=== PATIENT | male | born 1960 | race Caucasian/White ===

== ENCOUNTER 2020-04-21 07:53 | Outpatient (REF) | payer MEDICAID, SELFPAY ==
[2020-04-21 09:39] LABS: MANUAL DIFF FLAG NO
[2020-04-21 09:55] LABS: Basophils Percent Auto 0.2 % (0-2); Eosinophils Percent Auto 0.5 % (0-4); Estimated Average Glucose 111 mg/dL; Hematocrit 46.4 % (42-52); Hemoglobin 15.4 g/dl (14.0-18.0); Hemoglobin A1C 151.2643 umol/L; Hemoglobin A1c % 5.5 %; Imm Gran Abs Auto 0.03 X10*3/uL (0.00-0.03); Imm Gran Pct Auto 0.5 % (0.0-0.4); Lymphocytes Absolute Auto 1.6 X10*3/uL (1.2-4.9); Lymphocytes Percent Auto 26.2 % (20-40); Mean Corpuscular HGB Conc 33.2 g/dl (31.0-36.0); Mean Corpuscular Hemoglobin 29.7 pg (27.0-33.0); Mean Corpuscular Volume 89.6 fL (80-98); Mean Platelet Volume 9.7 fL (9.4-12.4); Monocytes Absolute Auto 0.4 X10*3/uL (0.1-1.2); Neutrophils Percent Auto 65.6 % (45-73); Platelet Count 165 X10*3/uL (160-400); Red Blood Count 5.18 X10*6/uL (4.60-5.80); Red Cell Distribution Width 13.2 % (11.0-16.0)
[2020-04-21 09:58] LABS: Alanine Aminotransferase 24 U/L (0-40); Albumin Level 4.6 g/dL (3.5-5.0); Alkaline Phosphatase 69 U/L (39-117); Anion Gap 12 (12-20); Aspartate Amino Transferase 19 U/L (5-37); Bilirubin Total 0.6 mg/dL (0.0-1.0); Blood Urea Nitrogen 24 mg/dL (9-16); Calcium 9.3 mg/dL (8.4-10.2); Carbon Dioxide 27 mmol/L (22-29); Chloride 107 mmol/L (96-108); Estimated Glomerular Filt Rate > 60; Glucose Fasting 99 mg/dL (60-99); Potassium 4.5 mmol/l (3.3-5.1); Sodium 141 mmol/L (135-145); Total Protein 7.1 g/dL (6.5-8.0)
== END 2020-04-21 07:54 | disposition home or self-care (01) ==
LOC: HO.LAB 07:53
PROVIDERS: PCP Internal Medicine Medical Oncology; Visit Provider Internal Medicine Medical Oncology
DX: M19.90 Unspecified osteoarthritis, unspecified site (principal); R97.20 Elevated prostate specific antigen [PSA]; E78.1 Pure hyperglyceridemia
CPT/HCPCS: 36415; 80053; 83036; 83735; 85025

== ENCOUNTER 2020-10-15 07:04 | Outpatient (REF) | payer MEDICAID, SELFPAY ==
[2020-10-15 08:10] LABS: MANUAL DIFF FLAG NO
[2020-10-15 08:17] LABS: Basophils Percent Auto 0.2 % (0-2); Eosinophils Percent Auto 0.7 % (0-4); Hematocrit 45.7 % (42-52); Hemoglobin 15.2 g/dl (14.0-18.0); Imm Gran Abs Auto 0.06 X10*3/uL (0.00-0.03); Imm Gran Pct Auto 1.1 % (0.0-0.4); Lymphocytes Absolute Auto 1.4 X10*3/uL (1.2-4.9); Lymphocytes Percent Auto 26.4 % (20-40); Mean Corpuscular HGB Conc 33.3 g/dl (31.0-36.0); Mean Corpuscular Hemoglobin 29.7 pg (27.0-33.0); Mean Corpuscular Volume 89.3 fL (80-98); Mean Platelet Volume 9.7 fL (9.4-12.4); Monocytes Absolute Auto 0.3 X10*3/uL (0.1-1.2); Monocytes Percent Auto 6.1 % (2-11); Neutrophils Absolute Auto 3.6 X10*3/uL (2.0-8.3); Neutrophils Percent Auto 65.5 % (45-73); Platelet Count 158 X10*3/uL (160-400); Red Blood Count 5.12 X10*6/uL (4.60-5.80); Red Cell Distribution Width 13.1 % (11.0-16.0); White Blood Count 5.5 X10*3/uL (4.8-10.8)
[2020-10-15 08:36] LABS: Cholesterol 170 mg/dL; HDL Cholesterol 45 mg/dL; LDL Cholesterol Calculated 100 mg/dl; Triglycerides 125 mg/dL
[2020-10-15 08:40] LABS: Alanine Aminotransferase 24 U/L (0-40); Albumin Level 4.3 g/dL (3.5-5.0); Alkaline Phosphatase 73 U/L (39-117); Anion Gap 12 (12-20); Aspartate Amino Transferase 17 U/L (5-37); Bilirubin Total 0.7 mg/dL (0.0-1.0); Blood Urea Nitrogen 18 mg/dL (9-16); Calcium 9.2 mg/dL (8.4-10.2); Carbon Dioxide 25 mmol/L (22-29); Chloride 109 mmol/L (96-108); Estimated Glomerular Filt Rate > 60; Glucose Fasting 106 mg/dL (60-99); Potassium 4.6 mmol/L (3.3-5.1); Sodium 141 mmol/L (135-145); Total Protein 6.7 g/dL (6.5-8.0)
[2020-10-15 09:23] LABS: Prostate Specific Antigen 5.52 ng/mL (<0.05-4.0)
== END 2020-10-15 07:05 | disposition home or self-care (01) ==
LOC: HO.LAB 07:04
PROVIDERS: PCP Internal Medicine Medical Oncology; Visit Provider Internal Medicine Medical Oncology
DX: Z12.5 Encounter for screening for malignant neoplasm of prostate (principal); M19.90 Unspecified osteoarthritis, unspecified site; R97.20 Elevated prostate specific antigen [PSA]; E78.1 Pure hyperglyceridemia; N40.0 Benign prostatic hyperplasia without lower urinary tract symptoms; R73.9 Hyperglycemia, unspecified
CPT/HCPCS: 36415; 80053; 80061; 84153; 85025

== ENCOUNTER 2021-05-20 07:09 | Outpatient (REF) | payer MEDICAID, SELFPAY ==
--- NOTE | ~2021-05-20 | XR_ITS ---
EXAMINATION: XR CHEST CLINICAL INFORMATION: History of Covid infection COMPARISON: Previous chest x-ray most recent August 2018 TECHNIQUE: 2 views of the chest were obtained. FINDINGS: The cardiac and mediastinal contours are stable. The lungs are clear. There is no pleural effusion or pneumothorax. There are degenerative changes of the spine. XR/XR chest 2V IMPRESSION: No evidence for acute disease in the chest.
== END 2021-05-20 07:10 | disposition home or self-care (01) ==
LOC: HO.XRAY 07:09
PROVIDERS: PCP Internal Medicine Medical Oncology; Visit Provider Internal Medicine Medical Oncology
DX: B34.2 Coronavirus infection, unspecified (principal)
CPT/HCPCS: 71046

== ENCOUNTER 2021-07-14 10:02 | Emergency (ER) | payer MEDICAID, SELFPAY ==
--- NOTE | ~2021-07-14 | XR_ITS ---
EXAMINATION: XR FINGER, RIGHT CLINICAL INFORMATION: From laceration. COMPARISON: None TECHNIQUE: 4 views of the right thumb. FINDINGS: There is a soft tissue laceration tip of right thumb. No underlying bony fracture or avulsion injury. There is mild soft tissue swelling. Mild loss of PIP joint space is seen. XR/XR finger RT min 2V IMPRESSION: Soft tissue laceration tip of right thumb. No underlying bony abnormality seen.
[2021-07-14 10:29] VITALS: BP 146/95; PULSE 73; RESP 18; TEMP 36.8; O2SAT 97; BMI 24.1
[2021-07-14] MEDS: Diphth,Pertus(ACell),Tet Adult 0.5 ML SYRINGE IM (12:07)
[2021-07-14] MEDS: Lidocaine HCl 1 % MPF 5 ML VIAL SUBCUT ×2 (12:07)
--- NOTE | 2021-07-14 13:10 | ED.GENADULT ---
HPI - General Adult General Chief complaint: Skin/Abscess/Foreign Body Stated complaint: wound/laceration Time Seen by Provider: 07/14/21 11:36 History of Present Illness HPI narrative: Patient complains of right thumb laceration when a circular saw slipped and cut into the pad of the tip of his right thumb, no numbness weakness or tingling Related Data Previous Rx's Medication Instructions Recorded cephalexin 500 mg tablet 500 mg PO QID 3 Days #12 tab 07/14/21 Allergies Allergy/AdvReac Type Severity Reaction Status Date / Time No Known Allergies Allergy Verified 07/14/21 10:29 [No Known Allergies*] Review of Systems Review of Systems: Positive for thumb laceration Negatives are no fever no chills no dizziness no weakness no fainting no feeling faint no headache no neck pain no back pain no numbness weakness or tingling Yes all other systems are reviewed and are negative [facility] Past Medical History Source: nursing notes reviewed Social History Social History Advance Directives: No Advance Directives Information Provided: No Physical Exam ED Vital Signs: Vital Signs - 24 hr 07/14/21 10:29 Temperature 98.3 F Pulse Rate 73 Respiratory Rate 18 Blood Pressure 146/95 H Pulse Oximetry 97 BMI result Body Mass Index 24.1 General appearance no acute distress Head is normocephalic atraumatic Neck is supple Respiratory no distress Extremities full range of motion x4 in all joints Right finger exam the right thumb has a partially avulsed pad of the distal phalanx, tendon function is full and normal there is no tendon deficit and sensation and motor are intact, the laceration is jagged Neuro no motor or sensory deficits Course Course Course Narrative: Right thumb laceration procedure note, the 2 cm right thumb flap laceration is cleansed and irrigated with normal saline, no foreign body identified Anesthesia is is 6 cc of 1% lidocaine digital block Closure was with 5 0 nylon sutures Bleeding was controlled and dressing was applied Patient is given prophylactic antibiotic, a tetanus shot and is discharged Discharge Plan Discharge Clinical Impression: Laceration of right thumb Patient Disposition: Home, Self-Care Additional Instructions: The jagged cut had some skin missing, it sutured as best I could but there are still some small open areas X-ray did not show any broken bone and on my exam I did not see any foreign bodies You got a tetanus today and we started preventive antibiotics as it looked like a somewhat dirty wound If possible by probiotics to take with her antibiotics, available [id number] at the pharmacy in the vitamin section, to prevent antibiotic associated diarrhea Stitches should come out in around 10 days Return any time for redness swelling pain discharge from wound red stripe up arm any sign of infection any worse condition or any concerns Prescriptions: New cephalexin 500 mg tablet 500 mg PO QID 3 Days Qty: 12 0RF Rx Instructions: Antibiotic to prevent infection Interventions: ED Discharge Assessment Last Done: 07/14/21 13:24 Discharge Date/Time: 07/14/21 13:26
[2021-07-14] MEDS: cephALEXin 500 MG CAPSULE PO (13:22)
== END 2021-07-14 13:26 | disposition home or self-care (01) ==
PROVIDERS: Emergency Provider Emergency Medicine; PCP Internal Medicine Medical Oncology
DX: S61.011A Laceration without foreign body of right thumb without damage to nail, initial encounter (principal); W27.0XXA Contact with workbench tool, initial encounter; Y93.9 Activity, unspecified; Y92.9 Unspecified place or not applicable; Y99.9 Unspecified external cause status
CPT/HCPCS: 12001; 73140; 90471; 90715; 99282; 99284

== ENCOUNTER 2021-07-30 06:38 | Outpatient (REF) | payer MEDICAID, SELFPAY ==
[2021-07-30 06:54] LABS: MANUAL DIFF FLAG NO
[2021-07-30 07:39] LABS: Basophils Percent Auto 0.2 % (0-2); Eosinophils Absolute Auto 0.1 X10*3/uL (0.0-0.4); Eosinophils Percent Auto 0.9 % (0-4); Hematocrit 47.4 % (42.0-52.0); Hemoglobin 15.8 g/dl (14.0-18.0); Imm Gran Abs Auto 0.03 X10*3/uL (0.00-0.03); Imm Gran Pct Auto 0.6 % (0.0-0.4); Lymphocytes Absolute Auto 1.6 X10*3/uL (1.2-4.9); Lymphocytes Percent Auto 29.4 % (20-40); Mean Corpuscular HGB Conc 33.3 g/dl (31.0-36.0); Mean Corpuscular Hemoglobin 29.8 pg (27.0-33.0); Mean Corpuscular Volume 89.3 fL (80.0-98.0); Mean Platelet Volume 9.6 fL (9.4-12.4); Monocytes Absolute Auto 0.3 X10*3/uL (0.1-1.2); Monocytes Percent Auto 6.4 % (2-11); Neutrophils Absolute Auto 3.3 x10*3/uL (2.0-8.3); Neutrophils Percent Auto 62.5 % (45-73); Platelet Count 175 X10*3/uL (160-400); Red Blood Count 5.31 X10*6/uL (4.60-5.80); White Blood Count 5.3 X10*3/uL (4.8-10.8)
[2021-07-30 07:48] LABS: Appearance Urine CLEAR; Color Urine YELLOW; Glucose Urine UA NEG (NEG); Leukocyte Esterase Urine NEG (NEG); Nitrite Urine NEG (NEG); Specific Gravity - Urine >= 1.030 (1.005-1.025); Urine Blood NEG (NEG); Urine Ketones NEG (NEG); Urine Protein NEG (NEG-TRACE)
[2021-07-30 08:02] LABS: Alanine Aminotransferase 28 U/L (0-40); Albumin Level 4.3 g/dL (3.5-5.0); Alkaline Phosphatase 70 U/L (39-117); Anion Gap 12 (12-20); Aspartate Amino Transferase 22 U/L (5-37); Bilirubin Total 0.3 mg/dL (0.0-1.0); Blood Urea Nitrogen 19 mg/dL (9-16); Calcium 9.4 mg/dL (8.4-10.2); Carbon Dioxide 26 mmol/L (22-29); Chloride 109 mmol/L (96-108); Cholesterol 191 mg/dL; Estimated Glomerular Filt Rate > 60; Glucose Random 104 mg/dL (60-115); HDL Cholesterol 47 mg/dL; LDL Cholesterol Calculated 125 mg/dl; Potassium 4.6 mmol/L (3.3-5.1); Sodium 142 mmol/L (135-145); Total Protein 6.8 g/dL (6.5-8.0); Triglycerides 95 mg/dL
[2021-07-30 08:26] LABS: Prostate Specific Antigen 6.22 ng/mL (<0.05-4.0)
== END 2021-07-30 06:39 | disposition home or self-care (01) ==
LOC: HO.LAB 06:38
PROVIDERS: PCP Internal Medicine Medical Oncology; Visit Provider Internal Medicine Medical Oncology
DX: R73.9 Hyperglycemia, unspecified (principal); R97.20 Elevated prostate specific antigen [PSA]
CPT/HCPCS: 36415; 80053; 80061; 81003; 84153; 85025

== ENCOUNTER → 2021-07-31 11:52 | Outpatient (BNVA) | payer MEDICAID, SELFPAY | PROVIDERS: PCP Internal Medicine Medical Oncology; Visit Provider Physician Assistant | DX: S61.011A Laceration without foreign body of right thumb without damage to nail, initial encounter (principal) | CPT/HCPCS: 99202 ==

== ENCOUNTER → 2021-08-11 14:12 | Outpatient (BNVA) | payer MEDICAID, SELFPAY | PROVIDERS: PCP Internal Medicine Medical Oncology; Visit Provider Orthopaedic Surgery | DX: S61.011D Laceration without foreign body of right thumb without damage to nail, subsequent encounter (principal) | CPT/HCPCS: 99212 ==

== ENCOUNTER → 2021-08-18 12:09 | Outpatient (BNVA) | payer MEDICAID, SELFPAY | PROVIDERS: PCP Internal Medicine Medical Oncology; Visit Provider Physician Assistant | DX: S61.011D Laceration without foreign body of right thumb without damage to nail, subsequent encounter (principal) | CPT/HCPCS: 99212 ==

== ENCOUNTER 2021-08-27 09:33 | Day surgery (SDC) | payer MEDICAID, SELFPAY ==
--- NOTE | 2021-08-27 09:11 | W.PM.OPN ---
Operative Note Operative Note Date of Service: 08/27/21 Narrative: Operative Note Preop diagnosis: 1. Right thumb table saw wound with necrotic tissue. Postop diagnosis: same Procedure: 1. Debridement of right thumb wound. 2. Right thumb Soft tissue rearrangements to facilitate skin coverage Surgeon: Danae Edge MD Anesthesia: digital block using 1% lidocaine with epinephrine Findings: Some necrotic skin along the radial border of the wound was found and debrided. No evidence of infection. The flap of tissue had healed in a proximally migrated position suboptimal for skin coverage. EBL: Less than 5 mL Tourniquet time: None Specimens: None Complications: None Disposition: Brought to recovery room in stable condition Plan: Follow-up for 7-10 days for wound check . Anticipate suture removal at not sooner than 10-14 days depending on the appearance of wound healing Indications: The patient is 61 years old, with table saw injury to the tip of the right thumb that had healed with some tissue necrosis and proximal migration of the flap of tissue after suture removal. The risks and benefits of operative treatment including but not limited to risk of damage to blood vessels, nerves, tendons, infection, persistent pain, persistent symptoms, recurrence or possible need for additional surgery were discussed with the patient and the patient wishes to proceed with surgery. Procedure: Once consent was obtained a digital block was performed in the preop area using a combination of 1% lidocaine with epinephrine. The patient was then brought back to the operating suite and placed on the operative table in supine position. A tourniquet was applied to the proximal aspect of the right upper extremity and the limb was prepped and draped in a standard surgical fashion. Once assured that we had a good block, I sharply debrided the necrotic tissue from the radial edge of the soft tissue flap using a 15. Blade. The ulnarly based flap had migrated proximally and ulnarly in adequately functioning as skin coverage. I then used a 15. Blade to recreate the original flap along its proximal and radial edges. Tenotomy scissors were facilitated to mobilize the flap and remove some excessive granulation tissue from the wound. The wound edges were freshened up using a 15. Blade to remove approximately 1 mm from the wound edges. The wound was copiously irrigated with normal saline. mobilizing the ulnarly based flap into position I then reapproximated the skin edges using some 4-0 Prolene suture material. The patient appears to have tolerated the procedure well and with no complications. All digits were well vascularized at the conclusion of the case.
[2021-08-27 09:45] VITALS: BP 137/75; PULSE 69; RESP 18; TEMP 36.9; O2SAT 95
[2021-08-27 09:49] VITALS: BMI 24.4
[2021-08-27 16:32] VITALS: BP 145/65; PULSE 74; RESP 18; TEMP 36.7; O2SAT 96
--- NOTE | 2021-08-27 17:05 | PC.NURSE ---
dr. alan made aware no antibiotic ordered per discharge insturcrajinder. joe to send antibiotic script to patient pharmacy
--- NOTE | 2021-08-27 18:36 | MHC.SHP ---
Pre-Procedural Eval Section A Date of Service: 08/27/21 The patient is an INPATIENT: No Changes since office visit: No Cold of Flu in the past 2 weeks, No New Medical Problems, No Changes in Medication and No Patient answered all questions The History & Physical has been completed within 30 days and I have reviewed it.: Yes Section B Chief Complaint: Laceration without foreign body of right thumb Allergies: Allergies Allergy/AdvReac Type Severity Reaction Status Date / Time No Known Allergies Allergy Verified 08/18/21 12:16 [No Known Allergies*] Plan I have reviewed the history and physical and performed a pertinent physical examination on my patient. No changes have occurred unless specified.
== END 2021-08-27 16:57 | disposition home or self-care (01) ==
PROVIDERS: PCP Internal Medicine Medical Oncology; Visit Provider Orthopaedic Surgery
PROC: (CPT 11042; principal; 2021-08-27 13:00)
DX: S61.011A Laceration without foreign body of right thumb without damage to nail, initial encounter (principal); I96 Gangrene, not elsewhere classified; W31.2XXA Contact with powered woodworking and forming machines, initial encounter; Y93.9 Activity, unspecified; Y92.9 Unspecified place or not applicable; Y99.8 Other external cause status
CPT/HCPCS: 11042; J0171

== ENCOUNTER → 2021-09-09 07:53 | Outpatient (BNVA) | payer MEDICAID, SELFPAY | PROVIDERS: PCP Internal Medicine Medical Oncology; Visit Provider Orthopaedic Surgery | DX: Z13.89 Encounter for screening for other disorder (principal) ==

== ENCOUNTER 2021-12-25 05:52 | Outpatient (REF) | payer MEDICARE, MEDICAID, SELFPAY ==
[2021-12-25 08:11] LABS: PSA,Total (Free>4and<10) 4.53 ng/mL (0.00-4.00)
[2021-12-28 11:17] LABS: Free Prostate Spec Ag 1.2 ng/mL; Percent Free Prostate Spec Ag 25 % (calc) (>25); Prostate Specific Ag Total 4.8 ng/mL (< OR = 4.0)
== END 2021-12-25 05:53 | disposition home or self-care (01) ==
LOC: HO.LAB 05:52
PROVIDERS: PCP Internal Medicine Medical Oncology; Visit Provider Internal Medicine Medical Oncology
DX: Z12.5 Encounter for screening for malignant neoplasm of prostate (principal); R97.20 Elevated prostate specific antigen [PSA]
CPT/HCPCS: 36415; 84153; 84154

== ENCOUNTER → 2022-02-04 12:50 | Outpatient (BNVA) | payer MEDICARE, MEDICAID, SELFPAY | PROVIDERS: PCP Internal Medicine Medical Oncology; Visit Provider Physician Assistant | DX: Z12.11 Encounter for screening for malignant neoplasm of colon (principal); Z86.010 Personal history of colon polyps | CPT/HCPCS: 99202 ==

== ENCOUNTER 2022-02-15 11:51 | Outpatient (REF) | payer MEDICARE, MEDICAID, SELFPAY ==
--- NOTE | ~2022-02-15 | XR_ITS ---
EXAMINATION: XR RIBS, LEFT, PA CHEST CLINICAL INFORMATION: Left-sided rib pain. COMPARISON: Chest radiographs dated 05/20/2021. TECHNIQUE: 3 views of the left ribs were obtained along with a PA view of the chest. A skin marker was placed overlying the inferior left ribs. FINDINGS: Lungs are clear. No consolidation, pneumothorax, or pleural effusion. The cardiomediastinal silhouette and pulmonary vasculature are normal. Osseous structures are unremarkable. Ribs are intact. No fractures are identified. XR/XR ribs LT min 3V w CXR1V IMPRESSION: Unremarkable examination.
== END 2022-02-15 11:52 | disposition home or self-care (01) ==
LOC: HO.XRAY 11:51
PROVIDERS: PCP Internal Medicine Medical Oncology; Visit Provider Internal Medicine Medical Oncology
DX: R07.81 Pleurodynia (principal)
CPT/HCPCS: 71101

== ENCOUNTER 2022-03-17 09:06 | Outpatient (REF) | payer MEDICARE, MEDICAID, SELFPAY ==
--- NOTE | ~2022-03-17 | XR_ITS ---
EXAMINATION: XR CHEST CLINICAL INFORMATION: Cough. COMPARISON: 02/15/2022 chest and rib radiographs. TECHNIQUE: 2 views of the chest were obtained. FINDINGS: No significant abnormality is noted involving the heart, lungs, mediastinum, bony thorax or soft tissues. XR/XR chest 2V IMPRESSION: No acute cardiopulmonary process.
== END 2022-03-17 09:07 | disposition home or self-care (01) ==
LOC: HO.XRAY 09:06
PROVIDERS: PCP Internal Medicine Medical Oncology; Visit Provider Internal Medicine Medical Oncology
DX: R05.9 Cough, unspecified (principal)
CPT/HCPCS: 71046

== ENCOUNTER 2022-06-25 06:08 | Outpatient (REF) | payer MEDICARE, MEDICAID, SELFPAY ==
[2022-06-25 06:20] LABS: MANUAL DIFF FLAG NO
[2022-06-25 07:42] LABS: Basophils Percent Auto 0.2 % (0-2); Eosinophils Absolute Auto 0.1 X10*3/uL (0.0-0.4); Eosinophils Percent Auto 0.8 % (0-4); Hematocrit 46.6 % (42.0-52.0); Hemoglobin 15.6 g/dl (14.0-18.0); Imm Gran Abs Auto 0.04 X10*3/uL (0.00-0.03); Imm Gran Pct Auto 0.7 % (0.0-0.4); Lymphocytes Absolute Auto 1.6 X10*3/uL (1.2-4.9); Lymphocytes Percent Auto 27.1 % (20-40); Mean Corpuscular HGB Conc 33.5 g/dl (31.0-36.0); Mean Corpuscular Hemoglobin 29.8 pg (27.0-33.0); Mean Corpuscular Volume 88.9 fL (80.0-98.0); Mean Platelet Volume 9.6 fL (9.4-12.4); Monocytes Absolute Auto 0.5 X10*3/uL (0.1-1.2); Monocytes Percent Auto 7.6 % (2-11); Neutrophils Absolute Auto 3.8 x10*3/uL (2.0-8.3); Neutrophils Percent Auto 63.6 % (45-73); Platelet Count 165 X10*3/uL (160-400); Red Blood Count 5.24 X10*6/uL (4.60-5.80); Red Cell Distribution Width 13.2 % (11.0-16.0)
[2022-06-25 08:22] LABS: Alanine Aminotransferase 32 U/L (0-40); Albumin Level 4.1 g/dL (3.5-5.0); Alkaline Phosphatase 76 U/L (39-117); Anion Gap 12 (12-20); Aspartate Amino Transferase 21 U/L (5-37); Bilirubin Total 0.6 mg/dL (0.0-1.0); Blood Urea Nitrogen 15 mg/dL (9-16); Calcium 8.7 mg/dL (8.4-10.2); Carbon Dioxide 25 mmol/L (22-29); Chloride 108 mmol/L (96-108); Cholesterol 176 mg/dL; Estimated Glomerular Filt Rate > 60; Glucose Fasting 99 mg/dL (60-99); HDL Cholesterol 37 mg/dL; LDL Cholesterol Calculated 89 mg/dl; Potassium 4.2 mmol/L (3.3-5.1); Sodium 141 mmol/L (135-145); Total Protein 6.6 g/dL (6.5-8.0); Triglycerides 251 mg/dL
== END 2022-06-25 06:09 | disposition home or self-care (01) ==
LOC: HO.LAB 06:08
PROVIDERS: PCP Internal Medicine Medical Oncology; Visit Provider Internal Medicine Medical Oncology
DX: J20.9 Acute bronchitis, unspecified (principal); R73.9 Hyperglycemia, unspecified; E66.3 Overweight
CPT/HCPCS: 36415; 80053; 80061; 85025

== ENCOUNTER 2022-07-06 06:15 | Outpatient (REF) | payer MEDICARE, MEDICAID, SELFPAY ==
[2022-07-06 08:48] LABS: Erythrocyte Sedimentation Rate 2 MM/HR (0-15)
[2022-07-06 09:50] LABS: Free T4 (Free Thyroxine) 0.78 ng/dL (0.71-1.85); Prostate Specific Antigen 6.39 ng/mL (<0.05-4.0); Thyroid Stimulating Hormone 4.17 uIU/mL (0.32-4.0)
[2022-07-11 10:13] LABS: Testosterone, Total 294 ng/dL (250-1100)
== END 2022-07-06 06:16 | disposition home or self-care (01) ==
LOC: HO.LAB 06:15
PROVIDERS: PCP Internal Medicine Medical Oncology; Visit Provider Internal Medicine Medical Oncology
DX: R53.83 Other fatigue (principal); R40.0 Somnolence; M19.90 Unspecified osteoarthritis, unspecified site; R97.20 Elevated prostate specific antigen [PSA]; N52.9 Male erectile dysfunction, unspecified; Z12.5 Encounter for screening for malignant neoplasm of prostate
CPT/HCPCS: 36415; 84153; 84403; 84439; 84443; 85652

== ENCOUNTER 2022-07-08 12:17 | Day surgery (SDC) | payer MEDICARE, MEDICAID, SELFPAY ==
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
[2022-07-08 06:53] VITALS: BMI 26.7
[2022-07-08 12:45] VITALS: BP 128/72; PULSE 68; RESP 20; TEMP 36.3; O2SAT 97
[2022-07-08] MEDS: Lactated Ringers 1,000 ML 100 ML IVCONT (13:04)
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
--- NOTE | 2022-07-08 14:11 | W.PM.OPN ---
Operative Note Operative Note Date of Service: 07/08/22 Narrative: Operative Information Procedure Description: Colonoscopy Indication: screening Anesthesia: MAC COLONOSCOPY Instrument: Olympus variable stiffness pediatric scope 190L Colonoscopy Monitoring: Vital signs and clinical assessment, continuous EKG monitoring, Pulse oximetry, Carbon Dioxide monitoring and blood pressure monitoring were done throughout the procedure. Colon withdrawal time was 9 minutes. Procedure: The patient was placed in the left lateral decubitis position and pre-procedure medications were administered. After a digital rectal examination of the ano-rectum, the video colonoscope was inserted into the rectum and advanced through the colon to the cecum/TI. The colonoscope was slowly withdrawn in a retrograde panoramic fashion and the colon mucosa was carefully examined including a retroflexed view of the rectum. Findings and interventions are described below. Procedure Difficulty: easy Findings: Terminal Ileum-normal Cecum: 3-4 mm sessile polyp removed with cold forceps Ascending Colon: normal Transverse Colon -normal Descending Colon:normal Sigmoid Colon: normal Rectum: Retroflexion with small internal hemorrhoids, grade I Anorectum - normal Colon preparation: [place] Bowel Preparation Scale Right colon; 3 Transverse colon: 2 Left colon; 3 (0 = Unprepared colon segment with mucosa not seen due to solid stool that cannot be cleared. 1 = Portion of mucosa of the colon segment seen, but other areas of the colon segment not well seen due to staining, residual stool and/or opaque liquid. 2 = Minor amount of residual staining, small fragments of stool and/or opaque liquid, but mucosa of colon segment seen well. 3 = Entire mucosa of colon segment seen well with no residual staining, small fragments of stool or opaque liquid) Impression and Post Procedure Diagnosis: polyp internal hemorrhoids Plan: High fiber diet leaflet Avoid straining at stool, epsom salts and sitz bath, anusol supps or cream Repeat Colonoscopy in 7-10 years if or earlier if clinically indicated Above findings were reviewed with the patient and relevant handouts were provided if indicated.
[2022-07-08 14:15] VITALS: BP 127/81; PULSE 75; RESP 18; TEMP 36.6; O2SAT 96
[2022-07-08 14:30] VITALS: BP 134/87; PULSE 66; RESP 18; TEMP 36.6; O2SAT 96
== END 2022-07-08 15:24 | disposition home or self-care (01) ==
PROVIDERS: PCP Internal Medicine Medical Oncology; Visit Provider Internal Medicine Gastroenterology
PROC: 0DJD8ZZ Inspection of Lower Intestinal Tract, Via Natural or Artificial Opening Endoscopic (ICD-10-PCS; CPT 45378; principal; 2022-07-08 13:50)
DX: Z12.11 Encounter for screening for malignant neoplasm of colon (principal); Z86.010 Personal history of colon polyps; K63.5 Polyp of colon; K64.0 First degree hemorrhoids; K21.9 Gastro-esophageal reflux disease without esophagitis; Z79.899 Other long term (current) drug therapy; Z87.442 Personal history of urinary calculi
CPT/HCPCS: 45380; 88305

== ENCOUNTER → 2022-07-20 20:30 | Outpatient (REF) | payer MEDICARE, MEDICAID, SELFPAY | LOC: HO.SL 20:30 | PROVIDERS: PCP Internal Medicine Medical Oncology; Visit Provider Internal Medicine Medical Oncology | DX: G47.33 Obstructive sleep apnea (adult) (pediatric) (principal) | CPT/HCPCS: 95811 ==

== ENCOUNTER → 2022-07-22 07:38 | Outpatient (BNVA) | payer MEDICARE, MEDICAID, SELFPAY | PROVIDERS: PCP Internal Medicine Medical Oncology; Referring Provider Internal Medicine Medical Oncology; Visit Provider Physician Assistant | DX: K63.5 Polyp of colon (principal); K64.8 Other hemorrhoids; Z98.890 Other specified postprocedural states | CPT/HCPCS: 99212 ==

== ENCOUNTER 2023-02-22 12:11 | Outpatient (AMB) | payer MEDICARE, SELFPAY ==
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
[2023-02-22 14:53] VITALS: BP 122/68; PULSE 97; TEMP 35.8; O2SAT 100
== END 2023-02-22 15:17 | disposition home or self-care (01) ==
PROVIDERS: PCP Internal Medicine Medical Oncology; Visit Provider Internal Medicine
DX: J06.9 Acute upper respiratory infection, unspecified (principal)
CPT/HCPCS: 99213

== ENCOUNTER 2023-02-22 15:13 | Outpatient (REF) | payer MEDICARE, SELFPAY ==
[2023-02-22 15:33] LABS: Binax Internal Control QC Valid; Binax Now Covid-19 Ag Negative (Negative); Binax Performed by: PAULP
== END 2023-02-22 15:14 | disposition home or self-care (01) ==
LOC: HO.HMGCLDS 15:13
PROVIDERS: PCP Internal Medicine Medical Oncology; Visit Provider Internal Medicine
DX: Z11.52 Encounter for screening for COVID-19 (principal); J06.9 Acute upper respiratory infection, unspecified
CPT/HCPCS: 87811; C9803

== ENCOUNTER 2023-06-27 05:58 | Outpatient (REF) | payer OTHER, SELFPAY ==
[2023-06-27 06:12] LABS: MANUAL DIFF FLAG NO
[2023-06-27 07:42] LABS: Basophils Percent Auto 0.3 % (0-2); Eosinophils Absolute Auto 0.1 X10*3/uL (0.0-0.4); Eosinophils Percent Auto 0.9 % (0-4); Hematocrit 46.5 % (42.0-52.0); Hemoglobin 15.9 g/dl (14.0-18.0); Imm Gran Abs Auto 0.02 X10*3/uL (0.00-0.03); Imm Gran Pct Auto 0.3 % (0.0-0.4); Lymphocytes Absolute Auto 1.6 X10*3/uL (1.2-4.9); Mean Corpuscular HGB Conc 34.2 g/dl (31.0-36.0); Mean Corpuscular Hemoglobin 29.9 pg (27.0-33.0); Mean Corpuscular Volume 87.4 fL (80.0-98.0); Mean Platelet Volume 9.8 fL (9.4-12.4); Monocytes Absolute Auto 0.4 X10*3/uL (0.1-1.2); Monocytes Percent Auto 7.1 % (2-11); Neutrophils Absolute Auto 3.7 x10*3/uL (2.0-8.3); Neutrophils Percent Auto 64.4 % (45-73); Platelet Count 170 X10*3/uL (160-400); Red Blood Count 5.32 X10*6/uL (4.60-5.80); Red Cell Distribution Width 12.8 % (11.0-16.0); White Blood Count 5.7 X10*3/uL (4.8-10.8)
[2023-06-27 08:06] LABS: Alanine Aminotransferase 34 U/L (0-40); Albumin Level 4.1 g/dL (3.5-5.0); Alkaline Phosphatase 83 U/L (39-117); Anion Gap 11 (12-20); Aspartate Amino Transferase 18 U/L (5-37); Bilirubin Total 0.4 mg/dL (0.0-1.0); Blood Urea Nitrogen 23 mg/dL (9-16); Carbon Dioxide 25 mmol/L (22-29); Chloride 110 mmol/L (96-108); Cholesterol 166 mg/dL (<200); Estimated Glomerular Filt Rate > 60; Glucose Fasting 108 mg/dL (60-99); HDL Cholesterol 43 mg/dL (>40); LDL Cholesterol Calculated 90 mg/dL (<100); Potassium 4.2 mmol/L (3.3-5.1); Sodium 142 mmol/L (135-145); Total Protein 6.8 g/dL (6.5-8.0); Triglycerides 165 mg/dL (<150)
[2023-06-27 08:22] LABS: Free T4 (Free Thyroxine) 0.74 ng/dL (0.71-1.85); Thyroid Stimulating Hormone 3.53 uIU/mL (0.32-4.0)
[2023-06-27 08:33] LABS: Erythrocyte Sedimentation Rate 2 MM/HR (0-15)
[2023-07-01 15:18] LABS: Testosterone, Total 363 ng/dL (250-1100)
== END 2023-06-27 05:59 | disposition home or self-care (01) ==
LOC: HO.LAB 05:58
PROVIDERS: PCP Internal Medicine Medical Oncology; Visit Provider Internal Medicine Medical Oncology
DX: N40.0 Benign prostatic hyperplasia without lower urinary tract symptoms (principal); R97.20 Elevated prostate specific antigen [PSA]; N52.9 Male erectile dysfunction, unspecified; R53.83 Other fatigue; E78.1 Pure hyperglyceridemia; K21.9 Gastro-esophageal reflux disease without esophagitis
CPT/HCPCS: 36415; 80053; 80061; 84403; 84439; 84443; 85025; 85652

== ENCOUNTER 2024-01-24 06:01 | Outpatient (REF) | payer MEDICARE, MEDICAID, SELFPAY ==
[2024-01-24 06:14] LABS: MANUAL DIFF FLAG NO
[2024-01-24 07:49] LABS: Basophils Percent Auto 0.2 % (0-2); Eosinophils Percent Auto 0.6 % (0-4); Hemoglobin 15.9 g/dl (14.0-18.0); Imm Gran Abs Auto 0.03 X10*3/uL (0.00-0.03); Imm Gran Pct Auto 0.6 % (0.0-0.4); Lymphocytes Absolute Auto 1.5 X10*3/uL (1.2-4.9); Lymphocytes Percent Auto 28.1 % (20-40); Mean Corpuscular HGB Conc 34.6 g/dl (31.0-36.0); Mean Corpuscular Hemoglobin 30.7 pg (27.0-33.0); Mean Corpuscular Volume 88.8 fL (80.0-98.0); Mean Platelet Volume 9.6 fL (9.4-12.4); Monocytes Absolute Auto 0.4 X10*3/uL (0.1-1.2); Monocytes Percent Auto 7.3 % (2-11); Neutrophils Absolute Auto 3.5 x10*3/uL (2.0-8.3); Neutrophils Percent Auto 63.2 % (45-73); Platelet Count 151 X10*3/uL (160-400); Red Blood Count 5.18 X10*6/uL (4.60-5.80); Red Cell Distribution Width 12.9 % (11.0-16.0); White Blood Count 5.5 X10*3/uL (4.8-10.8)
[2024-01-24 08:30] LABS: Alanine Aminotransferase 33 U/L (0-40); Albumin Level 4.3 g/dL (3.5-5.0); Alkaline Phosphatase 75 U/L (39-117); Anion Gap 11 (12-20); Aspartate Amino Transferase 21 U/L (5-37); Bilirubin Total 0.6 mg/dL (0.0-1.0); Blood Urea Nitrogen 14 mg/dL (9-16); Calcium 9.6 mg/dL (8.4-10.2); Carbon Dioxide 26 mmol/L (22-29); Chloride 109 mmol/L (96-108); Cholesterol 175 mg/dL (<200); Estimated Glomerular Filt Rate > 60; Glucose Fasting 105 mg/dL (60-99); HDL Cholesterol 45 mg/dL (>40); LDL Cholesterol Calculated 105 mg/dL (<100); Potassium 4.7 mmol/L (3.3-5.1); Sodium 141 mmol/L (135-145); Total Protein 6.9 g/dL (6.5-8.0); Triglycerides 128 mg/dL (<150)
[2024-01-24 08:42] LABS: Prostate Specific Antigen 5.35 ng/mL (<0.05-4.0)
== END 2024-01-24 06:02 | disposition home or self-care (01) ==
LOC: HO.LAB 06:01
PROVIDERS: PCP Internal Medicine Medical Oncology; Visit Provider Internal Medicine Medical Oncology
DX: R53.83 Other fatigue (principal); E78.1 Pure hyperglyceridemia; N40.0 Benign prostatic hyperplasia without lower urinary tract symptoms; Z12.5 Encounter for screening for malignant neoplasm of prostate
CPT/HCPCS: 36415; 80053; 80061; 84153; 85025

== ENCOUNTER 2024-02-29 14:19 | Outpatient (REF) | payer MEDICARE, MEDICAID, SELFPAY ==
[2024-02-29 14:34] LABS: MANUAL DIFF FLAG NO
[2024-02-29 14:53] LABS: Basophils Percent Auto 0.1 % (0-2); Eosinophils Absolute Auto 0.1 X10*3/uL (0.0-0.4); Eosinophils Percent Auto 0.7 % (0-4); Hematocrit 43.9 % (42.0-52.0); Hemoglobin 15.1 g/dl (14.0-18.0); Imm Gran Abs Auto 0.03 X10*3/uL (0.00-0.03); Imm Gran Pct Auto 0.4 % (0.0-0.4); Lymphocytes Absolute Auto 1.8 X10*3/uL (1.2-4.9); Lymphocytes Percent Auto 25.4 % (20-40); Mean Corpuscular HGB Conc 34.4 g/dl (31.0-36.0); Mean Corpuscular Hemoglobin 30.2 pg (27.0-33.0); Mean Corpuscular Volume 87.8 fL (80.0-98.0); Mean Platelet Volume 9.2 fL (9.4-12.4); Monocytes Absolute Auto 0.5 X10*3/uL (0.1-1.2); Monocytes Percent Auto 7.3 % (2-11); Neutrophils Absolute Auto 4.7 x10*3/uL (2.0-8.3); Neutrophils Percent Auto 66.1 % (45-73); Platelet Count 172 X10*3/uL (160-400); White Blood Count 7.1 X10*3/uL (4.8-10.8)
[2024-02-29 15:16] LABS: Alanine Aminotransferase 37 U/L (0-40); Albumin Level 4.2 g/dL (3.5-5.0); Alkaline Phosphatase 76 U/L (39-117); Anion Gap 13 (12-20); Aspartate Amino Transferase 24 U/L (5-37); Bilirubin Total 0.5 mg/dL (0.0-1.0); Blood Urea Nitrogen 18 mg/dL (9-16); Calcium 8.7 mg/dL (8.4-10.2); Carbon Dioxide 28 mmol/L (22-29); Chloride 107 mmol/L (96-108); Estimated Glomerular Filt Rate > 60; Glucose Random 98 mg/dL (60-115); Potassium 4.1 mmol/L (3.3-5.1); Sodium 144 mmol/L (135-145); Total Protein 6.9 g/dL (6.5-8.0)
[2024-02-29 15:37] LABS: Prostate Specific Antigen 6.36 ng/mL (<0.05-4.0)
== END 2024-02-29 14:20 | disposition home or self-care (01) ==
LOC: HO.LAB 14:19
PROVIDERS: PCP Internal Medicine Medical Oncology; Visit Provider Internal Medicine Medical Oncology
DX: N40.0 Benign prostatic hyperplasia without lower urinary tract symptoms (principal); N20.1 Calculus of ureter; Z12.5 Encounter for screening for malignant neoplasm of prostate
CPT/HCPCS: 36415; 80053; 84153; 85025; 87086

== ENCOUNTER 2024-03-12 06:03 | Outpatient (REF) | payer MEDICARE, MEDICAID, SELFPAY ==
[2024-03-13 12:09] LABS: Free Prostate Spec Ag 1.8 ng/mL; Percent Free Prostate Spec Ag 27 % (calc) (>25); Prostate Specific Ag Total 6.7 ng/mL (< OR = 4.0)
== END 2024-03-12 06:04 | disposition home or self-care (01) ==
LOC: HO.LAB 06:03
PROVIDERS: PCP Internal Medicine Medical Oncology; Visit Provider Internal Medicine Medical Oncology
DX: R97.20 Elevated prostate specific antigen [PSA] (principal)
CPT/HCPCS: 36415; 84154

== ENCOUNTER 2024-03-13 14:15 | Outpatient (REF) | payer OTHER, SELFPAY ==
[2024-03-14 11:17] LABS: Free Prostate Spec Ag 2.3 ng/mL; Percent Free Prostate Spec Ag 32 % (calc) (>25); Prostate Specific Ag Total 7.2 ng/mL (< OR = 4.0)
== END 2024-03-13 14:16 | disposition home or self-care (01) ==
LOC: HO.LAB 14:15
PROVIDERS: PCP Internal Medicine Medical Oncology; Visit Provider Internal Medicine Medical Oncology
DX: N40.0 Benign prostatic hyperplasia without lower urinary tract symptoms (principal); R97.20 Elevated prostate specific antigen [PSA]
CPT/HCPCS: 36415; 84153; 84154

== ENCOUNTER 2024-04-20 09:17 | Outpatient (AMB) | payer MEDICARE, MEDICAID, SELFPAY ==
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
== END 2024-04-20 10:01 | disposition home or self-care (01) ==
PROVIDERS: PCP Internal Medicine Medical Oncology; Visit Provider Urology
DX: R97.20 Elevated prostate specific antigen [PSA] (principal); N40.1 Benign prostatic hyperplasia with lower urinary tract symptoms
CPT/HCPCS: 99204

== ENCOUNTER → 2024-04-20 09:17 | Outpatient (BNVA) | payer MEDICARE, MEDICAID, SELFPAY | PROVIDERS: PCP Internal Medicine Medical Oncology; Visit Provider Urology | DX: R97.20 Elevated prostate specific antigen [PSA] (principal); N40.1 Benign prostatic hyperplasia with lower urinary tract symptoms | CPT/HCPCS: 51798; 99202 ==

== ENCOUNTER 2024-05-22 07:04 | Day surgery (SDC) | payer MEDICARE, MEDICAID, SELFPAY ==
[2024-05-17 15:40] VITALS: BMI 26.1
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
[2024-05-22] VITALS (7 sets, daily range): BP systolic 105–130; BP diastolic 64–79; PULSE 61–73; RESP 18; TEMP 36.2–36.7; O2SAT 95–98; BMI 24.3
--- OUTSIDE RECORDS SUMMARY | 2024-05-22 07:07 | XMS_ITS ---
Author Organization Dayton Valentin III, MD Address [address] [place] [address] Care Team Providers Care Chief Service Observer Name Role Phone Dayton Valentin Primary Care Provider Allergies Allergen (clinical drug ingredient) Drug/Non Drug Allergy documented on EMR Reaction Allergy Type Onset Date Status Vaccine product containing Influenza virus antigen (medicinal product) Influenza Vaccines Unknown Drug Allergy Ac tive REASON FOR VISIT Dysuria, Urinary frequency, Incomplete bladder emptying, Benign prostatic hypertrophy Medications Medication SIG (Take, Route, Fr equency, Duration) Notes Start Date End Date Status predniSONE 20 MG 1 tablet Orally Once a day 2023 Active Tamsulosin HCl 0.4 MG TAKE 1 CAPSULE BY MOUTH EVERY DAY FOR 30 DAYS Active Bactrim DS 800-160 MG 1 tablet Orally twice a day 02/29/2024 Active Omeprazole 20 MG TAKE 1 CAPSULE BY MO UTH EVERY DAY 30 MINUTES BEFORE MORNING MEAL Active Meloxicam 7.5 MG TAKE 1 TABLET BY BHARAT TH EVERY DAY Active Social History Tobacco Use: Social History Observation Description Date Details (start date - stop date) Never Smoker NA - NA Sex Assigned At : Social History Observation Description Sex Assigned At Male Tobacco Use/Smoking Question Answer Notes Patient is a nonsmoker Additional Findings: Tobacco Non-User Aggressive non-smoker Vital Signs Height 70 in 03/02/2024 Weight 178 lbs 03/02/2024 BMI 25.54 kg/m2 03/02/2024 Encounters Encounter Location Date Provider Diagnosis Dayton Valentin III, MD [address] [place] [address] [place] [address] 03/02/2024 Dayton Valentin Elevated PSA R97.20 ; Dysuria R30.0 ; GERD (gastroesophageal reflux disease) K21.9 ; Other specified hearing loss of both ears H91.8X3 and Overweight E66.3 Assessments Encounter Date Diagnosis (ICD Code) Assessment Notes Treatment Notes Treatment Clinical Notes 03/02/2024 Elevated PSA (ICD-10 - R97.20) His PSA has risen to 6.36. He waas given a follow-up appointment in the office in a couple of weeks after a repeat PSA with a free PSA. He will have a rectal exam at that time. If necessary he will be referred to urology. 03/02/2024 Dysuria (ICD-10 - R30.0) His frequency and dysuria have resolved. Hiss urine culture is negative. He will finish his Bactrim. Prostatitis will be considered in view of the elevated PSA. 03/02/2024 GERD (gastroesophageal reflux disease) (ICD-10 - K21.9) His symptoms are controlled with medication. He is sleeping well at night. 03/02/2024 Other specified hearing loss of both ears (ICD-10 - H91.8X3) He is involved with the ear, nose and throat physicians in the testing him to see what therapy is indicated. 03/02/2024 Overweight (ICD-10 - E66.3) He is slightly overweight. We discussed diet and nutrition. We made a plan to lose weight at a rate of one half of a pound per week. Plan Of Treatment Medication Medication Name Sig Start Date Stop Date Notes predniSONE 20 MG 1 tablet Orally Once a day 01/31/2024 Tamsulosin HCl 0.4 MG TAKE 1 CAPSULE BY MOUTH EVERY DAY FOR 30 DAYS Bactrim DS 800-160 MG 1 tablet Orally twice a day 02/29/20 24 Omeprazole 20 MG TAKE 1 CAPSULE BY [facility] EVERY DAY 30 MINUTES BEFORE MORNING MEAL Meloxicam 7.5 MG TAKE 1 TABLET BY MOUTH EVERY DAY Next Appt Details Follow Up: As Scheduled, Mar, Reason: OV, Follow-up on treatment and check on PSA levels Provider Name:Dayton Sanedrsrne, 06/05/2024 02:15:00 PM, [address] [facility] [address], [place], [address], Provider Name:Dayton Hernandezne, 09/21/2024 10:00:00 AM, [address] [facility] [address], [place], [address], Progress Notes * HECTORJe SLOANDOB:[birth year] (63 yo M)Acc No.[id number]:03/02/2024 Patient:?Je YOUNG Provider:?Dayton Valentin MD :1960???Age:63 Y???Sex:Male Isaias e:03/02/2024 Address:[address] [place], [place] [id number] Subjective: * Chief Complaints: * ???DysuriaUrinary frequencyI ncomplete bladder emptyingBenign prostatic hypertrophy * HPI: ???:?Telehealth?Location of provider rendering services:?{...} [address] [facility] [address] ?Location of patient:?address listed in demographics for today's visit ?Patient identification confirmed using:?Name, ?Telehealth method:?Telephone only. Patient not visible to care provider. ?Consent:?Patient verbally consented to treatment, Patient verbally consented to billing insurance company, Patient informed of any privacy concerns related to method of visit ?Total time spent with patient (mins)?15 ?This telehealth visit took place over 15 minutes with the patient at home and me in my office.? He gave consent for billing. The patient, a 63-year-old male, presented with symptoms of frequent urination, difficulty in emptying the bladder, and associated pain. These symptoms began a few days prior to the consultation on February 28. The patient reported that the symptoms have improved significantly since the last visit. The doctor had prescribed an antibiotic, Bactrim double strength, to be taken twice a day for 15 days. The patient has been adhering to this medication schedule. No other symptoms or triggers were reported by the patient. * ROS:?General/Constitutional:?Admits?pain,?Dysuria has resolved, currently only normal aches and pains.?Chills?denies.?Fatigue?admits.?Fever?denies.?ENT:?Decreased hearing?in both ears.?Endocrine:?Admits?Frequent urination,?with burning sensation, with nocturnal frequency.?Respiratory:?Cough?denies.?Cardiovascular:?Chest pain with exertion?denies.?Dyspnea on exertion?denies.?Shortness of breath?denies.?Gastrointestinal:?Constipation?occasional.?Decreased appetite?denies.?Diarrhea?denies.?Heartburn?denies.?Nausea?denies.?Rectal bleeding?denies.?Vomiting?denies.?Hematology:?bruising?denies.?petechiae?denies.?Swollen glands?none have been noted.?Genitourinary:?Frequent urination?denies.?Musculoskeletal:?Muscle aches?denies.?Painful joints?denies.?Sciatica?denies.?Weakness?denies.?Skin:?Itching?denies.?Rash?denies.?Skin lesion(s)?denies.?Neurologic:?Difficulty speaking?denies.?Dizziness?denies.?Headache?denies.?Low back pain?denies.?Psychiatric:?Depressed mood?denies.? * Medical History:? * Surgical History:?left knee arthroscopy 1996colonoscopy 2 polyps [facility] [place] 2011complete dental extractions cystoscopy and stent insertion left ureter for stone 04/2016lithotripsy 04/2016Right, Kidney stone removed 11/10/2016No history * Hospitalization/Major Diagno stic Procedure:?No history * Family History:?Father: dece ased 80 yrs, colon cancer, diagnosed with Cancer.?Mother: 76 yrs, copd, pneumothorax.?Children: alive.?Daughter(s): alive.?Siblings: alive.?2 brother(s) , 7 sister(s) - healthy. 1 daughter(s) - healthy. .? Two of his sisters have had back surgery. His brothers are healthy and well. There is no history of bone marrow or blood disorder or of blood clotting disorders in the family. He is not aware of any inherited cancer. Family syndromes. He is not aware of any family history of substance abuse or mental illness. The patient has no history of mental illness or substance abuse. * Social History:?Tobacco Use:?Tobacco Use/Smoking?Patient is a?nonsmoker ?Additional Findings: Tobacco Non-User?Aggressive non-smoker ???He is not a [employer]ism. He drinks one beer per week and does not smoke. 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 He is and has one daughter who is healthy. He was born in [place], [place]. * Medications:?TakingpredniSON E 20 MG Tablet 1 tablet Orally Once a day Meloxicam 7.5 MG Tablet TAKE 1 TABLET BY MOUTH EVERY DAY Omeprazole 20 MG Capsule Delayed Release TAKE 1 CAPSULE BY MOUTH EVERY DAY 30 MINUTES BEFORE MORNING MEAL Tamsulosin HCl 0.4 MG Capsule TAKE 1 CAPSULE BY MOUTH EVERY DAY FOR 30 DAYS Bactrim DS 800-160 MG Tablet 1 tablet Orally twice a day , stop date 03/14/2024Medication List reviewed and reconciled with the patientTaking predniSONE 20 MG Tablet 1 tablet Orally Once a day Taking Meloxicam 7.5 MG Tablet TAKE 1 TABLET BY MOUTH EVERY DAY Taking Omeprazole 20 MG Capsule Delayed Release TAKE 1 CAPSULE BY MOUTH EVERY DAY 30 MINUTES BEFORE MORNING MEAL Taking Tamsulosin HCl 0.4 MG Capsule TAKE 1 CAPSULE BY MOUTH EVERY DAY FOR 30 DAYS Taking Bactrim DS 800-160 MG Tablet 1 tablet Orally twice a day , stop date 03/14/2024Medication List reviewed and reconciled with the patient * Allergies:?Influenza Vaccine sno[Allergies Verified] Objective: * Vitals:?Ht: 70, Wt:178, BMI: 25.54, Ht-cm: 177.8, Wt-k.74. * ???Past Orders: Lab:Complete Blood Count Aut o Diff * Collection Date 02/29/2024 01/24/2024 06/27/2023 Collection Time 02:31 PM 06:12 AM 06:11 AM Order Date 02/29/2024 01/24/2024 06/27/2023 White Blood Count 7.1 (Ref Range: 4.8-10.8 X10*3/uL) 5.5 (Ref Range: 4.8-10.8 X10*3/uL) 5.7 (Ref Range: 4.8-10.8 X10*3/uL) Red Blood Count 5.00 (Ref Range: 4.60-5.80 X10*6/uL) 5.18 (Ref Range: 4.60-5.80 X10*6/uL) 5.32 (Ref Range: 4.60-5.80 X10*6/uL) Hemoglobin 15.1 (Ref Range: 14.0-18.0 g/dl) 15.9 (Ref Range: 14.0-18.0 g/dl) 15.9 (Ref Range: 14.0-18.0 g/dl) Hematocrit 43.9 (Ref Range: 42.0-52.0 %) 46.0 (Ref Range: 42.0-52.0 %) 46.5 (Ref Range: 42.0-52.0 %) Mean Corpuscular Volume 87.8 (Ref Range: 80.0-98.0 fL) 88.8 (Ref Range: 80.0-98.0 fL) 87.4 (Ref Range: 80.0-98.0 fL) Mean Corpuscular Hemoglobin 30.2 (Ref Range: 27.0-33.0 pg) 30.7 (Ref Range: 27.0-33.0 pg) 29.9 (Ref Range: 27.0-33.0 pg) Mean Corpuscular HGB Conc 34.4 (Ref Range: 31.0-36.0 g/dl) 34.6 (Ref Range: 31.0-36.0 g/dl) 34.2 (Ref Range: 31.0-36.0 g/dl) Red Cell Distribution Width 13.0 (Ref Range: 11.0-16.0 %) 12.9 (Ref Range: 11.0-16.0 %) 12.8 (Ref Range: 11.0-16.0 %) Platelet Count 172 (Ref Range: 160-400 X10*3/uL) 151?L (Ref Range: 160-400 X10*3/uL) 170 (Ref Range: 160-400 X10*3/uL) Mean Platelet Volume 9.2?L (Ref Range: 9.4-12.4 fL) 9.6 (Ref Range: 9.4-12.4 fL) 9.8 (Ref Range: 9.4-12.4 fL) Neutrophils Percent Auto 66.1 (Ref Range: 45-73 %) 63.2 (Ref Range: 45-73 %) 64.4 (Ref Range: 45-73 %) Imm Gran Pct Auto 0.4 (Ref Range: 0.0-0.4 %) 0.6?H (Ref Range: 0.0-0.4 %) 0.3 (Ref Range: 0.0-0.4 %) Lymphocytes Percent Auto 25.4 (Ref Range: 20-40 %) 28.1 (Ref Range: 20-40 %) 27.0 (Ref Range: 20-40 %) Monocytes Percent Auto 7.3 (Ref Range: 2-11 %) 7.3 (Ref Range: 2-11 %) 7.1 (Ref Range: 2-11 %) Eosinophils Percent Auto 0.7 (Ref Range: 0-4 %) 0.6 (Ref Range: 0-4 %) 0.9 (Ref Range: 0-4 %) Basophils Percent Auto 0.1 (Ref Range: 0-2 %) 0.2 (Ref Range: 0-2 %) 0.3 (Ref Range: 0-2 %) NRBC Pct Auto 0.0 (Ref Range: 0.0-0.2 /100WBC) 0.0 (Ref Range: 0.0-0.2 /100WBC) 0.0 (Ref Range: 0.0-0.2 /100WBC) Neutrophils Absolute Auto 4.7 (Ref Range: 2.0-8.3 x10*3/uL) 3.5 (Ref Range: 2.0-8.3 x10*3/uL) 3.7 (Ref Range: 2.0-8.3 x10*3/uL) Imm Gran Abs Auto 0.03 (Ref Range: 0.00-0.03 X10*3/uL) 0.03 (Ref Range: 0.00-0.03 X10*3/uL) 0.02 (Ref Range: 0.00-0.03 X10*3/uL) Lymphocytes Absolute Auto 1.8 (Ref Range: 1.2-4.9 X10*3/uL) 1.5 (Ref Range: 1.2-4.9 X10*3/uL) 1.6 (Ref Range: 1.2-4.9 X10*3/uL) Monocytes Absolute Auto 0.5 (Ref Range: 0.1-1.2 X10*3/uL) 0.4 (Ref Range: 0.1-1.2 X10*3/uL) 0.4 (Ref Range: 0.1-1.2 X10*3/uL) Eosinophils Absolute Auto 0.1 (Ref Range: 0.0-0.4 X10*3/uL) 0.0 (Ref Range: 0.0-0.4 X10*3/uL) 0.1 (Ref Range: 0.0-0.4 X10*3/uL) Basophils Absolute Auto 0.0 (Ref Range: 0.0-0.2 X10*3/uL) 0.0 (Ref Range: 0.0-0.2 X10*3/uL) 0.0 (Ref Range: 0.0-0.2 X10*3/uL) NRBC Abs Auto 0.000 (Ref Range: 0.0-0.012 X10*3/uL) 0.000 (Ref Range: 0.0-0.012 X10*3/uL) 0.000 (Ref Range: 0.0-0.012 X10*3/uL) * Lab:Comprehensive Met. Panel * Collection Date 02/29/2024 07/30/2021 Collection Time 02:31 PM 06:52 AM Order Date 02/29/2024 07/30/2021 Sodium 144 (Ref Range: 135-145 mmol/L) 142 (Ref Range: 135-145 mmol/L) Bilirubin Total 0.5 (Ref Range: 0.0-1.0 mg/dL) 0.3 (Ref Range: 0.0-1.0 mg/dL) Aspartate Amino Transferase 24 (Ref Range: 5-37 U/L) 22 (Ref Range: 5-37 U/L) Alanine Aminotransferase 37 (Ref Range: 0-40 U/L) 28 (Ref Range: 0-40 U/L) Total Protein 6.9 (Ref Range: 6.5-8.0 g/dL) 6.8 (Ref Range: 6.5-8.0 g/dL) Albumin Level 4.2 (Ref Range: 3.5-5.0 g/dL) 4.3 (Ref Range: 3.5-5.0 g/dL) Alkaline Phosphatase 76 (Ref Range: 39-117 U/L) 70 (Ref Range: 39-117 U/L) Potassium 4.1 (Ref Range: 3.3-5.1 mmol/L) 4.6 (Ref Range: 3.3-5.1 mmol/L) Chloride 107 (Ref Range: 96-108 mmol/L) 109?H (Ref Range: 96-108 mmol/L) Carbon Dioxide 28 (Ref Range: 22-29 mmol/L) 26 (Ref Range: 22-29 mmol/L) Anion Gap 13 (Ref Range: 12-20) 12 (Ref Range: 12-20) Blood Urea Nitrogen 18?H (Ref Range: 9-16 mg/dL) 19?H (Ref Range: 9-16 mg/dL) Creatinine 1.05 (Ref Range: 0.5-1.4 mg/dL) 1.07 (Ref Range: 0.5-1.4 mg/dL) Estimated Glomerular Filt Rate > 60 > 60 Glucose Random 98 (Ref Range: 60-115 mg/dL) 104 (Ref Range: 60-115 mg/dL) Calcium 8.7 (Ref Range: 8.4-10.2 mg/dL) 9.4 (Ref Range: 8.4-10.2 mg/dL) * Lab:Prostate Specific Antige n * Collection Date 02/29/2024 01/24/2024 07/06/2022 Collection Time 02:31 PM 06:12 AM 06:22 AM Order Date 02/29/2024 01/24/2024 07/06/2022 Prostate Specific Antigen 6.36?H (Ref Range: <0.05-4.0 ng/mL) 5.35?H (Ref Range: <0.05-4.0 ng/mL) 6.39?H (Ref Range: <0.05-4.0 ng/mL) * Lab:URINE DIP STICK * Collection Date 01/31/2024 12/28/2021 07/22/2017 Order Date 01/31/2024 12/28/2021 07/22/2017 SG 1.025 (Ref Range: 1.005 - 1.025) 1.025 1.025 pH 5.0 (Ref Range: 5.0 - 9.0) 6 5 LUIS Negative (Ref Range: Negative -) neg neg NIT Negative (Ref Range: Negative -) neg neg PRO 15 (Ref Range: Negative - Trace) trace trace GLU Negative (Ref Range: Negative -) normal normal KET Negative (Ref Range: Negative -) neg neg UBG 0.2 (Ref Range: 0.1 - 1.8) normal normal TERESA Negative (Ref Range: 0.2 - 1.3) neg neg BLD Negative (Ref Range: Negative -) neg trace Menstrating NR n/a N/A * Lab:Comprehensive [place]. Pane l Fast * Collection Date 01/24/2024 06/27/2023 06/25/2022 Collection Time 06:12 AM 06:11 AM 06:18 AM Order Date 01/24/2024 06/27/2023 06/25/2022 Sodium 141 (Ref Range: 135-145 mmol/L) 142 (Ref Range: 135-145 mmol/L) 141 (Ref Range: 135-145 mmol/L) Bilirubin Total 0.6 (Ref Range: 0.0-1.0 mg/dL) 0.4 (Ref Range: 0.0-1.0 mg/dL) 0.6 (Ref Range: 0.0-1.0 mg/dL) Aspartate Amino Transferase 21 (Ref Range: 5-37 U/L) 18 (Ref Range: 5-37 U/L) 21 (Ref Range: 5-37 U/L) Alanine Aminotransferase 33 (Ref Range: 0-40 U/L) 34 (Ref Range: 0-40 U/L) 32 (Ref Range: 0-40 U/L) Total Protein 6.9 (Ref Range: 6.5-8.0 g/dL) 6.8 (Ref Range: 6.5-8.0 g/dL) 6.6 (Ref Range: 6.5-8.0 g/dL) Albumin Level 4.3 (Ref Range: 3.5-5.0 g/dL) 4.1 (Ref Range: 3.5-5.0 g/dL) 4.1 (Ref Range: 3.5-5.0 g/dL) Alkaline Phosphatase 75 (Ref Range: 39-117 U/L) 83 (Ref Range: 39-117 U/L) 76 (Ref Range: 39-117 U/L) Potassium 4.7 (Ref Range: 3.3-5.1 mmol/L) 4.2 (Ref Range: 3.3-5.1 mmol/L) 4.2 (Ref Range: 3.3-5.1 mmol/L) Chloride 109?H (Ref Range: 96-108 mmol/L) 110?H (Ref Range: 96-108 mmol/L) 108 (Ref Range: 96-108 mmol/L) Carbon Dioxide 26 (Ref Range: 22-29 mmol/L) 25 (Ref Range: 22-29 mmol/L) 25 (Ref Range: 22-29 mmol/L) Anion Gap 11?L (Ref Range: 12-20) 11?L (Ref Range: 12-20) 12 (Ref Range: 12-20) Blood Urea Nitrogen 14 (Ref Range: 9-16 mg/dL) 23?H (Ref Range: 9-16 mg/dL) 15 (Ref Range: 9-16 mg/dL) Creatinine 1.07 (Ref Range: 0.5-1.4 mg/dL) 1.06 (Ref Range: 0.5-1.4 mg/dL) 1.12 (Ref Range: 0.5-1.4 mg/dL) Estimated Glomerular Filt Rate > 60 > 60 > 60 Glucose Fasting 105?H (Ref Range: 60-99 mg/dL) 108?H (Ref Range: 60-99 mg/dL) 99 (Ref Range: 60-99 mg/dL) Calcium 9.6 (Ref Range: 8.4-10.2 mg/dL) 9.0 (Ref Range: 8.4-10.2 mg/dL) 8.7 (Ref Range: 8.4-10.2 mg/dL) * Lab:Lipid Panel * Collection Date 01/24/2024 06/27/2023 06/25/2022 Collection Time 06:12 AM 06:11 AM 06:18 AM Order Date 01/24/2024 06/22/2023 06/25/2022 Triglycerides 128 (Ref Range: <150 mg/dL) 165?H (Ref Range: <150 mg/dL) 251 (Ref Range: mg/dL) Cholesterol 175 (Ref Range: <200 mg/dL) 166 (Ref Range: <200 mg/dL) 176 (Ref Range: mg/dL) LDL Cholesterol Calculated 105?H (Ref Range: <100 mg/dL) 90 (Ref Range: <100 mg/dL) 89 (Ref Range: mg/dl) HDL Cholesterol 45 (Ref Range: >40 mg/dL) 43 (Ref Range: >40 mg/dL) 37 (Ref Range: mg/dL) Assessment: * Assessment: 1.?Elevated PSA - R97.20 (Pr imary)???Notes :His PSA has risen to 6.36.? He waas given a follow-up appointment in the office in a couple of weeks after a repeat PSA with a free PSA.? He will have a rectal exam at that time.? If necessary he will be referred to urology.???2.?Dysuria - R30.0???Notes :His frequency and dysuria have resolved.? Hiss urine culture is negative.? He will finish his Bactrim.? Prostatitis will be considered in view of the elevated PSA.???3.?GERD (gastroesophageal reflux disease) - K21.9???Notes :His symptoms are controlled with medication. He is sleeping well at night.???4.?Other specified hearing loss of both ears - H91.8X3???Notes :He is involved with the ear, nose and throat physicians in the testing him to see what therapy is indicated.???5.?Overweight - E66.3???Notes :He is slightly overweight. We discussed diet and nutrition. We made a plan to lose weight at a rate of one half of a pound per week.??? Plan: * Treatment: 2.?Others? Continue Meloxicam Tablet, 7.5 MG, TAKE 1 TABLET BY MOUTH EVERY DAY;?Continue Omeprazole Capsule Delayed Release, 20 MG, TAKE 1 CAPSULE BY MOUTH EVERY DAY 30 MINUTES BEFORE MORNING MEAL;?Continue Tamsulosin HCl Capsule, 0.4 MG, TAKE 1 CAPSULE BY MOUTH EVERY DAY FOR 30 DAYS;?Continue Bactrim DS Tablet, 800-160 MG, 1 tablet, Orally, twice a day;?Continue predniSONE Tablet, 20 MG, 1 tablet, Orally, Once a day.?? * Procedure Codes:?00237 PHONE E/M BY PHYS 11-20 MIN * Preventive Medicine:? ??Counseling:?Care goal follow-up plan:?Counseling for abnormal BMI given?Yes ?Above Normal BMI Follow-up?Dietary management education, guidance, and counseling, Dietary needs education * Follow Up:?As Scheduled, Mar (Reason: OV, Follow-up on treatment and check on PSA levels) * Images: * Sign off status: Completed true * Provider:?Dayton Valentin MD Date:?02/10 Generated for Valerie yarbrough/Leo/Krystal on:?05/22/2024 07:07 AM EST History and Physical Notes * HPI (History of Present Illness) Category Sub-Category Detail Notes Telehealth Location of [facility] rendering services:: {...} [address] [place] [address] [address] [facility] [address] Location of patient:: address listed in demographics for today's visit Patient identification confirmed using:: Name, Telehealth method:: Telephone only. Sue ent not visible to care provider. Consent:: Patient verbally c onsented to treatment, Patient verbally consented to billing insurance company, Patient informed of any privacy concerns related to method of visit Total time spent with patient (mins): 15
--- OUTSIDE RECORDS SUMMARY | 2024-05-22 07:07 | XMS_ITS ---
Author Organization Dayton Valentin III, MD Address [address] [place] [address] Care Team Providers Care Picker Tender Name Role Phone Dayton Valentin Primary Care Provider [phone] Allergies Allergen (clinical drug ingredient) Drug/Non Drug Allergy documented on EMR Reaction Allergy Type Onset Date Status Vaccine product containing Influenza virus antigen (medicinal product) Influenza Vaccines Unknown Drug Allergy Ac tive Results Component Value Reference Range Notes PSA Free and Total Reviewed date:03/15/2024 02:54:07 PM Interpretation: Performing Lab:[facility], [address] [place] [id number] Notes/Report: results Prostate Specific Ag Total 7.2 < OR = 4.0 ng/ mL Percent Free Prostate Spec Ag 32 >25 % (calc ) PSA(ng/mL) Free PSA(%) Estimated(x) Probability of Cancer(as%) 0-2.5 (*) Approx. 1 2.6-4.0(1) 0-27(2) 24(3) 4.1-10(4) 0-10 56 11-15 28 16-20 20 21-25 16 >or =26 8 >10(+) N/A >50 References:(1)Rigoberto et al.:Urology 60: 469-474 (2002) (2)Yohanaona et al.:J.Urol 168: 922-925 (2001) Free PSA(%) Sensitivity(%) Specificity(%) < or = 25 85 19 < or = 30 93 9 (3)Yohanaona et al.:ROSALIND 277: 5417-9569 (1996) (4)Catalona et al.:ROSALIND 279: 1345-1750 (1997) (x)These estimates vary with age, ethnicity, family history and CALI results. (*)The diagnostic usefulness of % Free PSA has not been established in patients with total PSA below 2.6 ng/mL (+)In men with PSA above 10 ng/mL, prostate cancer risk is determined by total PSA alone. The Total PSA value from this assay system is standardized against the equimolar PSA standard. The test result will be approximately 20% higher when compared to the WHO-standardized Total PSA (Siemens assay). Comparison of serial PSA results should be interpreted with this fact in mind. PSA was performed using the Cecelia Hamburg Immunoassay method. Values obtained from different assay methods cannot be used interchangeably. PSA levels, regardless of value, should not be interpreted as absolute evidence of the presence or absence of disease. THIS TEST WAS PERFORMED AT: [facility] [address] [address] ELIDA PEREZ MD Free Prostate Spec Ag 2.3 Reason For Referral Reason elevated PSA and Kevin e PSA recent prostatism evaluate and treat Diagnosis 1 BPH (benign prostati c hyperplasia) (N40.0) Diagnosis 2 Elevated PSA (R97.20 ) Referral Organization Dayton Valentin III, MD Referring Provider First Name Dayton Referring Provider Last Name Barbie Referring Provider Speciality Internal M edicine Referred Provider Brandon Morrison Referred Provider Specialty Urology General Notes Maribell Hackett [facility] 03/19 11:47:08 AM > ref/demo/progress note / labs faxed to Dr Kramer office, Maribell Hackett [facility] 03/22/2024 01:48:58 PM >I called [facility] at [phone] spoke to Linda she gave me appt for patient on 04/20/2024 at 9:00 am pt called and mailed this appt information Referral Priority Routine Referral Appointment Date 04/20/2024 REASON FOR VISIT Urinary frequency, Nocturia, Dysuria, Kidney stones Medications Medication SIG (Take, Route, Fr equency, Duration) Notes Start Date End Date Status Meloxicam 7.5 MG TAKE 1 TABLET BY BHARAT TH EVERY DAY Active Omeprazole 20 MG TAKE 1 CAPSULE BY MO UTH EVERY DAY 30 MINUTES BEFORE MORNING MEAL Active Bactrim DS 800-160 MG 1 tablet Orally twice a day 02/29/2024 Active predniSONE 20 MG 1 tablet Orally Once a day 2023 Active Tamsulosin HCl 0.4 MG TAKE 1 CAPSULE BY MOUTH EVERY DAY FOR 30 DAYS Active Social History Tobacco Use: Social History Observation Description Date Details (start date - stop date) Never Smoker NA - NA Sex Assigned At : Social History Observation Description Sex Assigned At Male Tobacco Use/Smoking Question Answer Notes Patient is a nonsmoker Additional Findings: Tobacco Non-User Aggressive non-smoker Vital Signs Temperature 98.4 degrees Fahrenheit 03/13/20 24 Blood pressure systolic 135 mm Hg 03/13/20 24 Blood pressure diastolic 75 mm Hg 024 Heart Rate 75 /min 03/13/2024 Height 70 in 03/13/2024 Weight 182 lbs 03/13/2024 BMI 26.11 kg/m2 03/13/2024 Encounters Encounter Location Date Provider Diagnosis Dayton Valentin III, MD [address] [place] [address] [place] [address] 03/13/2024 Dayton Valentin BPH (benign prostati c hyperplasia) N40.0 ; Elevated PSA R97.20 ; GERD (gastroesophageal reflux disease) K21.9 ; Degenerative joint disease M19.90 ; Ureterolithiasis N20.1 and Overweight E66.3 Assessments Encounter Date Diagnosis (ICD Code) Assessment Notes Treat ment Notes Treatment Clinical Notes 03/13/2024 BPH (benign prostati c hyperplasia) (ICD-10 - N40.0) His urinary frequency has improved substantially with tamsulosin. He is rising from slleep 2 or 3 times a night. I have asked for repeat PSA and then urology consultation. 03/13/2024 Elevated PSA (ICD-10 - R97.20) His PSA has increased slightly to 6.36. I have requested a free PSA and a urology consultation. 03/13/2024 GERD (gastroesophage al reflux disease) (ICD-10 - K21.9) His symptoms are controlled with medication. He is sleeping well at night. 03/13/2024 Degenerative joint disease (ICD-10 - M19.90) He will continue on his use of ibuprofen. He was encouraged to stay active. 03/13/2024 Ureterolithiasis (ICD-10 - N20.1) He reports no kidney stones recently. The ddiscomfort with urinating is primarily urethral. 03/13/2024 Overweight (ICD-10 - E66.3) He is slightly overweight. We discussed diet and nutrition. We made a plan to lose weight at a rate of one half of a pound per week. Plan Of Treatment Medication Medication Name Sig Start Date Stop Date Notes Meloxicam 7.5 MG TAKE 1 TABLET BY MOUTH EVERY DAY Omeprazole 20 MG TAKE 1 CAPSULE BY MO UTH EVERY DAY 30 MINUTES BEFORE MORNING MEAL Bactrim DS 800-160 MG 1 tablet Orally twice a day 02/29/20 predniSONE 20 MG 1 tablet Orally Once a day 01/31/2024 Tamsulosin HCl 0.4 MG TAKE 1 CAPSULE BY MOUTH EVERY DAY FOR 30 DAYS Pending Test Test Name Order Date PSA, TOTAL 03/13/2024 Referrals Referral Date Details 03/13/2024 03/13/2024, elevated PSA and Free PSA recent prostatism evaluate and treat, Brandon Morrison Next Appt Details Follow Up: as scheduled, Aft er urologist visit, Reason: ov no tests, To discuss the results of the urologist visit and the special blood test on PSA Provider Name:Dayton Valentin, 06/05/2024 02:15:00 PM, [address] [place] [address] [address], [place], [phone], Provider Name:Dayton Valentin, 09/21/2024 10:00:00 AM, [address] [place] [address] [address], [place], [phone], Progress Notes * Je YOUNGDOB:[birth year] (63 yo M)Acc No.[id number]:03/13/2024 Progress Notes Patient:?Je YOUNG Provider:?Dayton Valentin MD :1960???Age:63 Y???Sex:Male Isaias e:03/13/2024 Address:[address] [place], [place] [id number] Subjective: * Chief Complaints: * ???Urinary frequencyNocturia DysuriaKidney stones * HPI: ???COVID-19 Screening:?Questions?Have you experienced fever, chills, cough, sore throat, shortness of breath, difficulty breathing, muscle aches, loss of taste or smell??No ?Have you been exposed to the virus within the last 10 days??No ?Have you travelled internationally in the last 10 days??No ?Have you been exposed to COVID-19 in the past??No ???:? The patient, a 63-year-old male, reported that he had been experiencing frequent urination, which had improved with medication. However, he mentioned that he was still urinating a bit. He also reported that his bones were always hurting him, particularly his knees, which he had surgery on, and his hands. He denied any back pain. The patient's Prostate-Specific Antigen (PSA) levels were found to be elevated, having increased from 5 to 6 since June. The patient also reported that he had gained 4 lbs since his last visit. * ROS:?General/Constitutional:?pain?Knees and low back and occasionally with urinating.?Chills?denies.?Fatigue?admits.?Fever?denies.?ENT:?Decreased hearing?denies.?Endocrine:?Admits?Frequent urination,?Every 2 hours, Occasional dysuria, no hematuria.?Respiratory:?Cough?denies.?Cardiovascular:?Chest pain with exertion?denies.?Dyspnea on exertion?denies.?Shortness of breath?denies.?Gastrointestinal:?Constipation?occasional.?Decreased appetite?denies.?Diarrhea?denies.?Heartburn?denies.?Nausea?denies.?Rectal bleeding?denies.?Vomiting?denies.?Hematology:?bruising?denies.?petechiae?denies.?Swollen glands?none have been noted.?Genitourinary:?Frequent urination?three times a night.?Musculoskeletal:?Muscle aches?denies.?Painful joints?denies.?Sciatica?denies.?Weakness?denies.?Skin:?Itching?denies.?Rash?denies.?Skin lesion(s)?denies.?Neurologic:?Difficulty speaking?denies.?Dizziness?denies.?Headache?denies.?Low back pain?denies.?Psychiatric:?Depressed mood?denies.? * Medical History:? * Surgical History:?left knee arthroscopy 1996colonoscopy 2 polyps [facility] June 2011complete dental extractions cystoscopy and stent insertion left ureter for stone 04/2016lithotripsy 04/2016Right, Kidney stone removed 11/10/2016No history Knee surgery * Hospitalization/Major Diagno stic Procedure:?No history * [...] history of mental illness or substance abuse. Youngest brother diagnosed with face cancer. * Social History:?Tobacco Use:?Tobacco Use/Smoking?Patient is a?nonsmoker ?Additional Findings: Tobacco Non-User?Aggressive non-smoker ???He is not a Hindu. He drinks one beer per week and does not smoke. 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 He is and has one daughter who is healthy. He was born in [place], [place]. * Medications:?TakingMeloxicam 7.5 MG Tablet TAKE 1 TABLET BY MOUTH EVERY DAY Omeprazole 20 MG Capsule Delayed Release TAKE 1 CAPSULE BY MOUTH EVERY DAY 30 MINUTES BEFORE MORNING MEAL Tamsulosin HCl 0.4 MG Capsule TAKE 1 CAPSULE BY MOUTH EVERY DAY FOR 30 DAYS predniSONE 20 MG Tablet 1 tablet Orally Once a day Taking Meloxicam 7.5 MG Tablet TAKE 1 TABLET BY MOUTH EVERY DAY Taking Omeprazole 20 MG Capsule Delayed Release TAKE 1 CAPSULE BY MOUTH EVERY DAY 30 MINUTES BEFORE MORNING MEAL Taking Tamsulosin HCl 0.4 MG Capsule TAKE 1 CAPSULE BY MOUTH EVERY DAY FOR 30 DAYS Taking predniSONE 20 MG Tablet 1 tablet Orally Once a day DiscontinuedBactrim DS 800- 160 MG Tablet 1 tablet Orally twice a day Medication List reviewed and reconciled with the patientDiscontinued Bactrim DS 800-160 MG Tablet 1 tablet Orally twice a day Medication List reviewed and reconciled with the patient * Allergies:?Influenza Vaccine sno[Allergies Verified] Objective: * Vitals:?Ht: 70, Wt:182, BMI: 26.11, BP:135/75, HR:75, Temp:98.4, Ht-cm: 177.8, Wt-k.55. * ???Past Orders: Lab:Prostate Specific Antige n * Collection Date 02/29/2024 01/24/2024 07/06/2022 Collection Time 02:31 PM 06:12 AM 06:22 AM Order Date 02/29/2024 01/24/2024 07/06/2022 Prostate Specific Antigen 6.36?H (Ref Range: <0.05-4.0 ng/mL) 5.35?H (Ref Range: <0.05-4.0 ng/mL) 6.39?H (Ref Range: <0.05-4.0 ng/mL) * Lab:Lipid Panel * Collection Date 01/24/2024 [...] Range: >40 mg/dL) 37 (Ref Range: mg/dL) * Lab:Comprehensive Hurricane. Pane l Fast * Collection Date 01/24/2024 [...] mg/dL) 8.7 (Ref Range: 8.4-10.2 mg/dL) * Lab:Complete Blood Count Aut o Diff * [...] X10*3/uL) 0.000 (Ref Range: 0.0-0.012 X10*3/uL) * Lab:URINE DIP STICK * Collection Date [...] trace Menstrating NR n/a N/A * Lab:Comprehensive Met. Panel * Collection Date [...] 8.4-10.2 mg/dL) 9.4 (Ref Range: 8.4-10.2 mg/dL) ???Lab:Urine Culture (Order Date - 02/29/2024) (Collection Date & Time - 02/29/2024 12:11 PM)?ValueReference Range?Urine Cultureurogenital contamination.-?Clinical Info: PLEASE FAX COMPLETED RESULTS TO [phone],Please have this testing done as soon as possible * Lab:PSA Free and Total * Collection Date 03/13/2024 03/12/2024 12/25/2021 Collection Time 02:34 PM 06:15 AM 08:11 AM Order Date 03/13/2024 03/12/2024 12/25/2021 Prostate Specific Ag Total 7.2?A (Ref Range: < OR = 4.0 ng/mL) 6.7?A (Ref Range: < OR = 4.0 ng/mL) 4.8?A (Ref Range: < OR = 4.0 ng/mL) Percent Free Prostate Spec Ag 32 (Ref Range: >25 % (calc)) 27 (Ref Range: >25 % (calc)) 25?A (Ref Range: >25 % (calc)) Free Prostate Spec Ag 2.3 (Ref Range: ng/mL) 1.8 (Ref Range: ng/mL) 1.2 (Ref Range: ng/mL) Clinical Info: PLEASE FAX COMPLETED RESULTS TO [phone],Please have this testing done as soon as possible * Examination: ???General Examination: ?GENERAL APPEARANCE:?pleasant, well nourished, well developed, in no acute distress, calm and relaxed, overweight, man.?HEAD:?atraumatic, normocephalic.?EYES:?eomi, perrla, anicteric, conjugate.?EARS:?normal.?NOSE:?septum intact.?ORAL CAVITY:?normal, unremarkable, Edentulous.?NECK/THYROID:?no jugular venous distention, no carotid bruit, thyroid normal.?LYMPH NODES:?no enlarged lymph nodes,spleen normal.?SKIN:?no suspicious lesions, anicteric.?HEART:?no clicks, gallops, murmurs, or rubs, regular rhythm, S1, S2 normal, no s3, or vascular bruits.?LUNGS:?clear to auscultation .?BREASTS:??no masses palpable bilaterally.?ABDOMEN:?bowel sounds normal, no ascites, no organomegaly, no mass, overweight.?RECTAL EXAM:?not examined.?MUSCULOSKELETAL:?extremities unremarkable, no clubbing, cyanosis or edema.?PERIPHERAL PULSES:?normal.?NEUROLOGIC:?alert and oriented, cranial nerves 2-12 grossly intact, deep tendon reflexes 2+ symmetrical, motor strength normal upper and lower extremities, sensory exam intact.?PSYCH:?alert, oriented.? Assessment: * Assessment: 1.?BPH (benign prostatic hyp erplasia) - N40.0 (Primary)???Notes :His urinary frequency has improved substantially with tamsulosin.? He is rising from slleep 2 or 3 times a night.? I have asked for repeat PSA and then urology consultation.???2.?Elevated PSA - R97.20???Notes :His PSA has increased slightly to 6.36.? I have requested a free PSA and a urology consultation.???3.?GERD (gastroesophageal reflux disease) - K21.9???Notes :His symptoms are controlled with medication. He is sleeping well at night.???4.?Degenerative joint disease - M19.90???Notes :He will continue on his use of ibuprofen. He was encouraged to stay active.???5.?Ureterolithiasis - N20.1???Notes :He reports no kidney stones recently. The ddiscomfort with urinating is primarily urethral.???6.?Overweight - E66.3???Notes :He is slightly overweight. We discussed diet and nutrition. We made a plan to lose weight at a rate of one half of a pound per week.??? Plan: * Treatment: 2.?Elevated PSA?LAB: PSA, TOTAL ?LAB: PSA Free and Total (Collection Date & Time - 03/13/2024 02:34 PM) ? Value Reference Range ?Prostate Specific Ag Total 7.2 A < OR = 4.0 - ng/mL * ?Percent Free Prostate Spec Ag 32 >25 - % (calc) * ?Free Prostate Spec Ag 2.3 - ng/mL ? Referral To:Iglesia Kramer ([place])??Urology ?Reason:elevatedPSA and Free PSA recent prostatism evaluate and treat 3.?Others? Continue Meloxicam Tablet, 7.5 MG, TAKE 1 [...] tablet, Orally, Once a day.?? * Procedure Codes:? * Preventive Medicine:? ??Counseling:?Care goal follow-up plan:?Counseling for abnormal BMI given?Yes ?Above Normal BMI Follow-up?Dietary management education, guidance, and counseling, Dietary needs education * Follow Up:?as scheduled, Aft er urologist visit (Reason: ov no tests, To discuss the results of the urologist visit and the special blood test on PSA) * Images: * Sign off status: Completed true * Provider:?Dayton Valentin MD Date:?06/2023 Generated for Printi ng/Leo/eTransmitting on:?05/22/2024 07:07 AM EST History and Physical Notes * HPI (History of Present Illness) Category Sub-Category Detail Notes COVID-19 Screening Questions Have you had any new onset fever, chills, cough, congestion, sore throat, shortness of breath, muscle aches?: No Have you been exposed to the virus withi n the last 10 days?: No Have you travelled internationally in [facility] last 10 days?: No Have you been exposed to COVID-19 in the past?: No Examination Category Sub-Category Detail Notes General Examination GENERAL APPEARANCE: pleasant , well nourished, well developed, in no acute distress, calm and relaxed, overweight, man HEAD: atraumatic, normocep halic EYES: eomi, perrla, anicte sage, conjugate EARS: normal NOSE: septum intact NECK/THYROID: no jugular venous di stention, no carotid bruit, thyroid normal HEART: no clicks, gallops, murmurs, or rubs, regular rhythm, S1, S2 normal, no s3, or vascular bruits LUNGS: clear to auscultatio n ABDOMEN: bowel sounds normal, no ascites, no organomegaly, no mass, overweight NEUROLOGIC: alert and oriented, cranial nerves 2-12 grossly intact, deep tendon reflexes 2+ symmetrical, motor strength normal upper and lower extremities, sensory exam intact SKIN: no suspicious lesion s, anicteric PERIPHERAL PULSES: normal BREASTS: no masses palpable b ilaterally MUSCULOSKELETAL: extremities unremark able, no clubbing, cyanosis or edema LYMPH NODES: no enlarged lymph no deanna,spleen normal RECTAL EXAM: not examined PSYCH: alert, oriented ORAL CAVITY: normal, unremarkable , Edentulous Consultation Request Notes Referral Date Referring Provider Referred Provider Not es 03/13/2024 Dayton Valentin Corlis elevat ed PSA and Free PSA recent prostatism evaluate and treat
--- OUTSIDE RECORDS SUMMARY | 2024-05-22 07:08 | XMS_ITS ---
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 Role Phone Dayton Valentin Primary Care Provider Allergies Allergen (clinical drug ingredient) Drug/Non Drug Allergy documented on EMR Reaction Allergy Type Onset Date Status Vaccine product containing Influenza virus antigen (medicinal product) Influenza Vaccines Unknown Drug Allergy Ac tive Results Component Value Reference Range Notes Urine Culture Reviewed date:03/05/2024 07:37:52 AM Interpretation: Performing Lab:[facility], [address] [place] [phone] Notes/Report: Urine Culture Report Result Urine Culture > 100,000 cfu/ml Urine Culture Mixed bacterial jules a characteristic of Urine Culture urogenital contamination. REASON FOR VISIT Pain when urinating x 4 days, Lower back pain x 4 days, Recent onset urinary frequency and urgency,Incomplete bladder emptying Medications Medication SIG (Take, Route, Fr equency, Duration) Notes Start Date End Date Status Bactrim DS 800-160 MG 1 tablet Orally tw ice a day for 14 days 02/29/2024 03/14/2024 Active Omeprazole 20 MG TAKE 1 CAPSULE BY [facility] EVERY DAY 30 MINUTES BEFORE MORNING MEAL Active Tamsulosin HCl 0.4 MG TAKE 1 CAPSULE BY MOUTH EVERY DAY FOR 30 DAYS Active Meloxicam 7.5 MG TAKE 1 TABLET BY [facility] EVERY DAY Active predniSONE 20 MG 1 tablet Orally Once a day 2023 Active Social History Tobacco Use: Social History Observation Description Date Details (start date - stop date) Never Smoker NA - NA Sex Assigned At : Social History Observation Description Sex Assigned At Male Tobacco Use/Smoking Question Answer Notes Patient is a nonsmoker Additional Findings: Tobacco Non-User Aggressive non-smoker Vital Signs Temperature 97.2 degrees Fahrenheit 02/29/20 24 Blood pressure systolic 129 mm Hg 02/29/20 24 Blood pressure diastolic 79 mm Hg 024 Heart Rate 72 /min 02/29/2024 Height 70 in 02/29/2024 Weight 178 lbs 02/29/2024 BMI 25.54 kg/m2 02/29/2024 Encounters Encounter Location Date Provider Diagnosis Dayton Valentin III, MD [address] [place] [address] [place] [address] 02/29/2024 Dayton Valentin BPH (benign prostati c hyperplasia) N40.0 ; Ureterolithiasis N20.1 ; GERD (gastroesophageal reflux disease) K21.9 ; Degenerative joint disease M19.90 ; Migraine without aura and without status migrainosus, not intractable G43.009 ; Elevated PSA R97.2 ; Overweight E66.3 and Prepatellar bursitis of right knee M70.41 Assessments Encounter Date Diagnosis (ICD Code) Assessment Notes Treat ment Notes Treatment Clinical Notes 02/29/2024 BPH (benign prostati c hyperplasia) (ICD-10 - N40.0) He is known to have prostatism and has been compliant with taking his tamsulosin.He now presents with dysuria and a marked increase in frequency. He has a strong sense of incomplete bladder emptying but no fever or chills. The differential is early urinary retention, prostate infection or cystitis. His PSA is slightly elevated consistent with prostate cancer or prostate infection. The blood work shows a normal white blood cell count. He has been given an antibiotic and a follow-up in 48 hours. 02/29/2024 Ureterolithiasis (ICD-10 - N20.1) He reports no kidney stones recently. The ddiscomfort with urinating is primarily urethral. 02/29/2024 GERD (gastroesophage al reflux disease) (ICD-10 - K21.9) His symptoms are controlled with medication. He is sleeping well at night. 02/29/2024 Degenerative joint disease (ICD-10 - M19.90) He will continue on his use of ibuprofen. He was encouraged to stay active. 02/29/2024 Migraine without aur a and without status migrainosus, not intractable (ICD-10 - G43.009) He has had no further migraine headaches since February 16, 2018. In the emergency room. If it returns. She will call me once. 02/29/2024 Elevated PSA (ICD-10 - R97.2) His PSA has increased from 5.5 up to 6.2. I have ordered a free PSA. 02/29/2024 Overweight (ICD-10 - E66.3) He is slightly overweight. We discussed diet and nutrition. We made a plan to lose weight at a rate of one half of a pound per week. 02/29/2024 Prepatellar bursitis of right knee (ICD-10 - M70.41) I have explained to him the nature of the swelling. I told him to use a heating pad and ibuprofen and rest. The prognosis is good he should slowly return to normal. Plan Of Treatment Medication Medication Name Sig Start Date Stop Date Notes Bactrim DS 800-160 MG 1 tablet Orally tw ice a day for 14 days 02/29/2024 03/14/2024 Omeprazole 20 MG TAKE 1 CAPSULE BY [facility] EVERY DAY 30 MINUTES BEFORE MORNING MEAL Tamsulosin HCl 0.4 MG TAKE 1 CAPSULE BY MOUTH EVERY DAY FOR 30 DAYS Meloxicam 7.5 MG TAKE 1 TABLET BY MOUTH EVERY DAY predniSONE 20 MG 1 tablet Orally Once a day 01/31/2024 Next Appt Details Follow Up: Tuesday, Tuesday, R earnest: TV review labs/urine done at , To assess the effectiveness of the treatment for the prostate infection. Provider Name:Dayton Valentin, 06/05/2024 02:15:00 PM, [address] [place] [address] [address], [place], [address], Provider Name:Dayton Valentin, 09/21/2024 10:00:00 AM, [address] [place] [address] [address], [place], [address], Progress Notes * Je YOUNGDOB:[birth year] (63 yo M)Acc No.[id number]:02/29/2024 Progress Notes Patient:Je LINARES Provider:?Dayton Valentin MD :1960???Age:63 Y???Sex:Male Isaias e:02/29/2024 Address:[address] [place], [place] [phone] Subjective: * Chief Complaints: * ???Pain when urinating x 4 d aysLower back pain x 4 daysRecent onset urinary frequency and urgencyIncomplete bladder emptying * HPI: ???COVID-19 Screening:?Questions?Have you experienced fever, chills, cough, sore throat, shortness of breath, difficulty breathing, muscle aches, loss of taste or smell??No ?Have you been exposed to the virus within the last 10 days??No ?Have you travelled internationally in the last 10 days??No ?Have you been exposed to COVID-19 in the past??No ???:? The patient, a 63-year-old male, presented with a sudden onset of urinary symptoms that started four days prior to the consultation. He reported frequent urination, with a feeling of incomplete bladder emptying and associated pain. The patient also mentioned experiencing back pain, which started around the same time as the urinary symptoms. The pain was intermittent and seemed to be located in the lower back. The patient also reported a burning sensation during urination. There were no associated symptoms such as fever or blood in the urine. The patient's symptoms seemed to have worsened over the past month, with an increase in the frequency of urination, sometimes as often as every 20 minutes. The patient denied any triggers or modifying factors for his symptoms. * ROS:?General/Constitutional:?Admits?pain,?During urination for the last 4 days.?Chills?denies.?Fatigue?admits.?Denies?Fever,?denies.?ENT:?Decreased hearing?denies.?Endocrine:?Admits?Frequent urination.?Respiratory:?Cough?denies.?Cardiovascular:?Chest pain with exertion?denies.?Dyspnea on exertion?denies.?Shortness of breath?denies.?Gastrointestinal:?Constipation?occasional.?Decreased appetite?denies.?Diarrhea?denies.?Heartburn?denies.?Nausea?denies.?Rectal bleeding?denies.?Vomiting?denies.?Hematology:?bruising?denies.?petechiae?denies.?Swollen glands?none have been noted.?Genitourinary:?Frequent urination?three times a night.?Musculoskeletal:?Muscle aches?denies.?Painful joints?denies.?Sciatica?denies.?Weakness?denies.?Skin:?Itching?denies.?Rash?denies.?Skin lesion(s)?denies.?Neurologic:?Difficulty speaking?denies.?Dizziness?denies.?Headache?denies.?Low back pain?denies.?Psychiatric:?Depressed mood?denies.? * Medical History:? * Surgical History:?left knee arthroscopy 1996colonoscopy 2 polyps C June 2011complete dental extractions cystoscopy and stent [...] Tobacco Non-User?Aggressive non-smoker ???He is not a Bahai. He drinks one beer per week and does not smoke. 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 He is and has one daughter who is healthy. He was born in [place], [place]. * Medications:?TakingMeloxicam 7.5 MG Tablet TAKE 1 TABLET BY MOUTH EVERY DAY Omeprazole 20 MG Capsule Delayed Release TAKE 1 CAPSULE BY MOUTH EVERY DAY 30 MINUTES BEFORE MORNING MEAL Tamsulosin HCl 0.4 MG Capsule TAKE 1 CAPSULE BY MOUTH EVERY DAY FOR 30 DAYS predniSONE 20 MG Tablet 1 tablet Orally Once a day Medication List reviewed and reconciled with the patientTaking Meloxicam 7.5 MG Tablet TAKE 1 TABLET BY MOUTH EVERY DAY Taking Omeprazole 20 MG Capsule Delayed Release TAKE 1 CAPSULE BY MOUTH EVERY DAY 30 MINUTES BEFORE MORNING MEAL Taking Tamsulosin HCl 0.4 MG Capsule TAKE 1 CAPSULE BY MOUTH EVERY DAY FOR 30 DAYS Taking predniSONE 20 MG Tablet 1 tablet Orally Once a day Medication List reviewed and reconciled with the patient * Allergies:?Influenza Vaccine sno[Allergies Verified] Objective: * Vitals:?Ht: 70, Wt:178, BMI: 25.54, BP:129/79, HR:72, Temp:97.2, Ht-cm: 177.8, Wt-k.74. * Examination: ???General Examination: ?GENERAL APPEARANCE:?pleasant, well nourished, well developed, in no acute distress, calm and relaxed.?HEAD:?atraumatic, normocephalic.?EYES:?eomi, perrla, anicteric, conjugate.?EARS:?normal.?NOSE:?septum intact.?ORAL CAVITY:?normal, unremarkable.?NECK/THYROID:?no jugular venous distention, no carotid bruit, thyroid normal.?LYMPH NODES:?no enlarged lymph nodes,spleen normal.?SKIN:?no suspicious lesions, anicteric, Warm and dry.?HEART:?no clicks, gallops, murmurs, or rubs, regular rhythm, S1, S2 normal, no s3, or vascular bruits.?LUNGS:?clear to auscultation .?BREASTS:??no masses palpable bilaterally.?ABDOMEN:?bowel sounds normal, no ascites, no organomegaly, no mass.?RECTAL EXAM:?not examined.?MUSCULOSKELETAL:?extremities unremarkable, no clubbing, cyanosis or edema.?PERIPHERAL PULSES:?normal.?NEUROLOGIC:?alert and oriented, cranial nerves 2-12 grossly intact, deep tendon reflexes 2+ symmetrical, motor strength normal upper and lower extremities, sensory exam intact.?PSYCH:?alert, oriented.? : ???Rectal exam:The doctor performed a rectal exam to check the patient's prostate. The doctor noted a little bulging and a small nodule, but nothing severe. ???Genitourinary - Male: ?PENIS:?normal.?URETHRA:?normal.?TESTICLES:?normal.?PROSTATE:?Slightly enlarged slightly nodular right upper lobe nontender.? Assessment: * Assessment: 1.?BPH (benign prostatic hyp erplasia) - N40.0 (Primary)???Notes :He is known to have prostatism and has been compliant with taking his tamsulosin.He now presents with dysuria and a marked increase in frequency.? He has a strong sense of incomplete bladder emptying but no fever or chills.? The differential is early urinary retention, prostate infection or cystitis.? His PSA is slightly elevated consistent with prostate cancer or prostate infection.? The blood work shows a normal white blood cell count.? He has been given an antibiotic and a follow-up in 48 hours.???2.?Ureterolithiasis - N20.1???Notes :He reports no kidney stones recently.? The ddiscomfort with urinating is primarily urethral.???3.?GERD (gastroesophageal reflux disease) - K21.9???Notes :His symptoms are controlled with medication. He is sleeping well at night.???4.?Degenerative joint disease - M19.90???Notes :He will continue on his use of ibuprofen. He was encouraged to stay active.???5.?Migraine without aura and without status migrainosus, not intractable - G43.009???Notes :He has had no further migraine headaches since February 16, 2018. In the emergency room. If it returns. She will call me once.???6.?Elevated PSA - R97.2???Notes :His PSA has increased from 5.5 up to 6.2. I have ordered a free PSA.???7.?Overweight - E66.3???Notes :He is slightly overweight. We discussed diet and nutrition. We made a plan to lose weight at a rate of one half of a pound per week.???8.?Prepatellar bursitis of right knee - M70.41???Notes :I have explained to him the nature of the swelling. I told him to use a heating pad and ibuprofen and rest. The prognosis is good he should slowly return to normal.??? Plan: * Treatment: 2.?Ureterolithiasis?LAB: PROFILE, RANDOM (COMPREHENSIVE METABOLIC) ?LAB: PSA, TOTAL ?LAB: CBC w DIFF ?LAB: Urine Culture 3.?Others? Continue Meloxicam Tablet, 7.5 MG, TAKE 1 TABLET BY MOUTH EVERY DAY;?Continue Omeprazole Capsule Delayed Release, 20 MG, TAKE 1 CAPSULE BY MOUTH EVERY DAY 30 MINUTES BEFORE MORNING MEAL;?Continue Tamsulosin HCl Capsule, 0.4 MG, TAKE 1 CAPSULE BY MOUTH EVERY DAY FOR 30 DAYS;?Start Bactrim DS Tablet, 800-160 MG, 1 tablet, Orally, twice a day, 14 days, 28 Tablet, Refills 0.?? * Procedure Codes:? * Preventive Medicine:? ??Counseling:?Care goal follow-up plan:?Counseling for abnormal BMI given?Yes ?Above Normal BMI Follow-up?Dietary management education, guidance, and counseling * Follow Up:?Tuesday, Tuesday (Seth tinoco: TV review labs/urine done at , To assess the effectiveness of the treatment for the prostate infection.) * Images: * Sign off status: Completed true * Provider:?Dayton Valentin MD Date:?02/10 Generated for Yamileti zenon/Leo/Shakeelitting on:?05/22/2024 07:07 AM EST History and Physical Notes * HPI (History of Present Illness) Category Sub-Category Detail Notes COVID-19 Screening Questions Have you had any new onset fever, chills, cough, congestion, sore throat, shortness of breath, muscle aches?: No Have you been exposed to the virus withi n the last 10 days?: No Have you travelled internationally in last 10 days?: No Have you been exposed to COVID-19 in the past?: No Examination Category Sub-Category Detail Notes Genitourinary - Male TESTICLES: normal PENIS: normal PROSTATE: Slightly enlarged sl ightly nodular right upper lobe nontender URETHRA: normal General Examination GENERAL APPEARANCE: pleasant , well nourished, well developed, in no acute distress, calm and relaxed HEAD: atraumatic, normocep halic EYES: eomi, perrla, anicte sage, conjugate EARS: normal NOSE: septum intact NECK/THYROID: no jugular venous di stention, no carotid bruit, thyroid normal HEART: no clicks, gallops, murmurs, or rubs, regular rhythm, S1, S2 normal, no s3, or vascular bruits LUNGS: clear to auscultatio n ABDOMEN: bowel sounds normal, no ascites, no organomegaly, no mass NEUROLOGIC: alert and oriented, cranial nerves 2-12 grossly intact, deep tendon reflexes 2+ symmetrical, motor strength normal upper and lower extremities, sensory exam intact SKIN: no suspicious lesion s, anicteric, Warm and dry PERIPHERAL PULSES: normal BREASTS: no masses palpable b ilaterally MUSCULOSKELETAL: extremities unremark able, no clubbing, cyanosis or edema LYMPH NODES: no enlarged lymph no deanna,spleen normal RECTAL EXAM: not examined PSYCH: alert, oriented ORAL CAVITY: normal, unremarkable
[2024-05-22] MEDS: Lactated Ringers 1,000 ML 100 ML IVCONT (08:03)
--- NOTE | 2024-05-22 09:00 | MHC.SHP ---
Pre-Procedural Eval Section A - 24 Hr Update-Section A only Date of Service: 05/22/24 The patient is an INPATIENT: No The patient has been examined within 24 hours of the surgical procedure. The History & Physical has been completed within 30 days and I have reviewed it.: Yes Section B - Complete if H&P > 30 days Chief Complaint: Elevated prostate specific antigen [PSA] Allergies: Allergies Allergy/AdvReac Type Severity Reaction Status Date / Time Influenza Virus Vaccines Allergy Unknown Verified 05/17/24 15:39 Plan Diagnosis/Plan: Unchanged I have reviewed the history and physical and performed a pertinent physical examination on my patient. No changes have occurred unless specified. Transrectal Ultrasound guided biopsy of the prostate. Discussed risks to include but not limited to pain, blood in stool, urine and semen, septicemia, need to repeat biopsy. Time Spent With Patient Time: Total time managing care of this patient today ____ minutes.
--- NOTE | 2024-05-22 09:52 | W.PM.OPN ---
Operative Note Operative Note Date of Service: 05/22/24 Narrative: PreOperative Diagnosis:? ? Elevated PSA Post Operative Diagnosis:??Elevated PSA Procedure:?1. Transrectal ultrasound guided biopsy of the prostate 12 core 2. Transrectal ultrasound measurement of prostate 3. Transrectal ultrasound guided pudendal nerve block Surgeon:?Dr Brandon Morrison Anesthesia:? General Indications for procedure: Elevated PSA Procedure: The patient was brought into the OR room, placed and the OR table in supine position general anesthesia was given, the patient was repositioned in the left lateral position. Preoperative antibiotics confirmed. Patient identity confirmed. Safety pause time-out performed. Iodine mixed with lubricant jelly 30 cc placed per rectum. Ultrasound probe was placed per rectum. The prostate was visualized. The prostate was measured width 5.48 cm, height 3.88 cm, length 6.00 cm with a volume of 66.8 mL. An ultrasound guided pudendal nerve block was performed using 10 cc of 1% lidocaine. A 12 core biopsy was performed from the left base, left mid, left apex and right base, mid, apex 2 biopsies from each section. The ultrasound probe was removed and digital palpation of the prostate for 1-2 minutes for hemostasis was performed. The patient tolerated the procedure well. Complications: None EBL: minimal
== END 2024-05-22 11:10 | disposition home or self-care (01) ==
PROVIDERS: PCP Internal Medicine Medical Oncology; Visit Provider Urology
PROC: (CPT 55700; principal; 2024-05-22 08:50)
DX: R97.20 Elevated prostate specific antigen [PSA] (principal); N42.89 Other specified disorders of prostate
CPT/HCPCS: 55700; 76942; 88305; 88344; J0696; J2003; J2250; J2405; J2704; J3010

== ENCOUNTER → 2024-05-22 07:04 | Outpatient (BNV) | payer MEDICARE, MEDICAID, SELFPAY | PROVIDERS: PCP Internal Medicine Medical Oncology; Visit Provider Urology | DX: R97.20 Elevated prostate specific antigen [PSA] (principal) | CPT/HCPCS: 55700; 76872; 76942 ==

== ENCOUNTER 2024-05-26 08:06 | Outpatient (REF) | payer MEDICARE, MEDICAID, SELFPAY ==
--- OUTSIDE RECORDS SUMMARY | 2024-05-26 08:08 | XMS_ITS ---
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 Role Phone Dayton Valentin Primary Care [...] Date Provider Diagnosis Dayton Valentin III, MD [address] [place] [address] [place] [address] 03/02/2024 Dayton Valentin Elevated PSA R97.20 ; [...] Omeprazole 20 MG TAKE 1 CAPSULE BY [facility] EVERY DAY 30 MINUTES BEFORE MORNING MEAL Meloxicam 7.5 MG TAKE 1 TABLET BY MOUTH EVERY DAY Next Appt Details Follow Up: As Scheduled, Mar, Reason: OV, Follow-up on treatment and check on PSA levels Provider Name:Dayton Sandersrne, 06/05/2024 02:15:00 PM, [address], [place], [address], Provider Name:Dayton Hernandezne, 09/21/2024 10:00:00 AM, [address], [place], [phone], Progress Notes * HECTORJe SLOANDOB:[birth year] (63 yo M)Acc No.[id number]:03/02/2024 Patient:?Je YOUNG Provider:?Dayton Valentin MD :1960???Age:63 Y???Sex:Male Isaias e:03/02/2024 Address:[address] [place], [place] [id number] Subjective: * Chief Complaints: * ???DysuriaUrinary frequencyI ncomplete bladder emptyingBenign prostatic hypertrophy * HPI: ???:?Telehealth?Location of provider rendering services:?{...} [address] [facility] [address] ?Location of patient:?address listed in demographics for [...] Surgical History:?left knee arthroscopy 1996colonoscopy 2 polyps [facility] June 2011complete dental extractions cystoscopy and stent [...] Tobacco Non-User?Aggressive non-smoker ???He is not a Adventist. He drinks one beer per week and does not smoke. 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 He is and has one daughter who is healthy. He was born in [place], [place]. * Medications:?TakingpredniSON E 20 MG Tablet [...] trace Menstrating NR n/a N/A * Lab:[facility] * Collection Date 01/24/2024 [...] tablet, Orally, Once a day.?? * Procedure Codes:?71664 PHONE E/M BY PHYS 11-20 MIN * Preventive Medicine:? ??Counseling:?Care goal follow-up plan:?Counseling for abnormal BMI given?Yes ?Above Normal BMI Follow-up?Dietary management education, guidance, and counseling, Dietary needs education * Follow Up:?As Scheduled, Mar (Reason: OV, Follow-up on treatment and check on PSA levels) * Images: * Sign off status: Completed true * Provider:?Dayton Valentin MD Date:?02/10 Generated for Valerie yarbrough/Leo/Krystal on:?05/26/2024 08:08 AM EST History and Physical Notes * HPI (History of Present Illness) Category Sub-Category Detail Notes Telehealth Location of [facility] rendering services:: {...} [address] [place] [address] Drive [address] [facility] [address] Location of patient:: address listed in demographics [...]
--- OUTSIDE RECORDS SUMMARY | 2024-05-26 08:09 | XMS_ITS ---
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 Name Role Phone Dayton Valentin Primary Care Provider [phone] Allergies Allergen (clinical drug ingredient) Drug/Non Drug Allergy documented on EMR Reaction Allergy Type Onset Date Status Vaccine product containing Influenza virus antigen (medicinal product) Influenza Vaccines Unknown Drug Allergy Ac tive Results Component Value Reference Range Notes PSA Free and Total Reviewed date:03/15/2024 02:54:07 PM Interpretation: Performing Lab:[facility], [address] [place] [id number] Notes/Report: results Prostate Specific Ag Total 7.2 [...] 30 93 9 (3)Yohanaona et al.:ROSALIND 277: 8566-9361 (1996) (4)Catalona et al.:ROSALIND 279: 9457-4830 (1997) (x)These estimates vary with age, ethnicity, [...] mind. PSA was performed using the Cecelia [place] Immunoassay method. Values obtained from different assay methods cannot be used interchangeably. PSA levels, regardless of value, should not be interpreted as absolute evidence of the presence or absence of disease. THIS TEST WAS PERFORMED AT: [facility] [address] [address] ELIDA PEREZ MD Free Prostate Spec Ag [...] Provider Specialty Urology General Notes Maribell Hackett [facility] 03/19 11:47:08 AM > ref/demo/progress note / labs faxed to Dr Kramer office, Maribell Hackett [facility] 03/22/2024 01:48:58 PM >I called [facility] at [phone] spoke to Linda she gave me appt [...] Date Provider Diagnosis Dayton Valentin III, MD [address] [place] [address] [place] [address] 03/13/2024 Dayton Valentin BPH (benign prostati c [...] PSA Provider Name:Dayton Valentin, 06/05/2024 02:15:00 PM, [address] [place] [address] [address], [place], [phone], Provider Name:Dayton Valentin, 09/21/2024 10:00:00 AM, [address] [place] [address] [address], [place], [phone], Progress Notes * Je YOUNGDOB:[birth year] (63 yo M)Acc No.[id number]:03/13/2024 Progress Notes Patient:?Je YOUNG Provider:?Dayton Valentin MD :1960???Age:63 Y???Sex:Male Isaias e:03/13/2024 Address:[address] [place], [place] [id number] Subjective: * Chief Complaints: * ???Urinary frequencyNocturia [...] Surgical History:?left knee arthroscopy 1996colonoscopy 2 polyps [facility] June 2011complete dental extractions cystoscopy and [...] Tobacco Non-User?Aggressive non-smoker ???He is not a Baptism. He drinks one beer per week and does not smoke. 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 He is and has one daughter who is healthy. He was born in [place], [place]. * Medications:?TakingMeloxicam 7.5 MG Tablet TAKE [...] mg/dL) 37 (Ref Range: mg/dL) * Lab:[facility] * Collection Date 01/24/2024 [...] contamination.-?Clinical Info: PLEASE FAX COMPLETED RESULTS TO [phone],Please have this testing done as soon as [...] Clinical Info: PLEASE FAX COMPLETED RESULTS TO [phone],Please have this testing done as soon as [...] Provider:?Dayton Valentin MD Date:?06/2023 Generated for Printi ng/Telmag/eTransmitting on:?05/26/2024 08:08 AM EST History and Physical Notes * HPI (History of Present Illness) Category Sub-Category Detail Notes COVID-19 Screening Questions Have you had any new onset fever, chills, cough, congestion, sore throat, shortness of breath, muscle aches?: No Have you been exposed to the virus withi n the last 10 days?: No Have you travelled internationally in [facility] last 10 days?: No Have you been [...]
--- OUTSIDE RECORDS SUMMARY | 2024-05-26 08:09 | XMS_ITS ---
Author Organization Dayton Valentin III, MD Address [address] [place] [address] Care Team Providers Care Preparation Operator Name Role Phone Dayton Valentin Primary Care Provider Allergies Allergen (clinical drug ingredient) Drug/Non Drug Allergy documented on EMR Reaction Allergy Type Onset Date Status Vaccine product containing Influenza virus antigen (medicinal product) Influenza Vaccines Unknown Drug Allergy Ac tive Results Component Value Reference Range Notes Urine Culture Reviewed date:03/05/2024 07:37:52 AM Interpretation: Performing Lab:[facility], [address] [place] [phone] Notes/Report: Urine Culture Report Result Urine Culture [...] Omeprazole 20 MG TAKE 1 CAPSULE BY [facility] EVERY DAY 30 MINUTES BEFORE MORNING [...] Date Provider Diagnosis Dayton Valentin III, MD [address] [place] [address] [place] [address] 02/29/2024 Dayton Valentin BPH (benign prostati c [...] Omeprazole 20 MG TAKE 1 CAPSULE BY [facility] EVERY DAY 30 MINUTES BEFORE MORNING [...] infection. Provider Name:Dayton Valentin, 06/05/2024 02:15:00 PM, [address] [place] [address] [address], [place], [phone], Provider Name:Dayton Valentin, 09/21/2024 10:00:00 AM, [address] [place] [address] [address], [place], [phone], Progress Notes * Je YOUNGDOB:[birth year] (63 yo M)Acc No.[id number]:02/29/2024 Progress Notes Patient:Je LINARES Provider:?Dayton Valentin MD :1960???Age:63 Y???Sex:Male Isaias e:02/29/2024 Address:[address] [place], [place] [id number] Subjective: * Chief Complaints: * ???Pain when [...] Tobacco Non-User?Aggressive non-smoker ???He is not a Rastafarian. He drinks one beer per week and does not smoke. 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 He is and has one daughter who is healthy. He was born in [place], [place]. * Medications:?TakingMeloxicam 7.5 MG Tablet TAKE [...] Valentin MD Date:?02/10 Generated for Yamileti zenon/Leo/Shakeelitting on:?05/26/2024 08:09 AM EST History and Physical Notes * [...]
[2024-05-26 08:25] LABS: Appearance Urine Turbid; Color Urine Yellow; Glucose Urine UA Negative (Negative); Leukocyte Esterase Urine Negative (Negative); Nitrite Urine Negative (Negative); PH 5.5 (5.0-9.0); Specific Gravity - Urine 1.015 (1.005-1.025); UMIC TRIGGER UA YES; Urine Blood Moderate (2+) (Negative); Urine Ketones Negative (Negative); Urine Protein Negative (Neg-Trace)
[2024-05-26 08:39] LABS: Bacteria Urine None Seen (None Seen); Calcium Oxalate Crystals Urine Present; Hyaline Casts Urine 0-2 /LPF (0-2); Squamous Epithelial Cell Urine 0-2 /HPF (0-2); WBC Urine 0-5 /HPF (0-5)
== END 2024-05-26 08:07 | disposition home or self-care (01) ==
LOC: HO.LNP 08:06
PROVIDERS: Visit Provider Urology
DX: N40.1 Benign prostatic hyperplasia with lower urinary tract symptoms (principal); R97.20 Elevated prostate specific antigen [PSA]
CPT/HCPCS: 81001; 87086

== ENCOUNTER 2024-06-07 12:44 | Outpatient (AMB) | payer MEDICARE, MEDICAID, SELFPAY ==
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
--- OUTSIDE RECORDS SUMMARY | 2024-06-07 15:09 | XMS_ITS ---
Author Organization Dayton Valentin III, MD Address [address] [place] [address] Care Team Providers Care Internship Name Role Phone Dayton Valentin Primary Care Provider Allergies Allergen (clinical drug ingredient) Drug/Non Drug Allergy documented on EMR Reaction Allergy Type Onset Date Status Vaccine product containing Influenza virus antigen (medicinal product) Influenza Vaccines Unknown Drug Allergy Ac tive Results Component Value Reference Range Notes PSA Free and Total Reviewed date:03/15/2024 02:54:07 PM Interpretation: Performing Lab:[facility], [address] [place] [phone] Notes/Report: results Prostate Specific Ag Total 7.2 [...] 30 93 9 (3)Yohanaona et al.:ROSALIND 277: 7817-8572 (1996) (4)Catalona et al.:ROSALIND 279: 2392-3214 (1997) (x)These estimates vary with age, ethnicity, [...] mind. PSA was performed using the Cecelia Mcgrew Immunoassay method. Values obtained from different assay methods cannot be used interchangeably. PSA levels, regardless of value, should not be interpreted as absolute evidence of the presence or absence of disease. THIS TEST WAS PERFORMED AT: [facility] [address] [address] ELIDA PEREZ MD Free Prostate Spec Ag [...] Provider Specialty Urology General Notes Maribell Hackett [facility] 03/19 11:47:08 AM > ref/demo/progress note / labs faxed to Dr Kramer office, Maribell Hackett [facility] 03/22/2024 01:48:58 PM >I called [facility] at [phone] spoke to Linda she gave me appt [...] Date Provider Diagnosis Dayton Valentin III, MD [address] [place] [address] [place] [address] 03/13/2024 Dayton Valentin BPH (benign prostati c [...] blood test on PSA Provider Name:Dayton Valentin, 06/28/2024 11:15:00 AM, [address] [place] [address] [address], [place], [address], Provider Name:Dayton Valentin, 09/21/2024 10:00:00 AM, [address] [place] [address] [address], [place], [address], Progress Notes * Je YOUNGDOB:[birth year] (63 yo M)Acc No.[id number]:03/13/2024 Progress Notes Patient:?Je YOUNG Provider:?Dayton Valentin MD :1960???Age:63 Y???Sex:Male Isaias e:03/13/2024 Address:[address] [place], [place] [id number] Subjective: * Chief Complaints: * ???Urinary frequencyNocturia [...] Surgical History:?left knee arthroscopy 1996colonoscopy 2 polyps [facility] June 2011complete dental extractions cystoscopy and stent [...] Tobacco Non-User?Aggressive non-smoker ???He is not a Mandaeism. He drinks one beer per week and does not smoke. 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 He is and has one daughter who is healthy. He was born in [place], [place]. * Medications:?TakingMeloxicam 7.5 MG Tablet TAKE [...] mg/dL) 37 (Ref Range: mg/dL) * Lab:[facility] * Collection Date 01/24/2024 [...] contamination.-?Clinical Info: PLEASE FAX COMPLETED RESULTS TO [phone],Please have this testing done as soon as [...] Clinical Info: PLEASE FAX COMPLETED RESULTS TO [phone],Please have this testing done as soon as [...] Valentin MD Date:?06/2023 Generated for Printi ng/Leo/eTransmitting on:?06/07/2024 03:09 PM EST History and Physical Notes * HPI (History of Present Illness) Category Sub-Category Detail Notes COVID-19 Screening Questions Have you had any new onset fever, chills, cough, congestion, sore throat, shortness of breath, muscle aches?: No Have you been exposed to the virus withi n the last 10 days?: No Have you travelled internationally in [facility] last 10 days?: No Have you [...]
--- OUTSIDE RECORDS SUMMARY | 2024-06-07 15:09 | XMS_ITS ---
Author Organization Dayton Valentin III, MD Address [address] [place] [address] Care Team Providers Care Help Desk Intern Name Role Phone Dayton Valentin Primary Care Provider [phone] Allergies Allergen (clinical drug ingredient) Drug/Non Drug Allergy documented on EMR Reaction Allergy Type Onset Date Status Vaccine product containing Influenza virus antigen (medicinal product) Influenza Vaccines Unknown Drug Allergy Ac tive REASON FOR VISIT follow up, LLQ pain, sharp pain and shit pants called doctor who did the biopsy Medications Medication SIG (Take, Route, Fr equency, [...] Vital Signs Temperature 97.3 degrees Fahrenheit 06/05/19 25 Blood pressure systolic 137 mm Hg 06/05/19 25 Blood pressure diastolic 82 mm Hg 025 Heart Rate 67 /min 06/05/2024 Height 70 in 06/05/2024 Weight 180 lbs 06/05/2024 BMI 25.82 kg/m2 06/05/2024 Encounters Encounter Location Date Provider Diagnosis Dayton Valentin III, MD [address] [place] [address] [place] [address] 06/05/2024 Dayton Valentin Plan Of Treatment Medication Medication Name Sig Start Date Stop Date Notes predniSONE 20 MG 1 tablet Orally Once a day 01/31/2024 Meloxicam 7.5 MG TAKE 1 TABLET BY MOUTH EVERY DAY Omeprazole 20 MG TAKE 1 CAPSULE BY MO [facility] EVERY DAY 30 MINUTES BEFORE MORNING MEAL Tamsulosin HCl 0.4 MG TAKE 1 CAPSULE BY MOUTH EVERY DAY FOR 30 DAYS Next Appt Details Provider Name:Dayton Valentin, 06/28/2024 11:15:00 AM, [address] [place] [address] [address], [place], [address], Provider Name:Dayton Valentin, 09/21/2024 10:00:00 AM, [address] [place] [address] [address], [place], [address], Progress Notes * HECTORJe SLOANDOB:[birth year] (64 yo M)Acc No.[id number]:06/05/2024 Progress Notes Patient:?Je YOUNG Provider:?Dayton Valentin MD :1960???Age:64 Y???Sex:Male Isaias e:06/05/2024 Address:[address] [place] [id number] Subjective: * Chief Complaints: * ???1. Follow up. 2. LLQ pain , sharp pain and shit pants called doctor who did the biopsy. * HPI: ???COVID-19 Screening:? had colono did biopsy and had pain? stool was solid and liquid. ?Questions?Have you had any new onset fever, chills, cough, congestion, sore throat, shortness of breath, muscle aches??No * ROS:?General/Constitutional:?pain?only normal aches and pains.?Chills?denies.?Fatigue?admits.?Fever?denies.?ENT:?Decreased hearing?denies.?Respiratory:?Cough?denies.?Cardiovascular:?Chest pain with exertion?denies.?Dyspnea on exertion?denies.?Shortness of breath?denies.?Gastrointestinal:?Constipation?denies.?Decreased appetite?denies.?Diarrhea?denies.?Heartburn?denies.?Nausea?denies.?Rectal bleeding?denies.?Vomiting?denies.?Hematology:?bruising?denies.?petechiae?denies.?Swollen glands?none have been noted.?Genitourinary:?Frequent urination?denies.?Musculoskeletal:?Muscle aches?denies.?Painful joints?denies.?Sciatica?denies.?Weakness?denies.?Skin:?Itching?denies.?Rash?denies.?Skin lesion(s)?denies.?Neurologic:?Difficulty speaking?denies.?Dizziness?denies.?Headache?denies.?Low back pain?denies.?Psychiatric:?Depressed mood?denies.? * Medical History:?Colonic emmy yps, Thrombocytopenia, Dental extractions, Degenerative joint disease left knee, pertussis September 2012, Pneumonia 15 years ago, Hearing loss right ear, Left sided ureterolithiasis with renal colic, ureterolithiasis with lithotripsy April 2016, ED, Arthritis, Kidney stones, Enlarged prostate, Elevated PSA levels. * Surgical History:?left knee arthroscopy 1995, colonoscopy 2 polyps [facility] June 2011, complete dental extractions , cystoscopy and stent insertion left ureter for stone 04/2016, lithotripsy 04/2016, Right, Kidney stone removed 11/10/2016, No history , Knee surgery . * Hospitalization/Major Diagno stic Procedure:?No history . * Family History:?Father: dece ased 80 yrs, [...] Tobacco Non-User?Aggressive non-smoker ???He is not a Orthodox. He drinks one beer per week and does not smoke. 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 He is and has one daughter who is healthy. He was born in [place], [place]. * Medications:?Taking Meloxica m 7.5 MG Tablet TAKE 1 TABLET BY MOUTH EVERY DAY , Taking Omeprazole 20 MG Capsule Delayed Release TAKE 1 CAPSULE BY MOUTH EVERY DAY 30 MINUTES BEFORE MORNING MEAL , Taking Tamsulosin HCl 0.4 MG Capsule TAKE 1 CAPSULE BY MOUTH EVERY DAY FOR 30 DAYS , Taking predniSONE 20 MG Tablet 1 tablet Orally Once a day , Discontinued Bactrim DS 800-160 MG Tablet 1 tablet Orally twice a day , Medication List reviewed and reconciled with the patient * Allergies:?Influenza Vaccine s. Objective: * Vitals:?Ht: 70, Wt:180, BMI: 25.82, BP:137/82, HR:67, Temp:97.3, Ht-cm: 177.8, Wt-k.65. * ???Past Orders: Lab:Pathology * Collection Date 05/22/2024 07/08/2022 Collection Time 09:43 AM 02:01 PM Order Date 05/22/2024 07/08/2022 * Examination: ???General Examination: ?GENERAL APPEARANCE:?pleasant, well [...] lower extremities, sensory exam intact.?PSYCH:?alert, oriented.? Assessment: Plan: * Treatment: * Images: * The named appointment provid er may or may not be the originator of this progress note, and it is not deemed complete until electronically signed by the appointment provider. Sign off status: Pending * Provider:?Dayton Valentin MD Date:?05/13 Generated for Valerie yarbrough/Leo/Shakeleitting on:?06/07/2024 03:09 PM EST History and Physical [...]
--- OUTSIDE RECORDS SUMMARY | 2024-06-07 15:09 | XMS_ITS ---
Author Organization Dayton Valentin III, MD Address [address] [place] [address] Care Team Providers Care Chief Of Vital Statistics Name Role Phone Dayton Valentin Primary Care [...] Date Provider Diagnosis Dayton Valentin III, MD [address] [place] [address] [place] [address] 03/02/2024 Dayton Valentin Elevated PSA R97.20 ; [...] Omeprazole 20 MG TAKE 1 CAPSULE BY [facility] EVERY DAY 30 MINUTES BEFORE MORNING MEAL Meloxicam 7.5 MG TAKE 1 TABLET BY MOUTH EVERY DAY Next Appt Details Follow Up: As Scheduled, Mar, Reason: OV, Follow-up on treatment and check on PSA levels Provider Name:Dayton Sandersrne, 06/28/2024 11:15:00 AM, [address], [place], [address], Provider Name:Dayton Valentin, 09/21/2024 10:00:00 AM, [address] [facility], [place], [address], Progress Notes * HECTORJe SLOANDOB:[birth year] (63 yo M)Acc No.[id number]:03/02/2024 Patient:?Je YOUNG Provider:?Dayton Valentin MD :1960???Age:63 Y???Sex:Male Isaias e:03/02/2024 Address:[address] [place], [place] [address] Subjective: * Chief Complaints: * ???DysuriaUrinary frequencyI ncomplete bladder emptyingBenign prostatic hypertrophy * HPI: ???:?Telehealth?Location of provider rendering services:?{...} [address] [facility] [address] ?Location of patient:?address listed in demographics for [...] Surgical History:?left knee arthroscopy 1996colonoscopy 2 polyps [facility] [place] 2011complete dental extractions cystoscopy and stent [...] Tobacco Non-User?Aggressive non-smoker ???He is not a Lutheran. He drinks one beer per week and does not smoke. 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 He is and has one daughter who is healthy. He was born in [place], [place]. * Medications:?TakingpredniSON E 20 MG Tablet [...] trace Menstrating NR n/a N/A * Lab:[facility] [place]. Pane l Fast * Collection Date 01/24/2024 [...] tablet, Orally, Once a day.?? * Procedure Codes:?18571 PHONE E/M BY PHYS 11-20 MIN * Preventive Medicine:? ??Counseling:?Care goal follow-up plan:?Counseling for abnormal BMI given?Yes ?Above Normal BMI Follow-up?Dietary management education, guidance, and counseling, Dietary needs education * Follow Up:?As Scheduled, Mar (Reason: OV, Follow-up on treatment and check on PSA levels) * Images: * Sign off status: Completed true * Provider:?Dayton Valentin MD Date:?02/10 Generated for Valerie yarbrough/Leo/Krystal on:?06/07/2024 03:09 PM EST History and Physical Notes * HPI (History of Present Illness) Category Sub-Category Detail Notes Telehealth Location of [facility] rendering services:: {...} [address] [place] [address] [address] [facility] [address] Location of patient:: address listed in demographics [...]
== END 2024-06-07 13:26 | disposition home or self-care (01) ==
PROVIDERS: PCP Internal Medicine Medical Oncology; Visit Provider Urology
DX: R10.9 Unspecified abdominal pain (principal)
CPT/HCPCS: 99214

== ENCOUNTER → 2024-06-07 12:44 | Outpatient (BNVA) | payer MEDICARE, MEDICAID, SELFPAY | PROVIDERS: PCP Internal Medicine Medical Oncology; Visit Provider Urology | DX: R10.9 Unspecified abdominal pain (principal) | CPT/HCPCS: 99212 ==

== ENCOUNTER 2024-08-22 07:48 | Outpatient (REF) | payer MEDICARE, MEDICAID, SELFPAY ==
--- OUTSIDE RECORDS SUMMARY | 2024-08-22 07:53 | XMS_ITS ---
Author Organization Dayton Valentin III, MD Address [address] [place] [address] Care Team Providers Care Plant Care Worker Name Role Phone Dayton Valentin Primary Care Provider [phone] Reason For Referral Reason Consult and Treat Diagnosis 1 Other specified hear ing loss of both ears (H91.8X3) Referral Organization Dayton Valentin III, MD Referring Provider First Name Dayton Referring Provider Last Name Barbie Referring Provider Speciality Internal M edicine Referred Provider [facility] er, Speech and Hearing Referred Provider Specialty Audiologists General Notes D, Tanya 08/03/2024 09:19:13 AM > Faxed referral per request of patient. Referral Priority Routine REASON FOR VISIT Hearing Test Social History Sex Assigned At : Social History Observation Description Sex Assigned At Male Encounters Encounter Location Date Provider Diagnosis Dayton Valentin III, MD [address] [place] [address] [place] [address] 08/03/2024 Dayton Valentin Plan Of Treatment Referrals Referral Date Details 08/03/2024 08/03/2024, Consult and Treat, Speech and Hearing [facility] Next Appt Details Provider Name:Dayton Valentin, 08/28/2024 09:15:00 AM, [address] [place] [address] [place], [address], Provider Name:Dayton Valentin, 09/21/2024 10:00:00 AM, [address] [facility], [place], [address], Provider Name:Dayton Valentin, 11/09/2024 11:15:00 AM, [address] [place] [address] [address], [place], [address], Progress Notes * HECTORJe SLOANDOB:[birth year] (64 yo M)Acc No.[id number]:08/03/2024 Patient:?Je HERNANDEZ :1960???Age:64 Y???Sex:Male Address:[address] [place] [address], [address] Subjective: * Chief Complaints: * ???Hearing Test * Medical History:? * Surgical History:? * Hospitalization/Major Diagno stic Procedure:? * Medications:? Objective: * Vitals:? * Physical Examination:? Assessment: Plan: * Treatment: * Procedure Codes:? * true * Date:? Generated for Valerie yarbrough/Leo/Seansmitting on:?08/22/2024 07:53 AM EDT Consultation Request Notes Referral Date Referring Provider Referred Provider Not es 08/03/2024 Dayton Valentin [facility], Speech and Hearing Consult and Treat
--- OUTSIDE RECORDS SUMMARY | 2024-08-22 07:53 | XMS_ITS ---
Author Organization Dayton Valentin III, MD Address [address] [place] [address] Care Team Providers Care Contract Negotiator Name Role Phone Dayton Valentin Primary Care Provider [phone] Allergies Allergen (clinical drug ingredient) Drug/Non Drug [...] W/U Status Risk Notes Problem Impacted cerumen ([id number]) Impacted cerumen, unspecified ear (H61.20) Active confirmed [...] Date Provider Diagnosis Dayton Valentin III, MD [address] [place] [address] [place], [place] [address] 08/09/2024 Dayton Valentin Impacted cerumen, unspecified ear [...] CAPSULE BY MO UT EVERY DAY Oral predniSONE 20 MG 1 [...] Up: 3 Months, Reason: ov Provider Name:Dayton Valentin, 08/28/2024 09:15:00 AM, [address] [place] [address] [address], [place], [address], Provider Name:Dayton Valentin, 09/21/2024 10:00:00 AM, [address] [place] [address] [address], [place], [address], Provider Name:Dayton Valentin, 11/09/2024 11:15:00 AM, [address] [place] [address] [address], [place], [address], Procedure Notes * Category Sub-Category Detail Notes Ear lavage Procedure Post-procedure Successful Progress Notes * Je HERNANDEZDOB:[birth year] (64 yo M)Acc No.[id number]:08/09/2024 Patient:?Je HERNANDEZ Provider:?Dayton Valentin MD :1960???Age:64 Y???Sex:Male Isaias e:08/09/2024 Address:[address] [place] [address] [phone] Subjective: * Chief Complaints: * ???Ear IrrigationBilateral c erumen impaction * HPI: ???COVID-19 Screening:? He comes to the office today after using debrox ttwice a day for 7 days for warm water irrigation of the uric posterior removed bilateral severe cerumen impaction.? This was carried out with no difficulty.? The impaction as were removed and his hearing was markedly improved.? He left the office and stable ambulatory condition to return in 3 months for routine medical care. ?Questions?Have you had any new onset fever, chills, cough, congestion, sore throat, shortness of breath, muscle aches??No * ROS:?He denied any headache, neck stiffness, diplopia, pain, shortness of breath, chest pain, nausea, vomiting, diarrhea, bleeding, or joint pain.? He complains of bilateral hearing loss. * Medical History:? * Surgical History:?left knee arthroscopy 1996colonoscopy 2 polyps [facility] [place] June 2011complete dental extractions [...] Tobacco Non-User?Aggressive non-smoker ???He is not a Mosque. He drinks one beer per week and does not smoke. 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 He is and has one daughter who is healthy. He was born in [place], [place]. * Medications:?TakingMeloxicam 7.5 MG Tablet TAKE [...] Vaccine sno[Allergies Verified] Objective: * Vitals:?Ht: 70, Wt:179, BMI: 25.68, BP:154/93, HR:73, Temp:97.9, Ht-cm: 177.8, Wt-k.19. Assessment: * Assessment: 1.?Impacted cerumen, unspeci fied ear - H61.20 (Primary)???Notes :He underwent bilateral warm more irrigation, which removed the? free treated cerumen impaction.? Both tympanic membranes appeared to be normal.? He says his hearing was improved.? He left the office annd stable condition to return as scheduled.???2.?Edentulous - K00.0???Notes :He has upper and lower dentures fit well and he has no difficulty eating and chewing.???3.?Degenerative joint disease - M19.90???Notes :He will continue on his use of ibuprofen. He was encouraged to stay active.???4.?GERD (gastroesophageal reflux disease) - K21.9???Notes :His reflux symptoms have been well controlled with medication.???5.?Ureterolithiasis - N20.1???Notes :He reports no kidney stones recently. The ddiscomfort with urinating is primarily urethral.???6.?Migraine without aura and without status migrainosus, not intractable - G43.009???Notes :He has had no further migraine headaches since February 16, 2018. In the emergency room. If it returns. She will call me once.???7.?Other specified hearing loss of both ears - H91.8X3???Notes :He is involved with the ear, nose and throat physicians in the testing him to see what therapy is indicated.??? Plan: * Treatment: * Procedures:?Ear lavage:?Procedure? .?Post-procedure?Successful.? * Procedure Codes:?14394 EAR I RRIGATION * Follow Up:?3 Months (Reason: ov) * Images: * Sign off status: Completed true * Provider:?Daytno Valentin MD Date:?04/2024 Generated for Valerie yarbrough/Leo/eTandersitting on:?08/22/2024 07:52 AM EDT History and Physical Notes * HPI (History of Present Illness) Category Sub-Category Detail Notes COVID-19 Screening Questions Have you had any new onset fever, chills, cough, congestion, sore throat, shortness of breath, muscle aches?: No
--- OUTSIDE RECORDS SUMMARY | 2024-08-22 07:53 | XMS_ITS | Patient Health Record ---
Author Organization Dayton Valentin III, MD Address [address] [place] [address] Care Team Providers Care Enterprise Architect Manager Name Role Phone Dayton Valentin Primary Care Provider Allergies Allergen (clinical drug ingredient) Drug/Non Drug Allergy documented on EMR Reaction Allergy Type Onset Date Status Vaccine product containing Influenza virus antigen (medicinal product) Influenza Vaccines Unknown Drug Allergy Ac tive Results Component Value Reference Range Notes URINE DIP STICK Reviewed date:01/31/2024 01:47:56 PM Interpretation: Performing Lab: Notes/Report: SG 1.025 1.005 - 1.025 pH 5.0 5.0 - 9.0 LUIS Negative Negative - NIT Negative Negative - PRO 15 Negative - Trace GLU Negative Negative - KET Negative Negative - UBG 0.2 0.1 - 1.8 TERESA Negative 0.2 - 1.3 BLD Negative Negative - Urine Culture Reviewed date:03/05/2024 07:37:52 AM Interpretation: Performing Lab:[facility], [address] [place] [phone] Notes/Report: Urine Culture Report Result Urine Culture > 100,000 cfu/ml Urine Culture Mixed bacterial jules a characteristic of Urine Culture urogenital contamination. PSA Free and Total Reviewed date:03/15/2024 02:54:07 PM Interpretation: Performing Lab:[facility], [address] [place] [phone] Notes/Report: results Prostate Specific Ag Total 7.2 < OR = 4.0 ng/mL Percent Free Prostate Spec Ag 32 >25 % (calc) PSA(ng/mL) Free PSA(%) Estimated(x) Probability of Cancer(as%) 0-2.5 (*) Approx. 1 2.6-4.0(1) 0-27(2) 24(3) 4.1-10(4) 0-10 56 11-15 28 16-20 20 21-25 16 >or =26 8 >10(+) N/A >50 References:(1)Daniel yap et al.:Urology 60: 469-474 (2001) (2)Rigoberto et al.:J.Urol 168: 922-925 (2001) Free PSA(%) Sensitivity(%) Specificity(%) < or = 25 85 19 < or = 30 93 9 (3)Catalona et al.:ROSALIND 277: 5839-4839 (1996) (4)Catalona et al.:ROSALIND 279: 9398-3041 (1997) (x)These estimates vary with age, ethnicity, [...] mind. PSA was performed using the Cecelia Bone Gap Immunoassay method. Values obtained from different assay methods cannot be used interchangeably. PSA levels, regardless of value, should not be interpreted as absolute evidence of the presence or absence of disease. THIS TEST WAS PERFORMED AT: [facility] [address] [place] [phone] ELIDA PEREZ MD Free Prostate Spec Ag 2.3 Complete Blood Count Auto Di ff Reviewed date:01/24/2024 11:47:53 AM Interpretation: Performing Lab:[facility], [address] [place] [phone] Notes/Report: White Blood Count 5.5 4.8-10.8 X10*3/uL Red Blood Count 5.18 4.60-5.80 X10*6/uL Hemoglobin 15.9 14.0-18.0 g/dl Hematocrit 46.0 42.0-52.0 % Mean Corpuscular Volume 88.8 80.0-98.0 fL Mean Corpuscular Hemoglobin 30.7 27.0-33.0 pg Mean Corpuscular HGB Conc 34.6 31.0-36.0 g/dl Red Cell Distribution Width 12.9 11.0-16.0 % Platelet Count 151 160-400 X10*3/uL Mean Platelet Volume 9.6 9.4-12.4 fL Neutrophils Percent Auto 63.2 45-73 % Imm Gran Pct Auto 0.6 0.0-0.4 % Lymphocytes Percent Auto 28.1 20-40 % Monocytes Percent Auto 7.3 2-11 % Eosinophils Percent Auto 0.6 0-4 % Basophils Percent Auto 0.2 0-2 % NRBC Pct Auto 0.0 0.0-0.2 /100WBC Neutrophils Absolute Auto 3.5 2.0-8.3 x10*3/u L Imm Gran Abs Auto 0.03 0.00-0.03 X10*3/uL Lymphocytes Absolute Auto 1.5 1.2-4.9 X10*3/u L Monocytes Absolute Auto 0.4 0.1-1.2 X10*3/uL Eosinophils Absolute Auto 0.0 0.0-0.4 X10*3/u L Basophils Absolute Auto 0.0 0.0-0.2 X10*3/uL NRBC Abs Auto 0.000 0.0-0.012 X10*3/uL Comprehensive [place]. Panel Fa st Reviewed date:01/24/2024 11:47:53 AM Interpretation: Performing Lab:[facility], [address] [place] [phone] Notes/Report: Sodium 141 135-145 mmol/L Potassium 4.7 3.3-5.1 mmol/L Chloride 109 96-108 mmol/L Carbon Dioxide 26 22-29 mmol/L Anion Gap 11 12-20 Blood Urea Nitrogen 14 9-16 mg/dL Creatinine 1.07 0.5-1.4 mg/dL Estimated Glomerular Filt Rate > 60 NOTE: For -Mauritian individuals, multiply the result by 1.210. Chronic Kidney Disease: Estimated GFR < 60 mL/min/1.73m2 Severe Kidney Disease: Estimated GFR < 15 mL/min/1.73m2 Glucose Fasting 105 60-99 mg/dL A fasting glucose from 100-125 mg/dl is considered impaired (pre-diabetes). Calcium 9.6 8.4-10.2 mg/dL Bilirubin Total 0.6 0.0-1.0 mg/dL Aspartate Amino Transferase 21 5-37 U/L Alanine Aminotransferase 33 0-40 U/L Total Protein 6.9 6.5-8.0 g/dL Albumin Level 4.3 3.5-5.0 g/dL Alkaline Phosphatase 75 39-117 U/L Lipid Panel Reviewed date:01/24/2024 11:47:53 AM Interpretation: Performing Lab:[address] [phone] Notes/Report: Triglycerides 128 <150 mg/dL Desirable Triglyceride: less than 150 mg/dL Borderline High Triglyceride 150-199 mg/dL High Triglyceride: 200-499 mg/dL Very High Triglyceride: greater than or equal to 5OO mg/dL Cholesterol 175 <200 mg/dL Desirable Cholesterol: less than 200 mg/dL Borderline High Cholesterol: 200-239 mg/dL High Cholesterol: greater than 239 mg/dL LDL Cholesterol Calculated 105 <100 mg/dL Desirable LDL: less than 100 mg/dL Near Optimal/Above Optimal LDL: 110-129 mg/dL Borderline High LDL: 130-159 mg/dL High LDL: 160-189 mg/dL Very High LDL: greater than or equal to 190 mg/dL HDL Cholesterol 45 >40 mg/dL Desirable HDL: greater than 40 mg/dL Note: This HDL assay may give artificially low results in patients with liver disease. Prostate Specific Antigen Reviewed date:01/24/2024 11:47:53 AM Interpretation: Performing Lab:[address] [phone] Notes/Report: Prostate Specific Antigen 5.35 <0.05-4.0 ng/mL PSA methodology: ILD Teleservicesnity i Chemiluminescent Microparticle Immunoassay (CMIA) Complete Blood Count Auto Di ff Reviewed date:03/01/2024 05:04:49 AM Interpretation: Performing Lab:[facility], [address] [place] [phone] Notes/Report: White Blood Count 7.1 4.8-10.8 X10*3/uL Red Blood Count 5.00 4.60-5.80 X10*6/uL Hemoglobin 15.1 14.0-18.0 g/dl Hematocrit 43.9 42.0-52.0 % Mean Corpuscular Volume 87.8 80.0-98.0 fL Mean Corpuscular Hemoglobin 30.2 27.0-33.0 pg Mean Corpuscular HGB Conc 34.4 31.0-36.0 g/dl Red Cell Distribution Width 13.0 11.0-16.0 % Platelet Count 172 160-400 X10*3/uL Mean Platelet Volume 9.2 9.4-12.4 fL Neutrophils Percent Auto 66.1 45-73 % Imm Gran Pct Auto 0.4 0.0-0.4 % Lymphocytes Percent Auto 25.4 20-40 % Monocytes Percent Auto 7.3 2-11 % Eosinophils Percent Auto 0.7 0-4 % Basophils Percent Auto 0.1 0-2 % NRBC Pct Auto 0.0 0.0-0.2 /100WBC Neutrophils Absolute Auto 4.7 2.0-8.3 x10*3/u L Imm Gran Abs Auto 0.03 0.00-0.03 X10*3/uL Lymphocytes Absolute Auto 1.8 1.2-4.9 X10*3/u L Monocytes Absolute Auto 0.5 0.1-1.2 X10*3/uL Eosinophils Absolute Auto 0.1 0.0-0.4 X10*3/u L Basophils Absolute Auto 0.0 0.0-0.2 X10*3/uL NRBC Abs Auto 0.000 0.0-0.012 X10*3/uL Comprehensive Met. Panel Reviewed date:03/01/2024 05:04:49 AM Interpretation: Performing Lab:[facility], [address] [place] [phone] Notes/Report: Sodium 144 135-145 mmol/L Potassium 4.1 3.3-5.1 mmol/L Chloride 107 96-108 mmol/L Carbon Dioxide 28 22-29 mmol/L Anion Gap 13 12-20 Blood Urea Nitrogen 18 9-16 mg/dL Creatinine 1.05 0.5-1.4 mg/dL Estimated Glomerular Filt Rate > 60 Chronic Kidney Disease: Estimated GFR < 60 mL/min/1.73m2 Severe Kidney Disease: Estimated GFR < 15 mL/min/1.73m2 Glucose Random 98 60-115 mg/dL Calcium 8.7 8.4-10.2 mg/dL Bilirubin Total 0.5 0.0-1.0 mg/dL Aspartate Amino Transferase 24 5-37 U/L Alanine Aminotransferase 37 0-40 U/L Total Protein 6.9 6.5-8.0 g/dL Albumin Level 4.2 3.5-5.0 g/dL Alkaline Phosphatase 76 39-117 U/L Prostate Specific Antigen Reviewed date:03/01/2024 05:04:49 AM Interpretation: Performing Lab:[facility], [address] [place] [phone] Notes/Report: Prostate Specific Antigen 6.36 <0.05-4.0 ng/mL PSA methodology: ILD Teleservicesnity i Chemiluminescent Microparticle Immunoassay (CMIA) PSA Free and Total Reviewed date:03/15/2024 02:54:07 PM Interpretation: Performing Lab:[facility], [address] [place] [phone] Notes/Report: Prostate Specific Ag Total 6.7 < OR = 4.0 ng/mL Percent Free Prostate Spec Ag 27 >25 % (calc) PSA(ng/mL) Free PSA(%) Estimated(x) Probability of Cancer(as%) 0-2.5 (*) Approx. 1 2.6-4.0(1) 0-27(2) 24(3) 4.1-10(4) 0-10 56 11-15 28 16-20 20 21-25 16 >or =26 8 >10(+) N/A >50 References:(1)Daniel a et al.:Urology 60: 469-474 (2002) (2)Rigoberto et al.:J.Urol 168: 922-925 (2002) Free PSA(%) Sensitivity(%) Specificity(%) < or = 25 85 19 < or = 30 93 9 (3)Catalona et al.:ROSALIND 277: 0909-7013 (1996) (4)Catalona et al.:ROSALIND 279: 6638-3282 (1998) (x)These estimates vary with age, ethnicity, family [...] mind. PSA was performed using the Cecelia Deb Immunoassay method. Values obtained from different assay methods cannot be used interchangeably. PSA levels, regardless of value, should not be interpreted as absolute evidence of the presence or absence of disease. THIS TEST WAS PERFORMED AT: [facility] [address] [place] [phone] ELIDA PEREZ MD Free Prostate Spec Ag 1.8 Pathology Reviewed date:06/03/2024 09:11:29 AM Interpretation: Performing Lab:[facility], [address] [place] [phone] Notes/Report: -- ---- Name: Sarabjit Hernandez pancho Cohen Age/Sex: 64/M : 1960 Unit#: [id number] Attend Dr: Brandon Morrison MD Re05/22/24 Status : [facility] Location: [facility] Disch: -- ---- SPEC : [id number] RECD: 05/22/24 STATUS: IDALIA NGUYEN NUM: [id number] DHARMESH: 05/22/[address] [facility] [address]: Brandon Morrison MD ENTERED: 05/22/24 43 SP TYPE: Surgical OTHR DR: Dayton Valentin MD ORDERED: Multiplex IHC/3, PIN4/4, Prostate biopsy/12 Diagnosis A: Left base lateral : Benign prostatic tissue; no malignancy identified. B: Left base medial: Benign prostatic tissue; no malignancy identified. C: Left mid lateral: Benign prostatic tissue; no malignancy identified. D: Left mid medial: Benign prostatic tissue; no malignancy identified. E: Left apex lateral : Benign prostatic tissue; no malignancy identified. F: Left apex medial: Benign prostatic tissue; no malignancy identified. G: Right base latera l: Benign prostatic tissue; no malignancy identified. H: Right base medial : Benign prostatic tissue; no malignancy identified. I: Right mid lateral : Benign prostatic tissue; no malignancy identified. J: Right mid medial: Benign prostatic tissue; no malignancy identified. K: Right apex latera l: Benign prostatic tissue; no malignancy identified. L: Right apex medial : Benign prostatic tissue; no malignancy identified. Comment: Patchy atrophy and chronic inflammation is present. Clinical History Elevated PSA Microscopic Description A-L. Microscopic sections reviewed. PIN4 multiplex immunostains support the diagnoses in F, G and H Material Received A: Left base lateral B: Left base medial C: Left mid lateral D: Left mid medial E: Left apex lateral CONTINUED ON NEXT PAGE -- ---- Name: Sarabjit Hernandez/Sex: 64/M : 1960 [facility]#: [id number] Unit#: [id number] Attend Dr: Brandon Morrison MD Re05/22/24 Status : [facility] Location: [facility] Disch: -- ---- SPEC : [id number] RECD: 05/22/24 STATUS: IDALIA NGUYEN NUM: [id number] DHARMESH: 05/22/2409[address]BM DR: Brandon Morrison MD ENTERED: 05/22/24 43 SP TYPE: Surgical OTHR DR: Dayton Valentin MD ORDERED: Multiplex IHC/3, PIN4/4, Prostate biopsy/12 Material Received (Continued) F: Left apex medial G: Right base lateral H: Right base medial I: Right mid lateral J: Right mid medial K: Right apex lateral L: Right apex medial Gross Description Received in 12 parts. A. Received in formalin labeled ?left base lateral? are 2 cylindrical portions of white soft tissue measurin g 0.6 and 0.7 cm in length with a diameter of 0.025 cm which are entirely submitted f or microscopic examination, 2 pieces in cassette A. B. Received in formalin labeled ?left base medial? are 2 cylindrical portions of white soft tissue measuring 0.5 and 0.7 cm in length both with a diameter of 0.025 cm which are entirely submitted f or microscopic examination, 2 pieces in cassette B. C. Received in formalin labeled ?left mid lateral? is a cylindrical portion of white soft tissue measuring 1.2 cm in length with a diameter of 0.025 cm which is entirely submitted for microscopic examination, 1 piece in cassette C. D. Received in formalin labeled ?left mid medial? is a cylindrical portion of white soft tissue measuring 1.7 cm in length with a diameter of 0.025 cm which is entirely submitted for microscopic examination, 1 piece in cassette D. E. Received in formalin labeled ?left apex lateral? is a cylindrical portion of white soft tissue measuring 1.2 cm in length with a diameter of 0.025 cm which is entirely submitted for microscopic examination, 1 piece in cassette E. F. Received in formalin labeled ?left apex medial? are 2 cylindrical portions of white soft tissue measuring 0.7 and 0.9 cm in length both with a diameter of 0.025 cm which are entirely submitted f or microscopic examination, 2 pieces in cassette F. G. Received in formalin labeled ?right base lateral? is a cylindrical portion of white soft tissue measuring 1.2 cm in length with a diameter of 0.025 cm which is entirely submitted for microscopic examination, 1 piece in cassette G. H. Received in formalin labeled ?right base medial? is a cylindrical portion of white soft tissue measuring 1.1 cm in length with a diameter of 0.025 cm which is entirely submitted for microscopic examination, 1 piece in cassette H. CONTINUED ON NEXT PAGE -- ---- Name: Sarabjit Hernandez Age/Sex: 64/M : 1960 Unit#: [id number] Attend Dr: Brandon Morrison MD Re05/22/24 [place] : [facility] [place] Location: [facility] Disch: -- ---- SPEC : [id number] RECD: 05/22/24-1033 STATUS: IDALIA NGUYEN NUM: [id number] DHARMESH: 05/22/24-[address]: Brandon Morrison MD ENTERED: 05/22/24- 43 SP TYPE: Surgical OTHR DR: Dayton Valentin MD ORDERED: Multiplex IHC/3, PIN4/4, Prostate biopsy/12 Gross Description (Continued) I. Received in formalin labeled ?right mid lateral? are 2 cylindrical portions of white soft tissue measuring 0.7 and 0.8 cm in length both with a diameter of 0.025 cm which are entirely submitted f or microscopic examination, 2 pieces in cassette eye. J. Received in formalin labeled ?right mid medial? is a cylindrical portion of white soft tissue measuring 1.4 cm in length with a diameter of 0.025 cm which is entirely submitted for microscopic examination, 1 piece in cassette J. K. Received in formalin labeled ?right apex lateral? is a cylindrical portion of white soft tissue measuring 1.6 cm in length with a diameter of 0.025 cm which is entirely submitted for microscopic examination, 1 piece in cassette K. L. Received in formalin labeled ?right apex medial? are 2 cylindrical portions of white soft tissue measurin g 0.4 and 0.5 cm in length both with a diameter of 0.025 cm which are entirely submitted f or microscopic examination, 2 pieces in cassette [facility] This case was review ed intradepartmentally. Special studies ordered and performed: PIN4 multiplex immunostains on F, G and H Copies To: Brandon Morrison MD [facility] [place] [facility] [address] [place] [address] Dr. Yanni murillo [address] [place] [address] [email or web address] Dayton Valentin MD [address] [place] [address], [address] [place] [address] -- ---- Signed (signature on file) Robby Ibarra MD 05/25/24 1746 -- ---- END OF REPORT Reason For Referral Reason abnormal skin lesion on face Diagnosis 1 Skin lesion (L98.9) Referral Organization Dayton Valentin III, MD Referring Provider First Name Dayton Referring Provider Last Name Barbie Referring Provider Speciality Internal edicine Referred Provider [facility] [facility] Referred Provider Specialty Dermatology General Notes Maribell Hackett [facility] 02/01 03:18:06 PM > ref/demo/progress note faxed to Roxann RUFFIN Suzanne [facility] 05/03/2024 03:06:43 PM I called patient he stated AUGUSTIN called him and he has appt on 05/22/2024 Referral Priority Routine Referral Appointment Date 05/22/2024 Reason elevated PSA and Kevin e PSA recent prostatism evaluate and treat Diagnosis 1 BPH (benign prostati c hyperplasia) (N40.0) Diagnosis 2 Elevated PSA (R97.20 ) Referral Organization Dayton Valentin III, MD Referring Provider First Name Dayton Referring Provider Last Jeremias Valentin Referring Provider Speciality Internal edicine Referred Provider Brandon Morrison Referred Provider Specialty Urology General Notes Maribell Hackett [facility] 03/19 11:47:08 AM > ref/demo/progress note / labs faxed to Roxann Shelley Suzanne [facility] 03/22/2024 01:48:58 PM >I called [facility] at [phone] spoke to Linda she gave me appt for patient on 04/20/2024 at 9:00 am pt called and mailed this appt information Referral Priority Routine Referral Appointment Date 04/20/2024 Reason Consult and Treat Diagnosis 1 Other specified hear ing loss of both ears (H91.8X3) Referral Organization Dayton Valentin III, MD Referring Provider First Name Dayton Referring Provider Last Name Barbie Referring Provider Speciality Internal M edicine Referred Provider [facility] Speech and Hearing Referred Provider Specialty Audiologists General Notes Tanya Aguirre 08/03/2024 09:19:13 AM > Faxed referral per request of patient. Referral Priority Routine Medications Medication SIG (Take, Route, Fr equency, Duration) Notes Start Date End Date Status Dutasteride 0.5 MG TAKE 1 CAPSULE BY MO UTH EVERY DAY Oral Active predniSONE 20 MG 1 tablet Orally Once a day 2023 Active Meloxicam 7.5 MG TAKE 1 TABLET BY BHARAT TH EVERY DAY Active Tamsulosin HCl 0.4 MG TAKE 1 CAPSULE BY MOUTH EVERY DAY FOR 30 DAYS Active Omeprazole 20 MG TAKE 1 CAPSULE BY MO UTH EVERY DAY 30 MINUTES BEFORE MORNING MEAL Active Immunizations Vaccine Route Administration Date Status Comme nts Tdap Unknown 07/14/2021 Administered COVID 19 Denisha Unknown 07/14/2020 Administered Social History Tobacco Use: Social History Observation Description Date Details (start date - stop date) Never Smoker NA - NA Sex Assigned At : Social History Observation Description Sex Assigned At Male Tobacco Use/Smoking Question Answer Notes Patient is a nonsmoker Additional Findings: Tobacco Non-User Aggressive non-smoker Alcohol Screen Question Answer Notes Did you have a drink containing alcohol in the p ast year? No Points 0 Interpretation Negative Problems Problem Type SNOMED Code ICD Code Onset Dates Problem Status W/U Status Risk Notes Problem 752174225 Overweight (E66.3) Active confirmed His body mass index is slightly elevated at 25.68. I recommended he stabilize his weight at this level. Problem 332069107 GERD (gastroesophageal reflux disease) (K21.9) Active confirmed His reflux symptoms have been well controlled with medication. Problem Impacted cerumen (66297295) Impacted cerumen, unspecified ear (H61.20) Active confirmed He underwent bilateral warm more irrigation, which removed the free treated cerumen impaction. Both tympanic membranes appeared to be normal. He says his hearing was improved. He left the office annd stable condition to return as scheduled. Problem 06291628 Ureterolithiasis (N20.1) Active confirmed He reports no kidney stones recently. The ddiscomfort with urinating is primarily urethral. Problem 654377578 BPH (benign prostatic hyperplasia) (N40.0) Active confirmed He has resumed rising only once a night to urinate. Problem 045868690 Edentulous (K00.0) Active confirmed He has upper and lower dentures fit well and he has no difficulty eating and chewing. Problem 137411049 Degenerative ever nt disease (M19.90) Active confirmed He will continue on his use of ibuprofen. He was encouraged to stay active. Problem 15667579 Colonic polyp (K63.5) Active confirmed He will undergo colonoscopy appropriately and at regular intervals. 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 Problem 2352452900307 Vasculogenic erectile dysfunction, unspecified vasculogenic erectile dysfunction type (N52.9) Active confirmed He was given a prescription for Viagra. Problem 390707882 Migraine without aura and without status migrainosus, not intractable (G43.009) Active confirmed He has had no further migraine headaches since February 16, 2018. In the emergency room. If it returns. She will call me once. Problem 33934712 Prepatellar bursitis of right knee (M70.41) Active confirmed I have explained to him the nature of the swelling. I told him to use a heating pad and ibuprofen and rest. The prognosis is good he should slowly return to normal. Vital Signs Heart Rate 73 /min 08/09/2024 Temperature 97.9 degrees Fahrenheit 08/09/2024 Blood pressure diastolic 93 mm Hg 08/09/2024 Height 70 in 08/09/2024 Blood pressure systolic 154 mm Hg 08/09/2024 Weight 179 lbs 08/09/2024 BMI 25.68 kg/m2 08/09/2024 Encounters Encounter Location Date Provider Diagnosis Dayton Valentin III, MD [address] [place] [address] [address] [place], [place] [phone] 09/20/2023 Dayton Valentin Hypertriglyceridemia E78.1 ; GERD (gastroesophageal reflux disease) K21.9 ; BPH (benign prostatic hyperplasia) N40.0 ; Degenerative joint disease M19.90 ; Edentulous K00.0 ; Migraine without aura and without status migrainosus, not intractable G43.009 ; Other specified hearing loss of both ears H91.8X3 ; Ureterolithiasis N20.1 ; Elevated PSA R97.20 ; Vasculogenic erectile dysfunction, unspecified vasculogenic erectile dysfunction type N52.9 and Overweight E66.3 Dayton Valentin III, MD [address] [place] [address] [place] [address] 01/31/2024 Dayton Valentin Hearing loss H91.90 ; Elevated PSA R97.20 ; BPH (benign prostatic hyperplasia) N40.0 ; Hypertriglyceridemia E78.1 ; GERD (gastroesophageal reflux disease) K21.9 ; Ureterolithiasis N20.1 ; Primary osteoarthritis, right hand M19.041 and Overweight E66.3 Dayton Valentin III, MD [address] [place] [address] [place] [address] 02/21/2024 Dayton Valentin GERD (gastroesophage al reflux disease) K21.9 ; BPH (benign prostatic hyperplasia) N40.0 ; Ureterolithiasis N20.1 ; Migraine without aura and without status migrainosus, not intractable G43.009 and Right hand pain M79.641 Dayton Valentin III, MD [address] [place] [address] [place] [address] 02/29/2024 Dayton Valentin BPH (benign prostati c hyperplasia) N40.0 ; Ureterolithiasis N20.1 ; GERD (gastroesophageal reflux disease) K21.9 ; Degenerative joint disease M19.90 ; Migraine without aura and without status migrainosus, not intractable G43.009 ; Elevated PSA R97.2 ; Overweight E66.3 and Prepatellar bursitis of right knee M70.41 Dayton Valentin III, MD [address] [place] [address] [place] [address] 03/02/2024 Dayton Valentin Elevated PSA R97.20 ; Dysuria R30.0 ; GERD (gastroesophageal reflux disease) K21.9 ; Other specified hearing loss of both ears H91.8X3 and Overweight E66.3 Dayton Valentin III, MD [address] [place] [address] [place] [phone] 03/13/2024 Dayton Valentin BPH (benign prostati c hyperplasia) N40.0 ; Elevated PSA R97.20 ; GERD (gastroesophageal reflux disease) K21.9 ; Degenerative joint disease M19.90 ; Ureterolithiasis N20.1 and Overweight E66.3 Dayton Valentin III, MD [address] [place] [address] [place] [address] 06/05/2024 Dayton Valentin Inflammatory disease of prostate N41.9 ; Overweight E66.3 ; Vasculogenic erectile dysfunction, unspecified vasculogenic erectile dysfunction type N52.9 ; Migraine without aura and without status migrainosus, not intractable G43.009 ; Other specified hearing loss of both ears H91.8X3 ; BPH (benign prostatic hyperplasia) N40.0 ; Ureterolithiasis N20.1 and GERD (gastroesophageal reflux disease) K21.9 Dayton Valentin III, MD [address] [place] [address] [place] [id number] 06/28/2024 Dayton Valentin BPH (benign prostati c hyperplasia) N40.0 ; Overweight E66.3 ; GERD (gastroesophageal reflux disease) K21.9 ; Edentulous K00.0 ; Degenerative joint disease M19.90 and Migraine without aura and without status migrainosus, not intractable G43.009 Dayton Valentin III, MD [address] [place] [address] [place] [id number] 08/09/2024 Dayton Valentin Impacted cerumen, unspecified ear H61.20 ; Edentulous K00.0 ; Degenerative joint disease M19.90 ; GERD (gastroesophageal reflux disease) K21.9 ; Ureterolithiasis N20.1 ; Migraine without aura and without status migrainosus, not intractable G43.009 and Other specified hearing loss of both ears H91.8X3 Dayton Valentin III, MD [address] [place] [address] [place] [phone] 01/12/2024 Dayton Valentin III, MD [address] [place] [address] [place] [phone] 07/02/2024 Dayton Valentin III, MD [address] [place] [address] [place] [phone] 08/03/2024 Dayotn Valentin Assessments Encounter Date Diagnosis (ICD Code) Assessment Notes T reatment Notes Treatment Clinical Notes 09/20/2023 GERD (gastroesophage al reflux disease) (ICD-10 - K21.9) His symptoms are controlled with medication. He is sleeping well at night. 09/20/2023 Hypertriglyceridemia (ICD-10 - E78.1) His lipid values remain stable at this time. 01/31/2024 Hearing loss (ICD-10 - H91.90) He reports no change in his hearing. 01/31/2024 Elevated PSA (ICD-10 - R97.20) His PSA has decreased from 6.39 5.35. There will be repeated prior to his next visit with a free PSA. He desires any pelvic pain or dysuria 02/21/2024 GERD (gastroesophage al reflux disease) (ICD-10 - K21.9) His symptoms are controlled with medication. He is sleeping well at night. 02/21/2024 BPH (benign prostati c hyperplasia) (ICD-10 - N40.0) He reports rising from sleep once or twice a night to urinate. We discussed lifestyle modifications he could make to reduce nocturia. His PSA has decreased. 02/29/2024 Ureterolithiasis (IC D-10 - N20.1) He reports no kidney stones recently. The ddiscomfort with urinating is primarily urethral. 02/29/2024 BPH (benign prostati c hyperplasia) (ICD-10 [...] antibiotic and a follow-up in 48 hours. 03/02/2024 Dysuria (ICD-10 - R30.0) His kevin quency and dysuria have resolved. Hiss urine culture is negative. He will finish his Bactrim. Prostatitis will be considered in view of the elevated PSA. 03/02/2024 Elevated PSA (ICD-10 - R97.20) His PSA has risen to 6.36. He waas given a follow-up appointment in the office in a couple of weeks after a repeat PSA with a free PSA. He will have a rectal exam at that time. If necessary he will be referred to urology. 03/13/2024 BPH (benign prostati c hyperplasia) (ICD-10 - N40.0) His urinary frequency has improved substantially with tamsulosin. He is rising from slleep 2 or 3 times a night. I have asked for repeat PSA and then urology consultation. 03/13/2024 Elevated PSA (ICD-10 - R97.20) His PSA has increased slightly to 6.36. I have requested a free PSA and a urology consultation. 06/05/2024 Overweight (ICD-10 - E66.3) He is slightly overweight. We discussed diet and nutrition. We made a plan to lose weight at a rate of one half of a pound per week. 06/05/2024 Inflammatory disease of prostate (ICD-10 - N41.9) 06/28/2024 Overweight (ICD-10 - E66.3) His body mass index is slightly elevated at 25.68. I recommended he stabilize his weight at this level. 06/28/2024 BPH (benign prostati c hyperplasia) (ICD-10 - N40.0) He has resumed rising only once a night to urinate. 08/09/2024 Impacted cerumen, unspecified ear (ICD-10 - [...] he has no difficulty eating and chewing. 09/20/2023 BPH (benign prostati c hyperplasia) (ICD-10 - N40.0) He reports nocturia once a night. We have discussed lifestyle modification as a way of controlling nocturia. 01/31/2024 BPH (benign prostati c hyperplasia) (ICD-10 - N40.0) He reports rising from sleep once or twice a night to urinate. We discussed lifestyle modifications he could make to reduce nocturia. His PSA has decreased. 02/21/2024 Ureterolithiasis (IC D-10 - N20.1) He has no complaints of renal colic at this time. He has completed 4 episodes of lithotripsy. He has had no colic or hematuria. 02/29/2024 GERD (gastroesophage al reflux disease) (ICD-10 - K21.9) His symptoms are controlled with medication. He is sleeping well at night. 03/02/2024 GERD (gastroesophage al reflux disease) (ICD-10 - K21.9) His symptoms are controlled with medication. He is sleeping well at night. 03/13/2024 GERD (gastroesophage al reflux disease) (ICD-10 - K21.9) His symptoms are controlled with medication. He is sleeping well at night. 06/05/2024 Vasculogenic erectil e dysfunction, unspecified vasculogenic erectile dysfunction type (ICD-10 - N52.9) He was given a prescription for Viagra. 06/28/2024 GERD (gastroesophage al reflux disease) (ICD-10 - K21.9) His reflux symptoms have been well controlled with medication. 08/09/2024 Degenerative joint disease (ICD-10 - M19.90) He will continue on his use of ibuprofen. He was encouraged to stay active. 09/20/2023 Degenerative joint disease (ICD-10 - M19.90) He will continue on his use of ibuprofen. He was encouraged to stay active. 01/31/2024 Hypertriglyceridemia (ICD-10 - E78.1) His triglyceride level is now normal and this problem has resolved. 02/21/2024 Migraine without aur a and without status migrainosus, not intractable (ICD-10 - G43.009) He has had no further migraine headaches since February 16, 2018. In the emergency room. If it returns. She will call me once. 02/29/2024 Degenerative joint disease (ICD-10 - M19.90) He will continue on his use of ibuprofen. He was encouraged to stay active. 03/02/2024 Other specified hear ing loss of both ears (ICD-10 - H91.8X3) He is involved with the ear, nose and throat physicians in the testing him to see what therapy is indicated. 03/13/2024 Degenerative joint disease (ICD-10 - M19.90) He will continue on his use of ibuprofen. He was encouraged to stay active. 06/05/2024 Migraine without aur a and without status migrainosus, not intractable (ICD-10 - G43.009) He has had no further migraine headaches since February 16, 2018. In the emergency room. If it returns. She will call me once. 06/28/2024 Edentulous (ICD-10 - K00.0) He has upper and lower dentures fit well and he has no difficulty eating and chewing. 08/09/2024 GERD (gastroesophage al reflux disease) (ICD-10 - K21.9) His reflux symptoms have been well controlled with medication. 09/20/2023 Edentulous (ICD-10 - K00.0) He has upper and lower dentures fit well and he has no difficulty eating and chewing. 01/31/2024 GERD (gastroesophage al reflux disease) (ICD-10 - K21.9) His symptoms are controlled with medication. He is sleeping well at night. 02/21/2024 Right hand pain (ICD -10 - M79.641) This is now resolved. 02/29/2024 Migraine without aur a and without status migrainosus, not intractable (ICD-10 - G43.009) He has had no further migraine headaches since February 16, 2018. In the emergency room. If it returns. She will call me once. 03/02/2024 Overweight (ICD-10 - E66.3) He is slightly overweight. We discussed diet and nutrition. We made a plan to lose weight at a rate of one half of a pound per week. 03/13/2024 Ureterolithiasis (IC D-10 - N20.1) He reports no kidney stones recently. The ddiscomfort with urinating is primarily urethral. 06/05/2024 Other specified hear ing loss of both ears (ICD-10 - H91.8X3) He is involved with the ear, nose and throat physicians in the testing him to see what therapy is indicated. 06/28/2024 Degenerative joint disease (ICD-10 - M19.90) He will continue on his use of ibuprofen. He was encouraged to stay active. 08/09/2024 Ureterolithiasis (IC D-10 - N20.1) He reports no kidney stones recently. The ddiscomfort with urinating is primarily urethral. 09/20/2023 Migraine without aur a and without status migrainosus, not intractable (ICD-10 - G43.009) He has had no further migraine headaches since February 16, 2018. In the emergency room. If it returns. She will call me once. 01/31/2024 Ureterolithiasis (IC D-10 - N20.1) He has no complaints of renal colic at this time. He has completed 4 episodes of lithotripsy. He has had no colic or hematuria. 02/29/2024 Elevated PSA (ICD-10 - R97.2) His PSA has increased from 5.5 up to 6.2. I have ordered a free PSA. 03/13/2024 Overweight (ICD-10 - E66.3) He is slightly overweight. We discussed diet and nutrition. We made a plan to lose weight at a rate of one half of a pound per week. 06/05/2024 BPH (benign prostati c hyperplasia) (ICD-10 - N40.0) His urinary frequency has improved substantially with tamsulosin. He is rising from slleep 2 or 3 times a night. I have asked for repeat PSA and then urology consultation. 06/28/2024 Migraine without aur a and without status migrainosus, not intractable (ICD-10 - G43.009) He has had no further migraine headaches since February 16, 2018. In the emergency room. If it returns. She will call me once. 08/09/2024 Migraine without aur a and without status migrainosus, not intractable (ICD-10 - G43.009) He has had no further migraine headaches since February 16, 2018. In the emergency room. If it returns. She will call me once. 09/20/2023 Other specified hear ing loss of both ears (ICD-10 - H91.8X3) He is involved with the ear, nose and throat physicians in the testing him to see what therapy is indicated. 01/31/2024 Primary osteoarthrit is, right hand (ICD-10 - M19.041) He will continue to use ibuprofen and heat. I have given him a 7 day course of prednisone. Follow-up visit was arranged. 02/29/2024 Overweight (ICD-10 - E66.3) He is slightly overweight. We discussed diet and nutrition. We made a plan to lose weight at a rate of one half of a pound per week. 06/05/2024 Ureterolithiasis (IC D-10 - N20.1) He reports no kidney stones recently. The ddiscomfort with urinating is primarily urethral. 08/09/2024 Other specified hear ing loss of both ears (ICD-10 - H91.8X3) He is involved with the ear, nose and throat physicians in the testing him to see what therapy is indicated. 09/20/2023 Ureterolithiasis (IC D-10 - N20.1) He has no complaints of renal colic at this time. He has completed 4 episodes of lithotripsy. He has had no colic or hematuria. 01/31/2024 Overweight (ICD-10 - E66.3) He is slightly [...] good he should slowly return to normal. 06/05/2024 GERD (gastroesophage al reflux disease) (ICD-10 - K21.9) His symptoms are controlled with medication. He is sleeping well at night. 09/20/2023 Elevated PSA (ICD-10 - R97.20) His most recent PSA was 6.39. A repeat value has been ordered. 09/20/2023 Vasculogenic erectil e dysfunction, unspecified vasculogenic erectile dysfunction type (ICD-10 - N52.9) He was given a prescription for Viagra. 09/20/2023 Overweight (ICD-10 - E66.3) He is slightly overweight. We discussed diet and nutrition. We made a plan to lose weight at a rate of one half of a pound per week. Plan Of Treatment Pending Test Test Name Order Date URINE DIP STICK 11/11/2020 PROFILE, FASTING (COMPREHENSIVE METABOLI C) 03/19/2022 PROFILE, FASTING (COMPREHENSIVE METABOLI C) 11/08/2017 PROFILE, FASTING (COMPREHENSIVE METABOLI C) 06/17/2021 PROFILE, FASTING (COMPREHENSIVE METABOLI C) 08/19/2020 PROFILE, FASTING (COMPREHENSIVE METABOLI C) 12/28/2021 PROFILE, FASTING (COMPREHENSIVE METABOLI C) 06/17/2017 PROFILE, FASTING (COMPREHENSIVE METABOLI C) 10/24/2019 PROFILE, FASTING (COMPREHENSIVE METABOLI C) 10/14/2020 PROFILE, FASTING (COMPREHENSIVE METABOLI C) 12/18/2018 PROFILE, FASTING (COMPREHENSIVE METABOLI C) 06/19/2018 PROFILE, FASTING (COMPREHENSIVE METABOLI C) 04/21/2020 PROFILE, FASTING (COMPREHENSIVE METABOLI C) 06/28/2024 PROFILE, FASTING (COMPREHENSIVE METABOLI C) 09/20/2023 PROFILE, FASTING (COMPREHENSIVE METABOLI C) 02/19/2020 PROFILE, RANDOM (COMPREHENSIVE METABOLIC ) 04/09/2019 HEMOGLOBIN A1C (GLYCOHEMOGLOBIN) 020 MAGNESIUM 02/19/2020 LIPID PANEL 11/08/2017 LIPID PANEL 08/19/2020 LIPID PANEL 12/28/2021 LIPID PANEL 06/17/2017 LIPID PANEL 10/24/2019 LIPID PANEL 10/14/2020 LIPID PANEL 12/18/2018 LIPID PANEL 06/19/2018 LIPID PANEL 04/21/2020 LIPID PANEL 09/20/2023 FREE T4 (FT4) 11/23/2018 FREE T4 (FT4) 06/30/2022 TSH (THYROID STIMULATING HORMONE) 2018 TSH (THYROID STIMULATING HORMONE) 2022 PSA, TOTAL 09/20/2023 PSA, TOTAL 06/17/2021 PSA, TOTAL 03/13/2024 PSA, TOTAL 08/19/2020 PSA, TOTAL 06/17/2017 PSA, TOTAL 10/14/2020 PSA, TOTAL 06/28/2024 PSA, TOTAL 12/18/2018 PSA, TOTAL 06/30/2022 PSA, TOTAL 06/19/2018 PSA, TOTAL+FREE 08/11/2021 PSA, TOTAL+FREE 12/24/2021 PSA, TOTAL SCREEN 12/28/2021 RHEUMATOID FACTOR (RA, RF) 04/09/2019 RHEUMATOID FACTOR (RA, RF) 11/23/2018 CBC w DIFF 04/21/2020 CBC w DIFF 06/28/2024 CBC w DIFF 12/18/2018 CBC w DIFF 06/19/2018 CBC w DIFF 03/19/2022 CBC w DIFF 09/20/2023 CBC w DIFF 11/08/2017 CBC w DIFF 02/19/2020 CBC w DIFF 06/17/2021 CBC w DIFF 04/09/2019 CBC w DIFF 10/24/2019 CBC w DIFF 08/19/2020 CBC w DIFF 12/28/2021 CBC w DIFF 06/17/2017 CBC w DIFF 10/14/2020 SED RATE (ESR) 06/30/2022 SED RATE (ESR) 04/09/2019 SED RATE (ESR) 11/23/2018 URINALYSIS (UA) 06/17/2021 TESTOSTERONE, TOTAL 11/23/2018 TESTOSTERONE, TOTAL 06/30/2022 TESTOSTERONE, TOTAL 04/09/2019 JASPAL (YUNG) 04/09/2019 JASPAL (YUNG) 11/23/2018 Sleep Study - Baseline 06/30/2022 Lipid Panel 06/28/2024 Lipid Panel 03/19/2022 Lipid Panel 06/17/2021 Next Appt Details Provider Name:Dayton Valentin, 08/28/2024 09:15:00 AM, [address] [place] [address] [address], [place], [phone], Provider Name:Dayton Valentin, 09/21/2024 10:00:00 AM, [address] [place] [address] [address], [place], [id number], Provider Name:Dayton Valentin, 11/09/2024 11:15:00 AM, [address] [place] [address] [address], [place], [phone], Insurance Providers Payer Name Payer Address Payer Phone Subscriber Number Group Number Insured Name Patient Relationship to Insured Coverage Start Date Coverage End Date MEDICARE NGS [address] [place] [address] [id number] Je Hernandez Self - patient is the insured 2 [place] [address] [place], [place] [id number] [phone] [id number] Je Hernandez Self - patient is the insured Medical (General) History Medical History History ICD Code colonic polyps thrombocytopenia dental extractions degenerative joint disease left knee pertussis September 2012 pneumonia 15 years ago Hearing loss right ear left sided ureterolithiasis with renal c olic ureterolithiasis with lithotripsy 2016 ED Arthritis, Kidney stones, Enlarged prost ate, Elevated PSA levels Surgical History Surgery Date(Month/Year) Knee surgery No history Right, Kidney stone removed 11/10/2016 lithotripsy 04/2016 cystoscopy and stent insertion left uret er for stone 04/2016 complete dental extractions colonoscopy 2 polyps [facility] [place] June 2011 left knee arthroscopy 1995 Hospitalization History Reason Date(Month/Year) No history
--- OUTSIDE RECORDS SUMMARY | 2024-08-22 07:53 | XMS_ITS ---
Author Organization Dayton Valentin III, MD Address [address] [place] [address] Care Team Providers Care Unified Communications Architect Name Role Phone Dayton Valentin Primary Care Provider REASON FOR VISIT Colonoscopy Update Social History Sex Assigned At : Social History Observation Description Sex Assigned At Male Encounters Encounter Location Date Provider Diagnosis Dayton Valentin III, MD [address] [place] [address] [place] [phone] 07/02/2024 Dayton Valentin Plan Of Treatment Next Appt Details Provider Name:Dayton Valentin, 08/28/2024 09:15:00 AM, [address] [place] [address] [place], [phone], Provider Name:Dayton Valentin, 09/21/2024 10:00:00 AM, [address] [place] [address] [place], [address], Provider Name:Dayton Valentin, 11/09/2024 11:15:00 AM, [address] [place] [address] [place], [phone], Progress Notes * Je HERNAN[birth year]DOB:[birth year] (64 yo M)Acc No.[id number]:07/02/2024 Patient:?Je HERNANDEZ :1960???Age:64 Y???Sex:Male Address:[address] [place] [address], [phone] * true * Date:? Generated for Valerie yarbrough/Leo/eTransmitting on:?08/22/2024 07:53 AM EDT
--- NOTE | 2024-08-22 09:30 | MHC.AU.MED ---
Medical Clearance for Hearing Instrumentation Date: 08/22/24 Patient Name: Je Hernandez Date of : 1960 Primary Care Provider: Dayton Valentin MD We have seen your patient on 08/22/24 and have determined that they are a candidate for amplification (See accompanying report). Specifically, they would benefit from: Hearing aid use in both ears - BiCROS There is a statute that addresses Medical Evaluation Requirements prior to fitting a patient with a hearing aid. According to [place] statute 265 CMR:6.03(1), (a) General. Except as provided in 265 CMR 6.03(1)(b), a chlorine cells operator shall not sell a hearing aid unless the prospective user has presented to the chlorine cells operator a written statement signed by a licensed physician that states that the patient's hearing loss has been medically evaluated and the patient may be considered a candidate for a hearing aid. The medical evaluation must have taken place within the preceding six months. Please note: Due to the [place] Statute referenced above, we cannot accept a signature other than that of a licensed physician. PRODUCTION OPERATIONS ENGINEER and PA signatures cannot be accepted. I am in agreement with the above recommendation. There is no medical contraindication for hearing instrumentation. Physician Signature Date Physician Name (Printed)
--- NOTE | 2024-08-22 11:29 | MHC.AU.HA1 ---
Hearing Aid Evaluation Date of Visit: 08/22/24 Historical Information: Description of Hearing: Right Ear: Severe to profound sensorineural hearing loss; Left Ear: Mild sloping to moderately-severe sensorineural hearing loss Current personal amplification information: Phonak Audeo [id number], left ear; CROS B-312, right ear fit in June 2018 Summary: Current HAs reportedly make constant noise/static. Hoping to upgrade technology to help in more adverse listening environments. Noted particular difficulty when two people talking at the same time. Wants same swimming professor and style including duplicate EMs. Had trouble with comfort of acoustic coupling in past. Current EMs reportedly 'perfect.' Called [facility], right scan still on file; however, left scan >5 years old, needs new impression. Will try sending current EMs to [facility] to request exact duplicates for newer HAs. Took impression of left ear, if needed. Opted for rechargeable, discussed battery life. Old HAs/EMs and hard, small Phonak case in 'Repair' drawer. Will send EMs to [facility] when new HAs are ordered pending medical clearance. Hearing Aid Prescription: Based on the individual?s shared listening needs, communication environments, dexterity, desire for connectivity, and personal preferences, the following prescription for amplification has been made: Right ear: Make, Model, Color: Phonak CROS I-R Color: Sand Beige Battery Size: Rechargeable Ship Carpenter/Slim Tube: 2 Type of Earmold/Dome/CShell/SlimTip: Acrylic slim tip skeleton Left ear: Make, Model, Color: Phonak Audeo I50-R Color: Sand Beige Battery Size: Rechargeable Ship Carpenter/Slim Tube: 2M Type of Earmold/Dome/CShell/SlimTip: Acrylic c-shell skeleton Accessories/Assistive Technology: Heel Lining Paster Plan of Care: Patient wishes to purchase hearing aids as prescribed Action Taken/Action Needed: Medical Clearance to be requested from PCP/ENT. Hearing Instrument Fitting to be scheduled when materials arrive Primary Diagnosis: H90.3 Bilateral Sensorineural Hearing Loss Signature: Provider: Paramjit Lerner, CCC-A
== END 2024-08-22 07:49 | disposition home or self-care (01) ==
LOC: HO.SH 07:48
PROVIDERS: Visit Provider Internal Medicine Medical Oncology
DX: Z01.118 Encounter for examination of ears and hearing with other abnormal findings (principal); Z46.1 Encounter for fitting and adjustment of hearing aid; H90.3 Sensorineural hearing loss, bilateral
CPT/HCPCS: 92557; 92567; 92591; V5275

== ENCOUNTER 2024-08-24 06:00 | Outpatient (REF) | payer MEDICARE, MEDICAID, SELFPAY ==
--- OUTSIDE RECORDS SUMMARY | 2024-08-24 06:03 | XMS_ITS | Patient Health Record ---
Author Organization Dayton Valentin III, MD Address [address] [place] [address] Care Team Providers Care Warehouse Manager Name Role Phone Dayton Valentin Primary [...] Culture Reviewed date:03/05/2024 07:37:52 AM Interpretation: Performing Lab:[facility], [address] [place] [phone] Notes/Report: Urine Culture Report Result Urine Culture > 100,000 cfu/ml Urine Culture Mixed bacterial jules a characteristic of Urine Culture urogenital contamination. PSA Free and Total Reviewed date:03/15/2024 02:54:07 PM Interpretation: Performing Lab:[facility], [address] [place] [phone] Notes/Report: results Prostate Specific Ag Total 7.2 [...] 30 93 9 (3)Catalona et al.:ROSALIND 277: 2046-3405 (1996) (4)Catalona et al.:ROSALIND 279: 4990-2688 (1997) (x)These estimates vary with age, ethnicity, [...] mind. PSA was performed using the Cecelia Ruthton Immunoassay method. Values obtained from different assay methods cannot be used interchangeably. PSA levels, regardless of value, should not be interpreted as absolute evidence of the presence or absence of disease. THIS TEST WAS PERFORMED AT: [facility] [address] [place] [phone] ELIDA PEREZ MD Free Prostate Spec Ag 2.3 Complete Blood Count Auto Di ff Reviewed date:01/24/2024 11:47:53 AM Interpretation: Performing Lab:[facility], [address] [place] [phone] Notes/Report: White Blood Count 5.5 4.8-10.8 X10*3/uL [...] NRBC Abs Auto 0.000 0.0-0.012 X10*3/uL Comprehensive [place]. Panel Fa st Reviewed date:01/24/2024 11:47:53 AM Interpretation: Performing Lab:[facility], [address] [place] [phone] Notes/Report: Sodium 141 135-145 mmol/L Potassium 4.7 3.3-5.1 mmol/L Chloride 109 96-108 mmol/L Carbon Dioxide 26 22-29 mmol/L Anion Gap 11 12-20 Blood Urea Nitrogen 14 9-16 mg/dL Creatinine 1.07 0.5-1.4 mg/dL Estimated Glomerular Filt Rate > 60 NOTE: For -Tristanian individuals, multiply the result by 1.210. Chronic [...] Panel Reviewed date:01/24/2024 11:47:53 AM Interpretation: Performing Lab:[address] [address] Notes/Report: Triglycerides 128 <150 mg/dL Desirable Triglyceride: [...] Antigen Reviewed date:01/24/2024 11:47:53 AM Interpretation: Performing Lab:[address] [address] Notes/Report: Prostate Specific Antigen 5.35 <0.05-4.0 ng/mL PSA methodology: [employer] i Chemiluminescent Microparticle Immunoassay (CMIA) Complete Blood Count Auto Di ff Reviewed date:03/01/2024 05:04:49 AM Interpretation: Performing Lab:[facility], [address] [place] [phone] Notes/Report: White Blood Count 7.1 4.8-10.8 X10*3/uL [...] Panel Reviewed date:03/01/2024 05:04:49 AM Interpretation: Performing Lab:[facility], [address] [place] [phone] Notes/Report: Sodium 144 135-145 mmol/L Potassium 4.1 [...] Antigen Reviewed date:03/01/2024 05:04:49 AM Interpretation: Performing Lab:[facility], [address] [place] [phone] Notes/Report: Prostate Specific Antigen 6.36 <0.05-4.0 ng/mL PSA methodology: [employer] i Chemiluminescent Microparticle Immunoassay (CMIA) PSA Free and Total Reviewed date:03/15/2024 02:54:07 PM Interpretation: Performing Lab:[facility], [address] [place] [phone] Notes/Report: Prostate Specific Ag Total 6.7 < [...] 30 93 9 (3)Catalona et al.:ROSALIND 277: 2291-1939 (1996) (4)Catalona et al.:ROSALIND 279: 3631-9393 (1998) (x)These estimates vary with age, ethnicity, [...] of disease. THIS TEST WAS PERFORMED AT: [facility] [address] [place] [phone] ELIDA PEREZ MD Free Prostate Spec Ag 1.8 Pathology Reviewed date:06/03/2024 09:11:29 AM Interpretation: Performing Lab:[facility], [address] [place] [phone] Notes/Report: -- ---- Name: Sarabjit Hernandez pancho Cohen Age/Sex: 64/M : 1960 Unit#: [id number] Attend Dr: Brandon Morrison MD Re05/22/24 Status : [facility] Location: [facility] Disch: -- ---- SPEC : [id number] RECD: 05/22/24 STATUS: IDALIA NGUYEN NUM: [id number] DHARMESH: 05/22/[address] [facility] DR: Brandon Morrison MD ENTERED: 05/22/24 41 [...] ---- Name: Sarabjit Hernandez/Sex: 64/M : 1960 [facility]#: [id number] Unit#: [id number] Attend Dr: Brandon Morrison MD Re05/22/24 Status : [facility] Location: [facility] Disch: -- ---- SPEC : [id number] RECD: 05/22/24 STATUS: IDALIA NGUYEN NUM: [id number] DHARMESH: 05/22/240943 SUBM DR: Brandon Morrison MD [...] Sarabjit Hernandez Age/Sex: 64/M : 1960 Unit#: [id number] Attend Dr: Brandon Morrison MD Re05/22/24 Status : [facility] [place] Location: [facility] Disch: -- ---- SPEC : [id number] RECD: 05/22/24-1033 STATUS: IDALIA NGUYEN NUM: [id number] DHARMESH: 05/22/24-[address]: Brandon Morrison MD [...] microscopic examination, 2 pieces in cassette [facility] This case was review ed intradepartmentally. Special studies ordered and performed: PIN4 multiplex immunostains on F, G and H Copies To: Brandon Morrison MD [facility] [address] [place] [address] Dr. Yanni murillo [address] [place] [address] [email or web address] Dayton Valentin MD [address] [place] [address], [address] [place] [address] -- ---- Signed (signature on file) Robby Ibarra MD 05/25/24 1746 -- ---- END OF REPORT Reason For Referral Reason abnormal skin lesion on face Diagnosis 1 Skin lesion (L98.9) Referral Organization Dayton Valentin III, MD Referring Provider First Name Dayton Referring Provider Last Name Barbie Referring Provider Speciality Internal edicine Referred Provider [facility] [place] [facility] Referred Provider Specialty Dermatology General Notes Maribell Hackett [facility] 02/01 03:18:06 PM > ref/demo/progress note faxed to Roxann RUFFIN Suzanne [facility] 05/03/2024 03:06:43 PM I called patient he [...] Provider Specialty Urology General Notes Maribell Hackett [facility] 03/19 11:47:08 AM > ref/demo/progress note / labs faxed to Roxann Shelley Suzanne [facility] 03/22/2024 01:48:58 PM >I called [facility] at [phone] spoke to Linda she gave me appt [...] Provider Speciality Internal M edicine Referred Provider [facility] er, Speech and Hearing Referred Provider [...] Problem Status W/U Status Risk Notes Problem 294757188 Overweight (E66.3) Active confirmed His body mass index is slightly elevated at 25.68. I recommended he stabilize his weight at this level. Problem 157572252 GERD (gastroesophageal reflux disease) (K21.9) Active confirmed His reflux symptoms have been well controlled with medication. Problem Impacted cerumen , unspecified ear (H61.20) Active confirmed He underwent bilateral warm more irrigation, which removed the free treated cerumen impaction. Both tympanic membranes appeared to be normal. He says his hearing was improved. He left the office annd stable condition to return as scheduled. Problem 27088692 Ureterolithiasis (N20.1) Active confirmed He reports no kidney stones recently. The ddiscomfort with urinating is primarily urethral. Problem 899585751 BPH (benign prostatic hyperplasia) (N40.0) Active confirmed He has resumed rising only once a night to urinate. Problem 038076667 Edentulous (K00.0) Active confirmed He has upper and lower dentures fit well and he has no difficulty eating and chewing. Problem 374668482 Degenerative ever nt disease (M19.90) Active confirmed He will continue on his use of ibuprofen. He was encouraged to stay active. Problem 91074428 Colonic polyp (K63.5) Active confirmed He will undergo colonoscopy appropriately and at regular intervals. 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 Problem 6982455660065 Vasculogenic erectile dysfunction, unspecified vasculogenic erectile dysfunction type (N52.9) Active confirmed He was given a prescription for Viagra. Problem 702861140 Migraine without aura and without status migrainosus, not intractable (G43.009) Active confirmed He has had no further migraine headaches since February 16, 2018. In the emergency room. If it returns. She will call me once. Problem 71515341 Prepatellar bursitis of right knee (M70.41) Active [...] Provider Diagnosis Dayton Valentin III, MD [address] [place] [address] [place], [place] [address] 09/20/2023 Dayton Valentin Hypertriglyceridemia E78.1 ; GERD [...] and Overweight E66.3 Dayton Valentin III, MD [address] [place] [address] [place] [address] 01/31/2024 Dayton Valentin Hearing loss H91.90 ; Elevated PSA R97.20 ; BPH (benign prostatic hyperplasia) N40.0 ; Hypertriglyceridemia E78.1 ; GERD (gastroesophageal reflux disease) K21.9 ; Ureterolithiasis N20.1 ; Primary osteoarthritis, right hand M19.041 and Overweight E66.3 Dayton Valentin III, MD [address] [place] [address] [place] [address] 02/21/2024 Dayton Valentin GERD (gastroesophage al reflux disease) K21.9 ; BPH (benign prostatic hyperplasia) N40.0 ; Ureterolithiasis N20.1 ; Migraine without aura and without status migrainosus, not intractable G43.009 and Right hand pain M79.641 Dayton Valentin III, MD [address] [place] [address] [place] [address] 02/29/2024 Dayton Valentin BPH (benign prostati c hyperplasia) N40.0 ; Ureterolithiasis N20.1 ; GERD (gastroesophageal reflux disease) K21.9 ; Degenerative joint disease M19.90 ; Migraine without aura and without status migrainosus, not intractable G43.009 ; Elevated PSA R97.2 ; Overweight E66.3 and Prepatellar bursitis of right knee M70.41 Dayton Valentin III, MD [address] [place] [address] [place] [address] 03/02/2024 Dayton Valentin Elevated PSA R97.20 ; Dysuria R30.0 ; GERD (gastroesophageal reflux disease) K21.9 ; Other specified hearing loss of both ears H91.8X3 and Overweight E66.3 Dayton Valentin III, MD [address] [place] [address] [place] [address] 03/13/2024 Dayton Valentin BPH (benign prostati c hyperplasia) N40.0 ; Elevated PSA R97.20 ; GERD (gastroesophageal reflux disease) K21.9 ; Degenerative joint disease M19.90 ; Ureterolithiasis N20.1 and Overweight E66.3 Dayton Valentin III, MD [address] [place] [address] [place] [address] 06/05/2024 Dayton Valentin Inflammatory disease of prostate N41.9 ; Overweight E66.3 ; Vasculogenic erectile dysfunction, unspecified vasculogenic erectile dysfunction type N52.9 ; Migraine without aura and without status migrainosus, not intractable G43.009 ; Other specified hearing loss of both ears H91.8X3 ; BPH (benign prostatic hyperplasia) N40.0 ; Ureterolithiasis N20.1 and GERD (gastroesophageal reflux disease) K21.9 Dayton Valentin III, MD [address] [place] [address] [place] [address] 06/28/2024 Dayton Valentin BPH (benign prostati c hyperplasia) N40.0 ; Overweight E66.3 ; GERD (gastroesophageal reflux disease) K21.9 ; Edentulous K00.0 ; Degenerative joint disease M19.90 and Migraine without aura and without status migrainosus, not intractable G43.009 Dayton Valentin III, MD [address] [place] [address] [place] [address] 08/09/2024 Dayton Valentin Impacted cerumen, unspecified ear H61.20 ; Edentulous K00.0 ; Degenerative joint disease M19.90 ; GERD (gastroesophageal reflux disease) K21.9 ; Ureterolithiasis N20.1 ; Migraine without aura and without status migrainosus, not intractable G43.009 and Other specified hearing loss of both ears H91.8X3 Dayton Valentin III, MD [address] [place] [address] [place] [address] 01/12/2024 Dayton Valentin III, MD [address] [place] [address] [place] [address] 07/02/2024 Dayton Valentin III, MD [address] [place] [address] [place] [address] 08/03/2024 Dayton Valentin Assessments Encounter Date Diagnosis (ICD Code) [...] C) 06/19/2018 PROFILE, FASTING (COMPREHENSIVE METABOLI C) 06/28/2024 PROFILE, FASTING (COMPREHENSIVE METABOLI C) 04/21/2020 PROFILE, FASTING (COMPREHENSIVE METABOLI C) 09/20/2023 PROFILE, [...] FACTOR (RA, RF) 11/23/2018 CBC w DIFF 06/28/2024 CBC w DIFF 12/18/2018 CBC w DIFF 04/21/2020 CBC w DIFF 06/19/2018 CBC w DIFF [...] Details Provider Name:Dayton Valentin, 08/28/2024 09:15:00 AM, [address] [place] [address] [address], [place], [address], Provider Name:Dayton Valentin, 09/21/2024 10:00:00 AM, [address] [place] [address] [address], [place], [address], Provider Name:Dayton Valentin, 11/09/2024 11:15:00 AM, [address] [place] [address] [address], [place], [address], Insurance Providers Payer Name Payer Address Payer Phone Subscriber Number Group Number Insured Name Patient Relationship to Insured Coverage Start Date Coverage End Date MEDICARE NGS [address] [place] [address] [id number] Je Heranndez Self - patient is the insured 2 [place]ID [place] [address] [place] [id number] [phone] [id number] Je Hernandez Self - patient is the [...] 04/2016 complete dental extractions colonoscopy 2 polyps [facility] [place] left knee arthroscopy 1995 Hospitalization History Reason Date(Month/Year) No history
--- OUTSIDE RECORDS SUMMARY | 2024-08-24 06:03 | XMS_ITS ---
Author Organization Dayton Valentin III, MD Address [address] [place] [address] Care Team Providers Care Packing Machine Pilot Can Router Name Role Phone Dayton Valentin Primary Care Provider Reason For Referral Reason Consult and Treat Diagnosis 1 Other specified hear ing loss of both ears (H91.8X3) Referral Organization Dayton Valentin III, MD Referring Provider First Name Dayton Referring Provider Last Name Barbie Referring Provider Speciality Internal M edicine Referred Provider [facility] er, Speech and Hearing Referred Provider Specialty Audiologists General Notes D, Tayna 08/03/2024 09:19:13 AM > Faxed referral per request of patient. Referral Priority Routine REASON FOR VISIT Hearing Test Social History Sex Assigned At : Social History Observation Description Sex Assigned At Male Encounters Encounter Location Date Provider Diagnosis Dayton Valentin III, MD [address] [place] [address] [place] [address] 08/03/2024 Dayton Valentin Plan Of Treatment Referrals Referral Date Details 08/03/2024 08/03/2024, Consult and Treat, Speech and Hearing [facility] Next Appt Details Provider Name:Dayton Valentin, 08/28/2024 09:15:00 AM, [address] [place] [address] [place], [address], Provider Name:Dayton Valentin, 09/21/2024 10:00:00 AM, [address], [place], [address], Provider Name:Dayton Valentin, 11/09/2024 11:15:00 AM, [address] [place] [address] [place], [place], [address], Progress Notes * HECTORJe SLOANDOB:[birth year] (64 yo M)Acc No.[id number]:08/03/2024 Patient:?Je HERNANDEZ :1960???Age:64 Y???Sex:Male Address:[address] [place] [address], [phone] Subjective: * Chief Complaints: * ???Hearing Test * Medical History:? * Surgical History:? * Hospitalization/Major Diagno stic Procedure:? * Medications:? Objective: * Vitals:? * Physical Examination:? Assessment: Plan: * Treatment: * Procedure Codes:? * true * Date:? Generated for Valerie yarbrough/Leo/Shakeelitting on:?08/24/2024 06:03 AM EDT Consultation Request Notes Referral Date Referring Provider Referred Provider Not es 08/03/2024 Dayton Valentin [facility], Speech and Hearing Consult and Treat
--- OUTSIDE RECORDS SUMMARY | 2024-08-24 06:03 | XMS_ITS ---
Author Organization Dayton Valentin III, MD Address [address] [place] [address] Care Team Providers Care Asp Net Mvc Developer Name Role Phone Dayton Valentin Primary Care Provider [phone] REASON FOR VISIT Colonoscopy Update Social History Sex Assigned At : Social History Observation Description Sex Assigned At Male Encounters Encounter Location Date Provider Diagnosis Dayton Valentin III, MD [address] [place] [address] [place] [address] 07/02/2024 Dayton Valentin Plan Of Treatment Next Appt Details Provider Name:Dayton Valentin, 08/28/2024 09:15:00 AM, [address] [place] [address] [place], [address], Provider Name:Dayton Valentin, 09/21/2024 10:00:00 AM, [address] [place] [address] [place], [address], Provider Name:Dayton Valentin, 11/09/2024 11:15:00 AM, [address] [place] [address] [place], [address], Progress Notes * Je HERNANDEZDOB:[birth year] (64 yo M)Acc No.[id number]:07/02/2024 Patient:?Je HERNANDEZ :1960???Age:64 Y???Sex:Male Address:[address] [place] [address], [address] * true * Date:? Generated for Valerie yarbrough/Leo/eTransmitting on:?08/24/2024 06:03 AM EDT
[2024-08-24 06:15] LABS: MANUAL DIFF FLAG NO
[2024-08-24 07:42] LABS: Basophils Percent Auto 0.3 % (0-2); Eosinophils Absolute Auto 0.1 X10*3/uL (0.0-0.4); Eosinophils Percent Auto 1.2 % (0-4); Hematocrit 46.9 % (42.0-52.0); Hemoglobin 15.7 g/dl (14.0-18.0); Imm Gran Abs Auto 0.05 X10*3/uL (0.00-0.03); Imm Gran Pct Auto 0.8 % (0.0-0.4); Lymphocytes Absolute Auto 1.6 X10*3/uL (1.2-4.9); Mean Corpuscular HGB Conc 33.5 g/dl (31.0-36.0); Mean Corpuscular Hemoglobin 29.9 pg (27.0-33.0); Mean Corpuscular Volume 89.3 fL (80.0-98.0); Mean Platelet Volume 9.6 fL (9.4-12.4); Monocytes Absolute Auto 0.5 X10*3/uL (0.1-1.2); Monocytes Percent Auto 7.3 % (2-11); Neutrophils Absolute Auto 4.4 x10*3/uL (2.0-8.3); Neutrophils Percent Auto 66.4 % (45-73); Platelet Count 159 X10*3/uL (160-400); Red Blood Count 5.25 X10*6/uL (4.60-5.80); Red Cell Distribution Width 13.2 % (11.0-16.0); White Blood Count 6.6 X10*3/uL (4.8-10.8)
[2024-08-24 07:55] LABS: Alanine Aminotransferase 38 U/L (0-40); Albumin Level 4.3 g/dL (3.5-5.0); Alkaline Phosphatase 70 U/L (39-117); Anion Gap 11 (12-20); Aspartate Amino Transferase 28 U/L (5-37); Bilirubin Total 0.6 mg/dL (0.0-1.0); Blood Urea Nitrogen 18 mg/dL (9-16); Calcium 9.3 mg/dL (8.4-10.2); Carbon Dioxide 25 mmol/L (22-29); Chloride 112 mmol/L (96-108); Cholesterol 191 mg/dL (<200); Estimated Glomerular Filt Rate > 60; Glucose Fasting 103 mg/dL (60-99); HDL Cholesterol 46 mg/dL (>40); LDL Cholesterol Calculated 108 mg/dL (<100); Potassium 4.1 mmol/L (3.3-5.1); Sodium 144 mmol/L (135-145); Total Protein 6.9 g/dL (6.5-8.0); Triglycerides 185 mg/dL (<150)
[2024-08-24 08:16] LABS: Prostate Specific Antigen 4.08 ng/mL (<0.05-4.0)
== END 2024-08-24 06:01 | disposition home or self-care (01) ==
LOC: HO.LAB 06:00
PROVIDERS: PCP Internal Medicine Medical Oncology; Visit Provider Internal Medicine Medical Oncology
DX: N40.0 Benign prostatic hyperplasia without lower urinary tract symptoms (principal); E66.3 Overweight; K21.9 Gastro-esophageal reflux disease without esophagitis; Z12.5 Encounter for screening for malignant neoplasm of prostate
CPT/HCPCS: 36415; 80053; 80061; 84153; 85025

== ENCOUNTER 2024-08-29 11:21 | Outpatient (AMB) | payer MEDICARE, MEDICAID, SELFPAY ==
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
[2024-08-29 11:40] VITALS: BP 138/82; PULSE 72; O2SAT 96; BMI 25.7
--- OUTSIDE RECORDS SUMMARY | 2024-08-29 12:38 | XMS_ITS ---
Author Organization Dayton Valentin III, MD Address [address] [place] [address] Care Team Providers Care Workers Compensation Consultant Name Role Phone Dayton Valentin Primary Care Provider [phone] Allergies Allergen (clinical drug ingredient) Drug/Non Drug [...] Status W/U Status Risk Notes Problem Impacted cerumen, unspecified ear (H61.20) Active confirmed [...] Date Provider Diagnosis Dayton Valentin III, MD [address] [place] [address] [place] [address] 08/09/2024 Daytno Valentin Impacted cerumen, unspecified ear H61.20 ; [...] 3 Months, Reason: ov Provider Name:Dayton Valentin, 12/05/2024 02:00:00 PM, [address] [place] [address] [address] [place] [address], [phone], Procedure Notes * Category Sub-Category Detail Notes Ear lavage Procedure Post-procedure Successful Progress Notes * HECTOR JeDOB:[birth year] (64 yo M)Acc No.[id number]:08/09/2024 Patient:?Je HERNANDEZ Provider:?Dayton Valentin MD :1960???Age:64 Y???Sex:Male Isaias e:08/09/2024 Address:[address] [place], [place] [id number] Subjective: * Chief Complaints: * ???Ear IrrigationBilateral [...] Surgical History:?left knee arthroscopy 1996colonoscopy 2 polyps [facility] June 2011complete dental extractions cystoscopy and stent [...] who is healthy. He was born in [place], [place]. * Medications:?TakingMeloxicam 7.5 MG Tablet TAKE [...] Treatment: * Procedures:?Ear lavage:?Procedure? .?Post-procedure?Successful.? * Procedure Codes:?45224 EAR I RRIGATION * Follow Up:?3 Months (Reason: ov) * Images: * Sign off status: Completed true * Provider:?Dayton Valentin MD Date:?04/2024 Generated for Valerie yarbrough/Leo/eTransmitting on:?08/29/2024 12:38 PM EDT History and Physical Notes * HPI (History of Present Illness) Category Sub-Category Detail Notes COVID-19 Screening Questions Have you had any new onset fever, chills, cough, congestion, sore throat, shortness of breath, muscle aches?: No
--- OUTSIDE RECORDS SUMMARY | 2024-08-29 12:39 | XMS_ITS ---
Author Organization Dayton Valentin III, MD Address [address] [place] [address] Care Team Providers Care Operations And Maintenance Specialist Name Role Phone Dayton Valentin Primary Care Provider Allergies Allergen (clinical drug ingredient) Drug/Non Drug Allergy documented on EMR Reaction Allergy Type Onset Date Status Vaccine product containing Influenza virus antigen (medicinal product) Influenza Vaccines Unknown Drug Allergy Ac tive REASON FOR VISIT follow up Medications Medication SIG (Take, Route, Fr equency, Duration) Notes Start Date End Date Status Omeprazole 20 MG TAKE 1 CAPSULE BY MO UTH EVERY DAY 30 MINUTES BEFORE MORNING MEAL Active Tamsulosin HCl 0.4 MG TAKE 1 CAPSULE BY MOUTH EVERY DAY FOR 30 DAYS Active predniSONE 20 MG 1 tablet Orally [...] Provider Diagnosis Dayton Valentin III, MD [address] [place] [address] [address] [place] [address] 08/28/2024 Dayton Valentin GERD (gastroesophageal reflux disease) K21.9 ; BPH (benign prostatic hyperplasia) N40.0 and Overweight E66.3 Assessments Encounter Date Diagnosis (ICD Code) Assessment Notes Treatment Notes Treatment Clinical Notes 08/28/2024 GERD (gastroesophageal reflux disease) (ICD-10 - K21.9) 08/28/2024 BPH (benign prostatic hyperplasia) (ICD-10 - N40.0) 08/28/2024 Overweight (ICD-10 - E66.3) Plan Of Treatment Pending Test Test Name Order Date PROFILE, FASTING (COMPREHENSIVE METABOLI C) 08/28/2024 PSA, TOTAL 08/28/2024 CBC w DIFF 08/28/2024 Lipid Panel 08/28/2024 Next Appt Details Follow Up: 3 months, Reason: Annual Exam Provider Name:Dayton Valentin, 12/05/2024 02:00:00 PM, [address] [place] [address] [address], [place], [phone], Progress Notes * HECTORJe SLOANDOB:[birth year] (64 yo M)Acc No.[id number]:08/28/2024 Progress Notes Patient:?Je HERNANDEZ Provider:?Dayton Valentin MD :1960???Age:64 Y???Sex:Male Isaias e:08/28/2024 Address:[address] [place], [place] [id number] Subjective: * Chief Complaints: * ???1. Follow up. * HPI: ???v:?[facility] coming 2 weeks, noct x 1. * ROS:?General/Constitutional:?pain?only normal aches and pains.?Chills?denies.?Fatigue?admits.?Fever?denies.?ENT:?Decreased hearing?denies.?Respiratory:?Cough?denies.?Cardiovascular:?Chest [...] History:?left knee arthroscopy 1995, colonoscopy 2 polyps C June 2011, complete dental extractions , cystoscopy [...] Tobacco Non-User?Aggressive non-smoker ???He is not a Presybeterian. He drinks one beer per week and does not smoke. 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 He is and has one daughter who is healthy. He was born in [place], [place]. * Medications:?Taking Meloxica m 7.5 MG [...] 1 tablet Orally Once a day , Taking Dutasteride 0.5 MG Capsule TAKE 1 CAPSULE BY MOUTH EVERY DAY Oral * Allergies:?Influenza Vaccine s. Objective: * Vitals:?Ht: 70, Wt:181, BMI: 25.97, BP:112/68, HR:72, Oxygen sat %:96, Ht-cm: 177.8, Wt-k.1. * ???Past Orders: Lab:Complete Blood Count Aut [...] 12.9 (Ref Range: 11.0-16.0 %) Platelet Count 159?L (Ref Range: 160-400 X10*3/uL) 172 (Ref Range: 160-400 X10*3/uL) 151?L (Ref Range: 160-400 X10*3/uL) Mean Platelet Volume 9.6 (Ref Range: 9.4-12.4 fL) 9.2?L (Ref Range: 9.4-12.4 fL) 9.6 (Ref Range: 9.4-12.4 fL) Neutrophils Percent Auto 66.4 (Ref Range: 45-73 %) 66.1 (Ref Range: 45-73 %) 63.2 (Ref Range: 45-73 %) Imm Gran Pct Auto 0.8?H (Ref Range: 0.0-0.4 %) 0.4 (Ref Range: 0.0-0.4 %) 0.6?H (Ref Range: 0.0-0.4 %) Lymphocytes Percent Auto [...] Range: 2.0-8.3 x10*3/uL) Imm Gran Abs Auto 0.05?H (Ref Range: 0.00-0.03 X10*3/uL) 0.03 (Ref Range: [...] 0.000 (Ref Range: 0.0-0.012 X10*3/uL) * Lab:[facility]. Pane l Fast * Collection Date 08/24/2024 [...] mmol/L) 4.2 (Ref Range: 3.3-5.1 mmol/L) Chloride 112?H (Ref Range: 96-108 mmol/L) 109?H (Ref Range: 96-108 mmol/L) 110?H (Ref Range: 96-108 mmol/L) Carbon Dioxide 25 (Ref Range: 22-29 mmol/L) 26 (Ref Range: 22-29 mmol/L) 25 (Ref Range: 22-29 mmol/L) Anion Gap 11?L (Ref Range: 12-20) 11?L (Ref Range: 12-20) 11?L (Ref Range: 12-20) Blood Urea Nitrogen 18?H (Ref Range: 9-16 mg/dL) 14 (Ref Range: 9-16 mg/dL) 23?H (Ref Range: 9-16 mg/dL) Creatinine 1.00 (Ref Range: 0.5-1.4 mg/dL) 1.07 (Ref Range: 0.5-1.4 mg/dL) 1.06 (Ref Range: 0.5-1.4 mg/dL) Estimated Glomerular Filt Rate > 60 > 60 > 60 Glucose Fasting 103?H (Ref Range: 60-99 mg/dL) 105?H (Ref Range: 60-99 mg/dL) 108?H (Ref Range: 60-99 mg/dL) Calcium 9.3 (Ref Range: 8.4-10.2 mg/dL) 9.6 (Ref Range: 8.4-10.2 mg/dL) 9.0 (Ref Range: 8.4-10.2 mg/dL) * Lab:Lipid Panel * Collection Date 08/24/2024 01/24/2024 06/27/2023 Collection Time 06:14 AM 06:12 AM 06:11 AM Order Date 08/24/2024 01/24/2024 06/22/2023 Triglycerides 185?H (Ref Range: <150 mg/dL) 128 (Ref Range: <150 mg/dL) 165?H (Ref Range: <150 mg/dL) Cholesterol 191 (Ref Range: <200 mg/dL) 175 (Ref Range: <200 mg/dL) 166 (Ref Range: <200 mg/dL) LDL Cholesterol Calculated 108?H (Ref Range: <100 mg/dL) 105?H (Ref Range: <100 mg/dL) 90 (Ref Range: <100 mg/dL) HDL Cholesterol 46 (Ref Range: >40 mg/dL) 45 (Ref Range: >40 mg/dL) 43 (Ref Range: >40 mg/dL) * Lab:Prostate Specific Antige n * Collection Date 08/24/2024 02/29/2024 01/24/2024 Collection Time 06:14 AM 02:31 PM 06:12 AM Order Date 08/24/2024 02/29/2024 01/24/2024 Prostate Specific Antigen 4.08?H (Ref Range: <0.05-4.0 ng/mL) 6.36?H (Ref Range: <0.05-4.0 ng/mL) 5.35?H (Ref Range: <0.05-4.0 ng/mL) * Examination: ???General Examination: ?GENERAL APPEARANCE:?pleasant, well [...] sensory exam intact.?PSYCH:?alert, oriented.? Assessment: * Assessment: 1.?GERD (gastroesophageal re flux disease) - K21.9???2.?BPH (benign prostatic hyperplasia) - N40.0???3.?Overweight - E66.3??? Plan: * Treatment: 2.?BPH (benign prostatic hyp erplasia)?LAB: PROFILE, FASTING (COMPREHENSIVE METABOLIC) ?LAB: PSA, TOTAL ?LAB: CBC w DIFF ?LAB: Lipid Panel 3.?Overweight?LAB: PROFILE, FASTING (COMPREHENSIVE METABOLIC) ?LAB: PSA, TOTAL ?LAB: CBC w DIFF ?LAB: Lipid Panel * Procedure Codes:?56432 MEASU RE BLOOD OXYGEN LEVEL * Follow Up:?3 months (Reason: Annual Exam) * Images: * The named appointment provid er may or may not be the originator of this progress note, and it is not deemed complete until electronically signed by the appointment provider. Sign off status: Pending * Provider:?Dayton Valentin MD Date:?08/10 Generated for Yamileti zenon/Leo/eTransmitting on:?08/29/2024 12:39 PM EDT History and Physical Notes * [...]
--- OUTSIDE RECORDS SUMMARY | 2024-08-29 12:39 | XMS_ITS ---
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 Referral Priority Routine REASON FOR VISIT Hearing Test Social History Sex Assigned At : Social History Observation Description Sex Assigned At Male Encounters Encounter Location Date Provider Diagnosis Dayton Valentin III, MD [address] [place] [address] [place] [phone] 08/03/2024 Dayton Valentin Plan Of Treatment Referrals Referral Date Details 08/03/2024 08/03/2024, Consult and Treat, Speech and Hearing [facility] Next Appt Details Provider Name:Dayton Valentin, 12/05/2024 02:00:00 PM, [address] [place] [address] [place], [phone], Progress Notes * Je HERNANDEZDOB:[birth year] (64 yo M)Acc No.[id number]:08/03/2024 Patient:Je LINARES :1960???Age:64 Y???Sex:Male Address:[address] [place] [address], [phone] Subjective: * Chief Complaints: * ???Hearing Test * Medical History:? * Surgical History:? * Hospitalization/Major Diagno stic Procedure:? * Medications:? Objective: * Vitals:? * Physical Examination:? Assessment: Plan: * Treatment: * Procedure Codes:? * true * Date:? Generated for Valerie yarbrough/Leo/eTransmitting on:?08/29/2024 12:38 PM EDT Consultation Request Notes Referral Date Referring Provider Referred Provider Not dain 08/03/2024 Dayton Valentin [facility], Speech and Hearing Consult and Treat
--- OUTSIDE RECORDS SUMMARY | 2024-08-29 12:39 | XMS_ITS | Patient Health Record ---
Author Organization Dayton Valentin III, MD Address [address] [place] [address] Care Team Providers Care Negative Assembler Name Role Phone Dayton Valentin Primary Care Provider [phone] Allergies Allergen (clinical drug ingredient) Drug/Non Drug [...] Culture Reviewed date:03/05/2024 07:37:52 AM Interpretation: Performing Lab:[facility], [address] [place] [phone] Notes/Report: Urine Culture Report Result Urine Culture > 100,000 cfu/ml Urine Culture Mixed bacterial jules a characteristic of Urine Culture urogenital contamination. PSA Free and Total Reviewed date:03/15/2024 02:54:07 PM Interpretation: Performing Lab:[facility], [address] [place] [phone] Notes/Report: results Prostate Specific Ag Total 7.2 [...] 30 93 9 (3)Catalona et al.:ROSALIND 277: 6160-4809 (1996) (4)Catalona et al.:ROSALIND 279: 8346-7240 (1997) (x)These estimates vary with age, ethnicity, [...] mind. PSA was performed using the Cecelia Webster Immunoassay method. Values obtained from different assay methods cannot be used interchangeably. PSA levels, regardless of value, should not be interpreted as absolute evidence of the presence or absence of disease. THIS TEST WAS PERFORMED AT: [facility] [address] [place] [phone] ELIDA PEREZ MD Free Prostate Spec Ag 2.3 Complete Blood Count Auto Di ff Reviewed date:01/24/2024 11:47:53 AM Interpretation: Performing Lab:[facility], [address] [place] [phone] Notes/Report: White Blood Count 5.5 4.8-10.8 X10*3/uL [...] NRBC Abs Auto 0.000 0.0-0.012 X10*3/uL Comprehensive [place]. Panel Fa st Reviewed date:01/24/2024 11:47:53 AM Interpretation: Performing Lab:[facility], [address] [place] [phone] Notes/Report: Sodium 141 135-145 mmol/L Potassium 4.7 3.3-5.1 mmol/L Chloride 109 96-108 mmol/L Carbon Dioxide 26 22-29 mmol/L Anion Gap 11 12-20 Blood Urea Nitrogen 14 9-16 mg/dL Creatinine 1.07 0.5-1.4 mg/dL Estimated Glomerular Filt Rate > 60 NOTE: For -Djiboutian individuals, multiply the result by 1.210. Chronic [...] Panel Reviewed date:01/24/2024 11:47:53 AM Interpretation: Performing Lab:[address] [phone] Notes/Report: Triglycerides 128 <150 mg/dL Desirable Triglyceride: [...] Antigen Reviewed date:01/24/2024 11:47:53 AM Interpretation: Performing Lab:[address] [phone] Notes/Report: Prostate Specific Antigen 5.35 <0.05-4.0 ng/mL PSA methodology: [place] Ever[employer] International[employer] i Chemiluminescent Microparticle Immunoassay (CMIA) Complete Blood Count Auto Di ff Reviewed date:03/01/2024 05:04:49 AM Interpretation: Performing Lab:[facility], [address] [place] [phone] Notes/Report: White Blood Count 7.1 4.8-10.8 X10*3/uL [...] Panel Reviewed date:03/01/2024 05:04:49 AM Interpretation: Performing Lab:[facility], [address] [place] [phone] Notes/Report: Sodium 144 135-145 mmol/L Potassium 4.1 [...] Antigen Reviewed date:03/01/2024 05:04:49 AM Interpretation: Performing Lab:[facility], [address] [place] [phone] Notes/Report: Prostate Specific Antigen 6.36 <0.05-4.0 ng/mL PSA methodology: [place] Ever[employer] Internationalnity i Chemiluminescent Microparticle Immunoassay (CMIA) PSA Free and Total Reviewed date:03/15/2024 02:54:07 PM Interpretation: Performing Lab:[facility], [address] [place] [phone] Notes/Report: Prostate Specific Ag Total 6.7 < [...] 30 93 9 (3)Catalona et al.:ROSALIND 277: 8498-7290 (1996) (4)Catalona et al.:ROSALIND 279: 1302-7286 (1998) (x)These estimates vary with age, ethnicity, [...] of disease. THIS TEST WAS PERFORMED AT: [facility] [address] [place] [phone] ELIDA PEREZ MD Free Prostate Spec Ag 1.8 Pathology Reviewed date:06/03/2024 09:11:29 AM Interpretation: Performing Lab:[facility], [address] [place] [phone] Notes/Report: -- ---- Name: Sarabjit Hernandez pancho Cohen Age/Sex: 64/M : 1960 Unit#: [id number] Attend Dr: Brandon Morrison MD Re05/22/24 Status : [facility] Location: [facility] Disch: -- ---- SPEC : [id number] RECD: 05/22/24 STATUS: IDALIA NGUYEN NUM: [id number] DHARMESH: 05/22/[address] [facility] [address]: Brandon Morrison MD ENTERED: 05/22/24 41 [...] ---- Name: Sarabjit Hernandez/Sex: 64/M : 1960 [facility]#: [id number] Unit#: [id number] Attend Dr: Brandon Morrison MD Re05/22/24 Status : [facility] Location: [facility] Disch: -- ---- SPEC : [id number] RECD: 05/22/24 STATUS: IDALIA NGUYEN NUM: [id number] DHARMESH: 05/22/240943 SUBM DR: Brandon Morrison MD [...] Sarabjit Hernandez Age/Sex: 64/M : 1960 Unit#: [id number] Attend Dr: Brandon Morrison MD Re05/22/24 Status : [facility] Location: [facility] Disch: -- ---- SPEC : [id number] RECD: 05/22/24-1033 STATUS: IDALIA NGUYEN NUM: [id number] DHARMESH: 05/22/24-[address]: Brandon Morrison MD [...] microscopic examination, 2 pieces in cassette [facility] This case was review ed intradepartmentally. Special studies ordered and performed: PIN4 multiplex immunostains on F, G and H Copies To: Brandon Morrison MD [facility] [address] [place] [address] Dr. Yanni murillo [address] [place] [address] [email or web address] Dayton Valentin MD [address] [place] [address], [address] [place] [address] -- ---- Signed (signature on file) Robby Ibarra MD 05/25/24 1746 -- ---- END OF REPORT Complete Blood Count Auto Di ff Reviewed date:08/28/2024 09:17:53 AM Interpretation: Performing Lab:[facility], [address] [place] [phone] Notes/Report: White Blood Count 6.6 4.8-10.8 X10*3/uL Red Blood Count 5.25 4.60-5.80 X10*6/uL Hemoglobin 15.7 14.0-18.0 g/dl Hematocrit 46.9 42.0-52.0 % Mean Corpuscular Volume 89.3 80.0-98.0 fL Mean Corpuscular Hemoglobin 29.9 27.0-33.0 pg Mean Corpuscular HGB Conc 33.5 31.0-36.0 g/dl Red Cell Distribution Width 13.2 11.0-16.0 % Platelet Count 159 160-400 X10*3/uL Mean Platelet Volume 9.6 9.4-12.4 fL Neutrophils Percent Auto 66.4 45-73 % Imm Gran Pct Auto 0.8 0.0-0.4 % Lymphocytes Percent Auto 24.0 20-40 % Monocytes Percent Auto 7.3 2-11 % Eosinophils Percent Auto 1.2 0-4 % Basophils Percent Auto 0.3 0-2 % NRBC Pct Auto 0.0 0.0-0.2 /100WBC Neutrophils Absolute Auto 4.4 2.0-8.3 x10*3/u L Imm Gran Abs Auto 0.05 0.00-0.03 X10*3/uL Lymphocytes Absolute Auto 1.6 1.2-4.9 X10*3/u L Monocytes Absolute Auto 0.5 0.1-1.2 X10*3/uL Eosinophils Absolute Auto 0.1 0.0-0.4 X10*3/u L Basophils Absolute Auto 0.0 0.0-0.2 X10*3/uL NRBC Abs Auto 0.000 0.0-0.012 X10*3/uL Comprehensive [place]. Panel Fa Reviewed date:08/28/2024 09:17:53 AM Interpretation: Performing Lab:[facility], [address] [place] [phone] Notes/Report: Sodium 144 135-145 mmol/L Potassium 4.1 3.3-5.1 mmol/L Chloride 112 96-108 mmol/L Carbon Dioxide 25 22-29 mmol/L Anion Gap 11 12-20 Blood Urea Nitrogen 18 9-16 mg/dL Creatinine 1.00 0.5-1.4 mg/dL Estimated Glomerular Filt Rate > 60 Chronic Kidney Disease: Estimated GFR < 60 mL/min/1.73m2 Severe Kidney Disease: Estimated GFR < 15 mL/min/1.73m2 Glucose Fasting 103 60-99 mg/dL A fasting glucose from 100-125 mg/dl is considered impaired (pre-diabetes). Calcium 9.3 8.4-10.2 mg/dL Bilirubin Total 0.6 0.0-1.0 mg/dL Aspartate Amino Transferase 28 5-37 U/L Alanine Aminotransferase 38 0-40 U/L Total Protein 6.9 6.5-8.0 g/dL Albumin Level 4.3 3.5-5.0 g/dL Alkaline Phosphatase 70 39-117 U/L Lipid Panel Reviewed date:08/28/2024 09:17:53 AM Interpretation: Performing Lab:[facility], [address] [place] [phone] Notes/Report: Triglycerides 185 <150 mg/dL Desirable Triglyceride: less than 150 mg/dL Borderline High Triglyceride 150-199 mg/dL High Triglyceride: 200-499 mg/dL Very High Triglyceride: greater than or equal to 5OO mg/dL Cholesterol 191 <200 mg/dL Desirable Cholesterol: less than 200 mg/dL Borderline High Cholesterol: 200-239 mg/dL High Cholesterol: greater than 239 mg/dL LDL Cholesterol Calculated 108 <100 mg/dL Desirable LDL: less than 100 mg/dL Near Optimal/Above Optimal LDL: 110-129 mg/dL Borderline High LDL: 130-159 mg/dL High LDL: 160-189 mg/dL Very High LDL: greater than or equal to 190 mg/dL HDL Cholesterol 46 >40 mg/dL Desirable HDL: greater than 40 mg/dL Note: This HDL assay may give artificially low results in patients with liver disease. Prostate Specific Antigen Reviewed date:08/28/2024 09:17:53 AM Interpretation: Performing Lab:[facility], [address] [place] [phone] Notes/Report: Prostate Specific Antigen 4.08 <0.05-4.0 ng/mL PSA methodology: [employer] i Chemiluminescent Microparticle Immunoassay (CMIA) Reason For Referral Reason abnormal skin lesion on face Diagnosis 1 Skin lesion (L98.9) Referral Organization Dayton Valentin III, MD Referring Provider First Name Dayton Referring Provider Last Name Barbie Referring Provider Speciality [facility] Referred Provider [facility] ([place]) Referred Provider Specialty Dermatology General Notes Maribell Hackett [facility] 02/01 03:18:06 PM > ref/demo/progress note faxed to Roxann RUFFIN Suzanne [facility] 05/03/2024 03:06:43 PM I called patient he [...] Last Name Barbie Referring Provider Speciality [facility] Referred Provider Brandon Morrison Referred Provider Specialty Urology General Notes Maribell Hackett [facility] 03/19 11:47:08 AM > ref/demo/progress note / labs faxed to Roxann Shelley Suzanne [facility] 03/22/2024 01:48:58 PM >I called [facility] at [phone] spoke to Linda she gave me appt [...] Provider Speciality Internal M edicine Referred Provider [facility], Speech and Hearing Referred Provider [...] TABLET BY BHARAT TH EVERY DAY Active Immunizations Vaccine Route Administration Date Status [...] Problem Status W/U Status Risk Notes Problem 485609594 Overweight (E66.3) Active confirmed His body mass index is slightly elevated at 25.68. I recommended he stabilize his weight at this level. Problem 847913882 GERD (gastroesophageal reflux disease) (K21.9) Active confirmed His reflux symptoms have been well controlled with medication. Problem Impacted cerumen , unspecified ear (H61.20) Active confirmed He underwent bilateral warm more irrigation, which removed the free treated cerumen impaction. Both tympanic membranes appeared to be normal. He says his hearing was improved. He left the office annd stable condition to return as scheduled. Problem 29058643 Ureterolithiasis (N20.1) Active confirmed He reports no kidney stones recently. The ddiscomfort with urinating is primarily urethral. Problem 410793203 BPH (benign prostatic hyperplasia) (N40.0) Active confirmed He has resumed rising only once a night to urinate. Problem 974857408 Edentulous (K00.0) Active confirmed He has upper and lower dentures fit well and he has no difficulty eating and chewing. Problem 786570238 Degenerative ever nt disease (M19.90) Active confirmed He will continue on his use of ibuprofen. He was encouraged to stay active. Problem 88414470 Colonic polyp (K63.5) Active confirmed He will undergo colonoscopy appropriately and at regular intervals. 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 Problem 8833121624226 Vasculogenic erectile dysfunction, unspecified vasculogenic erectile dysfunction type (N52.9) Active confirmed He was given a prescription for Viagra. Problem 560006207 Migraine without aura and without status migrainosus, not intractable (G43.009) Active confirmed He has had no further migraine headaches since February 16, 2018. In the emergency room. If it returns. She will call me once. Problem 80826656 Prepatellar bursitis of right knee (M70.41) Active confirmed I have explained to him the nature of the swelling. I told him to use a heating pad and ibuprofen and rest. The prognosis is good he should slowly return to normal. Vital Signs Heart Rate 72 /min 08/28/2024 Temperature 97.9 degrees Fahrenheit 08/09/2024 Oximetry 96 % 08/28/2024 Blood pressure diastolic 68 mm Hg 08/28/2024 Height 70 in 08/28/2024 Blood pressure systolic 112 mm Hg 08/28/2024 Weight 181 lbs 08/28/2024 BMI 25.97 kg/m2 08/28/2024 Encounters Encounter Location Date Provider Diagnosis Dayton Valentin III, MD [address] [place] [address] [place] [address] 08/28/2024 Dayton Valentin GERD (gastroesophage al reflux disease) K21.9 ; BPH (benign prostatic hyperplasia) N40.0 and Overweight E66.3 Dayton Valentin III, MD [address] [place] [address] [place] [address] 09/20/2023 Dayton Valentin Hypertriglyceridemia E78.1 ; GERD [...] and Overweight E66.3 Dayton Valentin III, MD [address] [place] [address] [place] [address] 01/31/2024 Dayton Valentin Hearing loss H91.90 ; Elevated PSA R97.20 ; BPH (benign prostatic hyperplasia) N40.0 ; Hypertriglyceridemia E78.1 ; GERD (gastroesophageal reflux disease) K21.9 ; Ureterolithiasis N20.1 ; Primary osteoarthritis, right hand M19.041 and Overweight E66.3 Dayton Valentin III, MD [address] [place] [address] [place] [address] 02/21/2024 Dayton Valentin GERD (gastroesophage al reflux disease) K21.9 ; BPH (benign prostatic hyperplasia) N40.0 ; Ureterolithiasis N20.1 ; Migraine without aura and without status migrainosus, not intractable G43.009 and Right hand pain M79.641 Dayton Valentin III, MD [address] [place] [address] [place] [address] 02/29/2024 Dayton Valentin BPH (benign prostati c hyperplasia) N40.0 ; Ureterolithiasis N20.1 ; GERD (gastroesophageal reflux disease) K21.9 ; Degenerative joint disease M19.90 ; Migraine without aura and without status migrainosus, not intractable G43.009 ; Elevated PSA R97.2 ; Overweight E66.3 and Prepatellar bursitis of right knee M70.41 Dayton Valentin III, MD [address] [place] [address] [place] [address] 03/02/2024 Dayton Valentin Elevated PSA R97.20 ; Dysuria R30.0 ; GERD (gastroesophageal reflux disease) K21.9 ; Other specified hearing loss of both ears H91.8X3 and Overweight E66.3 Dayton Valentin III, MD [address] [place] [address] [place] [address] 03/13/2024 Dayton Valentin BPH (benign prostati c hyperplasia) N40.0 ; Elevated PSA R97.20 ; GERD (gastroesophageal reflux disease) K21.9 ; Degenerative joint disease M19.90 ; Ureterolithiasis N20.1 and Overweight E66.3 Dayton Valentin III, MD [address] [place] [address] [place] [address] 06/05/2024 Dayton Valentin Inflammatory disease of prostate N41.9 ; Overweight E66.3 ; Vasculogenic erectile dysfunction, unspecified vasculogenic erectile dysfunction type N52.9 ; Migraine without aura and without status migrainosus, not intractable G43.009 ; Other specified hearing loss of both ears H91.8X3 ; BPH (benign prostatic hyperplasia) N40.0 ; Ureterolithiasis N20.1 and GERD (gastroesophageal reflux disease) K21.9 Dayton Valentin III, MD [address] [place] [address] [place] [address] 06/28/2024 Dayton Valentin BPH (benign prostati c hyperplasia) N40.0 ; Overweight E66.3 ; GERD (gastroesophageal reflux disease) K21.9 ; Edentulous K00.0 ; Degenerative joint disease M19.90 and Migraine without aura and without status migrainosus, not intractable G43.009 Dayton Valentin III, MD [address] [place] [address] [place] [address] 08/09/2024 Dayton Valentin Impacted cerumen, unspecified ear H61.20 ; Edentulous K00.0 ; Degenerative joint disease M19.90 ; GERD (gastroesophageal reflux disease) K21.9 ; Ureterolithiasis N20.1 ; Migraine without aura and without status migrainosus, not intractable G43.009 and Other specified hearing loss of both ears H91.8X3 Dayton Valentin III, MD [address] [place] [address] [place] [address] 01/12/2024 Dayton Valentin III, MD [address] [place] [address] [place] [address] 07/02/2024 Dayton Valentin III, MD [address] [place] [address] [place] [address] 08/03/2024 Dayton Valentin Assessments Encounter Date Diagnosis (ICD Code) Assessment Notes T reatment Notes Treatment Clinical Notes 08/28/2024 GERD (gastroesophage al reflux disease) (ICD-10 - K21.9) 09/20/2023 GERD (gastroesophage al reflux disease) (ICD-10 [...] has no difficulty eating and chewing. 08/28/2024 BPH (benign prostati c hyperplasia) (ICD-10 - N40.0) 09/20/2023 BPH (benign prostati c hyperplasia) (ICD-10 [...] He was encouraged to stay active. 08/28/2024 Overweight (ICD-10 - E66.3) 09/20/2023 Degenerative joint disease (ICD-10 - M19.90) [...] STICK 11/11/2020 PROFILE, FASTING (COMPREHENSIVE METABOLI C) 08/19/2020 PROFILE, FASTING (COMPREHENSIVE METABOLI C) 12/28/2021 PROFILE, FASTING (COMPREHENSIVE METABOLI C) 06/17/2017 PROFILE, FASTING (COMPREHENSIVE METABOLI C) 10/24/2019 PROFILE, FASTING (COMPREHENSIVE METABOLI C) 10/14/2020 PROFILE, FASTING (COMPREHENSIVE METABOLI C) 12/18/2018 PROFILE, FASTING (COMPREHENSIVE METABOLI C) 08/28/2024 PROFILE, FASTING (COMPREHENSIVE METABOLI C) 06/19/2018 PROFILE, FASTING (COMPREHENSIVE METABOLI C) 04/21/2020 PROFILE, FASTING (COMPREHENSIVE METABOLI C) 06/28/2024 PROFILE, FASTING (COMPREHENSIVE METABOLI C) 09/20/2023 PROFILE, FASTING (COMPREHENSIVE METABOLI C) 02/19/2020 PROFILE, FASTING (COMPREHENSIVE METABOLI C) 03/19/2022 PROFILE, FASTING (COMPREHENSIVE METABOLI C) 11/08/2017 PROFILE, FASTING (COMPREHENSIVE METABOLI C) 06/17/2021 PROFILE, RANDOM (COMPREHENSIVE METABOLIC ) 04/09/2019 HEMOGLOBIN A1C (GLYCOHEMOGLOBIN) 020 MAGNESIUM 02/19/2020 LIPID PANEL 11/08/2017 LIPID PANEL 08/19/2020 LIPID PANEL 12/28/2021 LIPID PANEL 06/17/2017 LIPID PANEL 10/24/2019 LIPID PANEL 10/14/2020 LIPID PANEL 12/18/2018 LIPID PANEL 06/19/2018 LIPID PANEL 04/21/2020 LIPID PANEL 09/20/2023 FREE T4 (FT4) 11/23/2018 FREE T4 (FT4) 06/30/2022 TSH (THYROID STIMULATING HORMONE) 2018 TSH (THYROID STIMULATING HORMONE) 2022 PSA, TOTAL 06/17/2021 PSA, TOTAL 03/13/2024 PSA, TOTAL 08/19/2020 PSA, TOTAL 06/17/2017 PSA, TOTAL 08/28/2024 PSA, TOTAL 10/14/2020 PSA, TOTAL 06/28/2024 PSA, TOTAL 12/18/2018 PSA, TOTAL 06/30/2022 PSA, TOTAL 06/19/2018 PSA, TOTAL 09/20/2023 PSA, TOTAL+FREE 08/11/2021 PSA, TOTAL+FREE 12/24/2021 PSA, TOTAL SCREEN 12/28/2021 RHEUMATOID FACTOR (RA, RF) 04/09/2019 RHEUMATOID FACTOR (RA, RF) 11/23/2018 CBC w DIFF 03/19/2022 CBC w DIFF 09/20/2023 CBC w DIFF 11/08/2017 CBC w DIFF 02/19/2020 CBC w DIFF 06/17/2021 CBC w DIFF 04/09/2019 CBC w DIFF 10/24/2019 CBC w DIFF 08/19/2020 CBC w DIFF 12/28/2021 CBC w DIFF 06/17/2017 CBC w DIFF 08/28/2024 CBC w DIFF 10/14/2020 CBC w DIFF 04/21/2020 CBC w DIFF 06/28/2024 CBC w DIFF 12/18/2018 CBC w DIFF 06/19/2018 SED RATE (ESR) 04/09/2019 SED RATE (ESR) 11/23/2018 SED RATE (ESR) 06/30/2022 URINALYSIS (UA) 06/17/2021 TESTOSTERONE, TOTAL 06/30/2022 TESTOSTERONE, TOTAL 04/09/2019 TESTOSTERONE, TOTAL 11/23/2018 JASPAL (YUNG) 11/23/2018 JASPAL (YUNG) 04/09/2019 Sleep Study - Baseline 06/30/2022 Lipid Panel 06/28/2024 Lipid Panel 03/19/2022 Lipid Panel 06/17/2021 Lipid Panel 08/28/2024 Next Appt Details Provider Name:Dayton Valentin, 12/05/2024 02:00:00 PM, [address] [place] [address] [address], [place], [address], Insurance Providers Payer Name Payer Address Payer Phone Subscriber Number Group Number Insured Name Patient Relationship to Insured Coverage Start Date Coverage End Date MEDICARE NGS [address] [place] [phone] [id number] Je Hernandez Self - patient is the insured 2 MEDICAID [place] [address] [facility] [id number] Je Hernandez Self - patient is the [...] 04/2016 complete dental extractions colonoscopy 2 polyps [facility] June 2011 left knee arthroscopy 1995 Hospitalization History Reason Date(Month/Year) No history
== END 2024-08-29 12:02 | disposition home or self-care (01) ==
LOC: HO.HGI 11:22
PROVIDERS: PCP Internal Medicine Medical Oncology; Visit Provider Nurse Practitioner Family
DX: R10.9 Unspecified abdominal pain (principal); K63.5 Polyp of colon; K59.01 Slow transit constipation; K21.9 Gastro-esophageal reflux disease without esophagitis
CPT/HCPCS: 99213

== ENCOUNTER → 2024-08-29 11:21 | Outpatient (BNVA) | payer MEDICARE, MEDICAID, SELFPAY | PROVIDERS: PCP Internal Medicine Medical Oncology; Visit Provider Nurse Practitioner Family | DX: K21.9 Gastro-esophageal reflux disease without esophagitis (principal); K59.01 Slow transit constipation; R10.9 Unspecified abdominal pain; K63.5 Polyp of colon | CPT/HCPCS: 99212 ==

== ENCOUNTER 2024-09-19 12:50 | Outpatient (REF) | payer MEDICARE, MEDICAID, SELFPAY ==
--- NOTE | 2024-09-19 13:48 | MHC.AU.HA2 ---
Hearing Instrument Fitting- Adult- Binaural Date of Visit: 09/19/24 Hearing Instruments Dispensed: Right Ear: Make, Model, Color, Serial Number: Phonak CROS I-R SN: [id number] Color: Sand Beige [employer] Repair Warranty: 09/22/2027 [employer] Loss and Damage Warranty: 09/22/2027 [facility] Service Plan: 09/19/2025 Battery Size: Rechargeable Sales Enablement Specialist/Slim Tube: 2C Earmold/Dome/CShell/SlimTip: Acrylic slim tip skeleton SN: [id number] Natalia: 01/10/2025 Type of Wax Guard: CeruStop Left Ear: Make, Model, Color, Serial Number: Henri Audeo I50-R SN: [id number] Color: Sand Beige [employer] Repair Warranty: 09/22/2027 [employer] Loss and Damage Warranty: 09/22/2027 [facility] Service Plan: 09/19/2025 Battery Size: Rechargeable Sales Enablement Specialist/Slim Tube: 2S Earmold/Dome/CShell/SlimTip: Acrylic c-shell skeleton SN: [id number] Natalia: 01/10/2025 Type of Wax Guard: CeruStop Accessories/Assistive Technology: Phonak Controlled Atmospheric Furnace Brazer MAYRA SN: [id number] Summary of Fitting: Performed electroacoustic analysis in test box prior to appointment. Ran feedback analyzer and real ear measures. Comfortable at real ear settings. Left c-shell came with S commissions coordinator even though ordered M. Able to reach real ear targets but may need to switch to M commissions coordinator if hearing changes. Discussed care, use, and rechargeability including manually turning on/off, VC use, and changing wax guard. As previous HOPPER user, otherwise familiar with general maintenance. Follow up was scheduled; however, may cancel if all is well. Recommendations: A hearing instrument follow-up was scheduled. Diagnosis Code(s): Primary Diagnosis: H90.3 Bilateral Sensorineural Hearing Loss Signature: Provider: Paramjit Lerner, [facility]
== END 2024-09-19 12:51 | disposition home or self-care (01) ==
LOC: HO.HAP 12:50
PROVIDERS: Visit Provider Internal Medicine Medical Oncology
DX: Z46.1 Encounter for fitting and adjustment of hearing aid (principal); H90.3 Sensorineural hearing loss, bilateral
CPT/HCPCS: 92594; V5011; V5020; V5221; V5240; V5264

== ENCOUNTER 2024-12-03 06:10 | Outpatient (REF) | payer MEDICARE, MEDICAID, SELFPAY ==
[2024-12-03 06:28] LABS: MANUAL DIFF FLAG NO
[2024-12-03 07:15] LABS: Hematocrit 45.8 % (42.0-52.0); Hemoglobin 15.8 g/dl (14.0-18.0); Imm Gran Abs Auto 0.04 X10*3/uL (0.00-0.03); Imm Gran Pct Auto 0.7 % (0.0-0.4); Lymphocytes Absolute Auto 1.5 X10*3/uL (1.2-4.9); Mean Corpuscular HGB Conc 34.5 g/dl (31.0-36.0); Mean Corpuscular Hemoglobin 30.3 pg (27.0-33.0); Mean Corpuscular Volume 87.7 fL (80.0-98.0); NRBC Abs Auto 0.000 X10*3/uL (0.0-0.012); NRBC Pct Auto 0.0 /100WBC (0.0-0.2); Platelet Count 164 X10*3/uL (160-400); Red Blood Count 5.22 X10*6/uL (4.60-5.80); White Blood Count 5.7 X10*3/uL (4.8-10.8)
[2024-12-03 07:55] LABS: Alanine Aminotransferase 37 U/L (0-40); Albumin Level 4.6 g/dL (3.5-5.0); Alkaline Phosphatase 76 U/L (39-117); Anion Gap 13 (12-20); Aspartate Amino Transferase 28 U/L (5-37); Blood Urea Nitrogen 17 mg/dL (9-16); Calcium 9.2 mg/dL (8.4-10.2); Carbon Dioxide 25 mmol/L (22-29); Chloride 109 mmol/L (96-108); Cholesterol 179 mg/dL (<200); Estimated Glomerular Filt Rate > 60; HDL Cholesterol 41 mg/dL (>40); Potassium 4.5 mmol/L (3.3-5.1); Sodium 142 mmol/L (135-145); Total Protein 6.8 g/dL (6.5-8.0); Triglycerides 194 mg/dL (<150)
[2024-12-03 08:09] LABS: Prostate Specific Antigen 2.89 ng/mL (<0.05-4.0)
== END 2024-12-03 06:11 | disposition home or self-care (01) ==
LOC: HO.LAB 06:10
PROVIDERS: PCP Internal Medicine Medical Oncology; Visit Provider Internal Medicine Medical Oncology
DX: K21.9 Gastro-esophageal reflux disease without esophagitis (principal); N40.0 Benign prostatic hyperplasia without lower urinary tract symptoms; E66.3 Overweight; Z12.5 Encounter for screening for malignant neoplasm of prostate
CPT/HCPCS: 36415; 80053; 80061; 84153; 85025

== ENCOUNTER 2025-01-09 05:58 | Outpatient (REF) | payer MEDICARE, MEDICAID, SELFPAY ==
--- OUTSIDE RECORDS SUMMARY | 2024-08-09 07:15 | XMS_ITS ---
Author Organization Dayton Valentin III, MD Address [address] [address] Care Team Providers Care Technology Support Analyst Name Role Phone Dr. Dayton Valentin III [...] W/U Status Risk Notes Problem Impacted cerumen ([id number]) Impacted cerumen, unspecified ear (H61.20) Active confirmed [...] Date Provider Diagnosis Dayton Valentin III, MD [address] [place] [address] [place] [address] 08/09/2024 Dayton Valentin Impacted cerumen, unspecified ear [...] Provider Name:Dayton Valentin , 03/06/2025 10:15:00 AM, [address] [place] [address] [address], [place], [address], Provider Name:Dayton Valentin , 12/09/2025 02:00:00 PM, [address] [place] [address] [address], [place], [address], Procedure Notes * Category Sub-Category Detail Notes Ear lavage Procedure Post-procedure Successful Progress Notes * Je HERNANDEZDOB:[birth year] (64 yo M)Acc No.[id number]:08/09/2024 Patient: Je CARRILLO Provider: Seth Valentin MD :1960 A ge:64 Y S ex:Male Date:08/09/2024 Address:[address] [place], [place] [id number] Subjective: * Chief Complaints: * E ar [...] eft knee arthroscopy 1995colonoscopy 2 [place] [facility] [place]complete dental extractions cystoscopy and stent [...] ggressive non-smoker Keli murillo is not a Mormon. He drinks one beer per week and does not smoke. 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 He is and has one daughter who is healthy. He was born in [place], [place]. * Medications: T akingMeloxicam 7.5 MG [...] MD Date: 0 08/09/2024 Generated for Valerie yarbrough/Leo/Senasmitting on: 06:02 AM EDT History and Physical Notes * HPI (History of Present Illness) Category Sub-Category Detail Notes COVID-19 Screening Questions Have you had any new onset fever, chills, cough, congestion, sore throat, shortness of breath, muscle aches?: No
--- OUTSIDE RECORDS SUMMARY | 2024-08-28 05:15 | XMS_ITS ---
Author Organization Dayton Valentin III, MD Address [address] [place] [address] Care Team Providers Care Sexton Helper Name Role Phone Dr. Dayton Valentin III [...] Date Provider Diagnosis Dayton Valentin III, MD [address] [place] [address] [place] [address] 08/28/2024 Dayton Valentin GERD (gastroesophage al reflux [...] Provider Name:Dayton Valentin , 03/06/2025 10:15:00 AM, [address] [place] [address] [address], [place], [phone], Provider Name:Dayton Valentin , 12/09/2025 02:00:00 PM, [address] [place] [address] [address], [place], [phone], Progress Notes * HECTORJe SLOANDOB:[birth year] (64 yo M)Acc No.[id number]:08/28/2024 Progress Notes Patient: Je CARRILLO Provider: Seth Valentin MD :1960 A ge:64 Y S ex:Male Date:08/28/2024 Address:[address] [place] [address] [place] , [id number] Subjective: * Chief Complaints: * H earing lossGERDBenign prostatic hypertrophyMigraines * HPI: v : He returns for management of medical issues. He has new hearing aids coming in about 2 weeks from [facility] speech and hearing Department. Communication today was [...] l eft knee arthroscopy 1995colonoscopy 2 polyps [facility] [place] 2011complete dental extractions cystoscopy and stent [...] ggressive non-smoker H e is not a Christian. He drinks one beer per week and does not smoke. 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 He is and has one daughter who is healthy. He was born in [place], [place]. * Medications: T akingMeloxicam 7.5 MG [...] 0.000 (Ref Range: 0.0-0.012 X10*3/uL) * Lab:Comprehensive [place]. Pane l Fast * Collection Date 08/24/2024 [...] 0 08/28/2024 Generated for Valerie yarbrough/Leo/Krystal on: 06:03 AM EDT History and Physical Notes * Examination [...]
--- OUTSIDE RECORDS SUMMARY | 2024-09-21 08:30 | XMS_ITS ---
Author Organization Dayton Valentin III, MD Address [address] [place] [address] Care Team Providers Care Pulverizer Name Role Phone Dr. Dayton Valentin III Primary Care Provider [phone] REASON FOR VISIT Annual Exam Social History Sex Assigned At : Social History Observation Description Sex Assigned At Male Encounters Encounter Location Date Provider Diagnosis Dayton Valentin III, MD [address] [place] [address] [place] [address] 09/21/2024 Dayton Valentin Plan Of Treatment Next Appt Details Provider Name:Dayton Valentin , 03/06/2025 10:15:00 AM, [address] [place] [address] [place], [address], Provider Name:Dayton Valentin , 12/09/2025 02:00:00 PM, [address] [place] [address] [place], [address], Progress Notes * Je HERNANDEZDOB:[birth year] (64 yo M)Acc No.[id number]:09/21/2024 Progress Notes Patient: Je CARRILLO Provider: Seth Valentin MD :1960 A ge:64 Y S ex:Male Date:09/21/2024 Address:[address] [place], [place] [id number] Subjective: * Chief Complaints: * 1 . [...] 09/21/2024 Generated for Valerie yarbrough/Leo/Shakeelitting on: 1 06:03 AM EDT
--- OUTSIDE RECORDS SUMMARY | 2024-11-09 13:00 | XMS_ITS ---
Author Organization Dayton Valentin III, MD Address [address] [place] [address] Care Team Providers Care Dean Of Education Name Role Phone Dr. Dayton Valentin III Primary Care Provider [phone] REASON FOR VISIT Ear Irrigation Social History Sex Assigned At : Social History Observation Description Sex Assigned At Male Encounters Encounter Location Date Provider Diagnosis Dayton Valentin III, MD [address] [place] [address] [place] [phone] 11/09/2024 Dayton Valentin Plan Of Treatment Next Appt Details Provider Name:Dayton Valentin , 03/06/2025 10:15:00 AM, [address] [place] [address] [place], [address], Provider Name:Dayton Valentin , 12/09/2025 02:00:00 PM, [address] [place] [address] [place], [address], Progress Notes * Je HERNANDEZDOB:[birth year] (64 yo M)Acc No.[id number]:11/09/2024 Patient: Ronda CAN Je Provider: Seth Valentin MD :1960 A ge:64 Y S ex:Male Date:11/09/2024 Address:[address] [place], [place] [id number] Subjective: * Chief Complaints: * 1 . [...] 0 11/09/2024 Generated for Valerie yarbrough/Leo/Shakeelitting on: 06:03 AM EDT
--- OUTSIDE RECORDS SUMMARY | 2024-12-05 10:00 | XMS_ITS ---
Author Organization Dayton Valentin III, MD Address [address] [place] [address] Care Team Providers Care Fire Control System Installer Name Role Phone Dr. Dayton Valentin III [...] Problem Status W/U Status Risk Notes Problem [id number] Elevated PSA (R97.2) Active confirmed His PSA [...] Provider Diagnosis Dayton Valentin III, MD [address] [place] [address] [place] [address] 12/05/2024 Dayton Valentin GERD (gastroesophage al reflux [...] room air. He has been to the hand presser and no changes were made except to [...] Months, Reason: OV Provider Name:Dayton Valentin , 03/06/2025 10:15:00 AM, [address] [place] [address] [address], [place], [address], Provider Name:Dayton Valentin , 12/09/2025 02:00:00 PM, [address] [place] [address] [address], [place], [address], Progress Notes * Je YOUNGDOB:[birth year] (64 yo M)Acc No.[id number]:12/05/2024 Progress Notes Patient: Je CARRILLO Provider: Seth Valentin MD :1960 A ge:64 Y S ex:Male Date:12/05/2024 Address:[address] [place] [address] [place], [id number] Subjective: * Chief Complaints: * A nnual Exam * HPI: D epression Screening: Keli murillo returns at the age of 64 for his annual visit. He has just returned from a vacation in [place]. He recently saw the gastroenterology nurse who [...] l e[place]rosc[place] 1995[place] 2 [place] [facility] [place] dental extractions cystoscopy and stent [...] N egative H e is not a Mu-ism. He drinks one beer per week and does not smoke. 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 He is and has one daughter who is healthy. He was born in [place], [place]. * Medications: T akingMeloxicam 7.5 MG [...] 45 (Ref Range: >40 mg/dL) * Lab:Comprehensive [place]. Pane l Fast * Collection Date 12/03/2024 [...] room air. He has been to the hand presser and no changes were made except to [...] MD Date: 0 12/05/2024 Generated for Valerie yarbrough/Leo/Krystal on: 06:03 AM [...]
--- OUTSIDE RECORDS SUMMARY | 2025-01-09 06:03 | XMS_ITS | Patient Health Record ---
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 Dayton Valentin [...] Culture Reviewed date:03/05/2024 07:37:52 AM Interpretation: Performing Lab:[facility], [address] [place] [phone] Notes/Report: Urine Culture Report Result Urine Culture > 100,000 cfu/ml Urine Culture Mixed bacterial jules a characteristic of Urine Culture urogenital contamination. PSA Free and Total Reviewed date:03/15/2024 02:54:07 PM Interpretation: Performing Lab:[facility], [address], [place] [address] Notes/Report: results Prostate Specific Ag Total 7.2 [...] 30 93 9 (3)Catalona et al.:ROSALIND 277: 2834-9649 (1996) (4)Catalona et al.:ROSALIND 279: 1003-1572 (1997) (x)These estimates vary with age, ethnicity, [...] mind. PSA was performed using the Cecelia Swanton Immunoassay method. Values obtained from different assay methods cannot be used interchangeably. PSA levels, regardless of value, should not be interpreted as absolute evidence of the presence or absence of disease. THIS TEST WAS PERFORMED AT: [facility] [address] [place] [phone] ELIDA PEREZ MD Free Prostate Spec Ag 2.3 Complete Blood Count Auto Di ff Reviewed date:01/24/2024 11:47:53 AM Interpretation: Performing Lab:[facility], [address] [place] [phone] Notes/Report: White Blood Count 5.5 4.8-10.8 X10*3/uL [...] NRBC Abs Auto 0.000 0.0-0.012 X10*3/uL Comprehensive [place]. Panel Fa st Reviewed date:01/24/2024 11:47:53 AM Interpretation: Performing Lab:[facility], [address] [place] [address] Notes/Report: Sodium 141 135-145 mmol/L Potassium 4.7 3.3-5.1 mmol/L Chloride 109 96-108 mmol/L Carbon Dioxide 26 22-29 mmol/L Anion Gap 11 12-20 Blood Urea Nitrogen 14 9-16 mg/dL Creatinine 1.07 0.5-1.4 mg/dL Estimated Glomerular Filt Rate > 60 NOTE: For -Slovak individuals, multiply the result by 1.210. Chronic [...] Panel Reviewed date:01/24/2024 11:47:53 AM Interpretation: Performing Lab:[facility], [address] [place] [phone] Notes/Report: Triglycerides 128 <150 mg/dL Desirable Triglyceride: [...] Antigen Reviewed date:01/24/2024 11:47:53 AM Interpretation: Performing Lab:[facility], [address] [place] [phone] Notes/Report: Prostate Specific Antigen 5.35 <0.05-4.0 ng/mL PSA methodology: Meade Alinity i Chemiluminescent Microparticle Immunoassay (CMIA) Complete Blood Count Auto Di ff Reviewed date:03/01/2024 05:04:49 AM Interpretation: Performing Lab:[facility], [address] [place] [phone] Notes/Report: White Blood Count 7.1 4.8-10.8 X10*3/uL [...] Panel Reviewed date:03/01/2024 05:04:49 AM Interpretation: Performing Lab:[facility], [address] [place] [phone] Notes/Report: Sodium 144 135-145 mmol/L Potassium 4.1 [...] Antigen Reviewed date:03/01/2024 05:04:49 AM Interpretation: Performing Lab:[facility], [address] [place] [phone] Notes/Report: Prostate Specific Antigen 6.36 <0.05-4.0 ng/mL PSA methodology: NORCATnity i Chemiluminescent Microparticle Immunoassay (CMIA) PSA Free and Total Reviewed date:03/15/2024 02:54:07 PM Interpretation: Performing Lab:[address] [phone] Notes/Report: Prostate Specific Ag Total 6.7 < [...] 30 93 9 (3)Catalona et al.:ROSALIND 277: 5650-9655 (1996) (4)Catalona et al.:ROSALIND 279: 6372-6087 (1997) (x)These estimates vary with age, ethnicity, [...] of disease. THIS TEST WAS PERFORMED AT: [facility] [address] [place] [phone] ELIDA PEREZ MD Free Prostate Spec Ag 1.8 Pathology Reviewed date:06/03/2024 09:11:29 AM Interpretation: Performing Lab:[facility], [address] [place] [phone] Notes/Report: -- ---- Name: MaryFrancheskajose luis Cohen Age/Sex: 64/M : 1960 Unit#: [id number] Attend Dr: Brandon Morrison MD Re05/22/24 Status : [facility] Location: [facility] Disch: -- ---- SPEC : [id number] RECD: 05/22/24 STATUS: IDALIA NGUYEN NUM: [id number] DHARMESH: 05/22/[address] [facility] [address]: Brandon Morrison MD ENTERED: 05/22/24 43 SP TYPE: Surgical OTHR DR: Dayton Valentin MD ORDERED: Multiplex IHC/3, PIN4/4, Prostate biopsy/ Diagnosis A: Left base lateral : Benign [...] Sarabjit Hernandez Age/Sex: 64/M : 1960 Unit#: [id number] Attend Dr: Brandon Morrison MD Re05/22/24 Status : [facility] Location: [facility] Disch: -- ---- SPEC : [id number] RECD: 05/22/24 STATUS: ELIOTServando IRWINJonatan NUM: [id number] DHARMESH: 05/22/[address] [facility] [address]: Brandon Morrison MD ENTERED: 05/22/24 [...] Sarabjit Hernandez Age/Sex: 64/M : 1960 Unit#: [id number] Attend Dr: Brandon Morrison MD Re05/22/24 [place] : [facility] [place]: [facility] Disch: -- ---- SPEC : [id number] RECD: 02/ STATUS: IDALIA NGUYEN NUM: [id number] DHARMESH: 05/22/[address] [facility] [address]: Brandon Morrison MD ENTERED: 05/22/24 [...] microscopic examination, 2 pieces in cassette [facility] This case was review ed intradepartmentally. Special studies ordered and performed: PIN4 multiplex immunostains on F, G and H Copies To: Brandon Morrison MD [facility] [address] [place] [address] Dr. Yanni murillo [address] [place] [address] [email or web address] Dayton Valentin MD [address] [place] [address], [address] [place] [address] -- ---- Signed (signature on file) Robby Ibarra MD 05/25/24 1746 -- ---- END OF REPORT Complete Blood Count Auto Di ff Reviewed date:08/28/2024 09:17:53 AM Interpretation: Performing Lab:[facility], [address] [place] [phone] Notes/Report: White Blood Count 6.6 4.8-10.8 X10*3/uL [...] NRBC Abs Auto 0.000 0.0-0.012 X10*3/uL Comprehensive [place]. Panel Fa Reviewed date:08/28/2024 09:17:53 AM Interpretation: Performing Lab:[facility], [address] [place] [phone] Notes/Report: Sodium 144 135-145 mmol/L Potassium 4.1 [...] Panel Reviewed date:08/28/2024 09:17:53 AM Interpretation: Performing Lab:[facility], [address] [place] [phone] Notes/Report: Triglycerides 185 <150 mg/dL Desirable Triglyceride: [...] Antigen Reviewed date:08/28/2024 09:17:53 AM Interpretation: Performing Lab:[facility], [address] [place] [phone] Notes/Report: Prostate Specific Antigen 4.08 <0.05-4.0 ng/mL PSA methodology: Meade Alinity i Chemiluminescent Microparticle Immunoassay (CMIA) Complete Blood Count Auto Di ff Reviewed date:12/05/2024 02:14:01 PM Interpretation: Performing Lab:[facility], [address] [place] [phone] Notes/Report: White Blood Count 5.7 4.8-10.8 X10*3/uL Red Blood Count 5.22 4.60-5.80 X10*6/uL Hemoglobin 15.8 14.0-18.0 g/dl Hematocrit 45.8 42.0-52.0 % Mean Corpuscular Volume 87.7 80.0-98.0 fL Mean Corpuscular Hemoglobin 30.3 27.0-33.0 pg Mean Corpuscular HGB Conc 34.5 31.0-36.0 g/dl Red Cell Distribution Width 12.7 11.0-16.0 % Platelet Count 164 160-400 X10*3/uL Mean Platelet Volume 9.7 9.4-12.4 fL Neutrophils Percent Auto 64.9 45-73 % Imm Gran Pct Auto 0.7 0.0-0.4 % Lymphocytes Percent Auto 26.6 20-40 % Monocytes Percent Auto 6.5 2-11 % Eosinophils Percent Auto 1.1 0-4 % Basophils Percent Auto 0.2 0-2 % NRBC Pct Auto 0.0 0.0-0.2 /100WBC Neutrophils Absolute Auto 3.7 2.0-8.3 x10*3/u L Imm Gran Abs Auto 0.04 0.00-0.03 X10*3/uL Lymphocytes Absolute Auto 1.5 1.2-4.9 X10*3/u L Monocytes Absolute Auto 0.4 0.1-1.2 X10*3/uL Eosinophils Absolute Auto 0.1 0.0-0.4 X10*3/u L Basophils Absolute Auto 0.0 0.0-0.2 X10*3/uL NRBC Abs Auto 0.000 0.0-0.012 X10*3/uL Comprehensive [place]. Panel Fa st Reviewed date:12/05/2024 02:14:01 PM Interpretation: Performing Lab:[facility], [address] [place] [phone] Notes/Report: Sodium 142 135-145 mmol/L Potassium 4.5 3.3-5.1 mmol/L Chloride 109 96-108 mmol/L Carbon Dioxide 25 22-29 mmol/L Anion Gap 13 12-20 Blood Urea Nitrogen 17 9-16 mg/dL Creatinine 1.01 0.5-1.4 mg/dL Estimated Glomerular Filt Rate > 60 Chronic Kidney Disease: Estimated GFR < 60 mL/min/1.73m2 Severe Kidney Disease: Estimated GFR < 15 mL/min/1.73m2 Glucose Fasting 106 60-99 mg/dL A fasting glucose from 100-125 mg/dl is considered impaired (pre-diabetes). Calcium 9.2 8.4-10.2 mg/dL Bilirubin Total 0.6 0.0-1.0 mg/dL Aspartate Amino Transferase 28 5-37 U/L Alanine Aminotransferase 37 0-40 U/L Total Protein 6.8 6.5-8.0 g/dL Albumin Level 4.6 3.5-5.0 g/dL Alkaline Phosphatase 76 39-117 U/L Lipid Panel Reviewed date:12/05/2024 02:14:01 PM Interpretation: Performing Lab:[facility], [address] [place] [phone] Notes/Report: Triglycerides 194 <150 mg/dL Desirable Triglyceride: less than 150 mg/dL Borderline High Triglyceride 150-199 mg/dL High Triglyceride: 200-499 mg/dL Very High Triglyceride: greater than or equal to 5OO mg/dL Cholesterol 179 <200 mg/dL Desirable Cholesterol: less than 200 mg/dL Borderline High Cholesterol: 200-239 mg/dL High Cholesterol: greater than 239 mg/dL LDL Cholesterol Calculated 100 <100 mg/dL Desirable LDL: less than 100 mg/dL Near Optimal/Above Optimal LDL: 110-129 mg/dL Borderline High LDL: 130-159 mg/dL High LDL: 160-189 mg/dL Very High LDL: greater than or equal to 190 mg/dL HDL Cholesterol 41 >40 mg/dL Desirable HDL: greater than 40 mg/dL Note: This HDL assay may give artificially low results in patients with liver disease. Prostate Specific Antigen Reviewed date:12/05/2024 02:14:01 PM Interpretation: Performing Lab:[facility], [address] [place] [phone] Notes/Report: Prostate Specific Antigen 2.89 <0.05-4.0 ng/mL PSA methodology: Meade Alinity i Chemiluminescent Microparticle Immunoassay (CMIA) Reason For Referral Reason abnormal skin lesion on face Diagnosis 1 Skin lesion (L98.9) Referral Organization Dayton Valentin III, MD Referring Provider First Name Dayton Referring Provider Last Name Barbie Referring Provider Speciality Internal edicine Referred Provider [facility] (Isabel) Referred Provider Specialty Dermatology General Notes Maribell Hackett [facility] 02/01 03:18:06 PM > ref/demo/progress note faxed to Roxann RUFFIN Suzanne [facility] 05/03/2024 03:06:43 PM I called patient he [...] Provider Specialty Urology General Notes Maribell Hackett [facility] 03/19 11:47:08 AM > ref/demo/progress note / labs faxed to Roxann Shelley Suzanne [facility] 03/22/2024 01:48:58 PM >I called [facility] at [phone] spoke to Linda she gave me appt [...] Provider Speciality Internal M edicine Referred Provider [facility], Speech and Hearing Referred Provider Specialty Audiologists General Notes D, Tanya 08/03/2024 09:19:13 AM > Faxed referral per request of patient. Referral Priority Routine Referral Appointment Date 08/22/2024 Medications Medication SIG (Take, Route, Fr equency, Duration) Notes Start Date End Date Status Senna-Time 8.6 MG 2 tablets at bedtime as needed Orally Once a day Active Meloxicam 7.5 MG TAKE 1 TABLET BY BHARAT TH EVERY DAY for 30 Active Dutasteride 0.5 MG TAKE 1 CAPSULE [...] day for 10 days 12/05/2024 04/03/2025 Active Immunizations Vaccine Route Administration Date Status [...] Problem Status W/U Status Risk Notes Problem 666025923 Overweight (E66.3) Active confirmed His body mass index is 27. His weight is stable. We discussed a diet that would result in weight loss of one half of a pound per week. Problem 857016644 GERD (gastroesophageal reflux disease) (K21.9) Active confirmed His symptoms are well controlled with medication. No changes were necessary. Problem Impacted cerumen (26611906) Impacted cerumen, unspecified ear (H61.20) Active confirmed He underwent bilateral warm more irrigation, which removed the free treated cerumen impaction. Both tympanic membranes appeared to be normal. He says his hearing was improved. He left the office annd stable condition to return as scheduled. Problem 69483389 Ureterolithiasis (N20.1) Active confirmed He reports no kidney stones recently. The ddiscomfort with urinating is primarily urethral. Problem 961771583 BPH (benign prostatic hyperplasia) (N40.0) Active confirmed He arises from sleep once or twice a night to urinate. We have discussed lifestyle modifications he could make to reduce this. Problem 898716480 Elevated PSA (R97.2) Active confirmed His PSA has now decreased to normal. He recently had a 12 core biopsy was prostate that showed all normal disease except for inflammation. Problem 365762226 Edentulous (K00.0) Active confirmed He has upper and lower dentures fit well and he has no difficulty eating and chewing. Problem 444912731 Degenerative ever nt disease (M19.90) Active confirmed He will continue on his use of ibuprofen. He was encouraged to stay active. Problem 72296494 Colonic polyp (K63.5) Active confirmed He will undergo colonoscopy appropriately and at regular intervals. 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 Problem 2470793804041 Vasculogenic erectile dysfunction, unspecified vasculogenic erectile dysfunction type (N52.9) Active confirmed He was given a prescription for Viagra. Problem 278286344 Migraine without aura and without status migrainosus, not intractable (G43.009) Active confirmed He has had no further migraine headaches since February 16, 2018. In the emergency room. If it returns. She will call me once. Problem 83441630 Prepatellar bursitis of right knee (M70.41) Active confirmed I have explained to him the nature of the swelling. I told him to use a heating pad and ibuprofen and rest. The prognosis is good he should slowly return to normal. Vital Signs Heart Rate 82 /min 12/05/2024 Temperature 98.4 degrees Fahrenheit 12/05/2024 Respiratory Rate 16 /min 12/05/2024 Oximetry 96 % 12/05/2024 Blood pressure diastolic 79 mm Hg 12/05/2024 Height 70 in 12/05/2024 Blood pressure systolic 134 mm Hg 12/05/2024 Weight 179 lbs 12/05/2024 BMI 25.68 kg/m2 12/05/2024 Encounters Encounter Location Date Provider Diagnosis Dayton Valentin III, MD [address] [place] [address] [place] [address] 01/31/2024 Dayton Valentin Hearing loss H91.90 ; Elevated PSA R97.20 ; BPH (benign prostatic hyperplasia) N40.0 ; Hypertriglyceridemia E78.1 ; GERD (gastroesophageal reflux disease) K21.9 ; Ureterolithiasis N20.1 ; Primary osteoarthritis, right hand M19.041 and Overweight E66.3 Dayton Valentin III, MD [address] [place] [address] [place] [address] 02/21/2024 Dayton Valentin GERD (gastroesophage al reflux disease) K21.9 ; BPH (benign prostatic hyperplasia) N40.0 ; Ureterolithiasis N20.1 ; Migraine without aura and without status migrainosus, not intractable G43.009 and Right hand pain M79.641 Dayton Valentin III, MD [address] [place] [address] [place] [address] 02/29/2024 Dayton Valentin BPH (benign prostati c hyperplasia) N40.0 ; Ureterolithiasis N20.1 ; GERD (gastroesophageal reflux disease) K21.9 ; Degenerative joint disease M19.90 ; Migraine without aura and without status migrainosus, not intractable G43.009 ; Elevated PSA R97.2 ; Overweight E66.3 and Prepatellar bursitis of right knee M70.41 Dayton Valentin III, MD [address] [place] [address] [place] [address] 03/02/2024 Dayton Valentin Elevated PSA R97.20 ; Dysuria R30.0 ; GERD (gastroesophageal reflux disease) K21.9 ; Other specified hearing loss of both ears H91.8X3 and Overweight E66.3 Dayton Valentin III, MD [address] [place] [address] [place] [address] 03/13/2024 Dayton Valentin BPH (benign prostati c hyperplasia) N40.0 ; Elevated PSA R97.20 ; GERD (gastroesophageal reflux disease) K21.9 ; Degenerative joint disease M19.90 ; Ureterolithiasis N20.1 and Overweight E66.3 Dayton Valentin III, MD [address] [place] [address] [place] [address] 06/05/2024 Dayton Valentin Inflammatory disease of prostate N41.9 ; Overweight E66.3 ; Vasculogenic erectile dysfunction, unspecified vasculogenic erectile dysfunction type N52.9 ; Migraine without aura and without status migrainosus, not intractable G43.009 ; Other specified hearing loss of both ears H91.8X3 ; BPH (benign prostatic hyperplasia) N40.0 ; Ureterolithiasis N20.1 and GERD (gastroesophageal reflux disease) K21.9 Dayton Valentin III, MD [address] [place] [address] [place] [address] 06/28/2024 Dayton Valentin BPH (benign prostati c hyperplasia) N40.0 ; Overweight E66.3 ; GERD (gastroesophageal reflux disease) K21.9 ; Edentulous K00.0 ; Degenerative joint disease M19.90 and Migraine without aura and without status migrainosus, not intractable G43.009 Dayton Valentin III, MD [address] [place] [address] [place] [address] 08/09/2024 Dayton Valentin Impacted cerumen, unspecified ear H61.20 ; Edentulous K00.0 ; Degenerative joint disease M19.90 ; GERD (gastroesophageal reflux disease) K21.9 ; Ureterolithiasis N20.1 ; Migraine without aura and without status migrainosus, not intractable G43.009 and Other specified hearing loss of both ears H91.8X3 Dayton Valentin III, MD [address] [place] [address] [place] [address] 08/28/2024 Dayton Valentin GERD (gastroesophage al reflux disease) K21.9 ; BPH (benign prostatic hyperplasia) N40.0 ; Overweight E66.3 ; Degenerative joint disease M19.90 ; Edentulous K00.0 ; Ureterolithiasis N20.1 ; Vasculogenic erectile dysfunction, unspecified vasculogenic erectile dysfunction type N52.9 ; Migraine without aura and without status migrainosus, not intractable G43.009 and Impacted cerumen, unspecified ear H61.20 Dayton Valentin III, MD [address] [place] [address] [address] [place] [address] 12/05/2024 Dayton Valentin GERD (gastroesophage al reflux disease) K21.9 ; Elevated PSA R97.2 ; BPH (benign prostatic hyperplasia) N40.0 ; Degenerative joint disease M19.90 ; Ureterolithiasis N20.1 ; Cardiomyopathy, unspecified type I42.9 and Edentulous K00.0 Dayton Valentin III, MD [address] [place] [address] [place] [address] 01/12/2024 Dayton Valentin III, MD [address] [place] [address] [place] [address] 07/02/2024 Dayton Valentin III, MD [address] [place] [address] [place] [address] 08/03/2024 Dayton Valentin Assessments Encounter Date Diagnosis (ICD Code) Assessment Notes T reatment Notes Treatment Clinical Notes 01/31/2024 Hearing loss (ICD-10 - H91.90) He [...] has no difficulty eating and chewing. 08/28/2024 GERD (gastroesophage al reflux disease) (ICD-10 - K21.9) His symptoms are well controlled with medication. No changes were necessary. 08/28/2024 BPH (benign prostati c hyperplasia) (ICD-10 - N40.0) He arises from sleep once or twice a night to urinate. We have discussed lifestyle modifications he could make to reduce this. 12/05/2024 GERD (gastroesophage al reflux disease) (ICD-10 - K21.9) His symptoms are well controlled with medication. No changes were necessary. 12/05/2024 Elevated PSA (ICD-10 - R97.2) His PSA has now decreased to normal. He recently had a 12 core biopsy was prostate that showed all normal disease except for inflammation. 01/31/2024 BPH (benign prostati c hyperplasia) (ICD-10 [...] stay active. 08/28/2024 Overweight (ICD-10 - E66.3) His body mass index is 27. His weight is stable. We discussed a diet that would result in weight loss of one half of a pound per week. 12/05/2024 BPH (benign prostati c hyperplasia) (ICD-10 - N40.0) He arises from sleep once or twice a night to urinate. We have discussed lifestyle modifications he could make to reduce this. 01/31/2024 Hypertriglyceridemia (ICD-10 - E78.1) His triglyceride [...] symptoms have been well controlled with medication. 08/28/2024 Degenerative joint disease (ICD-10 - M19.90) He will continue on his use of ibuprofen. He was encouraged to stay active. 12/05/2024 Degenerative joint disease (ICD-10 - M19.90) He will continue on his use of ibuprofen. He was encouraged to stay active. 01/31/2024 GERD (gastroesophage al reflux disease) (ICD-10 [...] ddiscomfort with urinating is primarily urethral. 08/28/2024 Edentulous (ICD-10 - K00.0) He has upper and lower dentures fit well and he has no difficulty eating and chewing. 12/05/2024 Ureterolithiasis (IC D-10 - N20.1) He reports no kidney stones recently. The ddiscomfort with urinating is primarily urethral. 01/31/2024 Ureterolithiasis (IC D-10 - N20.1) He [...] returns. She will call me once. 08/28/2024 Ureterolithiasis (IC D-10 - N20.1) He reports no kidney stones recently. The ddiscomfort with urinating is primarily urethral. 12/05/2024 Cardiomyopathy, unspecified type (ICD-10 - I42.9) He is comfortable breathing room air. He has been to the [facility] and no changes were made except to initiate rosuvastatin. I will follow him carefully. No changes are necessary today. 01/31/2024 Primary osteoarthrit is, right hand (ICD-10 [...] him to see what therapy is indicated. 08/28/2024 Vasculogenic erectil e dysfunction, unspecified vasculogenic erectile dysfunction type (ICD-10 - N52.9) He was given a prescription for Viagra. 12/05/2024 Edentulous (ICD-10 - K00.0) He has upper and lower dentures fit well and he has no difficulty eating and chewing. 01/31/2024 Overweight (ICD-10 - E66.3) He is [...] medication. He is sleeping well at night. 08/28/2024 Migraine without aur a and without [...] to return as scheduled. Plan Of Treatment Pending Test Test Name Order Date URINE DIP STICK 11/11/2020 PROFILE, FASTING (COMPREHENSIVE METABOLI C) 03/19/2022 PROFILE, FASTING (COMPREHENSIVE METABOLI C) 11/08/2017 PROFILE, FASTING (COMPREHENSIVE METABOLI C) 10/14/2020 PROFILE, FASTING (COMPREHENSIVE METABOLI C) 06/17/2021 PROFILE, FASTING (COMPREHENSIVE METABOLI C) 08/19/2020 PROFILE, FASTING (COMPREHENSIVE METABOLI C) 12/28/2021 PROFILE, FASTING (COMPREHENSIVE METABOLI C) 06/17/2017 PROFILE, FASTING (COMPREHENSIVE METABOLI C) 10/24/2019 PROFILE, FASTING (COMPREHENSIVE METABOLI C) 08/28/2024 PROFILE, FASTING (COMPREHENSIVE METABOLI C) 12/18/2018 PROFILE, FASTING (COMPREHENSIVE METABOLI C) 06/19/2018 PROFILE, FASTING (COMPREHENSIVE METABOLI C) 04/21/2020 PROFILE, FASTING (COMPREHENSIVE METABOLI C) 06/28/2024 PROFILE, FASTING (COMPREHENSIVE METABOLI C) 09/20/2023 PROFILE, FASTING (COMPREHENSIVE METABOLI C) 02/19/2020 PROFILE, RANDOM (COMPREHENSIVE METABOLIC ) 04/09/2019 HEMOGLOBIN A1C (GLYCOHEMOGLOBIN) 020 MAGNESIUM 02/19/2020 LIPID PANEL 11/08/2017 LIPID PANEL 10/14/2020 LIPID PANEL 08/19/2020 LIPID PANEL 12/28/2021 LIPID PANEL 06/17/2017 LIPID PANEL 10/24/2019 LIPID PANEL 12/18/2018 LIPID PANEL 06/19/2018 LIPID PANEL 04/21/2020 LIPID PANEL 09/20/2023 FREE T4 (FT4) 11/23/2018 FREE T4 (FT4) 06/30/2022 TSH (THYROID STIMULATING HORMONE) 2018 TSH (THYROID STIMULATING HORMONE) 2022 PSA, TOTAL 09/20/2023 PSA, TOTAL 06/17/2021 PSA, TOTAL 03/13/2024 PSA, TOTAL 10/14/2020 PSA, TOTAL 08/28/2024 PSA, TOTAL 08/19/2020 PSA, TOTAL 06/17/2017 PSA, TOTAL 06/28/2024 PSA, TOTAL 12/18/2018 PSA, [...] CBC w DIFF 04/09/2019 CBC w DIFF 10/14/2020 CBC w DIFF 10/24/2019 CBC w DIFF 08/28/2024 CBC w DIFF 08/19/2020 CBC w DIFF 12/28/2021 CBC w DIFF 06/17/2017 SED RATE (ESR) 06/30/2022 SED RATE (ESR) 04/09/2019 SED RATE (ESR) 11/23/2018 URINALYSIS (UA) 06/17/2021 TESTOSTERONE, TOTAL 11/23/2018 TESTOSTERONE, TOTAL 06/30/2022 TESTOSTERONE, TOTAL 04/09/2019 JASPAL (YUNG) 04/09/2019 JASPAL (YUNG) 11/23/2018 Sleep Study - Baseline 06/30/2022 Lipid Panel 06/28/2024 Lipid Panel 03/19/2022 Lipid Panel 06/17/2021 Lipid Panel 08/28/2024 Next Appt Details Provider Name:Dayton Valentin , 03/06/2025 10:15:00 AM, [address] [place] [address] [address], [place], [address], Provider Name:Dayton Valentin , 12/09/2025 02:00:00 PM, [address] [place] [address] [address], [place], [address], Insurance Providers Payer Name Payer Address Payer Phone Subscriber Number Group Number Insured Name Patient Relationship to Insured Coverage Start Date Coverage End Date MEDICARE NGS [address] [facility] [place] [address] [id number] Je Hernandez Self - patient is the insured 2 [place] [address] [place] [id number] Je Hernandez Self - patient is the insured Medical (General) History Medical History History ICD Code colonic polyps thrombocytopenia dental extractions degenerative joint disease left knee pertussis September 2012 pneumonia 15 years ago Hearing loss right ear left sided ureterolithiasis with renal c olic ureterolithiasis with lithotripsy y 2016 ED Arthritis, Kidney stones, Enlarged prost ate, Elevated PSA levels Surgical History Surgery Date(Month/Year) Knee surgery Right, Kidney stone removed 11/10/2016 lithotripsy 04/2016 cystoscopy and stent insertion left uret er for stone 04/2016 complete dental extractions colonoscopy 2 polyps [facility] [place] June 2011 left knee arthroscopy 1995 Hospitalization History Reason Date(Month/Year) No history
[2025-01-09 08:33] LABS: Prostate Specific Antigen 2.36 ng/mL (<0.05-4.0)
== END 2025-01-09 05:59 | disposition home or self-care (01) ==
LOC: HO.LAB 05:58
PROVIDERS: PCP Internal Medicine Medical Oncology; Visit Provider Urology
DX: R97.20 Elevated prostate specific antigen [PSA] (principal); Z12.5 Encounter for screening for malignant neoplasm of prostate
CPT/HCPCS: 36415; 84153

== ENCOUNTER 2025-01-14 12:54 | Outpatient (AMB) | payer MEDICARE, MEDICAID, SELFPAY ==
--- OUTSIDE RECORDS SUMMARY | 2024-08-09 07:15 | XMS_ITS ---
Author Organization Dayton Valentin III, MD Address [address] [place] [address] Care Team Providers Care Integrated Circuit Layout Designer Name Role Phone Dr. Dayton Valentin III Primary Care Provider [phone] Allergies Allergen (clinical drug ingredient) Drug/Non Drug [...] W/U Status Risk Notes Problem Impacted cerumen ([id number]) Impacted cerumen, unspecified ear (H61.20) Active confirmed [...] Date Provider Diagnosis Dayton Valentin III, MD [address] [place] [address] [place] [address] 08/09/2024 Dayton Valentin Impacted cerumen, unspecified ear [...] Months, Reason: ov Provider Name:Dayton Valentin , 03/06/2025 10:15:00 AM, [address] [place] [address] [address], [place], [address], Provider Name:Dayton Valentin , 12/09/2025 02:00:00 PM, [address] [place] [address] [address], [place], [address], Procedure Notes * Category Sub-Category Detail Notes Ear lavage Procedure Post-procedure Successful Progress Notes * Je HERNANDEZDOB:[birth year] (64 yo M)Acc No.[id number]:08/09/2024 Patient: Je CARRILLO Provider: Seth Valentin MD :1960 A ge:64 Y S ex:Male Date:08/09/2024 Address:[address] [place], [place] [id number] Subjective: * Chief Complaints: * E ar [...] l eft knee arthroscopy 1995colonoscopy 2 polyps [facility] [place] June 2011complete dental extractions [...] ggressive non-smoker Keli murillo is not a [employer]. He drinks one beer per week and does not smoke. 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 He is and has one daughter who is healthy. He was born in [place], [place]. * Medications: T akingMeloxicam 7.5 MG [...] 08/09/2024 Generated for Valerie yarbrough/Leo/Seansmitting on: 1 03:18 PM EDT History and Physical Notes * HPI (History of Present Illness) Category Sub-Category Detail Notes COVID-19 Screening Questions Have you had any new onset fever, chills, cough, congestion, sore throat, shortness of breath, muscle aches?: No
--- OUTSIDE RECORDS SUMMARY | 2024-08-28 05:15 | XMS_ITS ---
Author Organization Dayton Valentin III, MD Address [address] [place] [address] Care Team Providers Care Data Operations Manager Name Role Phone Dr. Dayton Valentin III [...] Provider Diagnosis Dayton Valentin III, MD [address] [place] [address] [place] [address] 08/28/2024 Dayton Valentin GERD (gastroesophage al reflux [...] Reason: Annual Exam Provider Name:Dayton Valentin , 03/06/2025 10:15:00 AM, [address] [place] [address] [address], [place], [phone], Provider Name:Dayton Valentin , 12/09/2025 02:00:00 PM, [address] [place] [address] [address], [place], [phone], Progress Notes * HECTORJe SLOANDOB:[birth year] (64 yo M)Acc No.[id number]:08/28/2024 Progress Notes Patient: Je CARRILLO Provider: Seth Valentin MD :1960 A ge:64 Y S ex:Male Date:08/28/2024 Address:[address] [place] [address] [place] , [id number] Subjective: * Chief Complaints: * H earing lossGERDBenign prostatic hypertrophyMigraines * HPI: v : He returns for management of medical issues. He has new hearing aids coming in about 2 weeks from [facility] speech and hearing Department. Communication today was [...] l eft knee arthroscopy 1995colonoscopy 2 polyps [facility] June 2011complete dental extractions cystoscopy and stent [...] ggressive non-smoker H e is not a [employer]. He drinks one beer per week and does not smoke. 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 He is and has one daughter who is healthy. He was born in [place], [place]. * Medications: T akingMeloxicam 7.5 MG [...] 0.000 (Ref Range: 0.0-0.012 X10*3/uL) * Lab:Comprehensive [place]. Pane l Fast * Collection Date 08/24/2024 [...] MD Date: 0 08/28/2024 Generated for Valerie yarbrough/Leo/Krystal on: 03:19 PM EDT History and Physical Notes * Examination Category [...]
--- OUTSIDE RECORDS SUMMARY | 2024-09-21 08:30 | XMS_ITS ---
Author Organization Dayton Valentin III, MD Address [address] [place] [address] Care Team Providers Care Can Dragger Name Role Phone Dr. Dayton Valentin III Primary Care Provider [phone] REASON FOR VISIT Annual Exam Social History Sex Assigned At : Social History Observation Description Sex Assigned At Male Encounters Encounter Location Date Provider Diagnosis Dayton Valentin III, MD [address] [place] [address] [place] [address] 09/21/2024 Dayton Valentin Plan Of Treatment Next Appt Details Provider Name:Dayton Valentin , 03/06/2025 10:15:00 AM, [address] [place] [address] [place], [address], Provider Name:Dayton Valentin , 12/09/2025 02:00:00 PM, [address] [place] [address] [place], [address], Progress Notes * Je HERNANDEZDOB:[birth year] (64 yo M)Acc No.[id number]:09/21/2024 Progress Notes Patient: Je CARRILLO Provider: Seth Valentin MD :1960 A ge:64 Y S ex:Male Date:09/21/2024 Address:[address] [place], [place] [id number] Subjective: * Chief Complaints: * 1 . [...] 0 09/21/2024 Generated for Valerie yarbrough/Leo/Shakeelitting on: 1 03:19 PM EDT
--- OUTSIDE RECORDS SUMMARY | 2024-11-09 13:00 | XMS_ITS ---
Author Organization Dayton Valentin III, MD Address [address] [address] Care Team Providers Care Information Assurance Engineer Name Role Phone Dr. Dayton Valentin III Primary Care Provider REASON FOR VISIT Ear Irrigation Social History Sex Assigned At : Social History Observation Description Sex Assigned At Male Encounters Encounter Location Date Provider Diagnosis Dayton Valentin III, MD [address] [place] [address] [place] [phone] 11/09/2024 Dayton Valentin Plan Of Treatment Next Appt Details Provider Name:Daytno Valentin , 03/06/2025 10:15:00 AM, [address] [place] [address] [place], [address], Provider Name:Dayton Valentin , 12/09/2025 02:00:00 PM, [address] [place] [address] [place], [address], Progress Notes * Je HERNANDEZDOB:[birth year] (64 yo M)Acc No.[id number]:11/09/2024 Patient: Ronda CAN Je Provider: Seth Valentin MD :1960 A ge:64 Y S ex:Male Date:11/09/2024 Address:[address] [place] [phone] Subjective: * Chief Complaints: * 1 . [...] 0 11/09/2024 Generated for Valerie yarbrough/Leo/Shakeelitting on: 03:19 PM EDT
--- OUTSIDE RECORDS SUMMARY | 2024-12-05 10:00 | XMS_ITS ---
Author Organization Dayton Valentin III, MD Address [address] [place] [address] Care Team Providers Care Cuff Presser Name Role Phone Dr. Dayton Valentin III [...] Problem Status W/U Status Risk Notes Problem [id number] Elevated PSA (R97.2) Active confirmed His PSA [...] Provider Diagnosis Dayton Valentin III, MD [address] [place] [address] [place] [address] 12/05/2024 Dayton Valentin GERD (gastroesophage al reflux [...] room air. He has been to the shower screen installer and no changes were made except to [...] Provider Name:Dayton Valentin , 03/06/2025 10:15:00 AM, [address] [place] [address] [address], [place], [address], Provider Name:Dayton Valentin , 12/09/2025 02:00:00 PM, [address] [place] [address] [address], [place], [id number], Progress Notes * Je YOUNGDOB:[birth year] (64 yo M)Acc No.[id number]:12/05/2024 Progress Notes Patient: Je CARRILLO Provider: Seth Valentin MD :1960 A ge:64 Y S ex:Male Date:12/05/2024 Address:[address] [place] [address] [place], [id number] Subjective: * Chief Complaints: * A nnual Exam * HPI: D epression Screening: Keli murillo returns at the age of 64 for his annual visit. He has just returned from a vacation in [place]. He recently saw the gastroenterology nurse who [...] l eft knee arthroscopy 1995colonoscopy 2 polyps [facility] June 2011complete dental extractions cystoscopy [...] N egative H e is not a Yarsanism. He drinks one beer per week and does not smoke. 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 He is and has one daughter who is healthy. He was born in [place], [place]. * Medications: T akingMeloxicam 7.5 MG [...] 45 (Ref Range: >40 mg/dL) * Lab:[facility] [place] * Collection Date 12/03/2024 [...] room air. He has been to the shower screen installer and no changes were made except to [...] 0 12/05/2024 Generated for Valerie yarbrough/Leo/Shakeelitting on: 03:19 PM EDT History and Physical [...]
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
--- OUTSIDE RECORDS SUMMARY | 2025-01-14 15:19 | XMS_ITS | Patient Health Record ---
Author Organization Dayton Valentin III, MD Address [address] [place] [address] Care Team Providers Care Documentum Consultant Name Role Phone Dr. Dayton Valentin III [...] Culture Reviewed date:03/05/2024 07:37:52 AM Interpretation: Performing Lab:[facility], [address] [place] [phone] Notes/Report: Urine Culture Report Result Urine Culture > 100,000 cfu/ml Urine Culture Mixed bacterial jules a characteristic of Urine Culture urogenital contamination. PSA Free and Total Reviewed date:03/15/2024 02:54:07 PM Interpretation: Performing Lab:[facility], [address], [place] [address] Notes/Report: results Prostate Specific Ag Total 7.2 [...] 30 93 9 (3)Catalona et al.:ROSALIND 277: 0758-1350 (1996) (4)Catalona et al.:ROSALIND 279: 5460-5061 (1997) (x)These estimates vary with age, ethnicity, [...] mind. PSA was performed using the Cecelia [place] Immunoassay method. Values obtained from different assay methods cannot be used interchangeably. PSA levels, regardless of value, should not be interpreted as absolute evidence of the presence or absence of disease. THIS TEST WAS PERFORMED AT: [facility] [address] [place] [phone] ELIDA PEREZ MD Free Prostate Spec Ag 2.3 Complete Blood Count Auto Di ff Reviewed date:01/24/2024 11:47:53 AM Interpretation: Performing Lab:[facility], [address] [place] [phone] Notes/Report: White Blood Count 5.5 4.8-10.8 X10*3/uL [...] NRBC Abs Auto 0.000 0.0-0.012 X10*3/uL Comprehensive [place]. Panel Fa st Reviewed date:01/24/2024 11:47:53 AM Interpretation: Performing Lab:[facility], [address] [place] [address] Notes/Report: Sodium 141 135-145 mmol/L Potassium 4.7 3.3-5.1 mmol/L Chloride 109 96-108 mmol/L Carbon Dioxide 26 22-29 mmol/L Anion Gap 11 12-20 Blood Urea Nitrogen 14 9-16 mg/dL Creatinine 1.07 0.5-1.4 mg/dL Estimated Glomerular Filt Rate > 60 NOTE: For -[place] Ze[place] individuals, multiply the result by 1.210. Chronic [...] Panel Reviewed date:01/24/2024 11:47:53 AM Interpretation: Performing Lab:[facility], [address] [place] [phone] Notes/Report: Triglycerides 128 <150 mg/dL Desirable Triglyceride: [...] Antigen Reviewed date:01/24/2024 11:47:53 AM Interpretation: Performing Lab:[facility], [address] [place] [phone] Notes/Report: Prostate Specific Antigen 5.35 <0.05-4.0 ng/mL PSA methodology: Meade Alinity i Chemiluminescent Microparticle Immunoassay (CMIA) Complete Blood Count Auto Di ff Reviewed date:03/01/2024 05:04:49 AM Interpretation: Performing Lab:[facility], [address] [place] [phone] Notes/Report: White Blood Count 7.1 4.8-10.8 X10*3/uL [...] Panel Reviewed date:03/01/2024 05:04:49 AM Interpretation: Performing Lab:[facility], [address] [place] [phone] Notes/Report: Sodium 144 135-145 mmol/L Potassium 4.1 [...] Antigen Reviewed date:03/01/2024 05:04:49 AM Interpretation: Performing Lab:[facility], [address] [place] [phone] Notes/Report: Prostate Specific Antigen 6.36 <0.05-4.0 ng/mL PSA methodology: nap- Naturally Attached Parentsnity i Chemiluminescent Microparticle Immunoassay (CMIA) PSA Free and Total Reviewed date:03/15/2024 02:54:07 PM Interpretation: Performing Lab:[address] [phone] Notes/Report: Prostate Specific Ag Total 6.7 < [...] 30 93 9 (3)Catalona et al.:ROSALIND 277: 5012-4228 (1996) (4)Catalona et al.:ROSALIND 279: 4487-9439 (1997) (x)These estimates vary with age, ethnicity, [...] of disease. THIS TEST WAS PERFORMED AT: [facility] [address] [place] [phone] ELIDA PEREZ MD Free Prostate Spec Ag 1.8 Pathology Reviewed date:06/03/2024 09:11:29 AM Interpretation: Performing Lab:[facility], [address] [place] [phone] Notes/Report: -- ---- Name: MaryFrancheskajose luis Cohen Age/Sex: 64/M : 1960 Unit#: [id number] Attend Dr: Brandon Morrison MD Re05/22/24 Status : [facility] Location: [facility] Disch: -- ---- SPEC : [id number] RECD: 05/22/24 STATUS: IDALIA NGUYEN NUM: [id number] DHARMESH: 05/22/[address] [facility] [address]: Brandon Morrison MD ENTERED: 05/22/24 41 [...] Sarabjit Hernandez Age/Sex: 64/M : 1960 Unit#: [id number] Attend Dr: Brandon Morrison MD Re05/22/24 Status : [facility] Location: [facility] Disch: -- ---- SPEC : [id number] RECD: 05/22/24 STATUS: ELIOTServando IRWINJonatan NUM: [id number] DHARMESH: 05/22/[address] [facility] [address]: Brandon Morrison MD ENTERED: 05/22/24 41 [...] Sarabjit Hernandez Age/Sex: 64/M : 1960 Unit#: [id number] Attend Dr: Brandon Morrison MD Re05/22/24 Status : [facility] Location: [facility] Disch: -- ---- SPEC : [id number] RECD: 02/ STATUS: IDALIA NGUYEN NUM: [id number] DHARMESH: 05/22/[address] [facility] [address]: Brandon Morrison MD ENTERED: 05/22/24 41 [...] microscopic examination, 2 pieces in cassette [facility] This case was review ed intradepartmentally. Special studies ordered and performed: PIN4 multiplex immunostains on F, G and H Copies To: Brandon Morrison MD [facility] [address] [place] [address] Dr. Yanni murillo [address] [place] [address] [email or web address] Dayton Valentin MD [address] [place] [address], [address] [place] [address] -- ---- Signed (signature on file) Robby Ibarra MD 05/25/24 1746 -- ---- END OF REPORT Complete Blood Count Auto Di ff Reviewed date:08/28/2024 09:17:53 AM Interpretation: Performing Lab:[facility], [address] [place] [phone] Notes/Report: White Blood Count 6.6 4.8-10.8 X10*3/uL [...] NRBC Abs Auto 0.000 0.0-0.012 X10*3/uL Comprehensive [place]. Panel Fa Reviewed date:08/28/2024 09:17:53 AM Interpretation: Performing Lab:[facility], [address] [place] [phone] Notes/Report: Sodium 144 135-145 mmol/L Potassium 4.1 [...] Panel Reviewed date:08/28/2024 09:17:53 AM Interpretation: Performing Lab:[facility], [address] [place] [phone] Notes/Report: Triglycerides 185 <150 mg/dL Desirable Triglyceride: [...] Antigen Reviewed date:08/28/2024 09:17:53 AM Interpretation: Performing Lab:[facility], [address] [place] [phone] Notes/Report: Prostate Specific Antigen 4.08 <0.05-4.0 ng/mL PSA methodology: Meade Alinity i Chemiluminescent Microparticle Immunoassay (CMIA) Complete Blood Count Auto Di ff Reviewed date:12/05/2024 02:14:01 PM Interpretation: Performing Lab:[facility], [address] [place] [phone] Notes/Report: White Blood Count 5.7 4.8-10.8 X10*3/uL [...] NRBC Abs Auto 0.000 0.0-0.012 X10*3/uL Comprehensive [place]. Panel Fa st Reviewed date:12/05/2024 02:14:01 PM Interpretation: Performing Lab:[facility], [address] [place] [phone] Notes/Report: Sodium 142 135-145 mmol/L Potassium 4.5 [...] Panel Reviewed date:12/05/2024 02:14:01 PM Interpretation: Performing Lab:[facility], [address] [place] [phone] Notes/Report: Triglycerides 194 <150 mg/dL Desirable Triglyceride: [...] Antigen Reviewed date:12/05/2024 02:14:01 PM Interpretation: Performing Lab:[facility], [address] [place] [phone] Notes/Report: Prostate Specific Antigen 2.89 <0.05-4.0 ng/mL PSA methodology: Meade Alinity i Chemiluminescent Microparticle Immunoassay (CMIA) Prostate Specific Antigen (N ot yet reviewed by provider) Interpretation: Performing Lab:[facility], [address] [place] [phone] Notes/Report: Prostate Specific Antigen 2.36 <0.05-4.0 ng/mL PSA methodology: Meade Alinity i Chemiluminescent Microparticle Immunoassay (CMIA) Reason For Referral Reason abnormal skin lesion on face Diagnosis 1 Skin lesion (L98.9) Referral Organization Dayton Valentin III, MD Referring Provider First Name Dayton Referring Provider Last Name Valentin Referring Provider Speciality Internal edicine Referred Provider [facility] [place] Referred Provider Specialty Dermatology General Notes Maribell Hackett CMA 02/01 03:18:06 PM > ref/demo/progress note faxed to Roxann RUFFIN Suzanne CMA 05/03/2024 03:06:43 PM I called patient he [...] First Name Dayton Referring Provider Last Name Valentin Referring Provider Speciality Internal edicine Referred Provider Brandon Morrison Referred Provider Specialty Urology General Notes Maribell Hackett CMA 03/19 11:47:08 AM > ref/demo/progress note / labs faxed to Dr Williams patel, SMaribell CMA 03/22/2024 01:48:58 PM >I called [facility] at [phone] spoke to Linda she gave me appt [...] Provider Speciality Internal M edicine Referred Provider [facility] er, Speech and Hearing Referred Provider Specialty Audiologists General Tanya Valle 08/03/2024 09:19:13 AM > Faxed referral per [...] Problem Status W/U Status Risk Notes Problem 707720953 Overweight (E66.3) Active confirmed His body mass index is 27. His weight is stable. We discussed a diet that would result in weight loss of one half of a pound per week. Problem 893232861 GERD (gastroesophageal reflux disease) (K21.9) Active confirmed His symptoms are well controlled with medication. No changes were necessary. Problem Impacted cerumen (65237683) Impacted cerumen, unspecified ear (H61.20) Active confirmed He underwent bilateral warm more irrigation, which removed the free treated cerumen impaction. Both tympanic membranes appeared to be normal. He says his hearing was improved. He left the office annd stable condition to return as scheduled. Problem 18729905 Ureterolithiasis (N20.1) Active confirmed He reports no kidney stones recently. The ddiscomfort with urinating is primarily urethral. Problem 820429826 BPH (benign prostatic hyperplasia) (N40.0) Active confirmed He arises from sleep once or twice a night to urinate. We have discussed lifestyle modifications he could make to reduce this. Problem 479625417 Elevated PSA (R97.2) Active confirmed His PSA has now decreased to normal. He recently had a 12 core biopsy was prostate that showed all normal disease except for inflammation. Problem 543928834 Edentulous (K00.0) Active confirmed He has upper and lower dentures fit well and he has no difficulty eating and chewing. Problem 103134979 Degenerative ever nt disease (M19.90) Active confirmed He will continue on his use of ibuprofen. He was encouraged to stay active. Problem 97114151 Colonic polyp (K63.5) Active confirmed He will undergo colonoscopy appropriately and at regular intervals. 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 Problem 6795391016118 Vasculogenic erectile dysfunction, unspecified vasculogenic erectile dysfunction type (N52.9) Active confirmed He was given a prescription for Viagra. Problem 087445672 Migraine without aura and without status migrainosus, not intractable (G43.009) Active confirmed He has had no further migraine headaches since February 16, 2018. In the emergency room. If it returns. She will call me once. Problem 52253412 Prepatellar bursitis of right knee (M70.41) Active [...] Date Provider Diagnosis Dayton Valentin III, MD [address] [place] [address] [place] [address] 01/31/2024 Dayton Valentin Hearing loss H91.90 ; Elevated PSA R97.20 ; BPH (benign prostatic hyperplasia) N40.0 ; Hypertriglyceridemia E78.1 ; GERD (gastroesophageal reflux disease) K21.9 ; Ureterolithiasis N20.1 ; Primary osteoarthritis, right hand M19.041 and Overweight E66.3 Dayton Valentin III, MD [address] [place] [address] [place] [address] 02/21/2024 Dayton Valentin GERD (gastroesophage al reflux disease) K21.9 ; BPH (benign prostatic hyperplasia) N40.0 ; Ureterolithiasis N20.1 ; Migraine without aura and without status migrainosus, not intractable G43.009 and Right hand pain M79.641 Dayton Valentin III, MD [address] [place] [address] [place] [address] 02/29/2024 Dayton Valentin BPH (benign prostati c hyperplasia) N40.0 ; Ureterolithiasis N20.1 ; GERD (gastroesophageal reflux disease) K21.9 ; Degenerative joint disease M19.90 ; Migraine without aura and without status migrainosus, not intractable G43.009 ; Elevated PSA R97.2 ; Overweight E66.3 and Prepatellar bursitis of right knee M70.41 Dayton Valentin III, MD [address] [place] [address] [place] [address] 03/02/2024 Dayton Valentin Elevated PSA R97.20 ; Dysuria R30.0 ; GERD (gastroesophageal reflux disease) K21.9 ; Other specified hearing loss of both ears H91.8X3 and Overweight E66.3 Dayton Valentin III, MD [address] [place] [address] [place] [address] 03/13/2024 Dayton Valentin BPH (benign prostati c hyperplasia) N40.0 ; Elevated PSA R97.20 ; GERD (gastroesophageal reflux disease) K21.9 ; Degenerative joint disease M19.90 ; Ureterolithiasis N20.1 and Overweight E66.3 Dayton Valentin III, MD [address] [place] [address] [place] [address] 06/05/2024 Dayton Valentin Inflammatory disease of prostate N41.9 ; Overweight E66.3 ; Vasculogenic erectile dysfunction, unspecified vasculogenic erectile dysfunction type N52.9 ; Migraine without aura and without status migrainosus, not intractable G43.009 ; Other specified hearing loss of both ears H91.8X3 ; BPH (benign prostatic hyperplasia) N40.0 ; Ureterolithiasis N20.1 and GERD (gastroesophageal reflux disease) K21.9 Dayton Valentin III, MD [address] [place] [address] [place] [address] 06/28/2024 Dayton Valentin BPH (benign prostati c hyperplasia) N40.0 ; Overweight E66.3 ; GERD (gastroesophageal reflux disease) K21.9 ; Edentulous K00.0 ; Degenerative joint disease M19.90 and Migraine without aura and without status migrainosus, not intractable G43.009 Dayton Valentin III, MD [address] [place] [address] [place] [address] 08/09/2024 Dayton Valentin Impacted cerumen, unspecified ear H61.20 ; Edentulous K00.0 ; Degenerative joint disease M19.90 ; GERD (gastroesophageal reflux disease) K21.9 ; Ureterolithiasis N20.1 ; Migraine without aura and without status migrainosus, not intractable G43.009 and Other specified hearing loss of both ears H91.8X3 Dayton Valentin III, MD [address] [place] [address] [place] [address] 08/28/2024 Dayton Valentin GERD (gastroesophage al reflux disease) K21.9 ; BPH (benign prostatic hyperplasia) N40.0 ; Overweight E66.3 ; Degenerative joint disease M19.90 ; Edentulous K00.0 ; Ureterolithiasis N20.1 ; Vasculogenic erectile dysfunction, unspecified vasculogenic erectile dysfunction type N52.9 ; Migraine without aura and without status migrainosus, not intractable G43.009 and Impacted cerumen, unspecified ear H61.20 Dayton Valentin III, MD [address] [place] [address] [place] [address] 12/05/2024 Dayton Valentin GERD (gastroesophage al reflux disease) K21.9 ; Elevated PSA R97.2 ; BPH (benign prostatic hyperplasia) N40.0 ; Degenerative joint disease M19.90 ; Ureterolithiasis N20.1 ; Cardiomyopathy, unspecified type I42.9 and Edentulous K00.0 Dayton Valentin III, MD [address] [place] [address] [place] [address] 07/02/2024 Dayton Valentin III, MD [address] [place] [address] [place] [address] 08/03/2024 Dayton Valentin Assessments Encounter Date Diagnosis [...] room air. He has been to the snipper and no changes were made except to [...] 03/19/2022 Lipid Panel 06/17/2021 Lipid Panel 08/28/2024 Prostate Specific Antigen 01/09/2025 Next Appt Details Provider Name:Dayton Valentin , 03/06/2025 10:15:00 AM, [address] [place] [address] [place], DANNA OBRIEN, [phone], Provider Name:Dayton Valentin , 12/09/2025 02:00:00 PM, [address] [place] [address] [place]AP[place] CLAIRE, DANNA OBRIEN, [id number], Insurance Providers Payer Name Payer Address Payer Phone Subscriber Number Group Number Insured Name Patient Relationship to Insured Coverage Start Date Coverage End Date MEDICARE NGS [address] [place] [address] [id number] Je Hernandez Self - patient is the insured 2 [place] [address] [place] [id number] Je Hernandez Self - patient is the [...] 04/2016 complete dental extractions colonoscopy 2 polyps [facility] June 2011 left knee arthroscopy 1995 Hospitalization History Reason Date(Month/Year) No history
== END 2025-01-14 14:05 | disposition home or self-care (01) ==
LOC: HO.HUSH 12:55
PROVIDERS: PCP Internal Medicine Medical Oncology; Visit Provider Urology
DX: R97.20 Elevated prostate specific antigen [PSA] (principal); N40.1 Benign prostatic hyperplasia with lower urinary tract symptoms; R31.29 Other microscopic hematuria; Z13.9 Encounter for screening, unspecified
CPT/HCPCS: 99214; G2211

== ENCOUNTER → 2025-01-14 12:54 | Outpatient (BNVA) | payer MEDICARE, MEDICAID, SELFPAY | PROVIDERS: PCP Internal Medicine Medical Oncology; Visit Provider Urology | DX: N40.1 Benign prostatic hyperplasia with lower urinary tract symptoms (principal); R31.29 Other microscopic hematuria; R97.20 Elevated prostate specific antigen [PSA] | CPT/HCPCS: 81003; 99212 ==

== ENCOUNTER 2025-02-11 14:55 | Outpatient (AMB) | payer MEDICARE, MEDICAID, SELFPAY ==
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
[2025-02-11 15:15] VITALS: BP 142/76; PULSE 82; O2SAT 96; BMI 25.7
== END 2025-02-11 15:35 | disposition home or self-care (01) ==
LOC: HO.HGI 14:56
PROVIDERS: PCP Internal Medicine Medical Oncology; Visit Provider Nurse Practitioner Family
DX: K21.9 Gastro-esophageal reflux disease without esophagitis (principal); K59.01 Slow transit constipation
CPT/HCPCS: 99213

== ENCOUNTER → 2025-02-11 14:55 | Outpatient (BNVA) | payer MEDICARE, MEDICAID, SELFPAY | PROVIDERS: PCP Internal Medicine Medical Oncology; Visit Provider Nurse Practitioner Family | DX: K21.9 Gastro-esophageal reflux disease without esophagitis (principal); K59.01 Slow transit constipation | CPT/HCPCS: 99212 ==

== ENCOUNTER 2025-03-08 10:28 | Outpatient (REF) | payer MEDICARE, MEDICAID, SELFPAY ==
--- OUTSIDE RECORDS SUMMARY | 2024-06-05 09:15 | XMS_ITS ---
Author Organization Dayton Valentin III, MD Address [address] [place] [address] Care Team Providers Care Direct Marketing Executive Name Role Phone Dr. Dayton Valentin III Primary Care Provider [phone] Allergies Allergen (clinical drug ingredient) Drug/Non Drug Allergy documented on EMR Reaction Allergy Type Onset Date Status Vaccine product containing Influenza virus antigen (medicinal product) Influenza Vaccines Unknown Drug Allergy Ac tive REASON FOR VISIT Elevated PSA, Recent prostate biopsy, Left lower quadrant abdominal pain, BPH, Hearing loss Medications Medication SIG (Take, Route, Fr equency, Duration) Notes Start Date End Date Status predniSONE 20 MG 1 tablet Orally Once a day 2023 Active Meloxicam 7.5 MG TAKE 1 TABLET [...] Tobacco Non-User Aggressive non-smoker Vital Signs Temperature 97.3 degrees Fahrenheit 06/05/19 Blood pressure systolic 137 mm Hg 06/05/19 Blood pressure diastolic 82 mm Hg 025 Heart Rate 67 /min 06/05/2024 Height 70 in 06/05/2024 Weight 180 lbs 06/05/2024 BMI 25.82 kg/m2 06/05/2024 Encounters Encounter Location Date Provider Diagnosis Dayton Valentin III, MD [address] [place] [address] [address] [place], [place] [address] 06/05/2024 Dayton Valentin Inflammatory disease of prostate N41.9 ; Overweight E66.3 ; Vasculogenic erectile dysfunction, unspecified vasculogenic erectile dysfunction type N52.9 ; Migraine without aura and without status migrainosus, not intractable G43.009 ; Other specified hearing loss of both ears H91.8X3 ; BPH (benign prostatic hyperplasia) N40.0 ; Ureterolithiasis N20.1 and GERD (gastroesophageal reflux disease) K21.9 Assessments Encounter Date Diagnosis (ICD Code) Assessment Notes Treat ment Notes Treatment Clinical Notes 06/05/2024 Inflammatory disease of prostate (ICD-10 - N41.9) 06/05/2024 Overweight (ICD-10 - E66.3) He is slightly overweight. We discussed diet and nutrition. We made a plan to lose weight at a rate of one half of a pound per week. 06/05/2024 Vasculogenic erectil e dysfunction, unspecified vasculogenic erectile dysfunction type (ICD-10 - N52.9) He was given a prescription for Viagra. 06/05/2024 Migraine without aur a and without status migrainosus, not intractable (ICD-10 - G43.009) He has had no further migraine headaches since February 16, 2018. In the emergency room. If it returns. She will call me once. 06/05/2024 Other specified hearing loss of both ears (ICD-10 - H91.8X3) He is involved with the ear, nose and throat physicians in the testing him to see what therapy is indicated. 06/05/2024 BPH (benign prostati c hyperplasia) (ICD-10 - N40.0) His urinary frequency has improved substantially with tamsulosin. He is rising from slleep 2 or 3 times a night. I have asked for repeat PSA and then urology consultation. 06/05/2024 Ureterolithiasis (ICD-10 - N20.1) He reports no kidney stones recently. The ddiscomfort with urinating is primarily urethral. 06/05/2024 GERD (gastroesophage al reflux disease) (ICD-10 - K21.9) His symptoms are controlled with medication. He is sleeping well at night. Plan Of Treatment Medication Medication Name Sig Start Date Stop Date Notes predniSONE 20 MG 1 tablet Orally Once a day 01/31/2024 Meloxicam 7.5 MG TAKE 1 TABLET BY MOUTH EVERY DAY Omeprazole 20 MG TAKE 1 CAPSULE BY [facility] EVERY DAY 30 MINUTES BEFORE MORNING MEAL Tamsulosin HCl 0.4 MG TAKE 1 CAPSULE BY MOUTH EVERY DAY FOR 30 DAYS Next Appt Details Follow Up: 3 weeks, Reason: Check-up Provider Name:Dayton Valentin , 06/06/2025 09:00:00 AM, [address] [place] [address] [address], [place], [phone], Provider Name:Dayton Valentin , 12/09/2025 02:00:00 PM, [address] [place] [address] [address], [place], [address], Progress Notes * Je HERNANDEZDOB:[birth year] (64 yo M)Acc No.[id number]:06/05/2024 Progress Notes Patient: Je CARRILLO Provider: Seth Valentin MD :1960 A ge:64 Y S ex:Male Date:06/05/2024 Address:[address] [place], [place] [id number] Subjective: * Chief Complaints: * E levated PSARecent prostate biopsyLeft lower quadrant abdominal painBPHHearing loss * HPI: C OVID-19 Screening: had colono did biopsy and had pain stool was solid and liquid. Questions H ave you had any new onset fever, chills, cough, congestion, sore throat, shortness of breath, muscle aches? N o * : The patient, a 64-year-old male, presented with sharp pains in his lower abdomen that he described as similar to kidney stones. These pains were accompanied by an urgent need to defecate, and on one occasion, he experienced fecal incontinence. He reported that these symptoms began a few days after undergoing a biopsy for Elevated PSA. The patient also mentioned that he had been experiencing these symptoms intermittently. He reported no fever or blood in his stool. The patient also mentioned having a sore back, which he described as a chronic issue. The biopsy of the prostate showed only chronic inflammation. No cancer was found. He likely has prostatitis. Left lower quadrant abdominal pain is gradually improving. * ROS: G eneral/Constitutional: pain M ild and improving left lower quadrant discomfort since the prostate biopsy. C hills d enies. F atigue a dmits. D enies F ever,?denies. E NT: Decreased hearing i n both ears. R espiratory: Cough d enies. C ardiovascular: Chest pain with exertion d enies. D yspnea on exertion?denies. S hortness of breath d enies. G astrointestinal: Constipation d enies. D ecreased appetite d enies.?Diarrhea d enies. H eartburn d enies. N ausea d enies. R ectal bleeding?denies. V omiting d enies. H ematology: bruising d enies. p etechiae d enies. S wollen glands n one have been noted. G enitourinary: Frequent urination t wice a night. M usculoskeletal: Muscle aches d enies. P ainful joints d enies. S ciatica d enies. W eakness d enies. S kin: Itching d enies. R estefania d enies. S kin lesion(s)?denies. N eurologic: Difficulty speaking d enies. D izziness d enies.?Headache d enies. L ow back pain d enies. P sychiatric: Depressed mood d enies. * Medical History: * Surgical History: l eft knee arthroscopy 1995colonoscopy 2 polyps [facility] June 2011complete dental extractions cystoscopy and stent insertion left ureter for stone 04/2016lithotripsy 04/2016Right, Kidney stone removed 11/10/2016No history Knee surgery * Hospitalization/Major Diagno stic Procedure: N o history * Family History: F ather: 80 yrs, colon cancer, diagnosed with Cancer. M other: 76 yrs, copd, pneumothorax. C michael: alive. D mary(s): alive. S liss: alive. 2 brother(s) , 7 sister(s) - healthy. 1 daughter(s) - healthy. . Two of his sisters have had back [...] brother diagnosed with face cancer. * Social History: T obacco Use: T obacco Use/Smoking P atient is a n onsmoker A dditional Findings: Tobacco Non-User A ggressive non-smoker H e is not a Adventist. He drinks one beer per week and does not smoke. 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 He is and has one daughter who is healthy. He was born in [place], [place]. * Medications: T akingMeloxicam 7.5 MG Tablet TAKE 1 TABLET BY [...] tablet Orally Once a day DiscontinuedBactrim DS 800-160 MG Tablet 1 tablet Orally twice a day Medication List reviewed and reconciled with the patientDiscontinued Bactrim DS 800-160 MG Tablet 1 tablet Orally twice a day Medication List reviewed and reconciled with the patient * Allergies: I nfluenza Rohan[Allergies Verified] Objective: * Vitals: H t: 70, Wt:180, BMI:25.82, BP:137/82, HR:67, Temp:97.3, Ht-cm: 177.8, Wt-k.65. * P ast Orders: Lab:Pathology * Collection Date 05/22/2024 07/08/2022 Collection Time 09:43 AM 02:01 PM Order Date 05/22/2024 07/08/2022 * Examination: G eneral Examination: GENERAL APPEARANCE: p cleve, well nourished, well developed, in no acute distress, calm and relaxed, overweight, man. HEAD: a traumatic, normocephalic. EYES: e nigel, perrla, anicteric, conjugate. EARS: n ormal. NOSE: s eptum intact. ORAL CAVITY: n ormal, unremarkable. NECK/THYROID: n o jugular venous distention, no carotid bruit, thyroid normal. LYMPH NODES: n o enlarged lymph nodes,spleen normal. SKIN: n o suspicious lesions, anicteric. HEART: n o clicks, gallops, murmurs, or rubs, regular rhythm, S1, S2 normal, no s3, or vascular bruits. LUNGS: c lear to auscultation . BREASTS: no masses palpable bilaterally. ABDOMEN: b owel sounds normal, no ascites, no organomegaly, no mass, overweight, Left lower quadrant unremarkable. RECTAL EXAM: n ot examined. MUSCULOSKELETAL: e xtremities unremarkable, no clubbing, cyanosis or edema. PERIPHERAL PULSES: n ormal. NEUROLOGIC: a lert and oriented, cranial nerves 2-12 grossly intact, deep tendon reflexes 2+ symmetrical, motor strength normal upper and lower extremities, sensory exam intact. PSYCH: a lert, oriented. Assessment: * Assessment: 1. I nflammatory disease of prostate - N41.9 (Primary) 2 . O verweight - E66.3 N otes :He is slightly overweight. We discussed diet and nutrition. We made a plan to lose weight at a rate of one half of a pound per week. 3 . V asculogenic erectile dysfunction, unspecified vasculogenic erectile dysfunction type - N52.9 N otes :He was given a prescription for Viagra. 4 . M igraine without aura and without status migrainosus, not intractable - G43.009 N otes :He has had no further migraine headaches since February 16, 2018. In the emergency room. If it returns. She will call me once. 5 . O ther specified hearing loss of both ears - H91.8X3 N otes :He is involved with the ear, nose and throat physicians in the testing him to see what therapy is indicated. 6 . B PH (benign prostatic hyperplasia) - N40.0 N otes :His urinary frequency has improved substantially with tamsulosin. He is rising from slleep 2 or 3 times a night. I have asked for repeat PSA and then urology consultation. 7 . U reterolithiasis - N20.1 N otes :He reports no kidney stones recently. The ddiscomfort with urinating is primarily urethral. 8 . G ERD (gastroesophageal reflux disease) - K21.9 N otes :His symptoms are controlled with medication. He is sleeping well at night. Plan: * Treatment: * Procedure Codes: * Preventive Medicine: Counseling: C are goal follow-up plan: Counseling for abnormal BMI given Y es Above Normal BMI Follow-up D ietary needs education * Follow Up: 3 weeks (Reason: Check-up) * Images: * Sign off status: Completed true * Provider: Seth Valentin MD Date: 0 06/05/2024 Generated for Valerie yarbrough/Leo/Seansmitting on: 1 05/08/2024 10:32 AM EST History and Physical Notes * HPI (History of Present Illness) Category Sub-Category Detail Notes COVID-19 Screening Questions Have you had any new onset fever, chills, cough, congestion, sore throat, shortness of breath, muscle aches?: No Examination Category Sub-Category Detail Notes General [...] normal, no ascites, no organomegaly, no mass, overweight, Left lower quadrant unremarkable NEUROLOGIC: alert and oriented, cranial nerves 2-12 [...]
--- OUTSIDE RECORDS SUMMARY | 2024-06-28 04:15 | XMS_ITS ---
Author Organization Dayton Valentin III, MD Address [address] [place] [address] Care Team Providers Care Manager Research Development Name Role Phone Dr. Dayton Valentin III Primary Care Provider [phone] Allergies Allergen (clinical drug ingredient) Drug/Non Drug Allergy documented on EMR Reaction Allergy Type Onset Date Status Vaccine product containing Influenza virus antigen (medicinal product) Influenza Vaccines Unknown Drug Allergy Ac tive REASON FOR VISIT Left lower quadrant abdominal pain, Recent prostate biopsy, Hearing loss, Ureterolithiasis Medications Medication SIG (Take, Route, Fr equency, Duration) Notes Start Date End Date Status predniSONE 20 MG 1 tablet Orally Once a day 2023 Active Tamsulosin HCl 0.4 MG TAKE 1 CAPSULE BY MOUTH EVERY DAY FOR 30 DAYS Active Dutasteride 0.5 MG TAKE 1 CAPSULE BY MO UTH EVERY DAY Oral Active Omeprazole 20 MG TAKE 1 CAPSULE [...] Tobacco Non-User Aggressive non-smoker Vital Signs Temperature 97.0 degrees Fahrenheit 06/29/19 25 Blood pressure systolic 139 mm Hg 06/29/19 25 Blood pressure diastolic 87 mm Hg 025 Heart Rate 61 /min 06/28/2024 Height 70 in 06/28/2024 Weight 179 lbs 06/28/2024 BMI 25.68 kg/m2 06/28/2024 Encounters Encounter Location Date Provider Diagnosis Dayton Valentin III, MD [address] [place] [address] [place] [address] 06/28/2024 Dayton Valentin BPH (benign prostati c hyperplasia) N40.0 ; Overweight E66.3 ; GERD (gastroesophageal reflux disease) K21.9 ; Edentulous K00.0 ; Degenerative joint disease M19.90 and Migraine without aura and without status migrainosus, not intractable G43.009 Assessments Encounter Date Diagnosis (ICD Code) Assessment Notes Treat ment Notes Treatment Clinical Notes 06/28/2024 BPH (benign prostatic hyperplasia) (ICD-10 - N40.0) He has resumed rising only once a night to urinate. 06/28/2024 Overweight (ICD-10 - E66.3) His body mass index is slightly elevated at 25.68. I recommended he stabilize his weight at this level. 06/28/2024 GERD (gastroesophageal reflux disease) (ICD-10 - K21.9) His reflux symptoms have been well controlled with medication. 06/28/2024 Edentulous (ICD-10 - K00.0) He has upper and lower dentures fit well and he has no difficulty eating and chewing. 06/28/2024 Degenerative joint disease (ICD-10 - M19.90) He will continue on his use of ibuprofen. He was encouraged to stay active. 06/28/2024 Migraine without aura and without status migrainosus, not intractable (ICD-10 - G43.009) He has had no further migraine headaches since February 16, 2018. In the emergency room. If it returns. She will call me once. Plan Of Treatment Medication Medication Name Sig Start Date Stop Date Notes predniSONE 20 MG 1 tablet Orally Once a day 01/31/2024 Tamsulosin HCl 0.4 MG TAKE 1 CAPSULE BY MOUTH EVERY DAY FOR 30 DAYS Dutasteride 0.5 MG TAKE 1 CAPSULE BY [facility] EVERY DAY Oral Omeprazole 20 MG TAKE 1 CAPSULE BY [facility] EVERY DAY 30 MINUTES BEFORE MORNING MEAL Meloxicam 7.5 MG TAKE 1 TABLET BY MOUTH EVERY DAY Pending Test Test Name Order Date PROFILE, FASTING (COMPREHENSIVE METABOLI C) 06/28/2024 PSA, TOTAL 06/28/2024 CBC w DIFF 06/28/2024 Lipid Panel 06/28/2024 Next Appt Details Follow Up: 2 Months, Reason: OV Provider Name:Dayton Anne Barbie , 06/06/2025 09:00:00 AM, [address] [place] [address] [address], [place], [address], Provider Name:Dayton Valentin , 12/09/2025 02:00:00 PM, [address] [place] [address] [address], [place], [address], Progress Notes * Je HERNANDEZDOB:[birth year] (64 yo M)Acc No.[id number]:06/28/2024 Progress Notes Patient: Je CARRILLO Provider: Seth Valentin MD :1960 A ge:64 Y S ex:Male Date:06/28/2024 Address:[address] [place] [phone] Subjective: * Chief Complaints: * L eft lower quadrant abdominal painRecent prostate biopsyHearing lossUreterolithiasis * HPI: C OVID-19 Screening: The left lower quadrant abdominal pain described on his last visit has improved. He has no pelvic pain. There is no blood in his urine. He has been given tamsolosin in dutasteride. He is generally improved. The prostate biopsy showed only benign tissue. He has an appointment with urologist in the near future. Questions H ave you had any new onset fever, chills, cough, congestion, sore throat, shortness of breath, muscle aches? N o * ROS: G eneral/Constitutional: pain l eft lower quadrant of the abdomen. C hills d enies. F atigue a dmits. F ever d enies. E NT: Decreased hearing i n both ears. R espiratory: Cough d enies. C ardiovascular: Chest pain with exertion d enies. D yspnea on exertion?denies. S hortness of breath d enies. G astrointestinal: Constipation o ccasional. D ecreased appetite d enies. D iarrhea d enies. H eartburn d enies. N ausea d enies. R ectal bleeding d enies. V omiting d enies. H ematology: bruising [...] enies.?Headache d enies. L ow back pain t hat is chronic. P sychiatric: Depressed mood d enies. * Medical History: * Surgical History: l eft knee arthroscopy 1995colonoscopy 2 polyps [facility] June 2011complete dental extractions cystoscopy and stent insertion left ureter for stone 04/2016lithotripsy 04/2016Right, Kidney stone removed 11/10/2016No history Knee surgery * Hospitalization/Major Diagno stic Procedure: N o history * Family History: F ather: 80 yrs, colon cancer, diagnosed with Cancer. M other: 76 yrs, copd, pneumothorax. C hildren: alive. D aughter(s): alive. S iblings: alive. 2 brother(s) , 7 sister(s) - [...] dditional Findings: Tobacco Non-User A ggressive non-smoker Keli murillo is not a Islam. He drinks one beer per week and does not smoke. 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 He is and has one daughter who is healthy. He was born in [place], [place]. * Medications: T akingMeloxicam 7.5 MG Tablet TAKE 1 TABLET BY MOUTH EVERY DAY Omeprazole 20 MG Capsule Delayed Release TAKE 1 CAPSULE BY MOUTH EVERY DAY 30 MINUTES BEFORE MORNING MEAL Tamsulosin HCl 0.4 MG Capsule 1 capsule Orally Once a day predniSONE 20 MG Tablet 1 tablet Orally Once a day Dutasteride 0.5 MG Capsule TAKE 1 CAPSULE BY MOUTH EVERY DAY Oral Medication List reviewed and reconciled with the patientTaking Meloxicam 7.5 MG Tablet TAKE 1 TABLET BY MOUTH EVERY DAY Taking Omeprazole 20 MG Capsule Delayed Release TAKE 1 CAPSULE BY MOUTH EVERY DAY 30 MINUTES BEFORE MORNING MEAL Taking Tamsulosin HCl 0.4 MG Capsule 1 capsule Orally Once a day Taking predniSONE 20 MG Tablet 1 tablet Orally Once a day Taking Dutasteride 0.5 MG Capsule TAKE 1 CAPSULE BY MOUTH EVERY DAY Oral Medication List reviewed and reconciled with the patient * Allergies: I nfluenza Vaccinesinderjit[Allergies Verified] Objective: * Vitals: H t: 70, Wt:179, BMI:25.68, BP:139/87, HR:61, Temp:97.0, Ht-cm: 177.8, Wt-k.19. * P ast Orders: Lab:Pathology * Collection Date 05/22/2024 07/08/2022 Collection Time 09:43 AM 02:01 PM Order Date 05/22/2024 07/08/2022 * Examination: G eneral Examination: GENERAL APPEARANCE: p leasant, well nourished, well developed, in no acute [...] no mass, overweight, Left lower quadrant unremarkable on examination, nontender. RECTAL EXAM: n ot examined. MUSCULOSKELETAL: e xtremities unremarkable, no clubbing, cyanosis or edema, Mild pain to range of motion right knee. PERIPHERAL PULSES: n ormal. NEUROLOGIC: a lert and oriented, cranial nerves 2-12 grossly intact, deep tendon reflexes 2+ symmetrical, motor strength normal upper and lower extremities, sensory exam intact. PSYCH: a lert, oriented. Assessment: * Assessment: 1. B PH (benign prostatic hyperplasia) - N40.0 (Primary) N otes :He has resumed rising only once a night to urinate. 2 . O verweight - E66.3 N otes :His body mass index is slightly elevated at 25.68. I recommended he stabilize his weight at this level. 3 . G ERD (gastroesophageal reflux disease) - K21.9 N otes :His reflux symptoms have been well controlled with medication. 4 . E dentulous - K00.0 N otes :He has upper and lower dentures fit well and he has no difficulty eating and chewing. 5 . D egenerative joint disease - M19.90 N otes :He will continue on his use of ibuprofen. He was encouraged to stay active. 6 . M igraine without aura and without status migrainosus, not intractable - G43.009 N otes :He has had no further migraine headaches since February 16, 2018. In the emergency room. If it returns. She will call me once. Plan: * Treatment: 2. O verweight L AB: PROFILE, FASTING (COMPREHENSIVE METABOLIC) L AB: PSA, TOTAL L AB: CBC w DIFF L AB: Lipid Panel 3. G ERD (gastroesophageal reflux disease) L AB: PROFILE, FASTING (COMPREHENSIVE METABOLIC) L AB: PSA, TOTAL L AB: CBC w DIFF L AB: Lipid Panel 4. O thers Continue Meloxicam Tablet, 7.5 MG, TAKE 1 TABLET BY MOUTH EVERY DAY; C ontinue Omeprazole Capsule Delayed Release, 20 MG, TAKE 1 CAPSULE BY MOUTH EVERY DAY 30 MINUTES BEFORE MORNING MEAL; C ontinue Tamsulosin HCl Capsule, 0.4 MG, TAKE 1 CAPSULE BY MOUTH EVERY DAY FOR 30 DAYS; C ontinue predniSONE Tablet, 20 MG, 1 tablet, Orally, Once a day; C ontinue Dutasteride Capsule, 0.5 MG, TAKE 1 CAPSULE BY MOUTH EVERY DAY, Oral. * Procedure Codes: * Preventive Medicine: Counseling: C are goal follow-up plan: Counseling for abnormal BMI given Y es Above Normal BMI Follow-up D ietary management education, guidance, and counseling, Dietary needs education * Follow Up: 2 Months (Reason: OV) * Images: * Sign off status: Completed true * Provider: Seth Valentin MD Date: 0 06/28/2024 Generated for Yamileti zenon/Leo/Seansmitting on: 1 05/08/2024 10:32 AM EST History [...] no mass, overweight, Left lower quadrant unremarkable on examination, nontender NEUROLOGIC: alert and oriented, cranial nerves 2-12 grossly intact, deep tendon reflexes 2+ symmetrical, motor strength normal upper and lower extremities, sensory exam intact SKIN: no suspicious lesion s, anicteric PERIPHERAL PULSES: normal BREASTS: no masses palpable b ilaterally MUSCULOSKELETAL: extremities unremark able, no clubbing, cyanosis or edema, Mild pain to range of motion right knee LYMPH NODES: no enlarged lymph no deanna,spleen normal RECTAL EXAM: not examined PSYCH: alert, oriented ORAL CAVITY: normal, unremarkable
--- OUTSIDE RECORDS SUMMARY | 2024-07-02 04:17 | XMS_ITS ---
Author Organization Dayton aVlentin III, MD Address [address] [place] [address] Care Team Providers Care Park Services Specialist Name Role Phone Dr. Dayton Valentin III Primary Care Provider REASON FOR VISIT Colonoscopy Update Social History Sex Assigned At : Social History Observation Description Sex Assigned At Male Encounters Encounter Location Date Provider Diagnosis Dayton Valentin III, MD [address] [place] [address] [place] [address] 07/02/2024 Dayton Valentin Plan Of Treatment Next Appt Details Provider Name:Dayton Valentin , 06/06/2025 09:00:00 AM, [address] [place] [address] [place], [address], Provider Name:Dayton Valentin , 12/09/2025 02:00:00 PM, [address] [place] [address] [place], [address], Progress Notes * Je HERNANDEZDOB:[birth year] (64 yo M)Acc No.[id number]:07/02/2024 Patient: Je CARRILLO :1960 A ge:64 Y S ex:Male Address:[address] [place] [address], [address] * true * Date: Generated for Valerie yarbrough/Leo/Krystal on: 05/08/2024 10:32 AM EST
--- OUTSIDE RECORDS SUMMARY | 2024-08-03 04:15 | XMS_ITS ---
Author Organization Dayton Valentin III, MD Address [address] [place] [address] Care Team Providers Care Planer Setup Operator Name Role Phone Dr. Dayton Valentin III Primary Care Provider Reason For Referral Reason Consult and Treat Diagnosis 1 Other specified hear ing loss of both ears (H91.8X3) Referral Organization Dayton Valentin III, MD Referring Provider First Name Dayton Referring Provider Last Name Barbie Referring Provider Speciality Internal M edicine Referred Provider [facility] er, Speech and Hearing Referred Provider Specialty Audiologists General Notes D, Tanya 08/03/2024 09:19:13 AM > Faxed referral per request of patient. Referral Priority Routine Referral Appointment Date 08/22/2024 REASON FOR VISIT Hearing Test Social History Sex Assigned At : Social History Observation Description Sex Assigned At Male Encounters Encounter Location Date Provider Diagnosis Dayton Valentin III, MD [address] [place] [address] [place] [address] 08/03/2024 Dayton Valentin Plan Of Treatment Referrals Referral Date Details 08/03/2024 08/03/2024, Consult and Treat, Speech and Hearing [facility] Next Appt Details Provider Name:Dayton Valentin , 06/06/2025 09:00:00 AM, [address] [place] [address] [address], [place], [address], Provider Name:Dayton Anne Valentin , 12/09/2025 02:00:00 PM, [address] [place] [address] [address], [place], [address], Progress Notes * HECTOR JeDOB:[birth year] (64 yo M)Acc No.[id number]:08/03/2024 Patient: Je CARRILLO :1960 A ge:64 Y S ex:Male Address:[address] [place] [address], [address] Subjective: * Chief Complaints: * H earing Test * Medical History: * Surgical History: * Hospitalization/Major Diagno stic Procedure: * Medications: Objective: * Vitals: * Physical Examination: Assessment: Plan: * Treatment: * Procedure Codes: * true * Date: Generated for Valerie yarbrough/Leo/eTransmitting on: 05/08/2024 10:31 AM EST Consultation Request Notes Referral Date Referring Provider Referred Provider Not dain 08/03/2024 Dayton Valentin [facility], Speech and Hearing Consult and Treat
--- OUTSIDE RECORDS SUMMARY | 2024-08-09 06:15 | XMS_ITS ---
Author Organization Dayton Valentin III, MD Address [address] [place] [address] Care Team Providers Care Visual Associate Name Role Phone Dr. Dayton Valentin III Primary Care Provider Allergies Allergen (clinical drug ingredient) Drug/Non Drug Allergy documented on EMR Reaction Allergy Type Onset Date Status Vaccine product containing Influenza virus antigen (medicinal product) Influenza Vaccines Unknown Drug Allergy Ac tive REASON FOR VISIT Ear Irrigation, Bilateral cerumen impaction Medications Medication SIG (Take, Route, Fr equency, Duration) Notes Start Date End Date Status Dutasteride 0.5 MG TAKE 1 CAPSULE BY MO UT EVERY DAY Oral Active predniSONE 20 MG 1 tablet Orally Once a day 2023 Active Meloxicam 7.5 MG TAKE 1 TABLET BY BHARAT EVERY DAY Active Tamsulosin HCl 0.4 MG TAKE 1 CAPSULE BY MOUTH EVERY DAY FOR 30 DAYS Active Omeprazole 20 MG TAKE 1 CAPSULE BY MO UT EVERY DAY 30 MINUTES BEFORE MORNING MEAL Active Social History Tobacco Use: Social History Observation Description Date Details (start date - stop date) Never Smoker NA - NA Sex Assigned At : Social History Observation Description Sex Assigned At Male Tobacco Use/Smoking Question Answer Notes Patient is a nonsmoker Additional Findings: Tobacco Non-User Aggressive non-smoker Problems Problem Type SNOMED Code ICD Code Onset Dates Problem Status W/U Status Risk Notes Problem Impacted cerumen (24638570) Impacted cerumen, unspecified ear (H61.20) Active confirmed He underwent bilateral warm more irrigation, which removed the free treated cerumen impaction. Both tympanic membranes appeared to be normal. He says his hearing was improved. He left the office annd stable condition to return as scheduled. Vital Signs Temperature 97.9 degrees Fahrenheit 08/10/19 25 Blood pressure systolic 154 mm Hg 08/10/19 25 Blood pressure diastolic 93 mm Hg 025 Heart Rate 73 /min 08/09/2024 Height 70 in 08/09/2024 Weight 179 lbs 08/09/2024 BMI 25.68 kg/m2 08/09/2024 Encounters Encounter Location Date Provider Diagnosis Dayton Valentin III, MD [address] [place] [address] [place] [address] 08/09/2024 Dayton Valentin Impacted cerumen, unspecified ear H61.20 ; Edentulous K00.0 ; Degenerative joint disease M19.90 ; GERD (gastroesophageal reflux disease) K21.9 ; Ureterolithiasis N20.1 ; Migraine without aura and without status migrainosus, not intractable G43.009 and Other specified hearing loss of both ears H91.8X3 Assessments Encounter Date Diagnosis (ICD Code) Assessment Notes Treat ment Notes Treatment Clinical Notes 08/09/2024 Impacted cerumen, unspecified ear (ICD-10 - H61.20) He underwent bilateral warm more irrigation, which removed the free treated cerumen impaction. Both tympanic membranes appeared to be normal. He says his hearing was improved. He left the office annd stable condition to return as scheduled. 08/09/2024 Edentulous (ICD-10 - K00.0) He has upper and lower dentures fit well and he has no difficulty eating and chewing. 08/09/2024 Degenerative joint disease (ICD-10 - M19.90) He will continue on his use of ibuprofen. He was encouraged to stay active. 08/09/2024 GERD (gastroesophage al reflux disease) (ICD-10 - K21.9) His reflux symptoms have been well controlled with medication. 08/09/2024 Ureterolithiasis (ICD-10 - N20.1) He reports no kidney stones recently. The ddiscomfort with urinating is primarily urethral. 08/09/2024 Migraine without aur a and without status migrainosus, not intractable (ICD-10 - G43.009) He has had no further migraine headaches since February 16, 2018. In the emergency room. If it returns. She will call me once. 08/09/2024 Other specified hear ing loss of both ears (ICD-10 - H91.8X3) He is involved with the ear, nose and throat physicians in the testing him to see what therapy is indicated. Plan Of Treatment Medication Medication Name Sig Start Date Stop Date Notes Dutasteride 0.5 MG TAKE 1 CAPSULE BY MO UTH EVERY DAY Oral predniSONE 20 MG 1 tablet Orally Once a day 01/31/2024 Meloxicam 7.5 MG TAKE 1 TABLET BY MOUTH EVERY DAY Tamsulosin HCl 0.4 MG TAKE 1 CAPSULE BY MOUTH EVERY DAY FOR 30 DAYS Omeprazole 20 MG TAKE 1 CAPSULE BY MO UTH EVERY DAY 30 MINUTES BEFORE MORNING MEAL Next Appt Details Follow Up: 3 Months, Reason: ov Provider Name:Dayton Valentin , 06/06/2025 09:00:00 AM, [address] [place] [address] [address], [place], [address], Provider Name:Dayton Valentin , 12/09/2025 02:00:00 PM, [address] [place] [address] [address], [place], [address], Procedure Notes * Category Sub-Category Detail Notes Ear lavage Procedure Post-procedure Successful Progress Notes * Je HERNANDEZDOB:[birth year] (64 yo M)Acc No.[id number]:08/09/2024 Patient: Je CARRILLO Provider: Seth Valentin MD :1960 A ge:64 Y S ex:Male Date:08/09/2024 Address:[address] [place], [place] [id number] Subjective: * Chief Complaints: * E ar IrrigationBilateral cerumen impaction * HPI: C OVID-19 Screening: He comes to the office today after using debrox ttwice a day for 7 days for warm water irrigation of the uric posterior removed bilateral severe cerumen impaction. This was carried out with no difficulty. The impaction as were removed and his hearing was markedly improved. He left the office and stable ambulatory condition to return in 3 months for routine medical care. Questions H ave you had any new onset fever, chills, cough, congestion, sore throat, shortness of breath, muscle aches? N o * ROS: Keli murillo denied any headache, neck stiffness, diplopia, pain, shortness of breath, chest pain, nausea, vomiting, diarrhea, bleeding, or joint pain. He complains of bilateral hearing loss. * Medical History: * Surgical History: l eft knee arthroscopy 1995colonoscopy 2 polyps [facility] [place] June 2011complete dental extractions cystoscopy and stent [...] ggressive non-smoker Keli murillo is not a Ca[employer]ism. He drinks one beer per week and does not smoke. 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 He is and has one daughter who is healthy. He was born in [place], [place]. * Medications: T akingMeloxicam 7.5 MG [...] reconciled with the patient * Allergies: I aldaluj carlos Madrigal[Allergies Verified] Objective: * Vitals: H t: 70, Wt:179, BMI:25.68, BP:154/93, HR:73, Temp:97.9, Ht-cm: 177.8, Wt-k.19. Assessment: * Assessment: 1. I mpacted cerumen, unspecified ear - H61.20 (Primary) N otes :He underwent bilateral warm more irrigation, which removed the free treated cerumen impaction. Both tympanic membranes appeared to be normal. He says his hearing was improved. He left the office annd stable condition to return as scheduled. 2 . E dentulous - K00.0 N otes :He has upper and lower dentures fit well and he has no difficulty eating and chewing. 3 . D egenerative joint disease - M19.90 N otes :He will continue on his use of ibuprofen. He was encouraged to stay active. 4 . G ERD (gastroesophageal reflux disease) - K21.9 N otes :His reflux symptoms have been well controlled with medication. 5 . U reterolithiasis - N20.1 N otes :He reports no kidney stones recently. The ddiscomfort with urinating is primarily urethral. 6 . M igraine without aura and without status migrainosus, not intractable - G43.009 N otes :He has had no further migraine headaches since February 16, 2018. In the emergency room. If it returns. She will call me once. 7 . O ther specified hearing loss of both ears - H91.8X3 N otes :He is involved with the ear, nose and throat physicians in the testing him to see what therapy is indicated. Plan: * Treatment: * Procedures: E ar lavage: Procedure _ ____. Post-procedure S uccessful. * Procedure Codes: 6 9210 EAR IRRIGATION * Follow Up: 3 Months (Reason: ov) * Images: * Sign off status: Completed true * Provider: Seth Valentin MD Date: 0 08/09/2024 Generated for Valerie yarbrough/Leo/Seansmitting on: 1 05/08/2024 10:31 AM EST History and Physical Notes * HPI (History of Present Illness) Category Sub-Category Detail Notes COVID-19 Screening Questions Have you had any new onset fever, chills, cough, congestion, sore throat, shortness of breath, muscle aches?: No
--- OUTSIDE RECORDS SUMMARY | 2024-08-28 04:15 | XMS_ITS ---
Author Organization Dayton Valentin III, MD Address [address] [facility] [address] [place] [address] Care Team Providers Care Onshore Diver Name Role Phone Dr. Dayton Valentin III Primary Care Provider Allergies Allergen (clinical drug ingredient) Drug/Non Drug Allergy documented on EMR Reaction Allergy Type Onset Date Status Vaccine product containing Influenza virus antigen (medicinal product) Influenza Vaccines Unknown Drug Allergy Ac tive REASON FOR VISIT Hearing loss, GERD, Benign prostatic hypertrophy, Migraines Medications Medication SIG (Take, Route, Fr equency, Duration) Notes Start Date End Date Status predniSONE 20 MG 1 tablet Orally Once a day 2023 Active Dutasteride 0.5 MG TAKE 1 CAPSULE BY MO UTH EVERY DAY Oral Active Meloxicam 7.5 MG TAKE 1 TABLET [...] Findings: Tobacco Non-User Aggressive non-smoker Vital Signs Blood pressure systolic 112 mm Hg 08/29/19 25 Blood pressure diastolic 68 mm Hg 025 Heart Rate 72 /min 08/28/2024 Height 70 in 08/28/2024 Weight 181 lbs 08/28/2024 BMI 25.97 kg/m2 08/28/2024 Oximetry 96 % 08/28/2024 Encounters Encounter Location Date Provider Diagnosis Dayton Valentin III, MD [address] [place] [address] [place] [address] 08/28/2024 Dayton Valentin GERD (gastroesophage al reflux disease) K21.9 ; BPH (benign prostatic hyperplasia) N40.0 ; Overweight E66.3 ; Degenerative joint disease M19.90 ; Edentulous K00.0 ; Ureterolithiasis N20.1 ; Vasculogenic erectile dysfunction, unspecified vasculogenic erectile dysfunction type N52.9 ; Migraine without aura and without status migrainosus, not intractable G43.009 and Impacted cerumen, unspecified ear H61.20 Assessments Encounter Date Diagnosis (ICD Code) Assessment Notes Treat ment Notes Treatment Clinical Notes 08/28/2024 GERD (gastroesophage al reflux disease) (ICD-10 - K21.9) His symptoms are well controlled with medication. No changes were necessary. 08/28/2024 BPH (benign prostati c hyperplasia) (ICD-10 - N40.0) He arises from sleep once or twice a night to urinate. We have discussed lifestyle modifications he could make to reduce this. 08/28/2024 Overweight (ICD-10 - E66.3) His body mass index is 27. His weight is stable. We discussed a diet that would result in weight loss of one half of a pound per week. 08/28/2024 Degenerative joint disease (ICD-10 - M19.90) He will continue on his use of ibuprofen. He was encouraged to stay active. 08/28/2024 Edentulous (ICD-10 - K00.0) He has upper and lower dentures fit well and he has no difficulty eating and chewing. 08/28/2024 Ureterolithiasis (ICD-10 - N20.1) He reports no kidney stones recently. The ddiscomfort with urinating is primarily urethral. 08/28/2024 Vasculogenic erectil e dysfunction, unspecified vasculogenic erectile dysfunction type (ICD-10 - N52.9) He was given a prescription for Viagra. 08/28/2024 Migraine without aur a and without status migrainosus, not intractable (ICD-10 - G43.009) He has had no further migraine headaches since February 16, 2018. In the emergency room. If it returns. She will call me once. 08/28/2024 Impacted cerumen, unspecified ear (ICD-10 - H61.20) He underwent bilateral warm more irrigation, which removed the free treated cerumen impaction. Both tympanic membranes appeared to be normal. He says his hearing was improved. He left the office annd stable condition to return as scheduled. Plan Of Treatment Medication Medication Name Sig Start Date Stop Date Notes predniSONE 20 MG 1 tablet Orally Once a day 01/31/2024 Dutasteride 0.5 MG TAKE 1 CAPSULE BY MO UTH EVERY DAY Oral Meloxicam 7.5 MG TAKE 1 TABLET BY MOUTH EVERY DAY Tamsulosin HCl 0.4 MG TAKE 1 CAPSULE BY MOUTH EVERY DAY FOR 30 DAYS Omeprazole 20 MG TAKE 1 CAPSULE BY MO UTH EVERY DAY 30 MINUTES BEFORE MORNING MEAL Pending Test Test Name Order Date PROFILE, FASTING (COMPREHENSIVE METABOLI C) 08/28/2024 PSA, TOTAL 08/28/2024 CBC w DIFF 08/28/2024 Lipid Panel 08/28/2024 Next Appt Details Follow Up: 3 months, Reason: Annual Exam Provider Name:Dayton Valentin , 06/06/2025 09:00:00 AM, [address] [place] [address] [address], [place], [phone], Provider Name:Dayton Valentin , 12/09/2025 02:00:00 PM, [address] [place] [address] [address], [place], [phone], Progress Notes * HECTORJe SLOANDOB:[birth year] (64 yo M)Acc No.[id number]:08/28/2024 Progress Notes Patient: Je CARRILLO Provider: Seth Valentin MD :1960 A ge:64 Y S ex:Male Date:08/28/2024 Address:[address] [place] [address] [place] , [id number] Subjective: * Chief Complaints: * H earing lossGERDBenign prostatic hypertrophyMigraines * HPI: v : He returns for management of medical issues. He has new hearing aids coming in about 2 weeks from [facility] speech and hearing Department. Communication today was possible, but difficult. His hearing loss has not changed. He admits to nocturia once a night. He has been compliant with all of his medications. His heartburn is well controlled with medication. He has no new issues. * ROS: G eneral/Constitutional: pain o nly normal aches and pains. C hills d enies.?Fatigue a dmits. F ever d enies. E NT: Decreased hearing i n both ears. R espiratory: Cough d enies. C ardiovascular: Chest pain with exertion d enies. D yspnea on exertion?denies. S hortness of breath d enies. G astrointestinal: Constipation d enies. D ecreased appetite d enies.?Diarrhea d enies. H eartburn c ontrolled with medications. N ausea d enies.?Rectal bleeding d enies. V omiting d enies. H ematology: bruising d enies. p etechiae d enies. S wollen glands n one have been noted. G enitourinary: Frequent urination d enies. M usculoskeletal: Muscle aches d enies. P [...] l eft knee arthroscopy 1995colonoscopy 2 polyps [facility] [place]complete dental extractions cystoscopy and stent insertion left ureter for stone 04/2016lithotripsy 04/2016Right, Kidney stone removed 11/10/2016No history Knee surgery * Hospitalization/Major Diagno stic Procedure: N o history * Family History: F ather: 80 yrs, colon cancer, diagnosed with Cancer. M other: 76 yrs, copd, pneumothorax. C hildren: alive. D miryamer(s): alive. S ibnavin: alive. 2 brother(s) , 7 sister(s) - [...] ggressive non-smoker H e is not a Orthodox. He drinks one beer per week and does not smoke. 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 He is and has one daughter who is healthy. He was born in [place], [place]. * Medications: T akingMeloxicam 7.5 MG [...] 1 CAPSULE BY MOUTH EVERY DAY Oral Taking Meloxicam 7.5 MG Tablet TAKE 1 [...] 1 CAPSULE BY MOUTH EVERY DAY Oral * Allergies: I nfluenza Vaccines Objective: * Vitals: H t: 70, Wt:181, BMI:25.97, BP:112/68, HR:72, Oxygen sat %:96, Ht-cm: 177.8, Wt- k.1. * P ast Orders: Lab:Complete Blood Count Aut o Diff * Collection Date 08/24/2024 02/29/2024 01/24/2024 Collection Time 06:14 AM 02:31 PM 06:12 AM Order Date 08/24/2024 02/29/2024 01/24/2024 White Blood Count 6.6 (Ref Range: 4.8-10.8 X10*3/uL) 7.1 (Ref Range: 4.8-10.8 X10*3/uL) 5.5 (Ref Range: 4.8-10.8 X10*3/uL) Red Blood Count 5.25 (Ref Range: 4.60-5.80 X10*6/uL) 5.00 (Ref Range: 4.60-5.80 X10*6/uL) 5.18 (Ref Range: 4.60-5.80 X10*6/uL) Hemoglobin 15.7 (Ref Range: 14.0-18.0 g/dl) 15.1 (Ref Range: 14.0-18.0 g/dl) 15.9 (Ref Range: 14.0-18.0 g/dl) Hematocrit 46.9 (Ref Range: 42.0-52.0 %) 43.9 (Ref Range: 42.0-52.0 %) 46.0 (Ref Range: 42.0-52.0 %) Mean Corpuscular Volume 89.3 (Ref Range: 80.0-98.0 fL) 87.8 (Ref Range: 80.0-98.0 fL) 88.8 (Ref Range: 80.0-98.0 fL) Mean Corpuscular Hemoglobin 29.9 (Ref Range: 27.0-33.0 pg) 30.2 (Ref Range: 27.0-33.0 pg) 30.7 (Ref Range: 27.0-33.0 pg) Mean Corpuscular HGB Conc 33.5 (Ref Range: 31.0-36.0 g/dl) 34.4 (Ref Range: 31.0-36.0 g/dl) 34.6 (Ref Range: 31.0-36.0 g/dl) Red Cell Distribution Width 13.2 (Ref Range: 11.0-16.0 %) 13.0 (Ref Range: 11.0-16.0 %) 12.9 (Ref Range: 11.0-16.0 %) Platelet Count 159 L (Ref Range: 160-400 X10*3/uL) 172 (Ref Range: 160-400 X10*3/uL) 151 L (Ref Range: 160-400 X10*3/uL) Mean Platelet Volume 9.6 (Ref Range: 9.4-12.4 fL) 9.2 L (Ref Range: 9.4-12.4 fL) 9.6 (Ref Range: 9.4-12.4 fL) Neutrophils Percent Auto 66.4 (Ref Range: 45-73 %) 66.1 (Ref Range: 45-73 %) 63.2 (Ref Range: 45-73 %) Imm Gran Pct Auto 0.8 H (Ref Range: 0.0-0.4 %) 0.4 (Ref Range: 0.0-0.4 %) 0.6 H (Ref Range: 0.0-0.4 %) Lymphocytes Percent Auto 24.0 (Ref Range: 20-40 %) 25.4 (Ref Range: 20-40 %) 28.1 (Ref Range: 20-40 %) Monocytes Percent Auto 7.3 (Ref Range: 2-11 %) 7.3 (Ref Range: 2-11 %) 7.3 (Ref Range: 2-11 %) Eosinophils Percent Auto 1.2 (Ref Range: 0-4 %) 0.7 (Ref Range: 0-4 %) 0.6 (Ref Range: 0-4 %) Basophils Percent Auto 0.3 (Ref Range: 0-2 %) 0.1 (Ref Range: 0-2 %) 0.2 (Ref Range: 0-2 %) NRBC Pct Auto 0.0 (Ref Range: 0.0-0.2 /100WBC) 0.0 (Ref Range: 0.0-0.2 /100WBC) 0.0 (Ref Range: 0.0-0.2 /100WBC) Neutrophils Absolute Auto 4.4 (Ref Range: 2.0-8.3 x10*3/uL) 4.7 (Ref Range: 2.0-8.3 x10*3/uL) 3.5 (Ref Range: 2.0-8.3 x10*3/uL) Imm Gran Abs Auto 0.05 H (Ref Range: 0.00-0.03 X10*3/uL) 0.03 (Ref Range: 0.00-0.03 X10*3/uL) 0.03 (Ref Range: 0.00-0.03 X10*3/uL) Lymphocytes Absolute Auto 1.6 (Ref Range: 1.2-4.9 X10*3/uL) 1.8 (Ref Range: 1.2-4.9 X10*3/uL) 1.5 (Ref Range: 1.2-4.9 X10*3/uL) Monocytes Absolute Auto 0.5 (Ref Range: 0.1-1.2 X10*3/uL) 0.5 (Ref Range: 0.1-1.2 X10*3/uL) 0.4 (Ref Range: 0.1-1.2 X10*3/uL) Eosinophils Absolute Auto 0.1 (Ref Range: 0.0-0.4 X10*3/uL) 0.1 (Ref Range: 0.0-0.4 X10*3/uL) 0.0 (Ref Range: 0.0-0.4 X10*3/uL) Basophils Absolute Auto 0.0 (Ref Range: 0.0-0.2 X10*3/uL) 0.0 (Ref Range: 0.0-0.2 X10*3/uL) 0.0 (Ref Range: 0.0-0.2 X10*3/uL) NRBC Abs Auto 0.000 (Ref Range: 0.0-0.012 X10*3/uL) 0.000 (Ref Range: 0.0-0.012 X10*3/uL) 0.000 (Ref Range: 0.0-0.012 X10*3/uL) * Lab:Comprehensive [place]. Pane l Fast * Collection Date 08/24/2024 01/24/2024 06/27/2023 Collection Time 06:14 AM 06:12 AM 06:11 AM Order Date 08/24/2024 01/24/2024 06/27/2023 Sodium 144 (Ref Range: 135-145 mmol/L) 141 (Ref Range: 135-145 mmol/L) 142 (Ref Range: 135-145 mmol/L) Bilirubin Total 0.6 (Ref Range: 0.0-1.0 mg/dL) 0.6 (Ref Range: 0.0-1.0 mg/dL) 0.4 (Ref Range: 0.0-1.0 mg/dL) Aspartate Amino Transferase 28 (Ref Range: 5-37 U/L) 21 (Ref Range: 5-37 U/L) 18 (Ref Range: 5-37 U/L) Alanine Aminotransferase 38 (Ref Range: 0-40 U/L) 33 (Ref Range: 0-40 U/L) 34 (Ref Range: 0-40 U/L) Total Protein 6.9 (Ref Range: 6.5-8.0 g/dL) 6.9 (Ref Range: 6.5-8.0 g/dL) 6.8 (Ref Range: 6.5-8.0 g/dL) Albumin Level 4.3 (Ref Range: 3.5-5.0 g/dL) 4.3 (Ref Range: 3.5-5.0 g/dL) 4.1 (Ref Range: 3.5-5.0 g/dL) Alkaline Phosphatase 70 (Ref Range: 39-117 U/L) 75 (Ref Range: 39-117 U/L) 83 (Ref Range: 39-117 U/L) Potassium 4.1 (Ref Range: 3.3-5.1 mmol/L) 4.7 (Ref Range: 3.3-5.1 mmol/L) 4.2 (Ref Range: 3.3-5.1 mmol/L) Chloride 112 H (Ref Range: 96-108 mmol/L) 109 H (Ref Range: 96-108 mmol/L) 110 H (Ref Range: 96-108 mmol/L) Carbon Dioxide 25 (Ref Range: 22-29 mmol/L) 26 (Ref Range: 22-29 mmol/L) 25 (Ref Range: 22-29 mmol/L) Anion Gap 11 L (Ref Range: 12-20) 11 L (Ref Range: 12-20) 11 L (Ref Range: 12-20) Blood Urea Nitrogen 18 H (Ref Range: 9-16 mg/dL) 14 (Ref Range: 9-16 mg/dL) 23 H (Ref Range: 9-16 mg/dL) Creatinine 1.00 (Ref Range: 0.5-1.4 mg/dL) 1.07 (Ref Range: 0.5-1.4 mg/dL) 1.06 (Ref Range: 0.5-1.4 mg/dL) Estimated Glomerular Filt Rate > 60 > 60 > 60 Glucose Fasting 103 H (Ref Range: 60-99 mg/dL) 105 H (Ref Range: 60-99 mg/dL) 108 H (Ref Range: 60-99 mg/dL) Calcium 9.3 (Ref Range: 8.4-10.2 mg/dL) 9.6 (Ref Range: 8.4-10.2 mg/dL) 9.0 (Ref Range: 8.4-10.2 mg/dL) * Lab:Lipid Panel * Collection Date 08/24/2024 01/24/2024 06/27/2023 Collection Time 06:14 AM 06:12 AM 06:11 AM Order Date 08/24/2024 01/24/2024 06/22/2023 Triglycerides 185 H (Ref Range: <150 mg/dL) 128 (Ref Range: <150 mg/dL) 165 H (Ref Range: <150 mg/dL) Cholesterol 191 (Ref Range: <200 mg/dL) 175 (Ref Range: <200 mg/dL) 166 (Ref Range: <200 mg/dL) LDL Cholesterol Calculated 108 H (Ref Range: <100 mg/dL) 105 H (Ref Range: <100 mg/dL) 90 (Ref Range: <100 mg/dL) HDL Cholesterol 46 (Ref Range: >40 mg/dL) 45 (Ref Range: >40 mg/dL) 43 (Ref Range: >40 mg/dL) * Lab:Prostate Specific Antige n * Collection Date 08/24/2024 02/29/2024 01/24/2024 Collection Time 06:14 AM 02:31 PM 06:12 AM Order Date 08/24/2024 02/29/2024 01/24/2024 Prostate Specific Antigen 4.08 H (Ref Range: <0.05-4.0 ng/mL) 6.36 H (Ref Range: <0.05-4.0 ng/mL) 5.35 H (Ref Range: <0.05-4.0 ng/mL) * Examination: G eneral Examination: GENERAL APPEARANCE: p leasant, well nourished, well developed, in no acute distress, calm and relaxed, overweight, man. HEAD: a traumatic, normocephalic. EYES: e nigel, perrla, anicteric, conjugate. EARS: N ormal anatomy with significant hearing loss. NOSE: s eptum intact. ORAL CAVITY: n ormal, unremarkable. NECK/THYROID: n o jugular venous distention, no carotid bruit, thyroid normal. LYMPH NODES: n o enlarged lymph nodes,spleen normal. SKIN: n o suspicious lesions, anicteric. HEART: n o clicks, gallops, murmurs, or rubs, regular rhythm, S1, S2 normal, no s3, or vascular bruits. LUNGS: c lear anteriorly and posteriorly, no wheezes, rales, rhonchi, good air movement. BREASTS: no masses palpable bilaterally. ABDOMEN: b owel sounds normal, no ascites, no organomegaly, no mass. RECTAL EXAM: n ot examined. MUSCULOSKELETAL: e xtremities unremarkable, no clubbing, cyanosis or edema. PERIPHERAL PULSES: n ormal. NEUROLOGIC: a lert and oriented, cranial nerves 2-12 grossly intact, deep tendon reflexes 2+ symmetrical, motor strength normal upper and lower extremities, sensory exam intact. PSYCH: a lert, oriented. Assessment: * Assessment: 1. B PH (benign prostatic hyperplasia) - N40.0 (Primary) N otes :He arises from sleep once or twice a night to urinate. We have discussed lifestyle modifications he could make to reduce this. 2 . G ERD (gastroesophageal reflux disease) - K21.9 N otes :His symptoms are well controlled with medication. No changes were necessary. 3 . O verweight - E66.3 N otes :His body mass index is 27. His weight is stable. We discussed a diet that would result in weight loss of one half of a pound per week. 4 . D egenerative joint disease - M19.90 N otes :He will continue on his use of ibuprofen. He was encouraged to stay active. 5 . E dentulous - K00.0 N otes :He has upper and lower dentures fit well and he has no difficulty eating and chewing. 6 . U reterolithiasis - N20.1 N otes :He reports no kidney stones recently. The ddiscomfort with urinating is primarily urethral. 7 . V asculogenic erectile dysfunction, unspecified vasculogenic erectile dysfunction type - N52.9 N otes :He was given a prescription for Viagra. 8 . M igraine without aura and without status migrainosus, not intractable - G43.009 N otes :He has had no further migraine headaches since February 16, 2018. In the emergency room. If it returns. She will call me once. 9 . I mpacted cerumen, unspecified ear - H61.20 N otes :He underwent bilateral warm more irrigation, which removed the free treated cerumen impaction. Both tympanic membranes appeared to be normal. He says his hearing was improved. He left the office annd stable condition to return as scheduled. Plan: * Treatment: 2. G ERD (gastroesophageal reflux disease) Continue Meloxicam Tablet, 7.5 MG, TAKE 1 [...] 1 CAPSULE BY MOUTH EVERY DAY, Oral. L AB: PROFILE, FASTING (COMPREHENSIVE METABOLIC) L AB: PSA, TOTAL L AB: CBC w DIFF L AB: Lipid Panel 3. O verweight L AB: PROFILE, FASTING (COMPREHENSIVE METABOLIC) L AB: PSA, TOTAL L AB: CBC w DIFF L AB: Lipid Panel * Procedure Codes: 9 4760 MEASURE BLOOD OXYGEN LEVEL * Preventive Medicine: Counseling: C are goal follow-up plan: Counseling for abnormal BMI given Y es Above Normal BMI Follow-up D ietary management education, guidance, and counseling, Dietary needs education * Follow Up: 3 months (Reason: Annual Exam) * Images: * Sign off status: Completed true * Provider: Seth Valentin MD Date: 0 08/28/2024 Generated for Valerie yarbrough/Leo/Shakeelitting on: 05/08/2024 10:31 AM EST History and Physical Notes * Examination Category Sub-Category Detail Notes General Examination GENERAL APPEARANCE: pleasant , well nourished, well developed, in no acute distress, calm and relaxed, overweight, man HEAD: atraumatic, normocep halic EYES: eomi, perrla, anicte sage, conjugate EARS: Normal anatomy with significant hearing loss NOSE: septum intact NECK/THYROID: no jugular venous di stention, no carotid bruit, thyroid normal HEART: no clicks, gallops, murmurs, or rubs, regular rhythm, S1, S2 normal, no s3, or vascular bruits LUNGS: clear anteriorly and posteriorly, no wheezes, rales, rhonchi, good air movement ABDOMEN: bowel sounds normal, no ascites, no [...]
--- OUTSIDE RECORDS SUMMARY | 2024-09-21 07:30 | XMS_ITS ---
Author Organization Dayton Valentin III, MD Address [address] [place] [address] Care Team Providers Care [employer] Academic Coach Name Role Phone Dr. Dayton Valentin III Primary Care Provider [phone] REASON FOR VISIT Annual Exam Social History Sex Assigned At : Social History Observation Description Sex Assigned At Male Encounters Encounter Location Date Provider Diagnosis Dayton Valentin III, MD [address] [place] [address] [place] [address] 09/21/2024 Dayton Valentin Plan Of Treatment Next Appt Details Provider Name:Dayton Valentin , 06/06/2025 09:00:00 AM, [address] [place] [address] [place], [address], Provider Name:Dayton Valentin , 12/09/2025 02:00:00 PM, [address] [place] [address] [place], [address], Progress Notes * Je HERNANDEZDOB:[birth year] (64 yo M)Acc No.[id number]:09/21/2024 Progress Notes Patient: Je CARRILLO Provider: Seth Valentin MD :1960 A ge:64 Y S ex:Male Date:09/21/2024 Address:[address] [place], [place] [id number] Subjective: * Chief Complaints: * 1 . Annual Exam. * Medical History: Objective: * Vitals: Assessment: Plan: * Treatment: * Images: * The named appointment provid er may or may not be the originator of this progress note, and it is not deemed complete until electronically signed by the appointment provider. Sign off status: Pending * Provider: Seth Valentin MD Date: 0 09/21/2024 Generated for Valerie yarbrough/Leo/Shakeelitting on: 05/08/2024 10:32 AM EST
--- OUTSIDE RECORDS SUMMARY | 2024-11-09 12:00 | XMS_ITS ---
Author Organization Dayton Valentin III, MD Address [address] [place] [address] Care Team Providers Care Bulk Sealer Operator Name Role Phone Dr. Dayton Valentin III Primary Care Provider REASON FOR VISIT Ear Irrigation Social History Sex Assigned At : Social History Observation Description Sex Assigned At Male Encounters Encounter Location Date Provider Diagnosis Dayton Valentin III, MD [address] [place] [address] [place] [address] 11/09/2024 Dayton Valentin Plan Of Treatment Next Appt Details Provider Name:Dayton Valentin , 06/06/2025 09:00:00 AM, [address] [place] [address] [place], [address], Provider Name:Dayton Valentin , 12/09/2025 02:00:00 PM, [address] [place] [address] [place], [address], Progress Notes * Je HERNANDEZDOB:[birth year] (64 yo M)Acc No.[id number]:11/09/2024 Patient: Ronda CAN Je Provider: Seth Valentin MD :1960 A ge:64 Y S ex:Male Date:11/09/2024 Address:[address] [place] [id number] Subjective: * Chief Complaints: * 1 . Ear Irrigation. * Medical History: Objective: * Vitals: Assessment: Plan: * Treatment: * Images: * The named appointment provid er may or may not be the originator of this progress note, and it is not deemed complete until electronically signed by the appointment provider. Sign off status: Pending * Provider: Seth Valentin MD Date: 0 11/09/2024 Generated for Valerie yarbrough/Leo/Shakeelitting on: 05/08/2024 10:32 AM EST
--- OUTSIDE RECORDS SUMMARY | 2024-12-05 09:00 | XMS_ITS ---
Author Organization Dayton Valentin III, MD Address [address] [place] [address] Care Team Providers Care Vba Developer Name Role Phone Dr. Dayton Valentin III Primary Care Provider [phone] Allergies Allergen (clinical drug ingredient) Drug/Non Drug Allergy documented on EMR Reaction Allergy Type Onset Date Status No Known Food Allergy Unknown Drug Allergy Active Vaccine product containing Influenza virus antigen (medicinal product) Influenza Vaccines Unknown Drug Allergy Ac tive REASON FOR VISIT Annual Exam Medications Medication SIG (Take, Route, Fr equency, Duration) Notes Start Date End Date Status predniSONE 20 MG 1 tablet Orally Once a day 2023 Active Tamsulosin HCl 0.4 MG TAKE 1 CAPSULE BY MOUTH EVERY DAY FOR 30 DAYS Active Omeprazole 20 MG TAKE 1 CAPSULE BY MO UTH EVERY DAY 30 MINUTES BEFORE MORNING MEAL Active Tadalafil 20 MG 1 tablet as needed O rally Once a day for 10 days 12/05/2024 04/03/2025 Active Meloxicam 7.5 MG TAKE 1 TABLET BY BHARAT TH EVERY DAY Active Senna-Time 8.6 MG 2 tablets at bedtime as needed Orally Once a day Active Dutasteride 0.5 MG TAKE 1 CAPSULE BY MO UTH EVERY DAY Oral Active Social History Tobacco Use: Social History Observation Description Date Details (start date - stop date) Never Smoker NA - NA Sex Assigned At : Social History Observation Description Sex Assigned At Male Tobacco Control (Standard) Question Answer Notes Tobacco use: Nonsmoker Additional Findings: Tobacco non-user Aggressive nonsmoker AUDIT-C (Standard) Question Answer Notes Did you have a drink containing alcohol in the p ast year? No Points 0 Interpretation Negative Problems Problem Type SNOMED Code ICD Code Onset Dates Problem Status W/U Status Risk Notes Problem [id number] Elevated PSA (R97.2) Active confirmed His PSA has now decreased to normal. He recently had a 12 core biopsy was prostate that showed all normal disease except for inflammation. Vital Signs Temperature 98.4 degrees Fahrenheit 12/06/19 25 Blood pressure systolic 134 mm Hg 12/06/19 25 Blood pressure diastolic 79 mm Hg 025 Heart Rate 82 /min 12/05/2024 Respiratory Rate 16 /min 12/05/2024 Height 70 in 12/05/2024 Weight 179 lbs 12/05/2024 BMI 25.68 kg/m2 12/05/2024 Oximetry 96 % 12/05/2024 Encounters Encounter Location Date Provider Diagnosis Dayton Valentin III, MD [address] [place] [address] [place] [address] 12/05/2024 Dayton Valentin GERD (gastroesophage al reflux disease) K21.9 ; Elevated PSA R97.2 ; BPH (benign prostatic hyperplasia) N40.0 ; Degenerative joint disease M19.90 ; Ureterolithiasis N20.1 ; Cardiomyopathy, unspecified type I42.9 and Edentulous K00.0 Assessments Encounter Date Diagnosis (ICD Code) Assessment Notes Treat ment Notes Treatment Clinical Notes 12/05/2024 GERD (gastroesophage al reflux disease) (ICD-10 - K21.9) His symptoms are well controlled with medication. No changes were necessary. 12/05/2024 Elevated PSA (ICD-10 - R97.2) His PSA has now decreased to normal. He recently had a 12 core biopsy was prostate that showed all normal disease except for inflammation. 12/05/2024 BPH (benign prostati c hyperplasia) (ICD-10 - N40.0) He arises from sleep once or twice a night to urinate. We have discussed lifestyle modifications he could make to reduce this. 12/05/2024 Degenerative joint disease (ICD-10 - M19.90) He will continue on his use of ibuprofen. He was encouraged to stay active. 12/05/2024 Ureterolithiasis (ICD-10 - N20.1) He reports no kidney stones recently. The ddiscomfort with urinating is primarily urethral. 12/05/2024 Cardiomyopathy, unspecified type (ICD-10 - I42.9) He is comfortable breathing room air. He has been to the information technology intern and no changes were made except to initiate rosuvastatin. I will follow him carefully. No changes are necessary today. 12/05/2024 Edentulous (ICD-10 - K00.0) He has upper and lower dentures fit well and he has no difficulty eating and chewing. Plan Of Treatment Medication Medication Name Sig Start Date Stop Date Notes predniSONE 20 MG 1 tablet Orally Once a day 01/31/2024 Tamsulosin HCl 0.4 MG TAKE 1 CAPSULE BY MOUTH EVERY DAY FOR 30 DAYS Omeprazole 20 MG TAKE 1 CAPSULE BY MO UT EVERY DAY 30 MINUTES BEFORE MORNING MEAL Tadalafil 20 MG 1 tablet as needed O rally Once a day for 10 days 12/05/2024 04/03/2025 Meloxicam 7.5 MG TAKE 1 TABLET BY MOUTH EVERY DAY Senna-Time 8.6 MG 2 tablets at bedtime as needed Orally Once a day Dutasteride 0.5 MG TAKE 1 CAPSULE BY MO UT EVERY DAY Oral Next Appt Details Follow Up: 3 Months, Reason: OV Provider Name:Dayton Valentin , 06/06/2025 09:00:00 AM, [address] [place] [address] [address], [place], [address], Provider Name:Dayton Valentin , 12/09/2025 02:00:00 PM, [address] [place] [address] [address], [place], [address], Progress Notes * Je YOUNGDOB:[birth year] (64 yo M)Acc No.[id number]:12/05/2024 Progress Notes Patient: Je CARRILOL Provider: Seth Valentin MD :1960 A ge:64 Y S ex:Male Date:12/05/2024 Address:[address] [place] [address] [place], [id number] Subjective: * Chief Complaints: * A nnual Exam * HPI: D epression Screening: Keli murillo returns at the age of 64 for his annual visit. He has just returned from a vacation in [place]. He recently saw the gastroenterology nurse who gave him senna for his abdominal discomfort and constipation. This caused diarrhea taking it twice a day. We reduced the dose frequency to a when necessary. He says his his left because of his inability to maintain an erection. He is taking dutasteride which can cause this. We made arrangements for him to go back to see urology. He recently had a negative prostate biopsy for an elevated PSA. PSA has now returned to normal. He was given prescription for tadalafil. He will continue on the dutasteride for now.He gives a history of what sounds like retrograded ejaculation. PHQ-9 L ittle interest or pleasure in doing things?Not at all F eeling down, depressed, or hopeless N ot at all T rouble falling or staying asleep, or sleeping too much N early every day F eeling tired or having little energy M ore than half the days P oor appetite or overeating N ot at all F eeling bad about yourself or that you are a failure, or have let yourself or your family down S everal days T rouble concentrating on things, such as reading the newspaper or watching television N ot at all M oving or speaking so slowly that other people could have noticed; or the opposite, being so fidgety or restless that you have been moving around a lot more than usual N ot at all T houghts that you would be better off or of hurting yourself in some way N ot at all T otal Score 6 I nterpretation M ild Depression C OVID-19 Screening: Questions H ave you had any new onset fever, chills, cough, congestion, sore throat, shortness of breath, muscle aches? N o S GOLDIE Questions: SDOH Questions I n the past year have you been worried about losing your housing? N o I n the past year have you or any family members you live with been unable to get any of the following when it was really needed? Check all that apply: N one F all Risk Screening: Fall History H ave you had any falls with injury in the past year? N o H ave you had two or more falls in the past year? N o F all Risk Assessment: N o falls in the past year * ROS: G eneral/Constitutional: pain o nly normal aches and pains. C hills d enies.?Fatigue a dmits. F ever d enies. E NT: Decreased hearing i n the right ear. R espiratory: Cough d enies. C ardiovascular: [...] l eft [place] arthroscopy 1995[place] 2 [place] [facility] [place] dental extractions cystoscopy and stent insertion left ureter for stone 04/2016lithotripsy 04/2016Right, Kidney stone removed 11/10/2016Knee surgery * Hospitalization/Major Diagno stic Procedure: N [...] Social History: T obacco Use: T obacco Control (Standard) T obacco use: N onsmoker A dditional Findings: Tobacco non-user A ggressive nonsmoker D rugs/Alcohol: D rugs H ave you used drugs other than those for medical reasons in the past 12 months? N o D rug/Alcohol: A CARMENZA-C (Standard) D id you have a drink containing alcohol in the past year? N o P oints 0 I nterpretation N egative H e is not a Catholic. He drinks one beer per week and does not smoke. 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 He is and has one daughter who is healthy. He was born in [place], [place]. * Medications: T akingMeloxicam 7.5 MG Tablet 1 tablet Orally Once a day Omeprazole 20 MG Capsule Delayed Release 1 capsule 1/2 to 1 hour before morning meal Orally Once a day Tamsulosin HCl 0.4 MG Capsule 1 capsule Orally Once a day Dutasteride 0.5 MG Capsule 1 capsule Orally Once a day Senna-Time 8.6 MG Tablet 2 tablets at bedtime as needed Orally Once a day Taking Meloxicam 7.5 MG Tablet 1 tablet Orally Once a day Taking Omeprazole 20 MG Capsule Delayed Release 1 capsule 1/2 to 1 hour before morning meal Orally Once a day Taking Tamsulosin HCl 0.4 MG Capsule 1 capsule Orally Once a day Taking Dutasteride 0.5 MG Capsule 1 capsule Orally Once a day Taking Senna-Time 8.6 MG Tablet 2 tablets at bedtime as needed Orally Once a day DiscontinuedpredniSONE 20 MG Tablet 1 tablet Orally Once a day Medication List reviewed and reconciled with the patientDiscontinued predniSONE 20 MG Tablet 1 tablet Orally Once a day Medication List reviewed and reconciled with the patient * Allergies: I nfluenza VaccinesNo Known Food Allergyno[Allergies Verified] Objective: * Vitals: H t: 70, Wt:179, BMI:25.68, BP:134/79, HR:82, RR:16, Temp:98.4, Oxygen sat %:96, Ht-cm: 177.8, Wt-k.19. * P ast Orders: Lab:Prostate Specific Antige n * Collection Date 12/03/2024 08/24/2024 02/29/2024 Collection Time 06:26 AM 06:14 AM 02:31 PM Order Date 12/03/2024 08/24/2024 02/29/2024 Prostate Specific Antigen 2.89 (Ref Range: <0.05-4.0 ng/mL) 4.08 H (Ref Range: <0.05-4.0 ng/mL) 6.36 H (Ref Range: <0.05-4.0 ng/mL) * Lab:Lipid Panel * Collection Date 12/03/2024 08/24/2024 01/24/2024 Collection Time 06:26 AM 06:14 AM 06:12 AM Order Date 12/03/2024 08/24/2024 01/24/2024 Triglycerides 194 H (Ref Range: <150 mg/dL) 185 H (Ref Range: <150 mg/dL) 128 (Ref Range: <150 mg/dL) Cholesterol 179 (Ref Range: <200 mg/dL) 191 (Ref Range: <200 mg/dL) 175 (Ref Range: <200 mg/dL) LDL Cholesterol Calculated 100 H (Ref Range: <100 mg/dL) 108 H (Ref Range: <100 mg/dL) 105 H (Ref Range: <100 mg/dL) HDL Cholesterol 41 (Ref Range: >40 mg/dL) 46 (Ref Range: >40 mg/dL) 45 (Ref Range: >40 mg/dL) * Lab:Comprehensive [place]. Pane l Fast * Collection Date 12/03/2024 08/24/2024 01/24/2024 Collection Time 06:26 AM 06:14 AM 06:12 AM Order Date 12/03/2024 08/24/2024 01/24/2024 Sodium 142 (Ref Range: 135-145 mmol/L) 144 (Ref Range: 135-145 mmol/L) 141 (Ref Range: 135-145 mmol/L) Bilirubin Total 0.6 (Ref Range: 0.0-1.0 mg/dL) 0.6 (Ref Range: 0.0-1.0 mg/dL) 0.6 (Ref Range: 0.0-1.0 mg/dL) Aspartate Amino Transferase 28 (Ref Range: 5-37 U/L) 28 (Ref Range: 5-37 U/L) 21 (Ref Range: 5-37 U/L) Alanine Aminotransferase 37 (Ref Range: 0-40 U/L) 38 (Ref Range: 0-40 U/L) 33 (Ref Range: 0-40 U/L) Total Protein 6.8 (Ref Range: 6.5-8.0 g/dL) 6.9 (Ref Range: 6.5-8.0 g/dL) 6.9 (Ref Range: 6.5-8.0 g/dL) Albumin Level 4.6 (Ref Range: 3.5-5.0 g/dL) 4.3 (Ref Range: 3.5-5.0 g/dL) 4.3 (Ref Range: 3.5-5.0 g/dL) Alkaline Phosphatase 76 (Ref Range: 39-117 U/L) 70 (Ref Range: 39-117 U/L) 75 (Ref Range: 39-117 U/L) Potassium 4.5 (Ref Range: 3.3-5.1 mmol/L) 4.1 (Ref Range: 3.3-5.1 mmol/L) 4.7 (Ref Range: 3.3-5.1 mmol/L) Chloride 109 H (Ref Range: 96-108 mmol/L) 112 H (Ref Range: 96-108 mmol/L) 109 H (Ref Range: 96-108 mmol/L) Carbon Dioxide 25 (Ref Range: 22-29 mmol/L) 25 (Ref Range: 22-29 mmol/L) 26 (Ref Range: 22-29 mmol/L) Anion Gap 13 (Ref Range: 12-20) 11 L (Ref Range: 12-20) 11 L (Ref Range: 12-20) Blood Urea Nitrogen 17 H (Ref Range: 9-16 mg/dL) 18 H (Ref Range: 9-16 mg/dL) 14 (Ref Range: 9-16 mg/dL) Creatinine 1.01 (Ref Range: 0.5-1.4 mg/dL) 1.00 (Ref Range: 0.5-1.4 mg/dL) 1.07 (Ref Range: 0.5-1.4 mg/dL) Estimated Glomerular Filt Rate > 60 > 60 > 60 Glucose Fasting 106 H (Ref Range: 60-99 mg/dL) 103 H (Ref Range: 60-99 mg/dL) 105 H (Ref Range: 60-99 mg/dL) Calcium 9.2 (Ref Range: 8.4-10.2 mg/dL) 9.3 (Ref Range: 8.4-10.2 mg/dL) 9.6 (Ref Range: 8.4-10.2 mg/dL) * Lab:Complete Blood Count Aut o Diff * Collection Date 12/03/2024 08/24/2024 02/29/2024 Collection Time 06:26 AM 06:14 AM 02:31 PM Order Date 12/03/2024 08/24/2024 02/29/2024 White Blood Count 5.7 (Ref Range: 4.8-10.8 X10*3/uL) 6.6 (Ref Range: 4.8-10.8 X10*3/uL) 7.1 (Ref Range: 4.8-10.8 X10*3/uL) Red Blood Count 5.22 (Ref Range: 4.60-5.80 X10*6/uL) 5.25 (Ref Range: 4.60-5.80 X10*6/uL) 5.00 (Ref Range: 4.60-5.80 X10*6/uL) Hemoglobin 15.8 (Ref Range: 14.0-18.0 g/dl) 15.7 (Ref Range: 14.0-18.0 g/dl) 15.1 (Ref Range: 14.0-18.0 g/dl) Hematocrit 45.8 (Ref Range: 42.0-52.0 %) 46.9 (Ref Range: 42.0-52.0 %) 43.9 (Ref Range: 42.0-52.0 %) Mean Corpuscular Volume 87.7 (Ref Range: 80.0-98.0 fL) 89.3 (Ref Range: 80.0-98.0 fL) 87.8 (Ref Range: 80.0-98.0 fL) Mean Corpuscular Hemoglobin 30.3 (Ref Range: 27.0-33.0 pg) 29.9 (Ref Range: 27.0-33.0 pg) 30.2 (Ref Range: 27.0-33.0 pg) Mean Corpuscular HGB Conc 34.5 (Ref Range: 31.0-36.0 g/dl) 33.5 (Ref Range: 31.0-36.0 g/dl) 34.4 (Ref Range: 31.0-36.0 g/dl) Red Cell Distribution Width 12.7 (Ref Range: 11.0-16.0 %) 13.2 (Ref Range: 11.0-16.0 %) 13.0 (Ref Range: 11.0-16.0 %) Platelet Count 164 (Ref Range: 160-400 X10*3/uL) 159 L (Ref Range: 160-400 X10*3/uL) 172 (Ref Range: 160-400 X10*3/uL) Mean Platelet Volume 9.7 (Ref Range: 9.4-12.4 fL) 9.6 (Ref Range: 9.4-12.4 fL) 9.2 L (Ref Range: 9.4-12.4 fL) Neutrophils Percent Auto 64.9 (Ref Range: 45-73 %) 66.4 (Ref Range: 45-73 %) 66.1 (Ref Range: 45-73 %) Imm Gran Pct Auto 0.7 H (Ref Range: 0.0-0.4 %) 0.8 H (Ref Range: 0.0-0.4 %) 0.4 (Ref Range: 0.0-0.4 %) Lymphocytes Percent Auto 26.6 (Ref Range: 20-40 %) 24.0 (Ref Range: 20-40 %) 25.4 (Ref Range: 20-40 %) Monocytes Percent Auto 6.5 (Ref Range: 2-11 %) 7.3 (Ref Range: 2-11 %) 7.3 (Ref Range: 2-11 %) Eosinophils Percent Auto 1.1 (Ref Range: 0-4 %) 1.2 (Ref Range: 0-4 %) 0.7 (Ref Range: 0-4 %) Basophils Percent Auto 0.2 (Ref Range: 0-2 %) 0.3 (Ref Range: 0-2 %) 0.1 (Ref Range: 0-2 %) NRBC Pct Auto 0.0 (Ref Range: 0.0-0.2 /100WBC) 0.0 (Ref Range: 0.0-0.2 /100WBC) 0.0 (Ref Range: 0.0-0.2 /100WBC) Neutrophils Absolute Auto 3.7 (Ref Range: 2.0-8.3 x10*3/uL) 4.4 (Ref Range: 2.0-8.3 x10*3/uL) 4.7 (Ref Range: 2.0-8.3 x10*3/uL) Imm Gran Abs Auto 0.04 H (Ref Range: 0.00-0.03 X10*3/uL) 0.05 H (Ref Range: 0.00-0.03 X10*3/uL) 0.03 (Ref Range: 0.00-0.03 X10*3/uL) Lymphocytes Absolute Auto 1.5 (Ref Range: 1.2-4.9 X10*3/uL) 1.6 (Ref Range: 1.2-4.9 X10*3/uL) 1.8 (Ref Range: 1.2-4.9 X10*3/uL) Monocytes Absolute Auto 0.4 (Ref Range: 0.1-1.2 X10*3/uL) 0.5 (Ref Range: 0.1-1.2 X10*3/uL) 0.5 (Ref Range: 0.1-1.2 X10*3/uL) Eosinophils Absolute Auto 0.1 (Ref Range: 0.0-0.4 X10*3/uL) 0.1 (Ref Range: 0.0-0.4 X10*3/uL) 0.1 (Ref Range: 0.0-0.4 X10*3/uL) Basophils Absolute Auto 0.0 (Ref Range: 0.0-0.2 X10*3/uL) 0.0 (Ref Range: 0.0-0.2 X10*3/uL) 0.0 (Ref Range: 0.0-0.2 X10*3/uL) NRBC Abs Auto 0.000 (Ref Range: 0.0-0.012 X10*3/uL) 0.000 (Ref Range: 0.0-0.012 X10*3/uL) 0.000 (Ref Range: 0.0-0.012 X10*3/uL) * Examination: G eneral Examination: GENERAL APPEARANCE: p leemiliana, well nourished, well developed, in no acute distress, calm and relaxed: overweight: man. HEAD: a traumatic, normocephalic. EYES: e nigel, perrla, anicteric, conjugate. EARS: N ormal anatomy was hearing loss on the right. NOSE: s eptum intact. ORAL CAVITY: n [...] sounds normal, no ascites, no organomegaly, no mass: overweight. RECTAL EXAM: n ot examined. MUSCULOSKELETAL: e xtremities unremarkable, no clubbing, cyanosis or edema. PERIPHERAL PULSES: n ormal. NEUROLOGIC: a lert and oriented, cranial nerves 2-12 grossly intact, deep tendon reflexes 2+ symmetrical, motor strength normal upper and lower extremities, sensory exam intact. PSYCH: a lert, oriented. Assessment: * Assessment: 1. E levated PSA - R97.2 (Primary) N otes :His PSA has now decreased to normal. He recently had a 12 core biopsy was prostate that showed all normal disease except for inflammation. 2 . G ERD (gastroesophageal reflux disease) - K21.9 N otes :His symptoms are well controlled with medication. No changes were necessary. 3 . B PH (benign prostatic hyperplasia) - N40.0 N otes :He arises from sleep once or twice a night to urinate. We have discussed lifestyle modifications he could make to reduce this. 4 . D egenerative joint disease - M19.90 N otes :He will continue on his use of ibuprofen. He was encouraged to stay active. 5 . U reterolithiasis - N20.1 N otes :He reports no kidney stones recently. The ddiscomfort with urinating is primarily urethral. 6 . C ardiomyopathy, unspecified type - I42.9 N otes :He is comfortable breathing room air. He has been to the information technology intern and no changes were made except to initiate rosuvastatin. I will follow him carefully. No changes are necessary today. 7 . E dentulous - K00.0 N otes :He has upper and lower dentures fit well and he has no difficulty eating and chewing. Plan: * Treatment: 2. G ERD (gastroesophageal [...] TAKE 1 CAPSULE BY MOUTH EVERY DAY, Oral; S tart Tadalafil Tablet, 20 MG, 1 tablet as needed, Orally, Once a day, 10 days, 10 Tablet, Refills 11. * Procedure Codes: 9 4760 MEASURE BLOOD OXYGEN LEVEL * Preventive Medicine: Counseling: C are goal follow-up plan: Counseling for abnormal BMI given Y es Above Normal BMI Follow-up D ietary management education, guidance, and counseling * Follow Up: 3 Months (Reason: OV) * Images: * Sign off status: Completed true * Provider: Seth Valentin MD Date: 0 12/05/2024 Generated for Valerie yarbrough/Leo/Shakeelitting on: 05/08/2024 10:32 AM EST History and Physical Notes * HPI (History of Present Illness) Category Sub-Category Detail Notes Depression Screening PHQ-9 Little inte rest or pleasure in doing things: Not at all Feeling down, depressed, or hopeless: No t at all Trouble falling or staying asleep, or sl eeping too much: Nearly every day Feeling tired or having little energy: M ore than half the days Poor appetite or overeating: Not at all Feeling bad about yourself o r that you are a failure, or have let yourself or your family down: Several days Trouble concentrating on thi ngs, such as reading the newspaper or watching television: Not at all Moving or speaking so slowly that other people could have noticed; or the opposite, being so fidgety or restless that you have been moving around a lot more than usual: Not at all Thoughts that you would be b raysa off or of hurting yourself in some way: Not at all Total Score: 6 Interpretation: Mild Depression Fall Risk Screening Fall History Have you had any falls with injury in the past year?: No Have you had two or more falls in the year?: No Fall Risk Assessment:: No falls in the year COVID-19 Screening Questions Have you had any new onset fever, chills, cough, congestion, sore throat, shortness of breath, muscle aches?: No SDOH Questions SDOH Questions In the past year have you been worried about losing your housing?: No In the past year have you or any family members you live with been unable to get any of the following when it was really needed? Check all that apply:: None Examination Category Sub-Category Detail Notes General Examination GENERAL APPEARANCE: pleasant , well nourished, well developed, in no acute distress, calm and relaxed: overweight: man HEAD: atraumatic, normocep halic EYES: eomi, perrla, anicte sage, conjugate EARS: Normal anatomy was h earing loss on the right NOSE: septum intact NECK/THYROID: no jugular venous di stention, no carotid bruit, thyroid normal HEART: no clicks, gallops, murmurs, or rubs, regular rhythm, S1, S2 normal, no s3, or vascular bruits LUNGS: clear to auscultatio n ABDOMEN: bowel sounds normal, no ascites, no organomegaly, no mass: overweight NEUROLOGIC: alert and oriented, cranial nerves [...]
--- OUTSIDE RECORDS SUMMARY | 2025-03-06 05:15 | XMS_ITS ---
Author Organization Dayton Valentin III, MD Address [address] [place] [address] Care Team Providers Care Print Support Specialist Name Role Phone Dr. Dayton Valentin III Primary Care Provider Allergies Allergen (clinical drug ingredient) Drug/Non Drug Allergy documented on EMR Reaction Allergy Type Onset Date Status No Known Food Allergy Unknown Drug Allergy Active Vaccine product containing Influenza virus antigen (medicinal product) Influenza Vaccines Unknown Drug Allergy Ac tive REASON FOR VISIT Hematuria, Osteoarthritis, GERD, Ureterolithiasis, Benign prostatic hypertrophy, Hearing loss, Migraine headaches, Hyperlipidemia Medications Medication SIG (Take, Route, Fr equency, [...] BY MO UTH EVERY DAY Oral Active Tadalafil 20 MG 1 tablet as needed O rally Once a day 12/05/2024 Active Social History Tobacco Use: Social History Observation Description Date Details (start date - stop date) Never Smoker NA - NA Sex Assigned At : Social History Observation Description Sex Assigned At Male Tobacco Control (Standard) Question Answer Notes Tobacco use: Nonsmoker Additional Findings: Tobacco non-user Aggressive nonsmoker Vital Signs Temperature 98.2 degrees Fahrenheit 03/06/20 25 Blood pressure systolic 134 mm Hg 03/06/20 25 Blood pressure diastolic 68 mm Hg 025 Heart Rate 61 /min 03/06/2025 Height 70 in 03/06/2025 Weight 179 lbs 03/06/2025 BMI 25.68 kg/m2 03/06/2025 Encounters Encounter Location Date Provider Diagnosis Dayton Valentin III, MD [address] [place] [address] [place] [address] 03/06/2025 Dayton Valentin Overweight E66.3 ; Degenerative joint disease M19.90 ; Edentulous K00.0 ; GERD (gastroesophageal reflux disease) K21.9 ; Ureterolithiasis N20.1 ; BPH (benign prostatic hyperplasia) N40.0 ; Other specified hearing loss of both ears H91.8X3 ; Migraine without aura and without status migrainosus, not intractable G43.009 ; Vasculogenic erectile dysfunction, unspecified vasculogenic erectile dysfunction type N52.9 and Elevated PSA R97.2 Assessments Encounter Date Diagnosis (ICD Code) Assessment Notes Treat ment Notes Treatment Clinical Notes 03/06/2025 Overweight (ICD-10 - E66.3) His body mass index is 27. His weight is stable. We discussed a diet that would result in weight loss of one half of a pound per week. 03/06/2025 Degenerative joint disease (ICD-10 - M19.90) He will continue on his use of ibuprofen. He was encouraged to stay active. 03/06/2025 Edentulous (ICD-10 - K00.0) He has upper and lower dentures fit well and he has no difficulty eating and chewing. 03/06/2025 GERD (gastroesophage al reflux disease) (ICD-10 - K21.9) His symptoms are well controlled with medication. No changes were necessary. 03/06/2025 Ureterolithiasis (ICD-10 - N20.1) He reports no kidney stones recently. The ddiscomfort with urinating is primarily urethral. 03/06/2025 BPH (benign prostati c hyperplasia) (ICD-10 - N40.0) He arises from sleep once or twice a night to urinate. We have discussed lifestyle modifications he could make to reduce this. 03/06/2025 Other specified hearing loss of both ears (ICD-10 - H91.8X3) He is involved with the ear, nose and throat physicians in the testing him to see what therapy is indicated. 03/06/2025 Migraine without aur a and without status migrainosus, not intractable (ICD-10 - G43.009) He has had no further migraine headaches since February 16, 2018. In the emergency room. If it returns. She will call me once. 03/06/2025 Vasculogenic erectil e dysfunction, unspecified vasculogenic erectile dysfunction type (ICD-10 - N52.9) He was given a prescription for Viagra. 03/06/2025 Elevated PSA (ICD-10 - R97.2) His PSA has now decreased to normal. He recently had a 12 core biopsy was prostate that showed all normal disease except for inflammation. Plan Of Treatment Medication Medication Name Sig Start Date Stop Date Notes Senna-Time 8.6 MG 2 tablets at bedtime as needed Orally Once a day Meloxicam 7.5 MG TAKE 1 TABLET BY MOUTH EVERY DAY Omeprazole 20 MG TAKE 1 CAPSULE BY MO UT EVERY DAY 30 MINUTES BEFORE MORNING MEAL Tamsulosin HCl 0.4 MG TAKE 1 CAPSULE BY MOUTH EVERY DAY FOR 30 DAYS predniSONE 20 MG 1 tablet Orally Once a day 01/31/2024 Dutasteride 0.5 MG TAKE 1 CAPSULE BY MO UT EVERY DAY Oral Tadalafil 20 MG 1 tablet as needed Orally Once a day 12/05 Pending Test Test Name Order Date PROFILE, FASTING (COMPREHENSIVE METABOLI C) 03/06/2025 PSA, TOTAL 03/06/2025 CBC w DIFF 03/06/2025 Lipid Panel 03/06/2025 Next Appt Details Follow Up: 3 Months, Reason: OV Provider Name:Dayton Valentin , 06/06/2025 09:00:00 AM, [address] [place] [address] [address], [place], [address], Provider Name:Dayton Valentin , 12/09/2025 02:00:00 PM, [address] [place] [address] [address], [place], [address], Progress Notes * Je HERNANDEZDOB:[birth year] (64 yo M)Acc No.[id number]:03/06/2025 Progress Notes Patient: Je CARRILLO Provider: Seth Valentin MD :1960 A ge:64 Y S ex:Male Date:03/06/2025 Address:[address] [place], [place] [id number] Subjective: * Chief Complaints: * H ematuriaOsteoarthritisGERDUreterolithiasisBenign prostatic hypertrophyHearing lossMigraine headachesHyperlipidemia * HPI: C OVID-19 Screening: Keli murillo has been referred to urology for microscopic hematuria and an elevated PSA. He is going to have an ultrasound of his urogenital tract February 28, 2025 followed by a cystoscopy March 22, 2025. His most recent PSA is 2.36. Esophageal reflux has been well controlled with medications lately. He has been rising from sleep 3 times a night to urinate. A urological evaluation and treatment are pending. He has had surgery on his left knee in the past and it no longer is significantly painful. He denies any new complaints. His hearing loss is stable. His vital signs were unremarkable today. Questions H ave you had any new onset fever, chills, cough, congestion, sore throat, shortness of breath, muscle aches? N o * ROS: G eneral/Constitutional: pain o nly [...] enies. D iarrhea d enies. H eartburn c ontrolled with medications. N ausea d enies. R ectal bleeding d enies. V omiting d enies. H ematology: bruising d enies. p etechiae d enies. S wollen glands n one have been noted. G enitourinary: Frequent urination t hree times a night. M usculoskeletal: Muscle aches d [...] l eft knee arthroscopy 1995colonoscopy 2 polyps [facility] June 2011complete dental extractions cystoscopy and stent insertion left ureter for stone 04/2016lithotripsy 04/2016Right, Kidney stone removed 11/10/2016Knee surgery Prostate IF, [facility], benign disease * Hospitalization/Major Diagno stic Procedure: N o [...] dditional Findings: Tobacco non-user A ggressive nonsmoker H e is not a Protestant. He drinks one beer per week and does not smoke. 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 He is and has one daughter who is healthy. He was born in [place], [place]. * Medications: T akingOmeprazole 20 MG Capsule Delayed Release TAKE 1 CAPSULE BY MOUTH EVERY DAY 30 MINUTES BEFORE MORNING MEAL Tamsulosin HCl 0.4 MG Capsule TAKE 1 CAPSULE BY MOUTH EVERY DAY FOR 30 DAYS predniSONE 20 MG Tablet 1 tablet Orally Once a day Dutasteride 0.5 MG Capsule TAKE 1 CAPSULE BY MOUTH EVERY DAY Oral Tadalafil 20 MG Tablet 1 tablet as needed Orally Once a day , stop date 04/03/2025Senna-Time 8.6 MG Tablet 2 tablets at bedtime as needed Orally Once a day Meloxicam 7.5 MG Tablet TAKE 1 TABLET BY MOUTH EVERY DAY Medication List reviewed and reconciled with the patientTaking Omeprazole 20 MG Capsule Delayed Release TAKE 1 CAPSULE BY MOUTH EVERY DAY 30 MINUTES BEFORE MORNING MEAL Taking Tamsulosin HCl 0.4 MG Capsule TAKE 1 CAPSULE BY MOUTH EVERY DAY FOR 30 DAYS Taking predniSONE 20 MG Tablet 1 tablet Orally Once a day Taking Dutasteride 0.5 MG Capsule TAKE 1 CAPSULE BY MOUTH EVERY DAY Oral Taking Tadalafil 20 MG Tablet 1 tablet as needed Orally Once a day , stop date 04/03/2025Taking Senna-Time 8.6 MG Tablet 2 tablets at bedtime as needed Orally Once a day Taking Meloxicam 7.5 MG Tablet TAKE 1 TABLET BY MOUTH EVERY DAY Medication List reviewed and reconciled with the patient * Allergies: I nfluenza VaccinesNo Known Food Allergyno[Allergies Verified] Objective: * Vitals: H t: 70, Wt:179, BMI:25.68, BP:134/68, HR:61, Temp:98.2, Ht-cm: 177.8, Wt-k.19. * P ast Orders: Lab:Prostate Specific Antige n * Collection Date 01/09/2025 12/03/2024 08/24/2024 Collection Time 06:08 AM 06:26 AM 06:14 AM Order Date 01/09/2025 12/03/2024 08/24/2024 Prostate Specific Antigen 2.36 (Ref Range: <0.05-4.0 ng/mL) 2.89 (Ref Range: <0.05-4.0 ng/mL) 4.08 H (Ref Range: <0.05-4.0 ng/mL) * Examination: G eneral Examination: GENERAL APPEARANCE: p leasant, well nourished, well developed, in no acute distress, calm and relaxed: overweight: man. HEAD: a traumatic, normocephalic. EYES: e nigel, perrla, anicteric, conjugate. EARS: : Normal anatomy with bilateral hearing loss. NOSE: s eptum intact. ORAL CAVITY: n ormal, unremarkable, Edentulous with dentures. NECK/THYROID: n o jugular venous distention, no [...] a lert, oriented. Assessment: * Assessment: 1. O verweight - E66.3 (Primary) N otes :His body mass index is 27. His weight is stable. We discussed a diet that would result in weight loss of one half of a pound per week. 2 . D egenerative joint disease - M19.90 N otes :He will continue on his use of ibuprofen. He was encouraged to stay active. 3 . E dentulous - K00.0 N otes :He has upper and lower dentures fit well and he has no difficulty eating and chewing. 4 . G ERD (gastroesophageal reflux disease) - K21.9 N otes :His symptoms are well controlled with medication. No changes were necessary. 5 . U reterolithiasis - N20.1 N otes :He reports no kidney stones recently. The ddiscomfort with urinating is primarily urethral. 6 . B PH (benign prostatic hyperplasia) - N40.0 N otes :He arises from sleep once or twice a night to urinate. We have discussed lifestyle modifications he could make to reduce this. 7 . O ther specified hearing loss of both ears - H91.8X3 N otes :He is involved with the ear, nose and throat physicians in the testing him to see what therapy is indicated. 8 . M igraine without aura and without status migrainosus, not intractable - G43.009 N otes :He has had no further migraine headaches since February 16, 2018. In the emergency room. If it returns. She will call me once. 9 . V asculogenic erectile dysfunction, unspecified vasculogenic erectile dysfunction type - N52.9 N otes :He was given a prescription for Viagra. 1 0. E levated PSA - R97.2 N otes :His PSA has now decreased to normal. He recently had a 12 core biopsy was prostate that showed all normal disease except for inflammation. Plan: * Treatment: 2. O thers Continue Meloxicam Tablet, 7.5 MG, [...] 1 CAPSULE BY MOUTH EVERY DAY, Oral; C ontinue Tadalafil Tablet, 20 MG, 1 tablet as needed, Orally, Once a day. * Procedure Codes: * Preventive Medicine: Counseling: C are goal follow-up plan: Counseling for abnormal BMI given Y es Above Normal BMI Follow-up D ietary management education, guidance, and counseling * Follow Up: 3 Months (Reason: OV) * Images: * Sign off status: Completed true * Provider: Seth Valentin MD Date: 05/06/2024 Generated for Valerie yarbrough/Leo/Shakeelitting on: 05/08/2024 10:31 [...] EYES: eomi, perrla, anicte sage, conjugate EARS: : Normal anatomy wit h bilateral hearing loss NOSE: septum intact NECK/THYROID: no [...] oriented ORAL CAVITY: normal, unremarkable , Edentulous with dentures
--- NOTE | ~2025-03-08 | US_ITS ---
CLINICAL HISTORY: N40.1 - Benign prostatic hyperplasia with lower urinary tract symptoms US kidneys with transabdominal imaging of the urinary bladder. Comparison: None Findings: Right kidney normal size and echotexture, 11.7 cm length. No hydronephrosis. Normal color flow. There are 2 small lower pole cysts measuring up to 9 mm and 7 mm maximal dimension. Left kidney normal size and echotexture, 11.9 cm length. No hydronephrosis. Normal color flow. A small lower pole cyst measuring up to 9 mm maximal dimension is present. Prevoid urinary bladder volume measures 433 mL. Postvoid bladder volume measures 395 mL (pals specialist notes report patient unable to void despite 2 attempts). Bladder wall thickening with a thickness measured at 7-8 mm is present. Prostate volume measures 40.1 cc Impression: 1. Normal kidneys. 2. Prostatomegaly as described above. Bladder distention, with patient unable to void as described above. This document has been electronically signed by: Sage Ngo MD on 03/08/2025 15:39:35
--- OUTSIDE RECORDS SUMMARY | 2025-03-08 10:32 | XMS_ITS | Patient Health Record ---
Author Organization Dayton Valentin III, MD Address [address] [place] [address] Care Team Providers Care Auxiliary Engineer Name Role Phone Dr. Dayton Valentin [...] Total Reviewed date:03/15/2024 02:54:07 PM Interpretation: Performing Lab:[facility], [address] [place] [phone] Notes/Report: results Prostate Specific Ag Total 7.2 [...] 30 93 9 (3)Yohanaona et al.:ROSALIND 277: 1343-9418 (1996) (4)Catalona et al.:ROSALIND 279: 5850-7894 (1997) (x)These estimates vary with age, ethnicity, [...] of disease. THIS TEST WAS PERFORMED AT: [facility] [address] [address] ELIDA PEREZ MD Free Prostate Spec Ag 2.3 PSA Free and Total Reviewed date:03/15/2024 02:54:07 PM Interpretation: Performing Lab:[facility], [address] [place] [address] Notes/Report: Prostate Specific Ag Total 6.7 < OR = 4.0 ng/mL Percent Free Prostate Spec Ag 27 >25 % (calc) PSA(ng/mL) Free PSA(%) Estimated(x) Probability of Cancer(as%) 0-2.5 (*) Approx. 1 2.6-4.0(1) 0-27(2) 24(3) 4.1-10(4) 0-10 56 11-15 28 16-20 20 21-25 16 >or =26 8 >10(+) N/A >50 References:(1)Daniel a et al.:Urology 60: 469-474 (2001) (2)Rigoberto et al.:J.Urol 168: 922-925 (2001) Free PSA(%) Sensitivity(%) Specificity(%) < or = 25 85 19 < or = 30 93 9 (3)Rigoberto et al.:ROSALIND 277: 1121-4580 (1996) (4)Catalona et al.:ROSALIND 279: 6797-2304 (1997) (x)These estimates vary with age, ethnicity, [...] mind. PSA was performed using the Cecelia Welch Immunoassay method. Values obtained from different assay methods cannot be used interchangeably. PSA levels, regardless of value, should not be interpreted as absolute evidence of the presence or absence of disease. THIS TEST WAS PERFORMED AT: [facility] [address] [address] ELIDA PEREZ MD Free Prostate Spec Ag 1.8 Pathology Reviewed date:06/03/2024 09:11:29 AM Interpretation: Performing Lab:[facility], [address] [place] [phone] Notes/Report: - -------- Name: Sarabjit Hernandez pancho Cohen Age/Sex: 64/M : 1960 Unit#: [id number] Attend Dr: Brandon Morrison MD Re05/22/24 Status : [facility] Location: [place] Disch: - -------- SPEC : [id number] RECD: 05/22/24 STATUS: IDALIA NGUYEN NUM: [id number] DHARMESH: 05/22/[address] [facility] [address]: Brandon Morrison MD ENTERED: 05/22/24 SP TYPE: Surgical OTHR DR: Dayton Valentin [...] tissue; no malignancy identified. G: Right base lateral: Benign prostatic tissue; no malignancy identified. H: Right base medial : Benign prostatic tissue; no malignancy identified. I: Right mid lateral : Benign prostatic tissue; no malignancy identified. J: Right mid medial: Benign prostatic tissue; no malignancy identified. K: Right apex lateral: Benign prostatic tissue; no malignancy identified. L: [...] Left apex lateral CONTINUED ON NEXT PAGE - -------- Name: Sarabjit Hernandez Age/Sex: 64/M : 1960 [facility]#: [id number] Unit#: [id number] Attend Dr: Brandon Morrison MD Re05/22/24 Status : [facility] Location: [facility] Disch: - -------- SPEC : [id number] RECD: 05/22/24-1033 STATUS: IDALIA NGUYEN NUM: [id number] DHARMESH: 05/22/2443 [facility] [address]: Brandon Morrison MD ENTERED: 05/22/24-3 SP TYPE: Surgical OTHR DR: Dayton Valentin [...] of 0.025 cm which are entirely submitted for microscopic examination, 2 pieces in cassette A. B. Received in formalin labeled ?left base medial? are 2 cylindrical portions of white soft tissue measuring 0.5 and 0.7 cm in length both with a diameter of 0.025 cm which are entirely submitted for microscopic examination, 2 pieces in cassette B. [...] of 0.025 cm which are entirely submitted for microscopic examination, 2 pieces in cassette F. [...] in cassette H. CONTINUED ON NEXT PAGE - -------- Name: Sarabjit Hernandez pancho Cohen Age/Sex: 64/M : 1960 Unit#: [id number] Attend Dr: Brandon Morrison MD Re05/22/24 Status : [facility] Location: [facility] Disch: - -------- SPEC : [id number] RECD : 05/22/24 STATUS: IDALIA NGUYEN NUM: [id number] DHARMESH: 05/22/[address] [facility] [address]: Brandon Morrison MD ENTERED: 05/22/24 SP TYPE: Surgical OTHR DR: Dayton Valentin MD ORDERED: Multiplex IHC/3, PIN4/4, Prostate biopsy/12 Gross Description (Continued) I. Received in formalin labeled ?right mid lateral? are 2 cylindrical portions of white soft tissue measuring 0.7 and 0.8 cm in length both with a diameter of 0.025 cm which are entirely submitted for microscopic examination, 2 pieces in cassette eye. [...] of 0.025 cm which are entirely submitted for microscopic examination, 2 pieces in cassette [facility] This case was reviewed intradepartmentally. Special studies ordered and performed: PIN4 multiplex immunostains on F, G and H Copies To: Brandon Morrison MD [facility] [address] [place] [address] [place] [address] [email or web address] Dayton Valentin MD [address] [place] [address], [address] [place], [place] [id number] - -------- Signed (signature on file) Robby Ibarra MD 05/25/24 1746 - -------- END OF REPORT Complete Blood Count Auto Di ff Reviewed date:08/28/2024 09:17:53 AM Interpretation: Performing Lab:[facility], [address] [place] [phone] Notes/Report: White Blood Count 6.6 4.8-10.8 X10*3/uL [...] NRBC Abs Auto 0.000 0.0-0.012 X10*3/uL Comprehensive [place]. Panel Fa st Reviewed date:08/28/2024 09:17:53 AM Interpretation: Performing Lab:[facility], [address] [place] [phone] Notes/Report: Sodium 144 135-145 mmol/L Potassium 4.1 [...] Panel Reviewed date:08/28/2024 09:17:53 AM Interpretation: Performing Lab:[facility], [address] [place] [phone] Notes/Report: Triglycerides 185 <150 mg/dL Desirable Triglyceride: [...] Antigen Reviewed date:08/28/2024 09:17:53 AM Interpretation: Performing Lab:[facility], [address] [place] [address] Notes/Report: Prostate Specific Antigen 4.08 <0.05-4.0 ng/mL PSA methodology: Meade Alinity i Chemiluminescent Microparticle Immunoassay (CMIA) Complete Blood Count Auto Di ff Reviewed date:12/05/2024 02:14:01 PM Interpretation: Performing Lab:[address] [address] Notes/Report: White Blood Count 5.7 4.8-10.8 X10*3/uL [...] NRBC Abs Auto 0.000 0.0-0.012 X10*3/uL Comprehensive [place]. Panel Fa st Reviewed date:12/05/2024 02:14:01 PM Interpretation: Performing Lab:[facility], [address] [place] [phone] Notes/Report: Sodium 142 135-145 mmol/L Potassium 4.5 [...] Panel Reviewed date:12/05/2024 02:14:01 PM Interpretation: Performing Lab:[facility], [address] [place] [address] Notes/Report: Triglycerides 194 <150 mg/dL Desirable Triglyceride: [...] Antigen Reviewed date:12/05/2024 02:14:01 PM Interpretation: Performing Lab:[facility], [address] [place] [phone] Notes/Report: Prostate Specific Antigen 2.89 <0.05-4.0 ng/mL PSA methodology: Meade Alinity i Chemiluminescent Microparticle Immunoassay (CMIA) Prostate Specific Antigen Reviewed date:02/03/2025 07:36:21 AM Interpretation: Performing Lab:[facility], [address] [place] [phone] Notes/Report: Prostate Specific Antigen 2.36 <0.05-4.0 ng/mL PSA methodology: Meade Alinity i Chemiluminescent Microparticle Immunoassay (CMIA) Reason For Referral Reason elevated PSA and Kevin e PSA recent prostatism evaluate and treat Diagnosis 1 BPH (benign prostati c hyperplasia) (N40.0) Diagnosis 2 Elevated PSA (R97.20 ) Referral Organization Dayton Valentin III, MD Referring Provider First Name Dayton Referring Provider Last Name Barbie Referring Provider Speciality Internal M edicine Referred Provider Brandon Morrison Referred Provider Specialty Urology General Notes Maribell Hackett [facility] 03/19 11:47:08 AM > ref/demo/progress note / labs faxed to Dr Kramer office, Maribell Hackett [facility] 03/22/2024 01:48:58 PM >I called [facility] at [phone] spoke to Linda she gave me appt [...] Provider Speciality Internal M edicine Referred Provider [facility] er, Speech and Hearing Referred Provider Specialty Audiologists General Notes Tanya Aguirre 08/03/2024 09:19:13 AM > Faxed referral per request of patient. Referral Priority Routine Referral Appointment Date 08/22/2024 Medications Medication SIG (Take, Route, Fr equency, Duration) Notes Start Date End Date Status Dutasteride 0.5 MG TAKE 1 CAPSULE BY MO UT EVERY DAY Oral Active Tadalafil 20 MG 1 tablet as needed O rally Once a day 12/05/2024 Active Senna-Time 8.6 MG 2 tablets at bedtime as needed Orally Once a day Active Meloxicam 7.5 MG TAKE 1 TABLET BY BHARAT EVERY DAY Active Omeprazole 20 MG TAKE 1 CAPSULE BY MO UT EVERY DAY 30 MINUTES BEFORE MORNING MEAL Active Tamsulosin HCl 0.4 MG TAKE 1 CAPSULE BY MOUTH EVERY DAY FOR 30 DAYS Active predniSONE 20 MG 1 tablet Orally Once a day 2023 Active Immunizations Vaccine Route Administration Date Status [...] Problem Status W/U Status Risk Notes Problem 048503431 Overweight (E66.3) Active confirmed His body mass index is 27. His weight is stable. We discussed a diet that would result in weight loss of one half of a pound per week. Problem 032090167 GERD (gastroesophageal reflux disease) (K21.9) Active confirmed His symptoms are well controlled with medication. No changes were necessary. Problem Impacted cerumen (41210257) Impacted cerumen, unspecified ear (H61.20) Active confirmed He underwent bilateral warm more irrigation, which removed the free treated cerumen impaction. Both tympanic membranes appeared to be normal. He says his hearing was improved. He left the office annd stable condition to return as scheduled. Problem 22089250 Ureterolithiasis (N20.1) Active confirmed He reports no kidney stones recently. The ddiscomfort with urinating is primarily urethral. Problem 903299180 BPH (benign prostatic hyperplasia) (N40.0) Active confirmed He zakiya es from sleep once or twice a night to urinate. We have discussed lifestyle modifications he could make to reduce this. Problem 628669561 Elevated PSA (R97.2) Active confirmed His PSA has now decreased to normal. He recently had a 12 core biopsy was prostate that showed all normal disease except for inflammation. Problem 916601970 Edentulous (K00.0) Active confirmed He has upper and lower dentures fit well and he has no difficulty eating and chewing. Problem 649391191 Degenerative ever nt disease (M19.90) Active confirmed He will continue on his use of ibuprofen. He was encouraged to stay active. Problem 24940740 Colonic polyp (K63.5) Active confirmed He will undergo colonoscopy appropriately and at regular intervals. 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 Problem 8089721240913 Vasculogenic erectile dysfunction, unspecified vasculogenic erectile dysfunction type (N52.9) Active confirmed He was given a prescription for Viagra. Problem 582707137 Migraine without aura and without status migrainosus, not intractable (G43.009) Active confirmed He has had no further migraine headaches since February 16, 2018. In the emergency room. If it returns. She will call me once. Problem 77561312 Prepatellar burs itis of right knee (M70.41) Active confirmed I have explained to him the nature of the swelling. I told him to use a heating pad and ibuprofen and rest. The prognosis is good he should slowly return to normal. Vital Signs Heart Rate 61 /min 03/06/2025 Temperature 98.2 degrees Fahrenheit 03/06/2025 Respiratory Rate 16 /min 12/05/2024 Oximetry 96 % 12/05/2024 Blood pressure diastolic 68 mm Hg 03/06/2025 Height 70 in 03/06/2025 Blood pressure systolic 134 mm Hg 03/06/2025 Weight 179 lbs 03/06/2025 BMI 25.68 kg/m2 03/06/2025 Encounters Encounter Location Date Provider Diagnosis Dayton Valentin III, MD [address] [place] [address] [place] [address] 03/13/2024 Dayton Valentin BPH (benign prostati c hyperplasia) N40.0 ; Elevated PSA R97.20 ; GERD (gastroesophageal reflux disease) K21.9 ; Degenerative joint disease M19.90 ; Ureterolithiasis N20.1 and Overweight E66.3 Dayton Valentin III, MD [address] [place] [address] [place] [address] 06/05/2024 Dayton Valentin Inflammatory disease of prostate N41.9 ; Overweight E66.3 ; Vasculogenic erectile dysfunction, unspecified vasculogenic erectile dysfunction type N52.9 ; Migraine without aura and without status migrainosus, not intractable G43.009 ; Other specified hearing loss of both ears H91.8X3 ; BPH (benign prostatic hyperplasia) N40.0 ; Ureterolithiasis N20.1 and GERD (gastroesophageal reflux disease) K21.9 Dayton Valentin III, MD [address] [place] [address] [place] [address] 06/28/2024 Dayton Valentin BPH (benign prostati c hyperplasia) N40.0 ; Overweight E66.3 ; GERD (gastroesophageal reflux disease) K21.9 ; Edentulous K00.0 ; Degenerative joint disease M19.90 and Migraine without aura and without status migrainosus, not intractable G43.009 Dayton Valentin III, MD [address] [place] [address] [place] [address] 08/09/2024 Dayton Valentin Impacted cerumen, unspecified ear H61.20 ; Edentulous K00.0 ; Degenerative joint disease M19.90 ; GERD (gastroesophageal reflux disease) K21.9 ; Ureterolithiasis N20.1 ; Migraine without aura and without status migrainosus, not intractable G43.009 and Other specified hearing loss of both ears H91.8X3 Dayton Valentin III, MD [address] [place] [address] [place] [address] 08/28/2024 Dayton Valentin GERD (gastroesophage al reflux disease) K21.9 ; BPH (benign prostatic hyperplasia) N40.0 ; Overweight E66.3 ; Degenerative joint disease M19.90 ; Edentulous K00.0 ; Ureterolithiasis N20.1 ; Vasculogenic erectile dysfunction, unspecified vasculogenic erectile dysfunction type N52.9 ; Migraine without aura and without status migrainosus, not intractable G43.009 and Impacted cerumen, unspecified ear H61.20 Dayton Valentin III, MD [address] [place] [address] [place] [address] 12/05/2024 Dayton Valentin GERD (gastroesophage al reflux disease) K21.9 ; Elevated PSA R97.2 ; BPH (benign prostatic hyperplasia) N40.0 ; Degenerative joint disease M19.90 ; Ureterolithiasis N20.1 ; Cardiomyopathy, unspecified type I42.9 and Edentulous K00.0 Dayton Valentin III, MD [address] [place] [address] [place] [address] 03/06/2025 Dayton Valentin Overweight E66.3 ; Degenerative joint disease M19.90 ; Edentulous K00.0 ; GERD (gastroesophageal reflux disease) K21.9 ; Ureterolithiasis N20.1 ; BPH (benign prostatic hyperplasia) N40.0 ; Other specified hearing loss of both ears H91.8X3 ; Migraine without aura and without status migrainosus, not intractable G43.009 ; Vasculogenic erectile dysfunction, unspecified vasculogenic erectile dysfunction type N52.9 and Elevated PSA R97.2 Dayton Valentin III, MD [address] [place] [address] [place] [address] 07/02/2024 Dayton Valentin III, MD [address] [place] [address] [place] [address] 08/03/2024 Dayton Valentin Assessments Encounter Date Diagnosis [...] showed all normal disease except for inflammation. 03/06/2025 Overweight (ICD-10 - E66.3) His body mass index is 27. His weight is stable. We discussed a diet that would result in weight loss of one half of a pound per week. 03/06/2025 Degenerative joint disease (ICD-10 - M19.90) He will continue on his use of ibuprofen. He was encouraged to stay active. 03/13/2024 GERD (gastroesophage al reflux disease) (ICD-10 [...] he could make to reduce this. 03/06/2025 Edentulous (ICD-10 - K00.0) He has upper and lower dentures fit well and he has no difficulty eating and chewing. 03/13/2024 Degenerative joint disease (ICD-10 - M19.90) [...] He was encouraged to stay active. 03/06/2025 GERD (gastroesophage al reflux disease) (ICD-10 - K21.9) His symptoms are well controlled with medication. No changes were necessary. 03/13/2024 Ureterolithiasis (ICD-10 - N20.1) He reports no kidney stones recently. The ddiscomfort with urinating is primarily urethral. 06/05/2024 Other specified hearing loss of both ears (ICD-10 - H91.8X3) He is involved with the ear, nose and throat physicians in the testing him to see what therapy is indicated. 06/28/2024 Degenerative joint disease (ICD-10 - M19.90) He will continue on his use of ibuprofen. He was encouraged to stay active. 08/09/2024 Ureterolithiasis (ICD-10 - N20.1) He reports no kidney stones recently. The ddiscomfort with urinating is primarily urethral. 08/28/2024 Edentulous (ICD-10 - K00.0) He has upper and lower dentures fit well and he has no difficulty eating and chewing. 12/05/2024 Ureterolithiasis (ICD-10 - N20.1) He reports no kidney stones recently. The ddiscomfort with urinating is primarily urethral. 03/06/2025 Ureterolithiasis (ICD-10 - N20.1) He reports [...] She will call me once. 08/28/2024 Ureterolithiasis (ICD-10 - N20.1) He reports no kidney stones recently. The ddiscomfort with urinating is primarily urethral. 12/05/2024 Cardiomyopathy, unspecified type (ICD-10 - I42.9) He is comfortable breathing room air. He has been to the checkman and no changes were made except to initiate rosuvastatin. I will follow him carefully. No changes are necessary today. 03/06/2025 BPH (benign prostati c hyperplasia) (ICD-10 - N40.0) He arises from sleep once or twice a night to urinate. We have discussed lifestyle modifications he could make to reduce this. 06/05/2024 Ureterolithiasis (ICD-10 - N20.1) He reports no kidney stones recently. The ddiscomfort with urinating is primarily urethral. 08/09/2024 Other specified hearing loss of both ears [...] has no difficulty eating and chewing. 03/06/2025 Other specified hearing loss of both ears (ICD-10 - H91.8X3) He is involved with the ear, nose and throat physicians in the testing him to see what therapy is indicated. 06/05/2024 GERD (gastroesophage al reflux disease) (ICD-10 - K21.9) His symptoms are controlled with medication. He is sleeping well at night. 08/28/2024 Migraine without aur a and without status migrainosus, not intractable (ICD-10 - G43.009) He has had no further migraine headaches since February 16, 2018. In the emergency room. If it returns. She will call me once. 03/06/2025 Migraine without aur a and without [...] annd stable condition to return as scheduled. 03/06/2025 Vasculogenic erectil e dysfunction, unspecified vasculogenic erectile dysfunction type (ICD-10 - N52.9) He was given a prescription for Viagra. 03/06/2025 Elevated PSA (ICD-10 - R97.2) His PSA has now decreased to normal. He recently had a 12 core biopsy was prostate that showed all normal disease except for inflammation. Plan Of Treatment Pending Test Test Name Order Date URINE DIP STICK 11/11/2020 PROFILE, FASTING (COMPREHENSIVE METABOLI C) 06/17/2021 PROFILE, FASTING (COMPREHENSIVE METABOLI C) 03/06/2025 PROFILE, FASTING (COMPREHENSIVE METABOLI C) 08/19/2020 PROFILE, [...] C) 09/20/2023 PROFILE, FASTING (COMPREHENSIVE METABOLI C) 10/14/2020 PROFILE, FASTING (COMPREHENSIVE METABOLI C) 02/19/2020 PROFILE, FASTING (COMPREHENSIVE METABOLI C) 03/19/2022 PROFILE, FASTING (COMPREHENSIVE METABOLI C) 11/08/2017 PROFILE, RANDOM (COMPREHENSIVE METABOLIC ) 04/09/2019 HEMOGLOBIN [...] TOTAL 09/20/2023 PSA, TOTAL 06/17/2021 PSA, TOTAL 03/06/2025 PSA, TOTAL 03/13/2024 PSA, TOTAL 10/14/2020 PSA, TOTAL 08/19/2020 PSA, TOTAL 08/28/2024 PSA, TOTAL 06/17/2017 PSA, TOTAL 06/28/2024 PSA, TOTAL 12/18/2018 PSA, TOTAL 06/30/2022 PSA, TOTAL 06/19/2018 PSA, TOTAL+FREE 08/11/2021 PSA, TOTAL+FREE 12/24/2021 PSA, TOTAL SCREEN 12/28/2021 RHEUMATOID FACTOR (RA, RF) 04/09/2019 RHEUMATOID FACTOR (RA, RF) 11/23/2018 CBC w DIFF 06/19/2018 CBC w DIFF 03/19/2022 CBC w DIFF 09/20/2023 CBC w DIFF 11/08/2017 CBC w DIFF 02/19/2020 CBC w DIFF 06/17/2021 CBC w DIFF 03/06/2025 CBC w DIFF 04/09/2019 CBC w DIFF 10/14/2020 CBC w DIFF 10/24/2019 CBC w DIFF 08/19/2020 CBC w DIFF 08/28/2024 CBC w DIFF 12/28/2021 CBC w DIFF 06/17/2017 CBC w DIFF 04/21/2020 CBC w DIFF 06/28/2024 CBC w DIFF 12/18/2018 SED RATE (ESR) 06/30/2022 SED RATE (ESR) 04/09/2019 SED RATE (ESR) 11/23/2018 URINALYSIS (UA) 06/17/2021 TESTOSTERONE, TOTAL 11/23/2018 TESTOSTERONE, TOTAL 06/30/2022 TESTOSTERONE, TOTAL 04/09/2019 JASPAL (YUNG) 04/09/2019 JASPAL (YUNG) 11/23/2018 Sleep Study - Baseline 06/30/2022 Lipid Panel 06/28/2024 Lipid Panel 03/19/2022 Lipid Panel 03/06/2025 Lipid Panel 06/17/2021 Lipid Panel 08/28/2024 Next Appt Details Provider Name:Dayton Rodríguez Barbie , 06/06/2025 09:00:00 AM, [address] [facility] [address], [place], [address], Provider Name:Dayton Anne Barbie , 12/09/2025 02:00:00 PM, [address] [facility] [address], [place], [address], Insurance Providers Payer Name Payer Address Payer Phone Subscriber Number Group Number Insured Name Patient Relationship to Insured Coverage Start Date Coverage End Date MEDICARE NGS [address] [place] [address] [id number] Je Hernandez Self - patient is the insured 2 MEDICAID [place] [address] [place] [id number] Je Hernandez Self - patient is the insured Medical (General) History Medical History History ICD Code colonic polyps thrombocytopenia dental extractions degenerative joint disease left knee pertussis September 2012 pneumonia 15 years ago Hearing loss right ear left sided ureterolithiasis with renal c olic ureterolithiasis with lithotripsy 2016 ED Arthritis, Kidney stones, Enlarged prost ate, Elevated PSA levels Surgical History Surgery Date(Month/Year) Prostate IF, [facility], be nign disease Knee surgery Right, Kidney stone removed 11/10/2016 lithotripsy 04/2016 cystoscopy and stent insertion left uret er for stone 04/2016 complete dental extractions colonoscopy 2 polyps [facility] [place] left knee arthroscopy 1995 Hospitalization History Reason Date(Month/Year) No history
== END 2025-03-08 10:29 | disposition home or self-care (01) ==
LOC: HO.US 10:28
PROVIDERS: PCP Internal Medicine Medical Oncology; Visit Provider Urology
DX: N40.1 Benign prostatic hyperplasia with lower urinary tract symptoms (principal); R31.29 Other microscopic hematuria
CPT/HCPCS: 76770

== ENCOUNTER 2025-03-22 09:13 | Outpatient (AMB) | payer MEDICARE, MEDICAID, SELFPAY ==
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
== END 2025-03-22 10:18 | disposition home or self-care (01) ==
LOC: HO.HUSH 09:14
PROVIDERS: PCP Internal Medicine Medical Oncology; Visit Provider Urology
DX: R97.20 Elevated prostate specific antigen [PSA] (principal); N40.1 Benign prostatic hyperplasia with lower urinary tract symptoms; R31.29 Other microscopic hematuria; R33.9 Retention of urine, unspecified
CPT/HCPCS: 52000; 99214

== ENCOUNTER → 2025-03-22 09:13 | Outpatient (BNVA) | payer MEDICARE, MEDICAID, SELFPAY | PROVIDERS: PCP Internal Medicine Medical Oncology; Visit Provider Urology | DX: N40.1 Benign prostatic hyperplasia with lower urinary tract symptoms (principal); R33.9 Retention of urine, unspecified; R31.29 Other microscopic hematuria; R97.20 Elevated prostate specific antigen [PSA] | CPT/HCPCS: 52000; 81003; 99212 ==